=== PATIENT | male | born 1945 | race Caucasian/White ===

== ENCOUNTER 2020-04-19 23:34 | Outpatient (REF) | payer MEDICARE, OTHER, SELFPAY ==
[2020-04-20 10:55] LABS: SARS COV2 PCR INHOUSE NEGATIVE (Negative)
== END 2020-04-19 23:35 | disposition home or self-care (01) ==
LOC: HO.HSH3N 23:34
PROVIDERS: Visit Provider Internal Medicine Critical Care Medicine
DX: Z20.828 Contact with and (suspected) exposure to other viral communicable diseases (principal)
CPT/HCPCS: 87635

== ENCOUNTER 2020-05-05 07:46 | Outpatient (REF) | payer MEDICARE, OTHER, SELFPAY ==
[2020-05-05 10:04] LABS: Anion Gap 11 (12-20); Blood Urea Nitrogen 20 mg/dL (9-16); Carbon Dioxide 34 mmol/L (22-29); Chloride 103 mmol/L (96-108); Estimated Glomerular Filt Rate > 60; Glucose Fasting 84 mg/dL (60-99); Potassium 4.6 mmol/l (3.3-5.1); Sodium 143 mmol/L (135-145)
[2020-05-05 10:26] LABS: Vitamin D 25-OH Total 39.9 ng/mL (>30)
== END 2020-05-05 07:47 | disposition home or self-care (01) ==
LOC: HO.HSH3N 07:46
PROVIDERS: Visit Provider Internal Medicine
DX: J44.9 Chronic obstructive pulmonary disease, unspecified (principal); F03.90 Unspecified dementia, unspecified severity, without behavioral disturbance, psychotic disturbance, mood disturbance, and anxiety
CPT/HCPCS: 80051; 82306; 82565; 82947; 84520

== ENCOUNTER 2020-06-19 07:14 | Outpatient (REF) | payer MEDICARE, OTHER, SELFPAY ==
[2020-06-19 09:18] LABS: Anion Gap 9 (12-20); Blood Urea Nitrogen 15 mg/dL (9-16); Carbon Dioxide 35 mmol/L (22-29); Chloride 102 mmol/L (96-108); Estimated Glomerular Filt Rate > 60; Potassium 4.3 mmol/l (3.3-5.1); Sodium 142 mmol/L (135-145)
== END 2020-06-19 07:15 | disposition home or self-care (01) ==
LOC: HO.HSH3N 07:14
PROVIDERS: Visit Provider Internal Medicine
DX: J44.9 Chronic obstructive pulmonary disease, unspecified (principal); F03.90 Unspecified dementia, unspecified severity, without behavioral disturbance, psychotic disturbance, mood disturbance, and anxiety
CPT/HCPCS: 80051; 82565; 84520

== ENCOUNTER 2020-12-29 06:10 | Outpatient (REF) | payer MEDICARE, OTHER, SELFPAY ==
[2020-12-29 07:52] LABS: MANUAL DIFF FLAG NO
[2020-12-29 07:59] LABS: Basophils Percent Auto 0.5 % (0-2); Eosinophils Absolute Auto 0.5 X10*3/uL (0.0-0.4); Eosinophils Percent Auto 9.4 % (0-4); Hematocrit 44.9 % (42-52); Imm Gran Abs Auto 0.01 X10*3/uL (0.00-0.03); Imm Gran Pct Auto 0.2 % (0.0-0.4); Lymphocytes Absolute Auto 1.9 X10*3/uL (1.2-4.9); Mean Corpuscular HGB Conc 33.4 g/dl (31.0-36.0); Mean Corpuscular Hemoglobin 29.8 pg (27.0-33.0); Mean Corpuscular Volume 89.1 fL (80-98); Monocytes Absolute Auto 0.6 X10*3/uL (0.1-1.2); Monocytes Percent Auto 11.2 % (2-11); Neutrophils Absolute Auto 2.5 X10*3/uL (2.0-8.3); Neutrophils Percent Auto 44.7 % (45-73); Platelet Count 156 X10*3/uL (160-400); Red Blood Count 5.04 X10*6/uL (4.60-5.80); Red Cell Distribution Width 12.7 % (11.0-16.0); White Blood Count 5.6 X10*3/uL (4.8-10.8)
[2020-12-29 09:06] LABS: Alanine Aminotransferase 15 U/L (0-40); Albumin Level 3.6 g/dL (3.5-5.0); Alkaline Phosphatase 73 U/L (39-117); Anion Gap 12 (12-20); Aspartate Amino Transferase 24 U/L (5-37); Bilirubin Direct 0.2 mg/dL (0.0-0.5); Bilirubin Total 0.3 mg/dL (0.0-1.0); Blood Urea Nitrogen 15 mg/dL (9-16); Calcium 8.9 mg/dL (8.4-10.2); Carbon Dioxide 33 mmol/L (22-29); Chloride 103 mmol/L (96-108); Estimated Glomerular Filt Rate > 60; Glucose Fasting 111 mg/dL (60-99); Potassium 3.9 mmol/L (3.3-5.1); Sodium 144 mmol/L (135-145); Total Protein 6.1 g/dL (6.5-8.0)
[2020-12-29 09:29] LABS: Thyroid Stimulating Hormone 1.22 uIU/mL (0.32-4.0); Vitamin D 25-OH Total 38.7 ng/mL (>30)
== END 2020-12-29 06:11 | disposition home or self-care (01) ==
LOC: HO.HSH3N 06:10
PROVIDERS: Visit Provider Nurse Practitioner Acute Care
DX: N18.9 Chronic kidney disease, unspecified (principal); E55.9 Vitamin D deficiency, unspecified
CPT/HCPCS: 36415; 80053; 80076; 82248; 82306; 82947; 84443; 85025

== ENCOUNTER 2021-02-24 05:46 | Outpatient (REF) | payer MEDICARE, OTHER, SELFPAY ==
[2021-02-24 08:09] LABS: Anion Gap 10 (12-20); Blood Urea Nitrogen 15 mg/dL (9-16); Calcium 9.1 mg/dL (8.4-10.2); Carbon Dioxide 33 mmol/L (22-29); Chloride 101 mmol/L (96-108); Estimated Glomerular Filt Rate > 60; Glucose Fasting 117 mg/dL (60-99); Potassium 4.1 mmol/L (3.3-5.1); Sodium 140 mmol/L (135-145)
== END 2021-02-24 05:47 | disposition home or self-care (01) ==
LOC: HO.HSH3N 05:46
PROVIDERS: Visit Provider Nurse Practitioner Acute Care
DX: I10 Essential (primary) hypertension (principal)
CPT/HCPCS: 36415; 80048

== ENCOUNTER 2021-07-23 05:43 | Outpatient (REF) | payer MEDICARE, OTHER, SELFPAY ==
[2021-07-23 09:01] LABS: Valproate 10.3 mcg/mL (50.0-100.0)
== END 2021-07-23 05:44 | disposition home or self-care (01) ==
LOC: HO.HSH3N 05:43
PROVIDERS: Visit Provider Nurse Practitioner Acute Care
DX: F29 Unspecified psychosis not due to a substance or known physiological condition (principal); F91.9 Conduct disorder, unspecified; Z79.899 Other long term (current) drug therapy
CPT/HCPCS: 36415; 80164

== ENCOUNTER 2021-08-12 07:11 | Outpatient (REF) | payer MEDICARE, OTHER, SELFPAY ==
[2021-08-12 08:39] LABS: MANUAL DIFF FLAG NO
[2021-08-12 09:16] LABS: Basophils Absolute Auto 0.1 X10*3/uL (0.0-0.2); Basophils Percent Auto 0.7 % (0-2); Eosinophils Absolute Auto 0.7 X10*3/uL (0.0-0.4); Eosinophils Percent Auto 9.5 % (0-4); Hematocrit 46.6 % (42.0-52.0); Hemoglobin 15.6 g/dl (14.0-18.0); Imm Gran Abs Auto 0.02 X10*3/uL (0.00-0.03); Imm Gran Pct Auto 0.3 % (0.0-0.4); Lymphocytes Absolute Auto 2.2 X10*3/uL (1.2-4.9); Lymphocytes Percent Auto 32.1 % (20-40); Mean Corpuscular HGB Conc 33.5 g/dl (31.0-36.0); Mean Corpuscular Hemoglobin 30.1 pg (27.0-33.0); Mean Platelet Volume 10.2 fL (9.4-12.4); Monocytes Absolute Auto 0.7 X10*3/uL (0.1-1.2); Monocytes Percent Auto 10.7 % (2-11); Neutrophils Absolute Auto 3.2 x10*3/uL (2.0-8.3); Neutrophils Percent Auto 46.7 % (45-73); Platelet Count 178 X10*3/uL (160-400); Red Blood Count 5.18 X10*6/uL (4.60-5.80); Red Cell Distribution Width 12.9 % (11.0-16.0); White Blood Count 6.9 X10*3/uL (4.8-10.8)
[2021-08-12 09:21] LABS: INTERNATIONAL NORM RATIO 1.1 (0.9-1.1); Prothrombin Time 12.1 SEC (9.9-13.0)
[2021-08-12 09:46] LABS: Alanine Aminotransferase 20 U/L (0-40); Albumin Level 3.8 g/dL (3.5-5.0); Alkaline Phosphatase 65 U/L (39-117); Aspartate Amino Transferase 26 U/L (5-37); Bilirubin Direct 0.4 mg/dL (0.0-0.5); Bilirubin Total 0.8 mg/dL (0.0-1.0); Total Protein 6.4 g/dL (6.5-8.0)
[2021-08-12 10:10] LABS: Vitamin D 25-OH Total 44.8 ng/mL (>30)
== END 2021-08-12 07:12 | disposition home or self-care (01) ==
LOC: HO.HSH3N 07:11
PROVIDERS: Visit Provider Nurse Practitioner Acute Care
DX: I48.91 Unspecified atrial fibrillation (principal); I10 Essential (primary) hypertension
CPT/HCPCS: 36415; 80076; 82306; 85025; 85610

== ENCOUNTER 2021-12-02 06:00 | Outpatient (REF) | payer MEDICARE, SELFPAY ==
[2021-12-02 07:41] LABS: MANUAL DIFF FLAG NO
[2021-12-02 07:43] LABS: Basophils Absolute Auto 0.1 X10*3/uL (0.0-0.2); Eosinophils Absolute Auto 0.6 X10*3/uL (0.0-0.4); Eosinophils Percent Auto 9.1 % (0-4); Hematocrit 47.4 % (42.0-52.0); Imm Gran Abs Auto 0.02 X10*3/uL (0.00-0.03); Imm Gran Pct Auto 0.3 % (0.0-0.4); Lymphocytes Absolute Auto 2.6 X10*3/uL (1.2-4.9); Lymphocytes Percent Auto 37.3 % (20-40); Mean Corpuscular HGB Conc 33.8 g/dl (31.0-36.0); Mean Corpuscular Hemoglobin 30.7 pg (27.0-33.0); Mean Corpuscular Volume 90.8 fL (80.0-98.0); Mean Platelet Volume 10.4 fL (9.4-12.4); Monocytes Absolute Auto 0.8 X10*3/uL (0.1-1.2); Monocytes Percent Auto 11.1 % (2-11); Neutrophils Absolute Auto 2.8 x10*3/uL (2.0-8.3); Neutrophils Percent Auto 41.2 % (45-73); Platelet Count 184 X10*3/uL (160-400); Red Blood Count 5.22 X10*6/uL (4.60-5.80); Red Cell Distribution Width 12.7 % (11.0-16.0); White Blood Count 6.8 X10*3/uL (4.8-10.8)
[2021-12-02 07:57] LABS: Alanine Aminotransferase 19 U/L (0-40); Albumin Level 3.5 g/dL (3.5-5.0); Alkaline Phosphatase 66 U/L (39-117); Anion Gap 12 (12-20); Aspartate Amino Transferase 21 U/L (5-37); Bilirubin Total 0.5 mg/dL (0.0-1.0); Blood Urea Nitrogen 13 mg/dL (9-16); Calcium 9.3 mg/dL (8.4-10.2); Carbon Dioxide 31 mmol/L (22-29); Chloride 100 mmol/L (96-108); Estimated Glomerular Filt Rate > 60; Glucose Random 87 mg/dL (60-115); Magnesium 2.1 mg/dL (1.6-2.6); Potassium 4.1 mmol/L (3.3-5.1); Sodium 139 mmol/L (135-145); Total Protein 6.1 g/dL (6.5-8.0)
[2021-12-02 08:18] LABS: Thyroid Stimulating Hormone 1.58 uIU/mL (0.32-4.0)
== END 2021-12-02 06:01 | disposition home or self-care (01) ==
LOC: HO.HSH3N 06:00
PROVIDERS: Visit Provider Nurse Practitioner Acute Care
DX: Z13.89 Encounter for screening for other disorder (principal)
CPT/HCPCS: 36415; 80053; 83735; 84443; 85025

== ENCOUNTER 2021-12-30 05:34 | Outpatient (REF) | payer MEDICARE, OTHER, SELFPAY ==
[2021-12-30 09:09] LABS: Prostate Specific Antigen 0.29 ng/mL (<0.05-4.0); Vitamin D 25-OH Total 48.4 ng/mL (>30)
[2021-12-30 10:09] LABS: Vitamin B12 556 pg/mL (200-900)
== END 2021-12-30 05:35 | disposition home or self-care (01) ==
LOC: HO.HSH3N 05:34
PROVIDERS: Visit Provider Nurse Practitioner Acute Care
DX: F03.90 Unspecified dementia, unspecified severity, without behavioral disturbance, psychotic disturbance, mood disturbance, and anxiety (principal); I48.91 Unspecified atrial fibrillation; Z12.5 Encounter for screening for malignant neoplasm of prostate
CPT/HCPCS: 36415; 82306; 82607; 82746; 84153

== ENCOUNTER 2022-04-04 05:37 | Outpatient (REF) | payer MEDICARE, OTHER, SELFPAY ==
[2022-04-04 07:50] LABS: MANUAL DIFF FLAG NO
[2022-04-04 07:55] LABS: Basophils Absolute Auto 0.1 X10*3/uL (0.0-0.2); Basophils Percent Auto 0.9 % (0-2); Eosinophils Absolute Auto 0.5 X10*3/uL (0.0-0.4); Eosinophils Percent Auto 9.4 % (0-4); Hematocrit 40.1 % (42.0-52.0); Hemoglobin 13.6 g/dl (14.0-18.0); Imm Gran Abs Auto 0.01 X10*3/uL (0.00-0.03); Imm Gran Pct Auto 0.2 % (0.0-0.4); Lymphocytes Absolute Auto 1.8 X10*3/uL (1.2-4.9); Lymphocytes Percent Auto 33.2 % (20-40); Mean Corpuscular HGB Conc 33.9 g/dl (31.0-36.0); Mean Corpuscular Hemoglobin 30.1 pg (27.0-33.0); Mean Corpuscular Volume 88.7 fL (80.0-98.0); Mean Platelet Volume 10.6 fL (9.4-12.4); Monocytes Absolute Auto 0.6 X10*3/uL (0.1-1.2); Monocytes Percent Auto 11.6 % (2-11); Neutrophils Absolute Auto 2.4 x10*3/uL (2.0-8.3); Neutrophils Percent Auto 44.7 % (45-73); Platelet Count 177 X10*3/uL (160-400); Red Blood Count 4.52 X10*6/uL (4.60-5.80); Red Cell Distribution Width 12.3 % (11.0-16.0); White Blood Count 5.5 X10*3/uL (4.8-10.8)
[2022-04-04 09:09] LABS: Alanine Aminotransferase 11 U/L (0-40); Albumin Level 3.6 g/dL (3.5-5.0); Alkaline Phosphatase 80 U/L (39-117); Anion Gap 13 (12-20); Aspartate Amino Transferase 20 U/L (5-37); Bilirubin Total 0.5 mg/dL (0.0-1.0); Blood Urea Nitrogen 16 mg/dL (9-16); Calcium 9.2 mg/dL (8.4-10.2); Carbon Dioxide 33 mmol/L (22-29); Chloride 97 mmol/L (96-108); Cholesterol 127 mg/dL; Estimated Glomerular Filt Rate > 60; Glucose Fasting 91 mg/dL (60-99); HDL Cholesterol 30 mg/dL; LDL Cholesterol Calculated 75 mg/dl; Potassium 4.4 mmol/L (3.3-5.1); Sodium 139 mmol/L (135-145); Total Protein 6.2 g/dL (6.5-8.0); Triglycerides 113 mg/dL
[2022-04-04 09:23] LABS: Prostate Specific Antigen 1.81 ng/mL (<0.05-4.0); Valproate 22.7 mcg/mL (50.0-100.0); Vitamin D 25-OH Total 59.1 ng/mL (>30)
== END 2022-04-04 05:38 | disposition home or self-care (01) ==
LOC: HO.HSH3N 05:37
PROVIDERS: Visit Provider Internal Medicine Medical Oncology
DX: R63.4 Abnormal weight loss (principal); I10 Essential (primary) hypertension; E78.5 Hyperlipidemia, unspecified; Z12.5 Encounter for screening for malignant neoplasm of prostate; Z79.899 Other long term (current) drug therapy
CPT/HCPCS: 36415; 80053; 80061; 80164; 82306; 84153; 85025

== ENCOUNTER 2022-04-26 09:21 | Outpatient (REF) | payer MEDICARE, OTHER, SELFPAY ==
[2022-04-26 09:57] LABS: MANUAL DIFF FLAG NO
[2022-04-26 09:59] LABS: Basophils Percent Auto 0.3 % (0-2); Eosinophils Absolute Auto 0.1 X10*3/uL (0.0-0.4); Eosinophils Percent Auto 0.8 % (0-4); Hematocrit 43.7 % (42.0-52.0); Imm Gran Abs Auto 0.06 X10*3/uL (0.00-0.03); Imm Gran Pct Auto 0.5 % (0.0-0.4); Lymphocytes Absolute Auto 1.8 X10*3/uL (1.2-4.9); Lymphocytes Percent Auto 15.6 % (20-40); Mean Corpuscular HGB Conc 34.3 g/dl (31.0-36.0); Mean Corpuscular Hemoglobin 29.6 pg (27.0-33.0); Mean Corpuscular Volume 86.4 fL (80.0-98.0); Mean Platelet Volume 10.1 fL (9.4-12.4); Monocytes Absolute Auto 1.4 X10*3/uL (0.1-1.2); Monocytes Percent Auto 12.4 % (2-11); Neutrophils Percent Auto 70.4 % (45-73); Platelet Count 268 X10*3/uL (160-400); Red Blood Count 5.06 X10*6/uL (4.60-5.80); Red Cell Distribution Width 13.1 % (11.0-16.0); White Blood Count 11.4 X10*3/uL (4.8-10.8)
[2022-04-26 11:16] LABS: Anion Gap 20 (12-20); Blood Urea Nitrogen 59 mg/dL (9-16); Calcium 9.7 mg/dL (8.4-10.2); Carbon Dioxide 23 mmol/L (22-29); Chloride 95 mmol/L (96-108); Estimated Glomerular Filt Rate 21; Glucose Random 113 mg/dL (60-115); Potassium 4.2 mmol/L (3.3-5.1); Sodium 134 mmol/L (135-145)
== END 2022-04-26 09:22 | disposition home or self-care (01) ==
LOC: HO.HSH3N 09:21
PROVIDERS: Visit Provider Nurse Practitioner
DX: Z13.89 Encounter for screening for other disorder (principal)
CPT/HCPCS: 36415; 80048; 85025

== ENCOUNTER 2022-04-26 14:17 | Inpatient (IN) | payer OTHER, MEDICARE, SELFPAY ==
[2022-04-26] VITALS (9 sets, daily range): BP systolic 80–155; BP diastolic 48–84; PULSE 57–102; RESP 16–20; TEMP 36.4–36.6; O2SAT 94–98; BMI 28.0
--- NOTE | ~2022-04-26 | CT_ITS ---
EXAMINATION: CT ABDOMEN AND PELVIS WITHOUT CONTRAST CLINICAL INFORMATION: Abdominal pain. Rule out obstruction. COMPARISON: None TECHNIQUE: Multidetector volumetric imaging was performed from the superior aspect of the liver through the pubic symphysis. Sagittal and coronal reformatted images were obtained on the technologist's workstation. This CT examination was performed using dose optimization techniques as appropriate, variously including the following: *Automated exposure control *Adjustment of mA and/or kV according to patient size (this includes techniques or standardized protocols for targeted exams where dose is matched to indication/reason for exam; i.e. extremities or head) *Use of iterative reconstruction technique DLP: 899 mGy-cm FINDINGS: Exam is limited due to motion. LUNG BASES: Emphysematous changes at the lung bases. LIVER, GALLBLADDER, AND BILIARY TREE: The liver is normal in size, shape, and attenuation. No focal hepatic lesion or biliary ductal dilatation is present. The gallbladder is normal in size. There is high attenuation dependently in the gallbladder suggestive of small gallstones. PANCREAS: Unremarkable. SPLEEN: Unremarkable. ADRENAL GLANDS: Unremarkable. KIDNEYS AND URETERS: Small bilateral calcifications, question representing vascular calcifications as opposed to stones. 1.5 cm cyst in the upper pole of the left kidney. No imaging follow-up. No hydronephrosis, ureteral dilatation or ureteral stone. BLADDER: Unremarkable. GASTROINTESTINAL TRACT: There is severe diverticulosis of the colon. No evidence of diverticulitis. Small and large bowel are normal in caliber. They appear fluid-filled questionable for an ileus. The appendix is not seen. The stomach is distended and fluid-filled. ABDOMINAL WALL: No significant hernia is appreciated. LYMPH NODES: Normal. VASCULAR: Atherosclerotic disease. Mild dilatation of the lower abdominal aorta measuring 2.8 x 3.3 cm. PELVIC VISCERA: Unremarkable. OSSEOUS STRUCTURES: Degenerative changes of the spine and hip joints. CT/CT abdomen pelvis wo IV con IMPRESSION: Limited exam due to motion. Severe diverticulosis of the colon. No evidence of diverticulitis. Small bilateral renal calcifications probably representing vascular calcifications as opposed to stones. No hydronephrosis, ureteral dilatation or ureteral stone. Fluid-filled stomach, small bowel and large bowel probably representing an ileus. No dilated loops of bowel to suggest obstruction. Fleischner guidelines were followed.
--- NOTE | ~2022-04-26 | XR_ITS ---
EXAMINATION: XR CHEST CLINICAL INFORMATION: Hypotension. COMPARISON: None TECHNIQUE: Frontal view of the chest was obtained. FINDINGS: Atherosclerotic disease of the thoracic aorta and coronary vascular calcifications. Normal size of the cardiomediastinal silhouette. Engorgement of the central pulmonary vasculature with diffuse interstitial thickening and increased radiolucency in the upper lobes. No focal airspace opacities, pleural effusions or pneumothorax. No acute osseous abnormalities. Degenerative changes of the shoulders. XR/XR chest 1V IMPRESSION: Engorgement of the central pulmonary vasculature raises the possibility of pulmonary hypertension in the appropriate clinical context. Increased interstitial markings with lucency of the upper lobe suggesting underlying emphysematous changes. However, a superimposed atypical infectious or inflammatory process is difficult to exclude. No focal consolidation. Clear pleural spaces.
--- NOTE | 2022-04-26 14:55 | PC.NURSE ---
patient removed IV increased confusion and climbing out of bed required 1:1 sitter and new placement IV . BP Improving . from 77/53 - 82/61 - 103 / 55 . Provider aware . patient aware of plan of care .
--- NOTE | 2022-04-26 15:30 | PC.NURSE ---
patient a/o to self has history of vascular dementia . patient presented to ED hypotensive with blood pressure of 77/[address] Derrek De Leon made aware at bedside . Two IV placed and fluids started as ordered . patient labs drawn and sent . patient positioned in trendelenburg . patient aware of plan of care .
[2022-04-26] MEDS: 0.9 % Sodium Chloride 3,000 ML 999 ML IVCONT (15:32)
--- NOTE | 2022-04-26 15:34 | ED.GENADULT ---
HPI - General Adult General Chief complaint: General Medical Stated complaint: UNREADABLE Time Seen by Provider: 04/26/22 14:57 Source: EMS Mode of arrival: EMS Limitations: no limitations History of Present Illness HPI narrative: Patient comes to the emergency room via EMS. Patient is coming from a assisted facility, they reported the patient's creatinine was elevated. Patient has no complaints, unable to give any significant hx. However, on arrival, it was noted that patient's blood pressure was in the low 70s. Per EMS, the initial blood pressure was 110 systolic. Patient states that he has ?a head cold? has no other complaints, denies chest pain or shortness of breath. Patient has history of vascular dementia and is unable to give any significant history. Per EMS, the staff reported that the patient's mental status is at baseline Related Data Home Medications Medication Instructions Recorded Confirmed amoxicillin 500 mg capsule 1 cap PO TID 04/26/22 04/26/22 apixaban 5 mg tablet (Eliquis) 1 tab PO BID 04/26/22 04/26/22 divalproex 250 mg tablet,delayed 1 tab PO BID 04/26/22 04/26/22 release donepezil 5 mg tablet 1 tab PO DAILY 04/26/22 04/26/22 fluticasone propionate 50 spray intranasal 04/26/22 mcg/actuation nasal spray,suspension hydrochlorothiazide 25 mg tablet 1 tab PO DAILY 04/26/22 04/26/22 lisinopril 10 mg tablet 1 tab PO DAILY 04/26/22 04/26/22 metoprolol tartrate 25 mg tablet 1 tab PO DAILY 04/26/22 04/26/22 quetiapine 50 mg tablet tab PO 04/26/22 sertraline 50 mg tablet 1 tab PO DAILY 04/26/22 04/26/22 Allergies Allergy/AdvReac Type Severity Reaction Status Date / Time No Known Allergies Allergy Unverified 03/19/20 19:42 [No Known Allergies*] Review of Systems Review of Systems: Complaining of ?head cold? Yes Unobtainable due to mental condition (Vascular dementia) FOR[facility]LY [facility] Past Medical History Medical History COPD (chronic obstructive pulmonary disease) Hyperlipidemia Hypertension Vascular dementia Social History Social History Advance Directives: Yes Advance Directives on File: Yes Advance Directives Date on File: 04/26/22 Physical Exam ED Vital Signs: Vital Signs - 24 hr 04/26/22 14:42 04/26/22 17:14 04/26/22 19:36 Temperature 97.8 F 97.6 F Pulse Rate 80 57 88 Respiratory Rate 16 16 Blood Pressure 80/48 L 108/61 113/65 Pulse Oximetry 96 96 98 Oxygen Delivery Method Room Air Room Air Room Air BMI result Body Mass Index 28.0 Const Other: Appearance: Alert. Oriented X2 at baseline. No acute distress. Eyes: Pupils equal, round and reactive to light. ENT: Pharynx normal. Neck: Normal inspection. Neck supple. No lymph nodes noted. No crepitus CVS: Normal heart rate and rhythm. Pulses normal. Normal S1 and S2 Respiratory: No respiratory distress. Breath sounds normal. No Wheezing. No rales Abdomen: Soft and nontender. No rigidity. No distention. Skin: Skin warm and dry. Normal skin color. Normal skin turgor. Extremities: No lower extremity edema. No Lacerations. No Rash Neuro: Oriented X 2. No motor deficit. No sensory deficit. Moving all extremities. No slurred speech. CN 2 through 12 grossly intact Psych: calm, cooperative, slightly agitated Course Course Course Narrative: On arrival, patient's blood pressure was noted to be in the low 70s, patient was put on Trental upper position and given 3 L of normal saline. Reviewing patient's labs which were done at the nursing facility earlier today, patient's creatinine is 2.9 Patient's blood pressure improved to 110 systolic, no fever I was informed by the patient's nurse that the patient ripped out his IVs, now he has a one-to-one sitter Even with a sitter, patient managed to remove 5 IVs. At this time, patient has his 6 IV and, patient getting Haldol and diphenhydramine IM. CT scan of the abdomen will be done shortly to rule out any abdominal/urologic obstruction. Patient's creatinine did not improve despite 3 L of normal saline Medical Decision Making Lab Data Result diagrams: 04/26/22 15:56 04/26/22 15:56 Labs: Lab Results 04/26/22 04/26/22 04/26/22 Range/Units 15:56 15:56 15:56 WBC 10.5 (4.8-10.8) X10*3/uL RBC 4.74 (4.60-5.80) X10*6/uL Hgb 14.2 (14.0-18.0) g/dl Hct 41.6 L (42.0-52.0) % MCV 87.8 (80.0-98.0) fL MCH 30.0 (27.0-33.0) pg MCHC 34.1 (31.0-36.0) g/dl RDW 13.1 (11.0-16.0) % Plt Count 238 (160-400) X10*3/uL MPV 10.1 (9.4-12.4) fL Immature Gran % (Auto) 0.4 (0.0-0.4) % Neut % (Auto) 67.6 (45-73) % Lymph % (Auto) 17.2 L (20-40) % [place] % (Auto) 13.6 H (2-11) % Eos % (Auto) 0.8 (0-4) % Baso % (Auto) 0.4 (0-2) % Lymph # (Auto) 1.8 (1.2-4.9) X10*3/uL [place] # (Auto) 1.4 H (0.1-1.2) X10*3/uL Eos # (Auto) 0.1 (0.0-0.4) X10*3/uL Baso # (Auto) 0.0 (0.0-0.2) X10*3/uL Abs Immat Gran (auto) 0.04 H (0.00-0.03) X10*3/uL Absolute Neuts (auto) 7.1 (2.0-8.3) x10*3/uL Absolute Nucleated RBC 0.000 (0.0-0.012) X10*3/uL Nucleated RBC % (auto) 0.0 (0.0-0.2) /100WBC PT 17.1 H (10.0-13.1) SEC INR 1.5 H (0.9-1.1) Sodium 133 L (135-145) mmol/L Potassium 3.6 (3.3-5.1) mmol/L Chloride 98 (96-108) mmol/L Carbon Dioxide 19 L (22-29) mmol/L Anion Gap 20 (12-20) BUN 60 H (9-16) mg/dL Creatinine 2.90 H (0.5-1.4) mg/dL Estim Creat Clear Calc 24.6 Estimated GFR 21 Random Glucose 107 (60-115) mg/dL Lactic Acid (0.5-2.0) mmol/L Calcium 8.6 D (8.4-10.2) mg/dL Magnesium 1.5 L (1.6-2.6) mg/dL Total Bilirubin 0.7 (0.0-1.0) mg/dL Direct Bilirubin 0.4 (0.0-0.5) mg/dL AST 17 (5-37) U/L ALT < 6 (0-40) U/L Alkaline Phosphatase 68 (39-117) U/L Troponin I High Sens (<3.5-35.0) ng/L Total Protein 6.4 L (6.5-8.0) g/dL Albumin 3.6 (3.5-5.0) g/dL Lipase 17 (8-78) U/L TSH (0.32-4.0) uIU/mL COVID-19 (SURAJ) (Negative) COVID-19 Clin Com 04/26/22 04/26/22 04/26/22 Range/Units 15:56 15:56 15:56 WBC (4.8-10.8) X10*3/uL RBC (4.60-5.80) X10*6/uL Hgb (14.0-18.0) g/dl Hct (42.0-52.0) % MCV (80.0-98.0) fL MCH (27.0-33.0) pg MCHC (31.0-36.0) g/dl RDW (11.0-16.0) % Plt Count (160-400) X10*3/uL MPV (9.4-12.4) fL Immature Gran % (Auto) (0.0-0.4) % Neut % (Auto) (45-73) % Lymph % (Auto) (20-40) % [place] % (Auto) (2-11) % Eos % (Auto) (0-4) % Baso % (Auto) (0-2) % Lymph # (Auto) (1.2-4.9) X10*3/uL [place] # (Auto) (0.1-1.2) X10*3/uL Eos # (Auto) (0.0-0.4) X10*3/uL Baso # (Auto) (0.0-0.2) X10*3/uL Abs Immat Gran (auto) (0.00-0.03) X10*3/uL Absolute Neuts (auto) (2.0-8.3) x10*3/uL Absolute Nucleated RBC (0.0-0.012) X10*3/uL Nucleated RBC % (auto) (0.0-0.2) /100WBC PT (10.0-13.1) SEC INR (0.9-1.1) Sodium (135-145) mmol/L Potassium (3.3-5.1) mmol/L Chloride (96-108) mmol/L Carbon Dioxide (22-29) mmol/L Anion Gap (12-20) BUN (9-16) mg/dL Creatinine (0.5-1.4) mg/dL Estim Creat Clear Calc Estimated GFR Random Glucose (60-115) mg/dL Lactic Acid 2.5 H* (0.5-2.0) mmol/L Calcium (8.4-10.2) mg/dL Magnesium (1.6-2.6) mg/dL Total Bilirubin (0.0-1.0) mg/dL Direct Bilirubin (0.0-0.5) mg/dL AST (5-37) U/L ALT (0-40) U/L Alkaline Phosphatase (39-117) U/L Troponin I High Sens < 3.5 (<3.5-35.0) ng/L Total Protein (6.5-8.0) g/dL Albumin (3.5-5.0) g/dL Lipase (8-78) U/L TSH 1.53 (0.32-4.0) uIU/mL COVID-19 ([facility]) (Negative) COVID-19 Clin Com 04/26/22 Range/Units 15:57 WBC (4.8-10.8) X10*3/uL RBC (4.60-5.80) X10*6/uL Hgb (14.0-18.0) g/dl Hct (42.0-52.0) % MCV (80.0-98.0) fL MCH (27.0-33.0) pg MCHC (31.0-36.0) g/dl RDW (11.0-16.0) % Plt Count (160-400) X10*3/uL MPV (9.4-12.4) fL Immature Gran % (Auto) (0.0-0.4) % Neut % (Auto) (45-73) % Lymph % (Auto) (20-40) % [place] % (Auto) (2-11) % Eos % (Auto) (0-4) % Baso % (Auto) (0-2) % Lymph # (Auto) (1.2-4.9) X10*3/uL [place] # (Auto) (0.1-1.2) X10*3/uL Eos # (Auto) (0.0-0.4) X10*3/uL Baso # (Auto) (0.0-0.2) X10*3/uL Abs Immat Gran (auto) (0.00-0.03) X10*3/uL Absolute Neuts (auto) (2.0-8.3) x10*3/uL Absolute Nucleated RBC (0.0-0.012) X10*3/uL Nucleated RBC % (auto) (0.0-0.2) /100WBC PT (10.0-13.1) SEC INR (0.9-1.1) Sodium (135-145) mmol/L Potassium (3.3-5.1) mmol/L Chloride (96-108) mmol/L Carbon Dioxide (22-29) mmol/L Anion Gap (12-20) BUN (9-16) mg/dL Creatinine (0.5-1.4) mg/dL Estim Creat Clear Calc Estimated GFR Random Glucose (60-115) mg/dL Lactic Acid (0.5-2.0) mmol/L Calcium (8.4-10.2) mg/dL Magnesium (1.6-2.6) mg/dL Total Bilirubin (0.0-1.0) mg/dL Direct Bilirubin (0.0-0.5) mg/dL AST (5-37) U/L ALT (0-40) U/L Alkaline Phosphatase (39-117) U/L Troponin I High Sens (<3.5-35.0) ng/L Total Protein (6.5-8.0) g/dL Albumin (3.5-5.0) g/dL Lipase (8-78) U/L TSH (0.32-4.0) uIU/mL COVID-19 ([facility]) Negative (Negative) COVID-19 Clin Com See Note Critical Care Time Critical Care Time Critical Care Time: Yes Total Critical Care Time: 60 Attestation: I have personally provided critical care time. Time includes review of lab data, radiology results, discussion with consultants, and monitoring for potential decompensation. Intervention performed as documented. Discharge Plan Discharge Clinical Impression: MAYRA (acute kidney injury) Patient Disposition: Admitted As Inpatient
[2022-04-26 16:04] LABS: MANUAL DIFF FLAG NO
[2022-04-26 16:07] LABS: Basophils Percent Auto 0.4 % (0-2); Eosinophils Absolute Auto 0.1 X10*3/uL (0.0-0.4); Eosinophils Percent Auto 0.8 % (0-4); Hematocrit 41.6 % (42.0-52.0); Hemoglobin 14.2 g/dl (14.0-18.0); Imm Gran Abs Auto 0.04 X10*3/uL (0.00-0.03); Imm Gran Pct Auto 0.4 % (0.0-0.4); Lymphocytes Absolute Auto 1.8 X10*3/uL (1.2-4.9); Lymphocytes Percent Auto 17.2 % (20-40); Mean Corpuscular HGB Conc 34.1 g/dl (31.0-36.0); Mean Corpuscular Volume 87.8 fL (80.0-98.0); Mean Platelet Volume 10.1 fL (9.4-12.4); Monocytes Absolute Auto 1.4 X10*3/uL (0.1-1.2); Monocytes Percent Auto 13.6 % (2-11); Neutrophils Absolute Auto 7.1 x10*3/uL (2.0-8.3); Neutrophils Percent Auto 67.6 % (45-73); Platelet Count 238 X10*3/uL (160-400); Red Blood Count 4.74 X10*6/uL (4.60-5.80); Red Cell Distribution Width 13.1 % (11.0-16.0); White Blood Count 10.5 X10*3/uL (4.8-10.8)
[2022-04-26 16:16] LABS: INTERNATIONAL NORM RATIO 1.5 (0.9-1.1); Prothrombin Time 17.1 SEC (10.0-13.1)
[2022-04-26 16:19] LABS: Lactic Acid 2.5 mmol/L (0.5-2.0)
[2022-04-26 16:21] LABS: COVID-19 Test Negative (Negative)
[2022-04-26 16:29] LABS: Troponin-I High Sensitivity < 3.5 ng/L (<3.5-35.0)
[2022-04-26 16:31] LABS: Alanine Aminotransferase < 6 U/L (0-40); Albumin Level 3.6 g/dL (3.5-5.0); Alkaline Phosphatase 68 U/L (39-117); Anion Gap 20 (12-20); Aspartate Amino Transferase 17 U/L (5-37); Bilirubin Direct 0.4 mg/dL (0.0-0.5); Bilirubin Total 0.7 mg/dL (0.0-1.0); Blood Urea Nitrogen 60 mg/dL (9-16); Calcium 8.6 mg/dL (8.4-10.2); Carbon Dioxide 19 mmol/L (22-29); Chloride 98 mmol/L (96-108); Creatinine Clr Calc Pharmacy 24.6; Estimated Glomerular Filt Rate 21; Glucose Random 107 mg/dL (60-115); Lipase 17 U/L (8-78); Magnesium 1.5 mg/dL (1.6-2.6); Potassium 3.6 mmol/L (3.3-5.1); Sodium 133 mmol/L (135-145); Total Protein 6.4 g/dL (6.5-8.0)
[2022-04-26 16:43] LABS: TSH reflex Free T4 1.53 uIU/mL (0.32-4.0)
[2022-04-26] MEDS: Acetaminophen 325 MG TABLET 975 MG PO (17:19)
[2022-04-26 18:02] LABS: Reflex Lactate? Lactic Acid Added
[2022-04-26] MEDS: Haloperidol Lactate 5 MG/ML VIAL IM (20:05)
[2022-04-26] MEDS: diphenhydrAMINE HCL 50 MG/ML VIAL IM (20:05)
--- NOTE | 2022-04-26 20:08 | PC.NURSE ---
Pt. on assistant grocery at this time. Given IM Benadryl and Haldol
--- NOTE | 2022-04-26 21:06 | PC.NURSE ---
Addendum entered by Jennie Wan RN 04/26/22 21:12: 2111: Patient up to commode again for his third liquid stool of the evening. MD Knox made aware. Patient remains confused, angry, and requiring frequent redirection. Original Note: Care of patient assumed at 1900. Patient found seated on commode swearing at 2 sales special agent helping him. He also pulls out his IV at this time. Per nursing report, this is the 4th IV patient has pulled out. He is oriented to self, otherwise confused. He keeps repeating I need tylenol and apple juice. Previous RN spoke with patient's daughter, who had concerns that patient was receiving too much tylenol at SNF.
--- NOTE | 2022-04-26 21:36 | PC.NURSE ---
MD Knox made aware that patient remains restless, angry, needing almost [id number] redirection. This RN to place another IV (that patient will likely rip out) to give magnesium.
--- NOTE | 2022-04-26 21:45 | PHA.MEDREC ---
Pharmacy Consult ? Medication Reconciliation Pharmacy has completed the medication reconciliation.
--- NOTE | 2022-04-26 21:51 | PC.NURSE ---
MD Knox bedside now. Patient is on the commode for another episode of diarrhea. Another PIV placed. Patient remains angry, restless.
--- NOTE | 2022-04-26 21:55 | P.HPHOSP_ITS ---
History of Present Illness Date of Service: 04/26/22 Attending physician on admission: Steve Knox Chief Complaint: MAYRA 77-year-old male with history of depression, psychosis, dementia without behavioral disturbance, anxiety, atrial fibrillation anticoagulated with Eliquis, PTSD, COPD, hyperlipidemia, hypertension, former smoker residing at the [facility] transferred to the ED via EMS for evaluation of MAYRA. Per nursing notes from facility, the patient has had decreased appetite with increase in creatinine to 2.9 with baseline 0.84/16 on 04/04. The patient is unable to prov hiren much history due to altered mental status which is his baseline. He has been incontinent of feces and has had 4 episodes of diarrhea in the commode since arrival. He has been given 3 L IV fluids with limited improvement in renal function. Creatinine 2.9, BUN 60 in the ED with sodium 133, potassium 3.6, chloride 98, CO2 19. Magnesium 1.5. Hematology studies unremarkable. Patient has not yet produced urine while in the ED, UA pending. CT abdomen/pelvis with severe diverticulosis of colon but no evidence of diverticulitis with small bilateral renal calcifications representing vascular calcifications as opposed to stones. No hydronephrosis, ureteral dilatation or ureteral stone. There is a fluid-filled stomach, small bowel and large bowel probably representing an ileus. No but dilated bowel loops to suggest obstruction. Patient continues to report a head cold requesting tylenol. Negative for COVID-19. Hypotensive on arrival with BP 80/48 with improvement to 129/79 following resuscitation with IVF. Patient is afebrile, vital signs otherwise stable. Review of Systems Review of Systems: ROS: +anorexia, +diarrhea Yes Unobtainable due to mental condition [facility] Medical History (Updated 04/26/22 @ 22:04 by BRAEDEN Nixon) Atrial fibrillation COPD (chronic obstructive pulmonary disease) Depression Hyperlipidemia Hypertension Psychosis Vascular dementia Pertinent family history: Unable to assess due to ams Social History Advance Directives: Yes Advance Directives on File: Yes Advance Directives Date on File: 04/26/22 Meds Allergies Allergy/AdvReac Type Severity Reaction Status Date / Time No Known Allergies Allergy Unverified 03/19/20 19:42 [No Known Allergies*] Active Medications: Current Medications Magnesium Sulfate (Magnesium Sulfate/H2o) 2 gm in 50 mls @ 25 mls/hr IV ONCE ONE Stop: 04/26/22 23:32 Home Medications Medication Instructions Recorded Confirmed Last Taken Type apixaban 5 mg tablet (Eliquis) 1 tab PO BID 04/26/22 04/26/22 04/26/22 History aspirin 81 mg tablet,delayed 81 mg PO DAILY 04/26/22 04/26/22 04/26/22 History release atorvastatin 10 mg tablet (Lipitor) 10 mg PO BEDTIME 04/26/22 04/26/22 04/25/22 History cholecalciferol (vitamin D3) 25 50 mcg PO DAILY 04/26/22 04/26/22 04/26/22 History mcg (1,000 unit) tablet (Vitamin D3) divalproex 250 mg tablet,delayed 1 tab PO BID 04/26/22 04/26/22 04/26/22 History release docusate sodium 100 mg capsule 100 mg PO DAILY 04/26/22 04/26/22 04/26/22 History (Colace) donepezil 5 mg tablet 1 tab PO DAILY 04/26/22 04/26/22 04/26/22 History fluticasone propionate 50 2 spray intranasal DAILY PRN Nasal 04/26/22 04/26/22 Unknown History mcg/actuation nasal Congestion spray,suspension hydrochlorothiazide 25 mg tablet 1 tab PO DAILY 04/26/22 04/26/22 04/26/22 History lisinopril 10 mg tablet 1 tab PO BEDTIME 04/26/22 04/26/22 04/18/22 History lisinopril 5 mg tablet 5 mg PO BEDTIME 04/26/22 04/26/22 04/25/22 History loratadine 10 mg tablet 10 mg PO DAILY 04/26/22 04/26/22 04/26/22 History metoprolol tartrate 25 mg tablet 12.5 mg PO BID 04/26/22 04/26/22 04/26/22 History quetiapine 50 mg tablet 50 mg PO TID 04/26/22 04/26/22 04/26/22 History sertraline 50 mg tablet 1 tab PO DAILY 04/26/22 04/26/22 04/26/22 History trazodone 50 mg tablet 50 mg PO BEDTIME 04/26/22 04/26/2222 History Physical Exam Vital Signs and Narrative: Vital Signs: Last Vital Signs Temp 97.6 F 04/26/22 19:36 Pulse 94 04/26/22 20:50 Resp 16 04/26/22 20:50 BP 129/79 04/26/22 20:50 Pulse Ox 94 04/26/22 20:50 O2 Del Method 04/26/22 20:35 BMI result Body Mass Index 28.0 Results Labs CBC and Chem 7: 04/26/22 15:56 04/26/22 15:56 Labs: Laboratory Results - last 24 hr 04/26/22 04/26/22 04/26/22 15:56 15:56 15:56 MCV 87.8 MCH 30.0 MCHC 34.1 RDW 13.1 Plt Count 238 MPV 10.1 Immature Gran % (Auto) 0.4 Neut % (Auto) 67.6 Lymph % (Auto) 17.2 L [place] % (Auto) 13.6 H Eos % (Auto) 0.8 Baso % (Auto) 0.4 Lymph # (Auto) 1.8 [place] # (Auto) 1.4 H Eos # (Auto) 0.1 Baso # (Auto) 0.0 Abs Immat Gran (auto) 0.04 H Absolute Neuts (auto) 7.1 Absolute Nucleated RBC 0.000 Nucleated RBC % (auto) 0.0 PT 17.1 H INR 1.5 H Anion Gap 20 Estim Creat Clear Calc 24.6 Estimated GFR 21 Random Glucose 107 Lactic Acid Calcium 8.6 D Magnesium 1.5 L Total Bilirubin 0.7 Direct Bilirubin 0.4 AST 17 ALT < 6 Alkaline Phosphatase 68 Troponin I High Sens Total Protein 6.4 L Albumin 3.6 Lipase 17 TSH COVID-19 ([facility]) COVID-19 Clin Com 04/26/22 04/26/22 04/26/22 15:56 15:56 15:56 MCV MCH MCHC RDW Plt Count MPV Immature Gran % (Auto) Neut % (Auto) Lymph % (Auto) [place] % (Auto) Eos % (Auto) Baso % (Auto) Lymph # (Auto) [place] # (Auto) Eos # (Auto) Baso # (Auto) Abs Immat Gran (auto) Absolute Neuts (auto) Absolute Nucleated RBC Nucleated RBC % (auto) PT INR Anion Gap Estim Creat Clear Calc Estimated GFR Random Glucose Lactic Acid 2.5 H* Calcium Magnesium Total Bilirubin Direct Bilirubin AST ALT Alkaline Phosphatase Troponin I High Sens < 3.5 Total Protein Albumin Lipase TSH 1.53 COVID-19 (SURAJ) COVID-19 Clin Com 04/26/22 15:57 MCV MCH MCHC RDW Plt Count MPV Immature Gran % (Auto) Neut % (Auto) Lymph % (Auto) [place] % (Auto) Eos % (Auto) Baso % (Auto) Lymph # (Auto) [place] # (Auto) Eos # (Auto) Baso # (Auto) Abs Immat Gran (auto) Absolute Neuts (auto) Absolute Nucleated RBC Nucleated RBC % (auto) PT INR Anion Gap Estim Creat Clear Calc Estimated GFR Random Glucose Lactic Acid Calcium Magnesium Total Bilirubin Direct Bilirubin AST ALT Alkaline Phosphatase Troponin I High Sens Total Protein Albumin Lipase TSH COVID-19 ([facility]UR[facility]) Negative COVID-19 Clin Com See Note Imaging Radiologist's Impressions: Impressions Chest X-Ray 04/26/22 16:48 IMPRESSION: Engorgement of the central pulmonary vasculature raises the possibility of pulmonary hypertension in the appropriate clinical context. Increased interstitial markings with lucency of the upper lobe suggesting underlying emphysematous changes. However, a superimposed atypical infectious or inflammatory process is difficult to exclude. No focal consolidation. Clear pleural spaces. Abdomen/Pelvis CT 04/26/22 21:17 IMPRESSION: Limited exam due to motion. Severe diverticulosis of the colon. No evidence of diverticulitis. Small bilateral renal calcifications probably representing vascular calcifications as opposed to stones. No hydronephrosis, ureteral dilatation or ureteral stone. Fluid-filled stomach, small bowel and large bowel probably representing an ileus. No dilated loops of bowel to suggest obstruction. Fleischner guidelines were followed. Assessment and Plan (1) MAYRA (acute kidney injury): Status: Acute (2) Diarrhea: Status: Acute Plan 77-year-old male with history of depression, psychosis, dementia without behavio ral disturbance, anxiety, atrial fibrillation anticoagulated with Eliquis, PTSD, COPD, hyperlipidemia, hypertension, former smoker admitted for MAYRA and diarrhea. #MAYRA likely prerenal secondary to diarrhea/dehydration -Creat 2.9, BUN 60 (baseline 0.84,16 from 04/04 at [facility]) -Given 3L IVF in ED. Continue IVF -UA and bladder scan pending. Consider straight cath >500ml -Follow BMP -nephrology consult placed -Urine creat, sodium pending #Diarrhea- etiology unclear at this time -Afebrile, VSS, no leukocytosis. Lactic acid elevated 2.5 secondary to diarrhea/dehydration, repeat pending. No severe sepsis -CdiFF and GI panel pending -CT abd/pelvis showing ileus. No colitis, diverticulitis -Follow BMP -Keep NPO -Hold abd for now #Acute dehydration -Pt with decreased PO intake/diarrhea -IVF as above #HTN- controlled -Initially hypotensive secondary to dehydration/diarrhea, resolved following IVF -Hold lisinopril and hctz -Continue metoprolol #PAF- rate controlled -Continue eliquis and metoprolol #COPD- without exacerbation -Albuterol prn #HLD -Continue statin #Dementia without behavioral disturbance -continue donezapil and seroquel #depression/anxiety/psych disorder -Continue home meds DNR/DNI per [facility] form DVT prophylaxis- on [facility] Healthcare proxy- daughter Candi Jerez Pt requires inpt stay at least 2 midnights for management of MAYRA, dehydration, and acute diarrhea requiring IVF and close monitoring of renal function and electrolyte levels Quality Stroke Does the patient have a stroke diagnosis?: No VTE Prior VTE?: No VTE Risk Level:: Medical - moderate - high VTE Device Contraindication: Treatment Not Indicated VTE Drug Contraindication: N/A - Med Ordered
[2022-04-26] MEDS: Magnesium Sulfate/H2O 2 GM/50 ML PIGGYBACK IV (22:00)
[2022-04-26] MEDS: OLANZapine 10 MG VIAL 5 MG IM ×2 (22:03→23:08)
[2022-04-26] MEDS: Apixaban 5 MG TABLET PO (22:25)
--- NOTE | 2022-04-26 22:25 | PC.NURSE ---
Patient has ripped out IV #5 despite wraps and every intervention.
[2022-04-26] MEDS: Lactated Ringers 1,000 ML 80 ML IVCONT (22:37)
--- NOTE | 2022-04-26 23:08 | PC.NURSE ---
Patient remains confused, actively trying to get out of bed and pull out IVs, yelling and swearing at this RN. MD Knox aware. Patient is so irritable, he doesn't tolerate all vital sign measurements always due to aggression. This RN spoke with both daughters, who agree with patient receiving medications to help him rest/participate in his care.
--- NOTE | 2022-04-26 23:31 | PC.NURSE ---
Patient continues to regularly (several times per minute) climb out of bed and pull his IV out. He is confused, combative at times when staff try to help him, and a risk of safety to himself. MD Knox made aware. Patient has received medications but nothing has made him any more relaxed or calm.
[2022-04-26] MEDS: QUEtiapine Fumarate 50 MG TABLET PO (23:43)
[2022-04-26] MEDS: traZODone HCL 50 MG TABLET PO (23:43)
[2022-04-26] MEDS: OLANZapine 10 MG VIAL IM (23:44)
--- NOTE | 2022-04-26 23:50 | PC.NURSE ---
This RN has been unable to leave patient's room due to safety- patient is confused, constantly trying to get out of bed, pull out his IV, and scootches himself out of bed. Unable to obtain all [id number] vitals with medication administration due to patient agitation and combative nature. MD Knox aware. Plan to order patient's home trazodone/seroquel PM in addition to another dose of IM zyprexa. Patient is increasingly irritable and poses a safety risk to himself. This RN unable to leave the room.
[2022-04-27] VITALS (9 sets, daily range): BP systolic 115–156; BP diastolic 63–78; PULSE 67–99; RESP 15–22; TEMP 36.6–36.8; O2SAT 95–98
[2022-04-27 00:42] LABS: Reflex Lactate? 2 Y
--- NOTE | 2022-04-27 01:27 | PC.NURSE ---
Patient boosted and repositioned several times (at least 20 times within the past hour). He remains confused, tries to get out of bed extremely frequently. Vitals, when patient tolerates them, are stable. Unable to straight cath x1 attempt by this RN and MD Knox made aware. Another RN to try shortly. Current IV has been in place for over an hour which is the longest an IV has stayed in during the ED thus far.
[2022-04-27] MEDS: 0.9 % Sodium Chloride Flush 3 ML SYRINGE IVFLUSH ×3 (01:31→16:07)
[2022-04-27 01:41] LABS: ~Lactic Acid-LAB USE ONLY 2.5 mmol/L (0.5-2.0)
--- NOTE | 2022-04-27 01:59 | PC.NURSE ---
MD Knox bedside with this RN to discuss plan of care. Patient (confused), but saying he needs to urinate. Unable to straight cath patient x this RN and hot metal charger Jhon due to foreskin being hardened/crusted together and unable to separate to pass catheter through . MD Knox made aware and bedside, last bladder scan almost 500cc. MD Martínez in ED to attempt cath/moura.
[2022-04-27] MEDS: Lidocaine HCl 2 % Urojet 10 ML JEL.PF.APP TOPICAL ×2 (02:11)
--- NOTE | 2022-04-27 03:03 | PC.NURSE ---
Addendum entered by Jennie Wan RN 04/27/22 03:58: MD Martínez with lidocaine to attempt to numb the area in order to retract foreskin, small sterile incision made but all attempts unsuccessful. Original Note: This RN bedside with MD Knox and MD Martínez to attempt moura placement. MD Martínez unable to get moura x several attempts. Patient remains confused, combative, shouting/swearing that he needs to pee throughout.
--- NOTE | 2022-04-27 03:35 | PC.NURSE ---
Per Abilio- urology is coming in right now.
--- NOTE | 2022-04-27 04:22 | PC.NURSE ---
Still awaiting urology MD front office help to arrive. In the meantime, patient continues to attempt to get out of bed several times every moment. Bed alarm on and effective, but requiring staff to be present almost 24/7 in patient's room. Given all the meds patient has received, his current bladder scan, and inability to urinate- MD is hopeful once urology arrives and can help patient urinate his agitation will improve some.
--- NOTE | 2022-04-27 05:02 | PC.NURSE ---
This RN and MERCHANDISE TEAM MANAGER Felicita bedside helping keep patient calm and comfortable. He continues to say he needs to urinate but is unable- still awaiting urologist compensation advisor to arrive. Patient's shoulders stroked for comfort and patient talked gently to. He is able to close his eyes and try to rest.
--- NOTE | 2022-04-27 05:55 | PC.NURSE ---
Urology bedside with this RN and MD Knox - SUCCESSFUL moura placement by urology after some attempts. +blood noted from meatus. Patient void 1300cc clear, yellow urine. Moura tubing secured with tape and kerlix (a lot) to ensure patient doesn't pull it out. Patient remains confused, awake, angry. He appears calmer and more comfortable than prior, though does try to climb out of bed.
--- NOTE | 2022-04-27 06:07 | P.CNUR_ITS ---
History of Present Illness Consult details Consult date: 04/27/22 Narrative: 77 year old patient comes to the emergency room via EMS.? Patient is coming from a [facility] facility, they reported the patient's creatinine was elevated.? Patient has no complaints, unable to give any significant hx. ? However, on arrival, it was noted that patient's blood pressure was in the low 70s.? Per EMS, the initial blood pressure was 110 systolic.? Patient states that he has ?a head cold? has no other complaints, denies chest pain or shortness of breath.? Patient has history of vascular dementia and is unable to give any significant history.? Per EMS, the staff reported that the patient's mental status is at baseline Review of Systems Review of Systems: 10 point ROS negative other than stated in HPI [facility] Past Medical History Medical History Atrial fibrillation COPD (chronic obstructive pulmonary disease) Depression Hyperlipidemia Hypertension Psychosis Vascular dementia Social History Social History Advance Directives: Yes Advance Directives on File: Yes Advance Directives Date on File: 04/26/22 Meds Allergies Allergy/AdvReac Type Severity Reaction Status Date / Time No Known Allergies Allergy Unverified 03/19/20 19:42 [No Known Allergies*] Active Medications: Current Medications Acetaminophen (Acetaminophen 325 Mg Tablet) 650 mg PO Q6H PRN PRN Reason: Pain, Mild, fever Apixaban (Apixaban 5 Mg Tablet) 5 mg PO BID [facility] Last Admin: 04/26/22 22:25 Dose: 5 mg Aspirin (Aspirin Enteric Coated 81 Mg Tablet.) 81 mg PO DAILY [facility] Atorvastatin Calcium (Atorvastatin Calcium 10 Mg Tablet) 10 mg PO BEDTIME [facility] Divalproex Sodium (Divalproex Sodium 250 Mg Tablet.) 250 mg PO BID [facility] Docusate Sodium (Docusate Sodium 100 Mg Capsule) 100 mg PO DAILY PRN PRN Reason: Constipation Donepezil HCl (Donepezil Hcl 5 Mg Tablet) 5 mg PO DAILY [facility] Finasteride (Finasteride 5 Mg Tablet) 5 mg PO DAILY [facility] Fluticasone Propionate (Fluticasone Propionate Nasal 16 Gm [place]) 2 spray NOS TRIL-B DAILY PRN PRN Reason: Nasal Congestion Lactated Ringer's (Lr) 1,000 mls @ 80 mls/hr IVCONT .[id number] [facility] Last Admin: 04/26/22 22:37 Dose: 80 mls/hr Loratadine (Loratadine 10 Mg Tablet) 10 mg PO DAILY [facility] Metoprolol Tartrate (Metoprolol Tartrate 12.5 Mg Halftab) 12.5 mg PO BID [facility]; Protocol Olanzapine (Olanzapine 10 Mg Vial) 10 mg IM ONCE PRN PRN Reason: anxiety/restlessness Ondansetron HCl (Ondansetron Hcl 4 Mg/2 Ml Vial) 4 mg IVPUSH Q8H PRN PRN Reason: Nausea and Vomiting Quetiapine Fumarate (Quetiapine Fumarate 50 Mg Tablet) 50 mg PO TID [facility] Sertraline HCl (Sertraline Hcl 50 Mg Tablet) 50 mg PO DAILY [facility] Sodium Chloride (0.9 % Sodium Chloride Flush 3 Ml Syringe) 3 ml IVFLUSH QSHIFT [facility] Last Admin: 04/27/22 01:31 Dose: 3 ml Tamsulosin HCl (Tamsulosin Hcl 0.4 Mg Capsule) 0.4 mg PO DAILY [facility] Trazodone HCl (Trazodone Hcl 50 Mg Tablet) 50 mg PO BEDTIME [facility] Vitamin D (Cholecalciferol (Vitamin D3) 25 Mcg Tablet) 50 mcg PO DAILY [facility] Home Medications Medication Instructions Recorded Confirmed Last Taken Type apixaban 5 mg tablet (Eliquis) 1 tab PO BID 04/26/22 04/26/22 04/26/22 History aspirin 81 mg tablet,delayed 81 mg PO DAILY 04/26/22 04/26/22 04/26/22 History release atorvastatin 10 mg tablet (Lipitor) 10 mg PO BEDTIME 04/26/22 04/26/22 04/25/22 History cholecalciferol (vitamin D3) 25 50 mcg PO DAILY 04/26/22 04/26/22 04/26/22 History mcg (1,000 unit) tablet (Vitamin D3) divalproex 250 mg tablet,delayed 1 tab PO BID 04/26/22 04/26/22 04/26/22 History release docusate sodium 100 mg capsule 100 mg PO DAILY 04/26/22 04/26/22 04/26/22 History (Colace) donepezil 5 mg tablet 1 tab PO DAILY 04/26/22 04/26/22 04/26/22 History fluticasone propionate 50 2 spray intranasal DAILY PRN Nasal 04/26/22 04/26/22 Unknown History mcg/actuation nasal Congestion spray,suspension hydrochlorothiazide 25 mg tablet 1 tab PO DAILY 04/26/22 04/26/22 04/26/22 History lisinopril 10 mg tablet 1 tab PO BEDTIME 04/26/22 04/26/22 04/18/22 History lisinopril 5 mg tablet 5 mg PO BEDTIME 04/26/22 04/26/22 04/25/22 History loratadine 10 mg tablet 10 mg PO DAILY 04/26/22 04/26/22 04/26/22 History metoprolol tartrate 25 mg tablet 12.5 mg PO BID 04/26/22 04/26/22 04/26/22 History quetiapine 50 mg tablet 50 mg PO TID 04/26/22 04/26/22 04/26/22 History sertraline 50 mg tablet 1 tab PO DAILY 04/26/22 04/26/22 04/26/22 History trazodone 50 mg tablet 50 mg PO BEDTIME 04/26/22 04/26/22 04/25/22 History Physical Exam Vital Signs: Vital Signs: Last Vital Signs Temp 97.6 F 04/26/22 19:36 Pulse 99 04/27/22 01:19 Resp 22 H 04/27/22 01:19 BP 126/63 04/27/22 01:19 Pulse Ox 95 04/27/22 01:19 O2 Del Method 04/27/22 01:19 BMI result Body Mass Index 28.0 Const: General: combative Nutritional Appearance: overweight HEENT: Head: Yes normocephalic and Yes atraumatic Eyes: Conjunctivae: conjunctivae normal Neck: Neck: Yes normal visual inspection Chest: Chest palpation & inspection: normal inspection of the chest Resp: Effort & Inspection: normal respiratory effort Cardio: Rate: regular rate GI: Inspection: Yes normal to inspection Palpation (GI): Soft to palpation : Other: prostate exam deferred Male General Exam: Yes other (bladder distended) Penis: phimosis (blood at the foreskin) Scrotum: scrotum normal Skin: General skin exam: no rashes or lesions noted Extrem: General: No pedal edema Psych: Other: combative Appearance: grossly normal Attitude: Other attitude/behavior findings present (Psych) Results Labs Result diagrams: 04/26/22 15:56 04/26/22 15:56 Labs: Abnormal lab results 04/26/22 04/26/22 04/26/22 Range/Units 15:56 15:56 15:56 Hct 41.6 L (42.0-52.0) % Lymph % (Auto) 17.2 L (20-40) % [place] % (Auto) 13.6 H (2-11) % [place] # (Auto) 1.4 H (0.1-1.2) X10*3/uL Abs Immat Gran (auto) 0.04 H (0.00-0.03) X10*3/uL PT 17.1 H (10.0-13.1) SEC INR 1.5 H (0.9-1.1) Sodium 133 L (135-145) mmol/L Carbon Dioxide 19 L (22-29) mmol/L BUN 60 H (9-16) mg/dL Creatinine 2.90 H (0.5-1.4) mg/dL Lactic Acid (0.5-2.0) mmol/L Lactic Acid F/U @ 2Hr (0.5-2.0) mmol/L Lactic Acid F/U @ 4Hr (0.5-2.0) mmol/L Magnesium 1.5 L (1.6-2.6) mg/dL Total Protein 6.4 L (6.5-8.0) g/dL 04/26/22 04/26/22 04/27/22 Range/Units 15:56 22:33 01:12 Hct (42.0-52.0) % Lymph % (Auto) (20-40) % [place] % (Auto) (2-11) % [place] # (Auto) (0.1-1.2) X10*3/uL Abs Immat Gran (auto) (0.00-0.03) X10*3/uL PT (10.0-13.1) SEC INR (0.9-1.1) Sodium (135-145) mmol/L Carbon Dioxide (22-29) mmol/L BUN (9-16) mg/dL Creatinine (0.5-1.4) mg/dL Lactic Acid 2.5 H* (0.5-2.0) mmol/L Lactic Acid F/U @ 2Hr 3.0 H* (0.5-2.0) mmol/L Lactic Acid F/U @ 4Hr 2.5 H* (0.5-2.0) mmol/L Magnesium (1.6-2.6) mg/dL Total Protein (6.5-8.0) g/dL Short CBC 04/26/22 Range/Units 15:56 WBC 10.5 (4.8-10.8) X10*3/uL Hgb 14.2 (14.0-18.0) g/dl Hct 41.6 L (42.0-52.0) % Plt Count 238 (160-400) X10*3/uL BMP 04/26/22 15:56 Sodium 133 L Potassium 3.6 Chloride 98 Carbon Dioxide 19 L BUN 60 H Creatinine 2.90 H Calcium 8.6 D Liver Function 04/26/22 Range/Units 15:56 Total Bilirubin 0.7 (0.0-1.0) mg/dL Direct Bilirubin 0.4 (0.0-0.5) mg/dL AST 17 (5-37) U/L ALT < 6 (0-40) U/L Alkaline Phosphatase 68 (39-117) U/L Albumin 3.6 (3.5-5.0) g/dL All other labs normal. Assessment and Plan (1) MAYRA (acute kidney injury): Status: Acute (2) Urinary retention: Status: Acute (3) BPH loc w urin obs/LUTS: Status: Acute (4) Phimosis: Status: Acute Plan Difficulty moura placement due to phimosis, >1000 L output, please send for U/A with reflex culture Recommend Flomax 0.4 mg daily, finesteride 5 mg daily The patient would benefit from circumcision as an outpatient in the future Procedures Date of Service Date of Service: 04/27/22 Catheter Insertion (Urinary) Date of insertion: 04/27/22 Time of insertion: 05:55 Replacement of catheter present on admission: No Reason for placing: Acute urinary retention Bladder scan/ultrasound used before catheterization: Yes Estimated amount of urine (mLs): 800 Antiseptic solution prep: Povidone-Iodine Topical anesthesia used: No Catheter type/location: 2-way Urethral Size (Faroese): 16 Catheter balloon size (mL): 5 Catheter balloon amount: 10 Results: consulted Procedure performed: without complications Additional comments: The patient was prepped with betadine, penile block performed with 1% Xylocaine 10 mL
[2022-04-27] MEDS: Finasteride 5 MG TABLET PO (06:12)
[2022-04-27] MEDS: Tamsulosin HCL 0.4 MG CAPSULE PO (06:12)
[2022-04-27 06:13] LABS: Appearance Urine Clear; Color Urine Yellow; Glucose Urine UA Negative (Negative); Leukocyte Esterase Urine Negative (Negative); Nitrite Urine Negative (Negative); Specific Gravity - Urine 1.015 (1.005-1.025); UMIC TRIGGER UACC YES; Urine Blood Small (1+) (Negative); Urine Ketones Negative (Negative); Urine Protein Negative (Neg-Trace)
[2022-04-27 06:32] LABS: Creatinine Urine 106.18 mg/dL
[2022-04-27 06:33] LABS: Bacteria Urine None Seen (None Seen); Hyaline Casts Urine >20 /LPF (0-2); Squamous Epithelial Cell Urine 0-2 /HPF (0-2); WBC Urine 0-5 /HPF (0-5)
[2022-04-27 06:34] LABS: Amphetamine Screen Urine Not Detected (Not Detect); Barbiturates, Urine Not Detected (Not Detect); Benzodiazepines Screen Urine Not Detected (Not Detect); Cannabinoid Screen Urine Not Detected (Not Detect); Cocaine Screen Urine Not Detected (Not Detect); Fentanyl, urine POSITIVE (Not Detect); Opiate Screen Urine Not Detected (Not Detect); Phencyclidine Screen Urine Not Detected (Not Detect)
--- NOTE | 2022-04-27 06:52 | PC.NURSE ---
This RN informed ED campus executive director that patient would benefit from a staff member able to sit with and redirect patient. He remains confused despite all interventions. He frequently requires redirection to stay in bed, not pull out his IV, not pull out his moura.
[2022-04-27 08:57] LABS: Anion Gap 18 (12-20); Blood Urea Nitrogen 42 mg/dL (9-16); Calcium 8.9 mg/dL (8.4-10.2); Carbon Dioxide 19 mmol/L (22-29); Chloride 99 mmol/L (96-108); Estimated Glomerular Filt Rate 57; Glucose Random 105 mg/dL (60-115); Magnesium 1.6 mg/dL (1.6-2.6); Potassium 3.3 mmol/L (3.3-5.1); Sodium 133 mmol/L (135-145)
[2022-04-27] MEDS: Sertraline HCL 50 MG TABLET PO (10:19)
[2022-04-27] MEDS: Divalproex Sodium 250 MG TABLET.DR PO ×2 (10:19→21:52)
[2022-04-27] MEDS: Haloperidol Lactate 5 MG/ML VIAL IM (10:19)
[2022-04-27] MEDS: Donepezil HCl 5 MG TABLET PO (10:20)
[2022-04-27] MEDS: Loratadine 10 MG TABLET PO (10:20)
[2022-04-27] MEDS: QUEtiapine Fumarate 50 MG TABLET PO ×3 (10:20→21:52)
[2022-04-27] MEDS: Cholecalciferol (Vitamin D3) 25 MCG TABLET 50 MCG PO (10:20)
[2022-04-27] MEDS: Metoprolol Tartrate 12.5 MG HALFTAB PO ×2 (10:27→21:52)
[2022-04-27] MEDS: Lactated Ringers 1,000 ML 80 ML IVCONT ×2 (11:23→21:56)
--- NOTE | 2022-04-27 13:07 | MHC.CM.PN ---
Patient has a diagnosis of Dementia, CM spoke with Daughter/HCP/Candi @ [phone] and addressed IMM with her (original to be mailed certified letter to her and a copy to be placed on the chart). Returning to LTC at the [facility] is the goal and CM has initiated and will follow for dc planning.
--- NOTE | 2022-04-27 16:35 | HO.PM.IMPN ---
Subjective Subjective Date of Service: 04/27/22 Interval History: Remains confused combative Review of Systems Unable to obtain Physical Exam Vital Signs: Vital Signs: Last Vital Signs Temp 98.2 F 04/27/22 16:21 Pulse 75 04/27/22 16:21 Resp 16 04/27/22 16:21 BP 146/77 H 04/27/22 16:21 Pulse Ox 96 04/27/22 16:21 O2 Del Method 04/27/22 16:21 BMI result Body Mass Index 28.0 Const: Other: Confused mumbling nonsensical Resp: Other: Clear to auscultation bilaterally no rales rhonchi wheezes Cardio: Other: No S4; positive S1-S2; no S3 murmurs rubs or gallops GI: Other: Soft nontender nondistended normoactive bowel sounds Extrem: Other: No edema bilaterally Objective Data Active Medications Acetaminophen (Acetaminophen 325 Mg Tablet) 650 mg PO Q6H PRN PRN Reason: Pain, Mild, fever Apixaban (Apixaban 5 Mg Tablet) 5 mg PO BID [facility] Last Admin: 04/27/22 10:21 Dose: Not Given Documented By: MADHAV Non-Admin Reason: See Note Aspirin (Aspirin Enteric Coated 81 Mg Tablet.) 81 mg PO DAILY [facility] Last Admin: 04/27/22 10:21 Dose: Not Given Documented By: MADHAV Non-Admin Reason: See Note Atorvastatin Calcium (Atorvastatin Calcium 10 Mg Tablet) 10 mg PO BEDTIME [facility] Divalproex Sodium (Divalproex Sodium 250 Mg Tablet.) 250 mg PO BID [facility] Last Admin: 04/27/22 10:19 Dose: 250 mg Documented By: MADHAV Docusate Sodium (Docusate Sodium 100 Mg Capsule) 100 mg PO DAILY PRN PRN Reason: Constipation Donepezil HCl (Donepezil Hcl 5 Mg Tablet) 5 mg PO DAILY [facility] Last Admin: 04/27/22 10:20 Dose: 5 mg Documented By: MADHAV Finasteride (Finasteride 5 Mg Tablet) 5 mg PO DAILY [facility] Last Admin: 04/27/22 06:12 Dose: 5 mg Documented By: DEVIN Fluticasone Propionate (Fluticasone Propionate Nasal 16 Gm [place]) 2 spray NOSTRIL-B DAILY PRN PRN Reason: Nasal Congestion Lactated Ringer's (Lr) 1,000 mls @ 80 mls/hr IVCONT .[id number] [facility] Last Admin: 04/27/22 11:23 Dose: 80 mls/hr Documented By: MADHAV Loratadine (Loratadine 10 Mg Tablet) 10 mg PO DAILY [facility] Last Admin: 04/27/22 10:20 Dose: 10 mg Documented By: MADHAV Metoprolol Tartrate (Metoprolol Tartrate 12.5 Mg Halftab) 12.5 mg PO BID [facility]; Protocol Last Admin: 04/27/22 10:27 Dose: 12.5 mg Documented By: MADHAV Olanzapine (Olanzapine 10 Mg Vial) 10 mg IM ONCE PRN PRN Reason: anxiety/restlessness Ondansetron HCl (Ondansetron Hcl 4 Mg/2 Ml Vial) 4 mg IVPUSH Q8H PRN PRN Reason: Nausea and Vomiting Quetiapine Fumarate (Quetiapine Fumarate 50 Mg Tablet) 50 mg PO TID [facility] Last Admin: 04/27/22 16:07 Dose: 50 mg Documented By: MADHAV Sertraline HCl (Sertraline Hcl 50 Mg Tablet) 50 mg PO DAILY [facility] Last Admin: 04/27/22 10:19 Dose: 50 mg Documented By: MADHAV Sodium Chloride (0.9 % Sodium Chloride Flush 3 Ml Syringe) 3 ml IVFLUSH QSHIFT [facility] Last Admin: 04/27/22 16:07 Dose: 3 ml Documented By: MADHAV Tamsulosin HCl (Tamsulosin Hcl 0.4 Mg Capsule) 0.4 mg PO DAILY [facility] Last Admin: 04/27/22 06:12 Dose: 0.4 mg Documented By: DEVIN Trazodone HCl (Trazodone Hcl 50 Mg Tablet) 50 mg PO BEDTIME [facility] Vitamin D (Cholecalciferol (Vitamin D3) 25 Mcg Tablet) 50 mcg PO DAILY [facility] Last Admin: 04/27/22 10:20 Dose: 50 mcg Documented By: MADHAV Labs CBC & Chem 7: 04/26/22 15:56 04/27/22 08:14 Labs: Laboratory Results - last 24 hr 04/26/22 04/26/22 04/26/22 15:56 22:33 23:55 Anion Gap Estim Creat Clear Calc Estimated GFR Random Glucose Lactic Acid F/U @ 2Hr 3.0 H* Lactic Acid F/U @ 4Hr Calcium Magnesium TSH 1.53 Urine Color Urine Appearance Urine pH Ur Specific [place] Urine Protein Urine Glucose (UA) Urine Ketones Urine Blood Urine Nitrite Ur Leukocyte Esterase Urine RBC Urine WBC Ur Squamous Epith Cells Urine Bacteria Hyaline Casts Ur Random Sodium Urine Creatinine Stl C. cayetanensis PCR Cancelled Stool Rotavirus A PCR Cancelled Stl Adenov F PCR Cancelled Stool Astrovirus (PCR) Cancelled Stool Campylobacter PCR Cancelled Stool Cryptosporidium PCR Cancelled Stl Sh Tox Pr E STEC PCR Cancelled Stool E coli O157 PCR Cancelled Stl Enterotoxigenic E PCR Cancelled Stool EPEC (PCR) Cancelled Stool EAEC (PCR) Cancelled Stl E. histolytica PCR Cancelled Stool Giardia Lamblia PCR Cancelled Stl P. shigelloides PCR Cancelled Stool Salmonella PCR Cancelled Stool Sapovirus (PCR) Cancelled Stl Shigella/EIEC PCR Cancelled St Y.enterocolitica PCR Cancelled Stool Vibrio (PCR) Cancelled Stl Vibrio cholerae PCR Cancelled Stl Norovirus GI/GII PCR Cancelled Urine Opiates Screen Urine Fentanyl Screen Ur Barbiturates Screen Ur Phencyclidine Scrn Ur Amphetamines Screen U Benzodiazepines Scrn Urine Cocaine Screen U Marijuana (THC) Screen 04/27/22 04/27/22 04/27/22 01:12 06:07 06:08 Anion Gap Estim Creat Clear Calc Estimated GFR Random Glucose Lactic Acid F/U @ 2Hr Lactic Acid F/U @ 4Hr 2.5 H* Calcium Magnesium TSH Urine Color Yellow Urine Appearance Clear Urine pH 5.0 Ur Specific [place] 1.015 Urine Protein Negative Urine Glucose (UA) Negative Urine Ketones Negative Urine Blood Small (1+) H Urine Nitrite Negative Ur Leukocyte Esterase Negative Urine RBC 6-10 H Urine WBC 0-5 Ur Squamous Epith Cells 0-2 Urine Bacteria None Seen Hyaline Casts >20 Ur Random Sodium 43.0 Urine Creatinine 106.18 Stl C. cayetanensis PCR Stool Rotavirus A PCR Stl Adenov F 40/ PCR Stool Astrovirus (PCR) Stool Campylobacter PCR Stool Cryptosporidium PCR Stl Sh Tox Pr E STEC PCR Stool E coli O157 PCR Stl Enterotoxigenic E PCR Stool EPEC (PCR) Stool EAEC (PCR) Stl E. histolytica PCR Stool Giardia Lamblia PCR Stl P. shigelloides PCR Stool Salmonella PCR Stool Sapovirus (PCR) Stl Shigella/EIEC PCR St Y.enterocolitica PCR Stool Vibrio (PCR) Stl Vibrio cholerae PCR Stl Norovirus GI/GII PCR Urine Opiates Screen Urine Fentanyl Screen Ur Barbiturates Screen Ur Phencyclidine Scrn Ur Amphetamines Screen U Benzodiazepines Scrn Urine Cocaine Screen U Marijuana (THC) Screen 04/27/22 04/27/22 06:08 08:14 Anion Gap 18 Estim Creat Clear Calc 58.0 Estimated GFR 57 Random Glucose 105 Lactic Acid F/U @ 2Hr Lactic Acid F/U @ 4Hr Calcium 8.9 Magnesium 1.6 TSH Urine Color Urine Appearance Urine pH Ur Specific [place] Urine Protein Urine Glucose (UA) Urine Ketones Urine Blood Urine Nitrite Ur Leukocyte Esterase Urine RBC Urine WBC Ur Squamous Epith Cells Urine Bacteria Hyaline Casts Ur Random Sodium Urine Creatinine Stl C. cayetanensis PCR Stool Rotavirus A PCR Stl Adenov F 40/41 PCR Stool Astrovirus (PCR) Stool Campylobacter PCR Stool Cryptosporidium PCR Stl Sh Tox Pr E STEC PCR Stool E coli O157 PCR Stl Enterotoxigenic E PCR Stool EPEC (PCR) Stool EAEC (PCR) Stl E. histolytica PCR Stool Giardia Lamblia PCR Stl P. shigelloides PCR Stool Salmonella PCR Stool Sapovirus (PCR) Stl Shigella/EIEC PCR St Y.enterocolitica PCR Stool Vibrio (PCR) Stl Vibrio cholerae PCR Stl Norovirus GI/GII PCR Urine Opiates Screen Not Detected Urine Fentanyl Screen POSITIVE H Ur Barbiturates Screen Not Detected Ur Phencyclidine Scrn Not Detected Ur Amphetamines Screen Not Detected U Benzodiazepines Scrn Not Detected Urine Cocaine Screen Not Detected U Marijuana (THC) Screen Not Detected Assessment and Plan (1) MAYRA (acute kidney injury): Status: Acute (2) Phimosis: Status: Acute (3) Atrial fibrillation: Status: Acute Plan 77-year-old male with history of depression, psychosis, dementia without behavioral disturbance, anxiety, atrial fibrillation anticoagulated with Eliquis, PTSD, COPD, hyperlipidemia, hypertension, former smoker admitted for MAYRA and diarrhea. 1.MAYRA(likely prerenal) -excellent response to volume repletion -follow renals/divalents 2.Diarrhea -C diff PCR pending -routine precautions 3.HTN -acceptable control on current therapies -adjust as indicated 4.PAF -acceptable rate control -Continue eliquis and metoprolol 5.Dementia with behavioral disturbance -continue donezapil and seroquel -p.r.n. Haldol DNR/DNI Elimatthewis Patient requires ongoing hospitalization for IV volume repletion to reverse acute kidney injury Quality Stroke Does the patient have a stroke diagnosis?: No VTE Prior VTE?: No VTE Risk Level:: Medical - moderate - high VTE Device Contraindication: Treatment Not Indicated VTE Drug Contraindication: N/A - Med Ordered
[2022-04-27 16:52] LABS: OBS Int Ctl Valid YES; OBS1 POSITIVE (NEGATIVE)
[2022-04-27] MEDS: OLANZapine 10 MG VIAL IM ×2 (18:26→22:25)
--- NOTE | 2022-04-27 18:30 | PC.NURSE ---
patient increased agitation and anxiety pulling at IV and catheter getting up out of bed several times and becoming aggressive with 1:1 observer . patient medicated with zyprexa 10 mg as ordered IM PRN for anxiety restlessness . patient remains with a 1:1.
--- NOTE | 2022-04-27 19:06 | PC.NURSE ---
DR Chester made aware that stool occult sent sent to lab came back positive . patient aware of plan of care .
--- NOTE | 2022-04-27 19:20 | PC.NURSE ---
report received from Ama MEDINA. pt resting comfortably on stretcher, 1:[address] will continue to monitor
[2022-04-27] MEDS: Atorvastatin Calcium 10 MG TABLET PO (21:52)
[2022-04-27] MEDS: traZODone HCL 50 MG TABLET PO (21:52)
[2022-04-27] MEDS: Apixaban 5 MG TABLET PO (21:52)
--- NOTE | 2022-04-27 22:29 | PC.NURSE ---
pt restless, agitated, getting out of ed and wandering around unit. walking away from sitter and other staff members, patient redirected to bed multiple times. concern for patient safety. po bedtime meds given. pt still agitated and restless. MD Knox notified, ordered 10mg IM zyprexa. administered at 2225 with second RN at bedside. vital signs stable. continuous monitoring in place.similar episodes of agitation and restlessness last night throughout entirety of shift coordinator per other staff members.
[2022-04-27] MEDS: Midazolam HCl/PF 2 MG/2 ML VIAL 2.5 MG IVPUSH (22:49)
--- NOTE | 2022-04-28 00:43 | PC.NURSE ---
2240 - 2.5mg versed IV given per hospitalist Abilio orders - pt still combative, aggressive, restless and a flight risk after he 10mg zyprexa. pt responded well to versed, sleeping comfortably on stretcher, no respiratory or apparent distress. on clinical research monitor. 1:[address]
[2022-04-28 02:47] VITALS: BMI 28.3
[2022-04-28 04:00] VITALS: BP 140/67; PULSE 71; RESP 20; TEMP 36; O2SAT 95
[2022-04-28 06:45] LABS: MANUAL DIFF FLAG NO
[2022-04-28 06:51] LABS: Basophils Percent Auto 0.4 % (0-2); Eosinophils Absolute Auto 0.3 X10*3/uL (0.0-0.4); Eosinophils Percent Auto 3.7 % (0-4); Hematocrit 34.8 % (42.0-52.0); Hemoglobin 12.4 g/dl (14.0-18.0); Imm Gran Abs Auto 0.04 X10*3/uL (0.00-0.03); Imm Gran Pct Auto 0.4 % (0.0-0.4); Lymphocytes Absolute Auto 1.3 X10*3/uL (1.2-4.9); Lymphocytes Percent Auto 14.2 % (20-40); Mean Corpuscular HGB Conc 35.6 g/dl (31.0-36.0); Mean Corpuscular Hemoglobin 30.7 pg (27.0-33.0); Mean Corpuscular Volume 86.1 fL (80.0-98.0); Mean Platelet Volume 10.4 fL (9.4-12.4); Monocytes Absolute Auto 1.1 X10*3/uL (0.1-1.2); Monocytes Percent Auto 11.7 % (2-11); Neutrophils Absolute Auto 6.2 x10*3/uL (2.0-8.3); Neutrophils Percent Auto 69.6 % (45-73); Platelet Count 200 X10*3/uL (160-400); Red Blood Count 4.04 X10*6/uL (4.60-5.80); Red Cell Distribution Width 12.7 % (11.0-16.0)
[2022-04-28 07:01] VITALS: BP 158/75; PULSE 74; RESP 18; TEMP 36.9; O2SAT 96
[2022-04-28 07:21] LABS: Alanine Aminotransferase 6 U/L (0-40); Albumin Level 3.2 g/dL (3.5-5.0); Alkaline Phosphatase 61 U/L (39-117); Anion Gap 14 (12-20); Aspartate Amino Transferase 23 U/L (5-37); Bilirubin Total 1.3 mg/dL (0.0-1.0); Blood Urea Nitrogen 24 mg/dL (9-16); Calcium 8.7 mg/dL (8.4-10.2); Carbon Dioxide 27 mmol/L (22-29); Chloride 99 mmol/L (96-108); Creatinine Clr Calc Pharmacy 88.5; Estimated Glomerular Filt Rate > 60; Glucose Fasting 101 mg/dL (60-99); Potassium 3.5 mmol/L (3.3-5.1); Sodium 136 mmol/L (135-145); Total Protein 5.5 g/dL (6.5-8.0)
[2022-04-28] MEDS: Sertraline HCL 50 MG TABLET PO (08:40)
[2022-04-28] MEDS: Donepezil HCl 5 MG TABLET PO (08:40)
[2022-04-28] MEDS: Aspirin Enteric Coated 81 MG TABLET.DR PO (08:40)
[2022-04-28] MEDS: Cholecalciferol (Vitamin D3) 25 MCG TABLET 50 MCG PO (08:40)
[2022-04-28] MEDS: QUEtiapine Fumarate 50 MG TABLET PO (08:40)
[2022-04-28] MEDS: Divalproex Sodium 250 MG TABLET.DR PO (08:40)
[2022-04-28] MEDS: Tamsulosin HCL 0.4 MG CAPSULE PO (08:40)
[2022-04-28] MEDS: Apixaban 5 MG TABLET PO (08:40)
[2022-04-28] MEDS: Metoprolol Tartrate 12.5 MG HALFTAB PO (08:40)
[2022-04-28] MEDS: Finasteride 5 MG TABLET PO (08:41)
[2022-04-28] MEDS: Loratadine 10 MG TABLET PO (08:41)
--- NOTE | 2022-04-28 08:45 | P.CDIC_ITS ---
CDI Concurrent Query Documentation Clarification: PHYSICIAN'S DOCUMENTATION REQUEST Date of Query: 04/28/22 0845 Patient Name: Joon Jerez Admit Date: 04/26/22 Dear Doctor, A review of the medical record indicates additional documentation may be needed. Please review below and update the documentation accordingly. Clinical Indicators: Risk Factors/Clinical Indicators/Treatments Atrial fibrillation PMH: PAF, anticoagulated on Eliquis. If possible, please provide further specificity regarding atrial fibrillation, such as: * Paroxysmal atrial fibrillation: terminates spontaneously or with intervention within 7 days of onset. * Persistent atrial fibrillation: episodes of continuous AF that last more than 7 days and do not self-terminate. * Long lasting persistent atrial fibrillation: episodes of continuous AF that last more than 12 months, * Chronic or Permanent atrial fibrillation: when a decision has been made to accept the presence of AF and there is no further attempt to restore or maintain sinus rhythm. * Other (please specify) * Unable to determine Use of terms such as suspected, likely, concern for, or probable (associated with a specific diagnosis that is being evaluated, monitored, or treated as if it exists) are acceptable and can be coded in the inpatient setting, when documented at the time of discharge. Thank you, Vanessa Sheikh [facility], CDIS Extension: [phone] Please use your independent medical judgment in providing your response. THIS QUERY IS PART OF THE PERMANENT MEDICAL RECORD Provider Response: Other Other Diagnosis: Chronic atrial fibrillation
--- NOTE | 2022-04-28 11:12 | PM.DS ---
DS: Providers Provider Date of Service: 04/28/22 Date of admission: 04/26/22 21:49 Date of discharge: 04/28/22 Primary care physician: Kristen Zarate CNP Consults: 04/27/22 03:39 Consult to Urology Routine Consulting Provider: Garth Easton Reason for consultation: Urinary retention Has provider been notified: Yes DS: Diagnosis Discharge Diagnosis (1) MAYRA (acute kidney injury): Status: Acute (2) Phimosis: Status: Acute (3) Atrial fibrillation: Status: Acute DS: Summary Hospital Course Hospital Course: 77-year-old male, resident of [facility] who was transferred to the emergency department for evaluation of MAYRA.? Patient was found to have increased creatinine on labs at [facility].? Patient was resuscitated with IV crystalloids with no improvement in creatinine through the day in the ER.? As per the nurse, patient had 4 episodes of loose stools while in the ER.? No mention of passage of urine.? Upon bladder scan around 01:00 it was noted that patient had 500 cc in the bladder.? Attempt was made for straight catheterization by patient's nurse and nurse in charge in the ER without success.? ER physician also tried to put a Salguero in but without success.? Patient has retracted prepuce and hence unable to find urethral opening for catheterization.? Bladder scan revealed 800 cc at 03:30.? Consulted and spoke to Urology who will come in for managment of urinary retention.? MAYRA likely postrenal due to retention. Etiology of diarrhea likely overflow diarrhea due to distended bladder.? Continue to monitor creatinine and urine output. Hospital course Patient seen by Urology Salguero placed with greater than 1 L of urine obtained. Patient initially was combative and confused and overnight became more clear and cooperative. Initial creatinine 2.9; day of discharge 0.81. This a.m. patient was awake alert pleasant with mild confusion. Call placed to daughter who states this is his baseline. Discussed with Urology. Acceptable to return [facility] the [facility] with catheter in place. The to make an appointment with [place] [facility] for follow-up and probable circumcision in the future Time Spent with Patient Time attestation: Total time spent providing and/or coordinating discharge services: Discharge coordination time: Greater than 30 minutes Quality: Safe Use of Opioids Does Pt have an Active Cancer Diagnosis on the Problem List?: No Quality: Stroke Does the patient have a stroke diagnosis?: No Physical Exam Vital Signs: Vital Signs: Last Vital Signs Temp 98.5 F 04/28/22 07:01 Pulse 74 04/28/22 07:01 Resp 18 04/28/22 07:01 BP 158/75 H 04/28/22 07:01 Pulse Ox 96 04/28/22 07:01 O2 Del Method 04/28/22 07:01 BMI result Body Mass Index 28.3 Const: Other: Awake alert mild confusion. Pleasant and cooperative Resp: Other: Clear to auscultation bilaterally no rales rhonchi wheezes Cardio: Other: No S4; positive S1-S2; no S3 murmurs rubs or gallops GI: Other: Soft nontender nondistended normoactive bowel sounds Extrem: Other: No edema bilaterally DS: Data Data Completed and Pending Labs on day of discharge: Laboratory Results - last 24 hr 04/27/22 04/28/22 04/28/22 16:28 05:59 05:59 WBC 9.0 RBC 4.04 L Hgb 12.4 L Hct 34.8 L MCV 86.1 MCH 30.7 MCHC 35.6 RDW 12.7 Plt Count 200 MPV 10.4 Immature Gran % (Auto) 0.4 Neut % (Auto) 69.6 Lymph % (Auto) 14.2 L Door % (Auto) 11.7 H Eos % (Auto) 3.7 Baso % (Auto) 0.4 Lymph # (Auto) 1.3 Door # (Auto) 1.1 Eos # (Auto) 0.3 Baso # (Auto) 0.0 Abs Immat Gran (auto) 0.04 H Absolute Neuts (auto) 6.2 Absolute Nucleated RBC 0.000 Nucleated RBC % (auto) 0.0 Sodium 136 Potassium 3.5 Chloride 99 Carbon Dioxide 27 Anion Gap 14 BUN 24 H Creatinine 0.81 Estim Creat Clear Calc 88.5 Estimated GFR > 60 Fasting Glucose 101 H Calcium 8.7 Total Bilirubin 1.3 H AST 23 ALT 6 Alkaline Phosphatase 61 Total Protein 5.5 L Albumin 3.2 L Stool Occult Blood POSITIVE Preliminary micro results at discharge 04/26/22 15:56 Blood Culture - Preliminary Blood - Venous No growth after 24 hours. 04/26/22 15:57 Blood Culture - Preliminary Blood - Venous No growth after 24 hours. Discharge Plan Discharge Patient Disposition: Xfer [facility] Discharge Diagnosis: Urinary retention with MAYRA Referrals: [facility] [Outside] - 1 Day (RESUMPTION OF CARE) Kristen Zarate CNP [Primary Care Provider] - 1 Week Discharge Medications: New tamsulosin 0.4 mg Capsule 0.4 mg PO DAILY Qty: 30 0RF Continued donepezil 5 mg tablet 1 tab PO DAILY divalproex 250 mg tablet,delayed release (DR/EC) 1 tab PO BID lisinopril 10 mg tablet 1 tab PO BEDTIME hydrochlorothiazide 25 mg tablet 1 tab PO DAILY fluticasone propionate 50 mcg/actuation spray,suspension 2 spray intranasal DAILY PRN (Reason: Nasal Congestion) sertraline 50 mg tablet 1 tab PO DAILY metoprolol tartrate 25 mg tablet 12.5 mg PO BID quetiapine 50 mg tablet 50 mg PO TID Eliquis 5 mg tablet 1 tab PO BID trazodone 50 mg Tablet 50 mg PO BEDTIME atorvastatin [Lipitor] 10 mg Tablet 10 mg PO BEDTIME aspirin 81 mg Tablet,Delayed Release (Dr/Ec) 81 mg PO DAILY docusate sodium [Colace] 100 mg Capsule 100 mg PO DAILY lisinopril 5 mg Tablet 5 mg PO BEDTIME Rx Instructions: take with lisinopril 10 mg loratadine 10 mg Tablet 10 mg PO DAILY cholecalciferol (vitamin D3) [Vitamin D3] 25 mcg (1,000 unit) Tablet 50 mcg PO DAILY Discharge Orders: Discharge Order (Routine); Ordered 04/28/22 Ordered By: Ze Chester Diet: Advance to usual diet Activity on Discharge: As tolerated Stand Alone Forms: Patient Portal Discharge page Care Plan Goals: Keep Salguero in place. Need to make outpatient appointment with [place] [facility] for possible circumcision Health Concerns: Continue all pre-hospital meds. Flomax and finasteride added by Urology Plan of Treatment: Resume plan of care as previous at [facility] Assessment: See discharge summary
[2022-04-28 11:16] VITALS: BP 132/64; PULSE 96; RESP 18; TEMP 36.1; O2SAT 96
--- NOTE | 2022-04-28 11:23 | MHC.CM.PN ---
PT MEDICALLY CLEARED FOR D/C BACK TO [facility] AT 1-1:30PM W/[facility] FOR BLS TRANSPORT
[2022-04-28] MEDS: Acetaminophen 325 MG TABLET 650 MG PO (12:43)
== END 2022-04-28 14:31 | DRG 683 ==
LOC: HO.ED 20:18 → HO.EDOVER 22:00 → HO.S3 04-27 23:29
PROVIDERS: Student in an Organized Health Care Education/Training Program; Admitting Provider Physician Assistant; Emergency Provider Emergency Medicine; PCP Nurse Practitioner Acute Care; Visit Provider Hospitalist
DX: N17.9 Acute kidney failure, unspecified (principal); F01.518 Vascular dementia, unspecified severity, with other behavioral disturbance; I48.20 Chronic atrial fibrillation, unspecified; J44.9 Chronic obstructive pulmonary disease, unspecified; I10 Essential (primary) hypertension; E78.5 Hyperlipidemia, unspecified; Z66 Do not resuscitate; E86.0 Dehydration; N40.1 Benign prostatic hyperplasia with lower urinary tract symptoms; R33.8 Other retention of urine; N47.1 Phimosis; Z20.822 Contact with and (suspected) exposure to COVID-19; Z87.891 Personal history of nicotine dependence; Z79.01 Long term (current) use of anticoagulants; Z79.51 Long term (current) use of inhaled steroids; Z79.82 Long term (current) use of aspirin; Z79.899 Other long term (current) drug therapy
CPT/HCPCS: 36415; 71045; 74176; 80048; 80053; 80076; 80307; 81001; 82272; 83605; 83690; 83735; 84300; 84443; 84484; 85025; 85610; 87040; 87507; 87635; 99285; J1200; J2250; J3475

== ENCOUNTER 2022-04-30 13:49 | Emergency (ER) | payer MEDICARE, SELFPAY ==
--- NOTE | 2022-04-30 13:59 | ED.MALEGU ---
HPI - Male Genitourinary General Chief complaint: Urogenital-Male Stated complaint: CATHETER DISLODGED Time Seen by Provider: 04/30/22 13:51 Source: patient Mode of arrival: EMS Limitations: no limitations History of Present Illness HPI Narrative: Patient is a 77-year-old male who presents emergency department for evaluation of a dislodged Salguero catheter. He is coming from a group home facility, became dislodged reportedly earlier today. Staff was unable to reinsert. Patient reports penile pain when asked. Denies fevers, chills, nausea, vomiting, abdominal pain, back pain, flank pain. Related Data Home Medications Medication Instructions Recorded Confirmed apixaban 5 mg tablet (Eliquis) 1 tab PO BID 04/26/22 04/26/22 aspirin 81 mg tablet,delayed 81 mg PO DAILY 04/26/22 04/26/22 release atorvastatin 10 mg tablet (Lipitor) 10 mg PO BEDTIME 04/26/22 04/26/22 cholecalciferol (vitamin D3) 25 50 mcg PO DAILY 04/26/22 04/26/22 mcg (1,000 unit) tablet (Vitamin D3) divalproex 250 mg tablet,delayed 1 tab PO BID 04/26/22 04/26/22 release docusate sodium 100 mg capsule 100 mg PO DAILY 04/26/22 04/26/22 (Colace) donepezil 5 mg tablet 1 tab PO DAILY 04/26/22 04/26/22 fluticasone propionate 50 2 spray intranasal DAILY PRN Nasal 04/26/22 04/26/22 mcg/actuation nasal Congestion spray,suspension hydrochlorothiazide 25 mg tablet 1 tab PO DAILY 04/26/22 04/26/22 lisinopril 10 mg tablet 1 tab PO BEDTIME 04/26/22 04/26/22 lisinopril 5 mg tablet 5 mg PO BEDTIME 04/26/22 04/26/22 loratadine 10 mg tablet 10 mg PO DAILY 04/26/22 04/26/22 metoprolol tartrate 25 mg tablet 12.5 mg PO BID 04/26/22 04/26/22 quetiapine 50 mg tablet 50 mg PO TID 04/26/22 04/26/22 sertraline 50 mg tablet 1 tab PO DAILY 04/26/22 04/26/22 trazodone 50 mg tablet 50 mg PO BEDTIME 04/26/22 04/26/22 Previous Rx's Medication Instructions Recorded tamsulosin 0.4 mg capsule 0.4 mg PO DAILY #30 caps 04/28/22 cefuroxime axetil 250 mg tablet 250 mg PO Q12H 7 days #14 tabs 04/30/22 Allergies Allergy/AdvReac Type Severity Reaction Status Date / Time No Known Allergies Allergy Unverified 03/19/20 19:42 [No Known Allergies*] Review of Systems Review of Systems: Genitourinary: Dislodged Salguero catheter, urinary retention Yes Unobtainable due to mental condition (Vascular dementia) FOR[facility]LY [facility] Past Medical History Attestation statement: The following information was validated with the patient. Source: old records reviewed Medical History Atrial fibrillation COPD (chronic obstructive pulmonary disease) Depression Hyperlipidemia Hypertension Psychosis Vascular dementia Social History Social History Household Members: None Housing: [facility] Patient Tobacco Use Status: Never used Tobacco Advance Directives: Yes Advance Directives on File: Yes Advance Directives Date on File: 04/27/22 service: Yes Current occupational status: retired Physical Exam Vital Signs: Vital Signs: Last Vital Signs Temp 97.8 F 04/30/22 15:46 Pulse 60 04/30/22 15:46 Resp 14 04/30/22 15:46 BP 106/52 L 04/30/22 15:46 Pulse Ox 96 04/30/22 15:46 O2 Del Method 04/30/22 15:46 BMI result Body Mass Index 28.9 Appearance: Alert.?Oriented to person, place and time. No acute distress.?Normal affect. Eyes: Pupils equal, round and reactive to light.?? Neck: Normal inspection.? Neck supple.?? CVS: Heart sounds normal. Normal heart rate and rhythm.? Pulses normal.?? Respiratory: No respiratory distress.? Lung sounds clear to auscultation bilaterally?? Abdomen: Soft and non-tender. Normoactive bowel sounds. Genitourinary: Positive phimosis, no blood noted at urinary meatus, tip of the Salguero catheter noted to be stuck with the tip of penis, and catheter had been cut, able to remove the catheter. Skin: Skin warm and dry.? Normal skin color.? Extremities: No lower extremity edema.? Neuro: Moves all extremities spontaneously. Sensation intact bilaterally. No focal neuro deficits. Course Course Course Narrative: Patient is a 77-year-old male with a past medical history of atrial fibrillation, COPD, hyperlipidemia, hypertension, vascular dementia, BPH, phimosis who presents emergency department for evaluation of a dislodged catheter. Per patient's daughter patient had attempted to self removed the catheter during period of agitation. Of note patient admitted to [facility] on 04/26/2022 with MAYRA, at that time had difficulty placing Salguero catheter given phimosis, Urology was consulted and intervene for Salguero catheter placement he was discharged on 04/28/2022 back to group home facility. Salguero catheter became dislodged while at the group home facility today. Attempted reinserted and a Salguero catheter at this time, unable to retract foreskin in order to see urethra, attempted insertion despite, unsuccessful, ED attending Dr. Benitez also attempted insertion unsuccessfully. Will contact Urology, Dr. Kent. Reevaluation(s) Reevaluation #1: Dr. Kent able to successfully insert 16 [place] Salguero catheter, urine draining in to drainage bag, will send urinalysis to exclude infection. Patient to be discharged back to group home facility. Urinalysis with presence of hematuria, leukocyte esterases wells urine wbc's, will treat for urinary tract infection at this time, urine culture to be followed. Patient stable for discharge back to group home facility. Time: 16:16 [facility] - Male Genitourinary Medical Records Attestation: I reviewed the patient's medical records. Lab Data Attestation: I reviewed the patient's lab results. Result diagrams: 04/30/22 15:05 04/30/22 15:05 Labs: Lab Results 04/30/22 04/30/22 04/30/22 Range/Units 15:05 15:05 16:18 WBC 7.3 (4.8-10.8) X10*3/uL RBC 4.55 L (4.60-5.80) X10*6/uL Hgb 13.7 L (14.0-18.0) g/dl Hct 40.9 L (42.0-52.0) % MCV 89.9 (80.0-98.0) fL MCH 30.1 (27.0-33.0) pg MCHC 33.5 (31.0-36.0) g/dl RDW 13.1 (11.0-16.0) % Plt Count 164 (160-400) X10*3/uL MPV 11.0 (9.4-12.4) fL Immature Gran % (Auto) 0.4 (0.0-0.4) % Neut % (Auto) 54.5 (45-73) % Lymph % (Auto) 28.3 (20-40) % [place] % (Auto) 8.1 (2-11) % Eos % (Auto) 7.9 H (0-4) % Baso % (Auto) 0.8 (0-2) % Lymph # (Auto) 2.1 (1.2-4.9) X10*3/uL [place] # (Auto) 0.6 (0.1-1.2) X10*3/uL Eos # (Auto) 0.6 H (0.0-0.4) X10*3/uL Baso # (Auto) 0.1 (0.0-0.2) X10*3/uL Abs Immat Gran (auto) 0.03 (0.00-0.03) X10*3/uL Absolute Neuts (auto) 4.0 (2.0-8.3) x10*3/uL Absolute Nucleated RBC 0.000 (0.0-0.012) X10*3/uL Nucleated RBC % (auto) 0.0 (0.0-0.2) /100WBC Smear Tech's Comments VERIFIED Sodium 138 (135-145) mmol/L Potassium 4.9 D (3.3-5.1) mmol/L Chloride 96 (96-108) mmol/L Carbon Dioxide 32 H (22-29) mmol/L Anion Gap 15 (12-20) BUN 20 H (9-16) mg/dL Creatinine 0.82 (0.5-1.4) mg/dL Estim Creat Clear Calc 90.9 Estimated GFR > 60 Random Glucose 100 (60-115) mg/dL Calcium 9.4 D (8.4-10.2) mg/dL Total Bilirubin 0.9 (0.0-1.0) mg/dL AST 31 (5-37) U/L ALT 13 (0-40) U/L Alkaline Phosphatase 95 D (39-117) U/L Total Protein 6.7 D (6.5-8.0) g/dL Albumin 3.7 (3.5-5.0) g/dL Urine Color RED Urine Appearance Hazy Urine pH 5.5 (5.0-9.0) Ur Specific [place] 1.010 (1.005-1.025) Urine Protein 100 (2+) H (Neg-Trace) mg/dL Urine Glucose (UA) Negative (Negative) mg/dL Urine Ketones Negative (Negative) mg/dL Urine Blood Large (3+) H (Negative) Urine Nitrite Negative (Negative) Ur Leukocyte Esterase Moderate (2+) H (Negative) Urine RBC >20 H (0-2) /HPF Urine WBC 21-50 H (0-5) /HPF Ur Squamous Epith Cells 0-2 (0-2) /HPF Urine Bacteria None Seen (None Seen) Hyaline Casts 0-2 (0-2) /LPF Discharge Plan Discharge Clinical Impression: Urinary tract infection Dislodged Salguero catheter Qualifiers: Encounter type: initial encounter Qualified Code(s): T83.021A - Displacement of indwelling urethral catheter, initial encounter Patient Disposition: Xfer SNF Transfer Details: [facility] Instructions: Urinary Tract Infection in Men (ED) Additional Instructions: Requires outpatient follow-up with Urology for circumcision. Cefuroxime 250mg p.o. twice daily for 7 days treatment of urinary tract infection Prescriptions: New cefuroxime axetil 250 mg tablet 250 mg PO Q12H 7 Days Qty: 14 0RF No Action donepezil 5 mg tablet 1 tab PO DAILY divalproex 250 mg tablet,delayed release (DR/EC) 1 tab PO BID lisinopril 10 mg tablet 1 tab PO BEDTIME hydrochlorothiazide 25 mg tablet 1 tab PO DAILY fluticasone propionate 50 mcg/actuation spray,suspension 2 spray intranasal DAILY PRN (Reason: Nasal Congestion) sertraline 50 mg tablet 1 tab PO DAILY metoprolol tartrate 25 mg tablet 12.5 mg PO BID quetiapine 50 mg tablet 50 mg PO TID Eliquis 5 mg tablet 1 tab PO BID trazodone 50 mg Tablet 50 mg PO BEDTIME atorvastatin [Lipitor] 10 mg Tablet 10 mg PO BEDTIME aspirin 81 mg Tablet,Delayed Release (Dr/Ec) 81 mg PO DAILY docusate sodium [Colace] 100 mg Capsule 100 mg PO DAILY lisinopril 5 mg Tablet 5 mg PO BEDTIME Rx Instructions: take with lisinopril 10 mg loratadine 10 mg Tablet 10 mg PO DAILY cholecalciferol (vitamin D3) [Vitamin D3] 25 mcg (1,000 unit) Tablet 50 mcg PO DAILY tamsulosin 0.4 mg Capsule 0.4 mg PO DAILY Qty: 30 0RF Referrals: Tyler Kent MD [Physician] -
[2022-04-30 14:15] VITALS: BP 122/72; PULSE 72; O2SAT 96
[2022-04-30 14:18] VITALS: BP 127/65; PULSE 66; RESP 18; O2SAT 95; BMI 28.9
--- OUTSIDE RECORDS SUMMARY | 2022-04-30 14:44 | XMS_ITS | Continuity of Care Document ---
:1945 Author Organization [facility] Care Team Providers Name Role Phone [facility] Unavailable Unavailable Problems Combined list of problems from Department of [facility] and [facility] facilities. It does not include entries that were removed or entered in error. Problem Status Onset Problem Type Date of Comments Source Date Resolution Benign hypertension Active Condition [place] Chronic obstructive Active Condition [place] lung disease [facility] Dementia with Active Condition Apr 11, JAREDIN ZURDO behavioral 2017 disturbance Entered By: SHERYL ALFARO Comment: diagnosis updated April 11, 2017 Jun 05, 2018 Entered By: SHERYL ALFARO Comment: diagnosis updated June 05, 2018 EXAM EARS & HEARING Active Condition [facility] Hyperlipidemia Active Condition [facility] Hypertensive Active [place] disorder [facility] Varicose veins Active Condition Sep [facility] Entered By: ROEL RAMIRES IE Comment: s/p sclerosis tika legs Diagnosis: ICD-10-CM Active Diagnosis [facility] 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 S Provider Comments: Rheumatic Tricuspid Insufficiency Diagnosis: ICD-10-CM Active Diagnosis [place] [facility] I48.0 Paroxysmal W[facility] RN atrial [place] fibrillationwith [facility] Provider Comments: Paroxysmal atrial fibrillation Diagnosis: ICD-10-CM Active Diagnosis [place] Z13.6 Encounter for [facility] screening for cardiovascular disorderswith Provider Comments: Encounter for Screening for Cardiovascular Disorders Diagnosis: ICD-10-CM Active Diagnosis [place] I49.9 Cardiac arrhythmia, unspecifiedwith Provider Comments: Cardiac Arrhythmia, unspecified Medications Combined list of outpatient medications from Department of Defense and Veterans Affairs facilities. Medications provided include 1) outpatient medications from the last 15 months, and 2) patient-reported medications. Medication Details Route Status Patient Prescription Prescription Last Ordering Order Source Instructions Expires Number Dispense Provider Date Date ASPIRIN TAKE ONE ORAL ACTIVE SELVIN RAMIRES 09/22/ SPR INGF 81MG TAB,EC TABLET [place]AG[place] 2015 IELD BY MOUTH DAILY ASPIRIN TAKE ONE ORAL(C ACTIVE KAMIREDDY 01/06/ Wi llima 81MG TAB,EC TABLET AP/TAB ,NAGIREDD 2014 nt ic [facility] BY [facility]OUTH /LIQ) Y Clinic ONCE DAILY CHOLECALCIF TAKE ONE ORAL ACTIVE KEYLA,ANN BEV 50MCG TABLET 2015 IELD (2,000UNIT) BY MOUTH TAB DAILY DIVALPROEX TAKE ONE ORAL ACTIVE KEYLA,ANN NA 250MG TABLET 2020 IELD TAB,EC BY MOUTH TWICE DAILY DOCUSATE NA TAKE 1 ORAL ACTIVE KEYLA,ANN PRINGF 100MG CAP CAPSULE 2020 IELD BY MOUTH ONCE DAILY DONEPEZIL TAKE ONE ORAL ACTIVE KEYLA,ANN PRINGF HCL 5MG TAB TABLET 2020 IELD BY MOUTH ONCE DAILY HYDROCHLORO TAKE ONE ORAL ACTIVE KEYLA, THIAZIDE TABLET 2020 IELD 25MG TAB BY MOUTH ONCE DAILY LISINOPRIL TAKE ORAL ACTIVE KEYLA,[facility] SPR INGF 5MG TAB THREE 2020 IELD TABLETS BY MOUTH ONCE DAILY LORATADINE TAKE ONE ORAL ACTIVE KEYLA, 10MG TAB TABLET 2020 IELD BY MOUTH ONCE DAILY LOVASTATIN TAKE ONE ORAL ACTIVE KEYLA, 40MG TAB TABLET 2019 IELD BY MOUTH ONCE DAILY METOPROLOL TAKE ORAL ACTIVE KEYLA, SPR INGF TARTRATE ONE-HALF 2020 IELD 25MG TAB TABLET BY MOUTH TWICE DAILY QUETIAPINE TAKE ONE ORAL ACTIVE KEYLA, FUMARATE TABLET 2019 IELD 50MG TAB BY MOUTH TWICE DAILY SERTRALINE TAKE ORAL ACTIVE ROOT, SPR INGF HCL 100MG ONE-HALF A A 2018 IELD TAB TABLET BY MOUTH ONCE DAILY TRAZODONE TAKE ORAL ACTIVE ROOT,/ SPRI NGF HCL 100MG ONE-HALF A A 2018 IELD TAB TABLET BY MOUTH AT BEDTIME Immunizations Combined list of available immunizations from the Department of Defense and Veterans Affairs facilities. Immunization Series Date Administered Site Reaction Lot CVX Drug St atus Comments Source Given By Number Code Correctional Program Specialist ZOSTER 1 complet SPRI NGF RECOMBINANT 2019 ed IE LD INFLUENZA, complet soldie r's [facility], 2019 ed home CNTR L INJECTABLE [facility] [place] [facility] INFLUENZA, complet Site: , 2017 ed Left IELD INJECTABLE Deltoid INFLUENZA, complet Site: , 2017 ed Left IELD INJECTABLE Deltoid ZOSTER complet Proximal S PRINGF (SHINGLES) 2016 ed Left Arm IELD (HISTORICAL) INFLUENZA, complet Site: HIGH DOSE 2015 ed Left IELD SEASONAL Deltoid PNEUMOCOCCAL complet [place] POLYSACCHARID 2015 ed IELD E PPV23 FLU,3 YRS complet Site: W INDHAM (HISTORICAL) 2014 ed Left C BOC Deltoid HEP A, ADULT complet [place] 2014 ed [facility] PNEUMOCOCCAL complet [place] CONJUGATE PCV 2014 ed CBOC 13 TDAP complet [facility] 2014 ed med walk CN[facility] in clinic [facility] [place] [facility] FLU,3 YRS complet drug C ONNECT (HISTORICAL) 2013 ed store I CUT HCS TD(ADULT) complet V A UNSPECIFIED 2012 ed CN TRL FORMULATION WS TRN [place] [facility] Results Combined list of recent chemistry, hematology and other laboratory results from Department of Defense and Veterans Affairs, ranging from 15 months to all on record, depending upon the facility. Order Results Value Reference Date Interpretation Specimen Commen ts Source Name Range HEMOGLOB HEMOGLOBIN 5.8 4.0 - 5.6 12/14 H Specimen T ype: BLOOD [place] IN A1C A1C/HEMOGL /2020 Comment: Kasandra ting performed by NGSP certified [employer] with CV <2%. The Ocasio HgA1C assay should not be used to diagnose or monitor diabetes in patients with altered red cell lifespan [place] LD PANEL OBIN.TOTAL ch as homozyg ous hemoglobin variants, Hb SC, HbF>5% and hemolytic anemia. Heterozygous variants do not affect this assay, HbAS, HbAC, HbAD, HbAE, AbA2 IN BLOOD Ordering Provi estelita: MALLIKA RAMIRES BY HPLC Report Released Date/Time: Jun 15, 2021 09:48 AM Reporting Lab: [address] [address] Performing Lab: [facility] [address] [facility] [address] PT & INR INR IN 1.1 06/15 Specimen Type: PLASMA [place] (PROTIME PLATELET /2020 No comment ent ered. LD ) POOR Ordering Provid er: MALLIKA RAMIRES PLASMA BY Report Releas ed Date/Time: Jun 15, 2021 09:48 AM COAGULATIO Reporting La b: [facility] [place] [facility] N ASSAY [address] [facility] [address] Performing Lab: [facility] [place] [facility] [address] [facility] [address] PT & INR PROTHROMBI 11.9 10.0 - 06/15 Specimen Typ e: PLASMA [place] (PROTIME N TIME 13.1 No comment ente red. LD ) (PT) Ordering Provid er: MALLIKA RAMIRES Report Released Date/Time: Jun 15, 2021 09:48 AM Reporting Lab: [facility] [place] [facility] [address] [facility] [address] Performing Lab: [facility] [address] [facility] [address] URINALYS COLOR OF Yellow 06/15 Specimen Type: URINE [place] IS URINE /2020 No comment enter ed. LD Ordering Provid er: MALLIKA RAMIRES Report Released Date/Time: Jun 15, 2021 09:48 AM Reporting Lab: [facility] [address] [facility] [address] Performing Lab: [facility] [address] [facility] [address] URINALYS APPEARANCE Clear 06/15 Specimen Typ e: URINE [place] IS OF URINE /2020 No comment ente red. LD Ordering Provid er: MALLIKA RAMIRES Report Released Date/Time: Jun 15, 2021 09:48 AM Reporting Lab: [facility] [place] [facility] [address] [facility] [address] Performing Lab: [facility] [address] [facility] [address] URINALYS GLUCOSE Negative 06/15 Specimen Type: URINE [place] IS [MASS/VOLU /2020 No comment en tered. LD ME] IN Ordering Provid er: MALLIKA RAMIRES URINE Report Released Date/Time: Jun 15, 2021 09:48 AM Reporting Lab: [facility] [place] [facility] [address] [facility] [address] Performing Lab: [facility] [address] [facility] [address] URINALYS KETONES Negative 06/15 Specimen Type: URINE [place] IS [MASS/VOLU /2020 No comment en tered. LD ME] IN Ordering Provid er: MALLIKA RAMIRES URINE BY Report Release d Date/Time: Jun 15, 2021 09:48 AM TEST STRIP Reporting La b: [facility] [place] [address] [address] Performing Lab: [facility] [address] [address] URINALYS ERYTHROCYT Negative 06/15 Specimen Ty pe: URINE [place] IS ES No comment enter ed. LD [PRESENCE] Ordering Pro vider: MALLIKA RAMIRES IN URINE Report Release d Date/Time: Jun 15, 2021 09:48 AM SEDIMENT Reporting Lab: [facility] BY LIGHT [address] [place] [address] MICROSCOPY Performing L ab: [facility] [address] [address] URINALYS PROTEIN Negative 06/15 Specimen Type: URINE [place] IS [MASS/VOLU /2020 No comment en tered. LD ME] IN Ordering Provid er: MALLIKA RAMIRES URINE BY Report Release d Date/Time: Jun 15, 2021 09:48 AM TEST STRIP Reporting La b: [facility] [address] [address] Performing Lab: [facility] [address] [address] URINALYS NITRITE Negative 06/15 Specimen Type: URINE [place] IS [PRESENCE] /2020 No comment en tered. LD IN URINE Ordering Provi estelita: MALLIKA RAMIRES Report Released Date/Time: Jun 15, 2021 09:48 AM Reporting Lab: [facility] [address] [facility] [address] Performing Lab: [address] [address] URINALYS BILIRUBIN. Negative 06/15 Specimen Ty pe: URINE [place] IS TOTAL No comment enter ed. LD [PRESENCE] Ordering Pro vider: MALLIKA RAMIRES IN URINE Report Release d Date/Time: Jun 15, 2021 09:48 AM Reporting Lab: [facility] [address] [facility] [address] Performing Lab: [address] [address] URINALYS SPECIFIC 1.019 1.016 - 06/15 Specimen Type: URINE [place] IS GRAVITY OF 1.022 /2020 No comment en tered. LD URINE BY Ordering Provi estelita: MALLIKA RAMIRES REFRACTOME Report Relea sed Date/Time: Jun 15, 2021 09:48 AM TRY Reporting Lab: [address] [address] Performing Lab: [address] [address] URINALYS PH OF 6.0 5.0 - 9.0 06/15 Specimen Type : URINE [place] IS URINE BY /2020 No comment ente red. LD TEST STRIP Ordering Pro vider: MALLIKA RAMIRES Report Released Date/Time: Jun 15, 2021 09:48 AM Reporting Lab: [address] [address] Performing Lab: [address] [address] URINALYS UROBILINOG <2.0 <2.0 - 2.0 06/15 Specimen Type: URINE [place] IS EN /2020 No comment enter ed. LD [MASS/VOLU Ordering Pro vider: MALLIKA RAMIRES ME] IN Report Released Date/Time: Jun 15, 2021 09:48 AM URINE BY Reporting Lab: [facility] [place] [facility] TEST STRIP [address] [facility] [address] Performing Lab: [facility] [place] [facility] [address] [facility] [address] URINALYS LEUKOCYTE Negative 06/15 Specimen Typ e: URINE [place] IS ESTERASE No comment ente red. LD [PRESENCE] Ordering Pro vider: MALLIKA RAMIRES IN URINE Report Release d Date/Time: Jun 15, 2021 09:48 AM BY TEST Reporting Lab: [facility] [place] [facility] STRIP [address] [facility] [address] Performing Lab: [facility] [place] [facility] [address] [facility] [address] PTT APTT IN 39.4 26.0 - 06/15 H Specimen Type: P LASMA [place] PLATELET 36.0 /2020 No comment ente red. LD POOR Ordering Provid er: MALLIKA RAMIRES PLASMA BY Report Releas ed Date/Time: Jun 15, 2021 09:48 AM COAGULATIO Reporting La b: [facility] [place] [facility] N ASSAY [address] [facility] [address] Performing Lab: [facility] [place] [facility] [address] [facility] [address] CBC LEUKOCYTES 8.13 4.50 - 06/15 Specimen Type : BLOOD [place] [#/VOLUME] 11.00 No comment en tered. LD IN BLOOD Ordering Provi estelita: MALLIKA RAMIRES BY Report Released Date/Time: Jun 15, 2021 09:48 AM AUTOMATED Reporting Lab : [facility] [place] [facility] COUNT [address] [facility] [address] Performing Lab: [facility] [place] [facility] [address] [facility] [address] CBC ERYTHROCYT 5.47 4.23 - 06/15 Specimen Type : BLOOD [place] ES 5.66 No comment enter ed. LD [#/VOLUME] Ordering Pro vider: MALLIKA RAMIRES IN BLOOD Report Release d Date/Time: Jun 15, 2021 09:48 AM BY Reporting Lab: [facility] [place] [facility] AUTOMATED [address] [facility] [address] COUNT Performing Lab: [facility] [place] [facility] [address] [facility] [address] CBC HEMOGLOBIN 16.5 12.8 - 17 06/15 Specimen Ty pe: BLOOD [place] [MASS/VOLU /2020 No comment en tered. LD ME] IN Ordering Provid er: MALLIKA RAMIRES BLOOD Report Released Date/Time: Jun 15, 2021 09:48 AM Reporting Lab: [facility] [place] [facility] [address] [facility] [address] Performing Lab: [facility] [place] [facility] [address] [facility] [address] CBC HEMATOCRIT 49.6 39.2 - 06/15 Specimen Type : BLOOD [place] [VOLUME 50.4 No comment enter ed. LD FRACTION] Ordering Prov ider: MALLIKA RAMIRES OF BLOOD Report Release d Date/Time: Jun 15, 2021 09:48 AM BY Reporting Lab: [facility] [place] [facility] AUTOMATED [address] [facility] [address] COUNT Performing Lab: [facility] [place] [facility] [address] [facility] [address] CBC MCV 90.7 82 - 99 06/15 Specimen Type: B LOOD [place] [ENTITIC /2020 No comment ente red. LD VOLUME] BY Ordering Pro vider: MALLIKA RAMIRES AUTOMATED Report Releas ed Date/Time: Jun 15, 2021 09:48 AM COUNT Reporting Lab: [facility] [place] [facility] [address] [facility] [address] Performing Lab: [facility] [place] [facility] [address] [facility] [address] CBC MCHC 33.3 30.8 - 06/15 Specimen Type: B LOOD [place] [MASS/VOLU 35.1 No comment en tered. LD ME] BY Ordering Provid er: MALLIKA RAMIRES AUTOMATED Report Releas ed Date/Time: Jun 15, 2021 09:48 AM COUNT Reporting Lab: [facility] [place] [facility] [address] [facility] [address] Performing Lab: [facility] [place] [facility] [address] [facility] [address] CBC PLATELETS 190 140 - 360 06/15 Specimen Typ e: BLOOD [place] [#/VOLUME] /2020 No comment en tered. LD IN BLOOD Ordering Provi estelita: MALLIKA RAMIRES BY Report Released Date/Time: Jun 15, 2021 09:48 AM AUTOMATED Reporting Lab : [facility] [place] [facility] COUNT [address] [facility] [address] Performing Lab: [facility] [place] [facility] [address] [facility] [address] CBC ERYTHROCYT 12.7 12.0 - 06/15 Specimen Type : BLOOD [place] E 16.0 /2020 No comment enter ed. LD DISTRIBUTI Ordering Pro vider: MALLIKA RAMIRES ON WIDTH Report Release d Date/Time: Jun 15, 2021 09:48 AM [RATIO] BY Reporting La b: [facility] [place] [facility] AUTOMATED [address] [facility] [address] COUNT Performing Lab: [facility] [place] [facility] [address] [facility] [address] CBC MCH 30.2 26.2 - 06/15 Specimen Type: B LOOD [place] [ENTITIC 32.6 /2020 No comment ente red. LD MASS] BY Ordering Provi estelita: MALLIKA RAMIRES AUTOMATED Report Releas ed Date/Time: Jun 15, 2021 09:48 AM COUNT Reporting Lab: [facility] [place] [facility] [address] [facility] [address] Performing Lab: [facility] [place] [facility] [address] [facility] [address] LIVER PROTEIN 7.1 6.0 - 8.3 06/15 Specimen Type: SERUM [place] FUNCTION [MASS/VOLU /2020 No comment e ntered. LD ME] IN Ordering Provid er: MALLIKA RAMIRES SERUM OR Report Release d Date/Time: Jun 15, 2021 09:48 AM PLASMA Reporting Lab: [facility] [place] [facility] [address] [facility] [address] Performing Lab: [facility] [place] [facility] [address] [facility] [address] LIVER ALBUMIN 3.6 3.5 - 5.0 06/15 Specimen Type: SERUM [place] FUNCTION [MASS/VOLU /2020 No comment e ntered. LD ME] IN Ordering Provid er: MALLIKA RAMIRES SERUM OR Report Release d Date/Time: Jun 15, 2021 09:48 AM PLASMA Reporting Lab: [facility] [place] [facility] [address] [facility] [address] Performing Lab: [facility] [place] [facility] [address] [facility] [address] LIVER ALKALINE 77 40 - 150 06/15 Specimen Type: SERUM [place] FUNCTION PHOSPHATAS /2020 No comment e ntered. LD E Ordering Provid er: MALLIKA RAMIRES [ENZYMATIC Report Relea sed Date/Time: Jun 15, 2021 09:48 AM ACTIVITY/V Reporting La b: [facility] OLUME] [place] [address] [facility] [address] SERUM OR Performing Lab : [facility] [place] [facility] PLASMA [address] [facility] [address] LIVER ASPARTATE 26 5 - 34 06/15 Specimen Type: SERUM [place] FUNCTION AMINOTRANS /2020 No comment e ntered. LD FERASE Ordering Provid er: MALLIKA RAMIRES [ENZYMATIC Report Relea sed Date/Time: Jun 15, 2021 09:48 AM ACTIVITY/V Reporting La b: [facility] [place]] [place] [address] [facility] [address] SERUM OR Performing Lab : [facility] [place] [facility] PLASMA [address] [facility] [address] LIVER ALANINE 23 0 - 55 06/15 Specimen Type: S HEBER [place] FUNCTION AMINOTRANS /2020 No comment e ntered. LD FERASE Ordering Provid er: MALLIKA RAMIRES [ENZYMATIC Report Relea sed Date/Time: Jun 15, 2021 09:48 AM ACTIVITY/V Reporting La b: [facility] [place] [facility] OLUME] IN [address] [place] [address] SERUM OR Performing Lab : [facility] PLASMA [address] [facility] [address] LIVER BILIRUBIN. 0.5 0.2 - 1.2 06/15 Specimen Ty pe: SERUM [place] FUNCTION TOTAL /2020 No comment ente red. LD [MASS/VOLU Ordering Pro vider: MALLIKA RAMIRES ME] IN Report Released Date/Time: Jun 15, 2021 09:48 AM SERUM OR Reporting Lab: [facility] PLASMA [address] [facility] [address] Performing Lab: [address] [address] BASIC UREA 20 7 - 25 06/15 Specimen Type: S HEBER [place] METABOLI NITROGEN /2020 No comment ent ered. LD C PANEL [MASS/VOLU Ordering Pro vider: MALLIKA RAMIRES (non-fas ME] IN Report Release d Date/Time: Jun 15, 2021 09:48 AM ting) SERUM OR Reporting Lab: [facility] PLASMA [address] [facility] [address] Performing Lab: [address] [address] BASIC GLUCOSE 106 65 - 100 12 H Specimen Type: SERUM [place] METABOLI [MASS/VOLU /2020 No comment e ntered. LD C PANEL ME] IN Ordering Provid er: MALLIKA RAMIRES (non-fas SERUM OR Report Releas ed Date/Time: Jun 15, 2021 09:48 AM ting) PLASMA Reporting Lab: [facility] [address] [facility] [address] Performing Lab: [address] [address] BASIC SODIUM 139 135 - 145 06/15 Specimen Type: SERUM [place] METABOLI [MOLES/VOL /2020 No comment e ntered. LD C PANEL UME] IN Ordering Provid er: MALLIKA RAMIRES (non-fas SERUM OR Report Releas ed Date/Time: Jun 15, 2021 09:48 AM ting) PLASMA Reporting Lab: [facility] [address] [facility] [address] Performing Lab: [facility] [address] [facility] [address] BASIC POTASSIUM 4.1 3.5 - 5.0 06/15 Specimen Typ e: SERUM [place] METABOLI [MOLES/VOL /2020 No comment e ntered. LD C PANEL UME] IN Ordering Provid er: MALLIKA RAMIRES (non-fas SERUM OR Report Releas ed Date/Time: Jun 15, 2021 09:48 AM ting) PLASMA Reporting Lab: [address] [address] Performing Lab: [address] [address] BASIC CHLORIDE 101 100 - 110 06/15 Specimen Type : SERUM [place] METABOLI [MOLES/VOL /2020 No comment e ntered. LD C PANEL UME] IN Ordering Provid er: MALLIKA RAMIRES (non-fas SERUM OR Report Releas ed Date/Time: Jun 15, 2021 09:48 AM ting) PLASMA Reporting Lab: [address] [address] Performing Lab: [address] [address] BASIC CARBON 26 20 - 30 06/15 Specimen Type: S HEBER [place] METABOLI DIOXIDE, /2020 No comment ent ered. LD C PANEL TOTAL Ordering Provid er: MALLIKA RAMIRES (non-fas [MOLES/VOL Report Rele ased Date/Time: Jun 15, 2021 09:48 AM ting) UME] IN Reporting Lab: [facility] SERUM OR [address] [place] [address] PLASMA Performing Lab: [address] [address] BASIC CREATININE 1.08 0.50 - 06/15 Specimen Type : SERUM [place] METABOLI [MASS/VOLU 1.40 /2020 No comment e ntered. LD C PANEL ME] IN Ordering Provid er: MALLIKA RAMIRES (non-fas SERUM OR Report Releas ed Date/Time: Jun 15, 2021 09:48 AM ting) PLASMA Reporting Lab: [facility] [place] [facility] [address] [facility] [address] Performing Lab: [facility] [place] [facility] [address] [facility] [address] BASIC GLOMERULAR 66 60 06/15 Specimen Type : SERUM [place] METABOLI FILTRATION /2020 No comment e ntered. LD C PANEL RATE/1.73 Ordering Prov ider: MALLIKA RAMIRES (non-fas SQ Report Release d Date/Time: Jun 15, 2021 09:48 AM ting) KASSANDRA Reporting La b: [facility] [place] [facility] D [VOLUME [address] [facility] [address] RATE/AREA] Performing L ab: [facility] [place] [facility] IN SERUM [address] [facility] [address] OR PLASMA BY CREATININE -BASED FORMULA (MDRD) TSH THYROTROPI 3.01 0.35 - 06/15 Specimen Type : SERUM [place] N 5.00 No comment enter ed. LD [UNITS/VOL Ordering Pro vider: MALLIKA RAMIRES UME] IN Report Released Date/Time: Jun 15, 2021 09:48 AM SERUM OR Reporting Lab: [facility] [place] [facility] PLASMA [address] [facility] [address] Performing Lab: [facility] [place] [facility] [address] [facility] [address] LIPID CHOLESTERO 187 0 - 199 06/15 Specimen Type : SERUM [place] PANEL, L /2020 No comment enter ed. LD NON [MASS/VOLU Ordering Pro vider: MALLIKA RAMIRES FASTING ME] IN Report Released Date/Time: Jun 15, 2021 09:48 AM SERUM OR Reporting Lab: [facility] [place] [facility] PLASMA [address] [facility] [address] Performing Lab: [facility] [place] [facility] [address] [facility] [address] LIPID TRIGLYCERI 177 0 - 150 12/14 H Specimen Type : SERUM [place] PANEL, DE /2020 No comment enter ed. LD NON [MASS/VOLU Ordering Pro vider: MALLIKA RAMIRES FASTING ME] IN Report Released Date/Time: Jun 15, 2021 09:48 AM SERUM OR Reporting Lab: [facility] [place] [facility] PLASMA [address] [facility] [id number] Performing Lab: [facility] [place] [facility] [address] [facility] [address] LIPID CHOLESTERO 109 0 - 129 06/15 Specimen Type : SERUM [place] PANEL, L IN LDL /2020 No comment ente red. LD NON [MASS/VOLU Ordering Pro vider: MALLIKA RAMIRES FASTING ME] IN Report Released Date/Time: Jun 15, 2021 09:48 AM SERUM OR Reporting Lab: [facility] [place] [facility] BY [address] [place] [id number] CALCULATIO Performing L ab: [facility] [place] [facility] [address] [facility] [address] LIPID CHOLESTERO 4.3 06/15 Specimen Type : SERUM [place] PANEL, L.TOTAL/CH /2020 No comment en tered. LD NON OLESTEROL Ordering Prov ider: MALLIKA RAMIRES FASTING IN HDL Report Released Date/Time: Jun 15, 2021 09:48 AM [MASS Reporting Lab: [facility] [place] [facility] RATIO] IN [address] [place] [phone] SERUM OR Performing Lab : [facility] [place] [facility] PLASMA [address] [place] [address] LIPID CHOLESTERO 43 40 - 60 06/15 Specimen Type : SERUM [place] PANEL, L IN HDL /2020 No comment ente red. LD NON [MASS/VOLU Ordering Pro vider: MALLIKA RAMIRES FASTING ME] IN Report Released Date/Time: Jun 15, 2021 09:48 AM SERUM OR Reporting Lab: [facility] [place] [facility] PLASMA [address] [facility] [address] Performing Lab: [facility] [place] [address] [address] Vital Signs Combined list of inpatient and outpatient Vital Signs from Department of Defense and Veterans Affairs, ranging from 12 months to all on record, depending upon the facility. Vital Sign Value Date Comments Source SYSTOLIC BLOOD PRESSURE 155 06/15/2021 09:34:57 [place] DIASTOLIC BLOOD PRESSURE 79 06/15/2021 09:34:57 [place] PULSE OXIMETRY 96% 06/15/2021 09:34:57 [facility] WEIGHT 251 06/15/2021 09:34:57 [place] BMI 36kg/m2 06/15/2021 09:34:[address] [facility] PAIN 0 06/15/2021 09:34:57 [place] TEMPERATURE 96.5 06/15/2021 09:34:57 [place] PULSE 70 06/15/2021 09:34:57 [place] RESPIRATION 20 06/15/2021 09:34:57 [place] Encounters Combined list of: 1) Encounters from Department of Veterans Affairs facilities going back up to the last 18 months. 2) Encounters from the Department of Defense facilities going back up to 280 months. Location Location Encounter Encounter Reason Attending ADM DC Stat us Disposition Source Details Type Number For Provider Date Date Visit Outpatient [id number] 01/20 [id number] [facility]2021 [facility] [place] [facility] Outpatient [id number] 01/27 [facility] Encounter [id number] [facility] [place] [facility] Outpatient [id number] 02/01 [facility] Encounter [id number] [facility] [place] [facility] Outpatient [id number] 02/05 [facility] Encounter [id number] [facility] [place] [facility] Outpatient [id number] 02/26 [facility] Encounter [id number] [facility] [place] [facility] Outpatient [id number] 04/01 [facility] Encounter [id number] [facility] [place] [facility] Outpatient [id number] 04/06 [facility] Encounter [id number] [facility] [place] [facility] Outpatient [id number] 04/22 [facility] En[facility] [id number] [facility] [place] [facility] [id number] 05/06 [facility] Encounter [id number] /2021 [facility] [place] [facility] Out[facility] [id number] 05/17 [facility] Encounter [id number] [facility] [place] [facility] Outpatient [id number] 05/28 [facility] Encounter [id number] [facility] [place] [facility] Outpatient [id number] 06/15 [facility] Encounter [id number] [facility] [place] [facility] OFFICE O/P [id number] Diagnos ME FREDDIE 06/15 SPRING EST MOD [id number] is: LEIGHTON MONTGOMERY IEL D 30-39 MIN 49 ICD-10- CM I49.9 Cardiac arrhyth abdirashid, unspeci fied
with Provide r Comment s: Cardiac Arrhyth abdirashid, unspeci fied ELECTROCAR 13221-6.68 Diagnos CHRISTINE CORBIN 06/15 CONNECT DIOGRAM [id number] is: A ICUT REPORT ICD-10- HCS CM Z13.6 Encount er for screeni ng for cardiov ascular disorde rs
with Provide r Comment s: Encount er for Screeni ng for Cardiov ascular Disorde rs Outpatient [id number] 06/15 [facility] En[facility] [id number] [facility] [place] [facility] [facility] Out[facility] [id number] 06/16 [facility] Encounter [id number] [facility] [place] [facility] Outpatient [id number] 06/21 [facility] Encounter [id number] [facility] [place] [facility] Outpatient [id number] 06/24 [facility] Encounter [id number] /2021 [facility] [place] [facility] Outpatient [id number] 06/29 VA Encounter [id number] /2021 [facility] [place] [facility] OFFICE [id number] Diagnos JO-ANN SPEARS 07/07 V A CONSULTATI [id number] is: S R /2021 CNTR L ON ICD-10- [facility] [place] I48.0 SETS [facility] mal atrial fibrill ation<b r/>with Provide r Comment s: [facility] mal atrial fibrill ation Outpatient [id number] 12/30 [facility] Encounter [id number] /2022 [facility] [place] [facility] Outpatient [id number] 12/31 [facility] Encounter [id number] /2022 [facility] [place] [facility] Outpatient [id number] 01/10 [facility] Encounter [id number] /2022 [facility] [place] [facility] Out[facility] [id number] 01/13 [facility] Encounter [id number] /2022 [facility] [place] [facility] Outpatient [id number] 01/21 [facility] Encounter [id number] /2022 [facility] [place] [facility] Outpatient [id number] 01/26 VA Encounter [id number] /2022 [facility] [place] [facility] TTE 61323-9.63 Diagnos TORYJO-ANN 01/26 VA W/DOPPLER [id number] is: S R CNTRL COMPLETE ICD-10- [facility] [place] I07.1 SETS [facility] H[facility] ic tricusp id insuffi ciency< br/>wit h Provide r Comment s: Rheumat ic Tricusp id Insuffi ciency Outpatient [id number] 01/31 [facility] Encounter [id number] /2022 [facility] [place] [facility] [facility] Social History Combined list of available smoking, tobacco, and other social history from Department of Defense andVeterans Affairs facilities. Social History Type Response Date Comment Source Tobacco smoking VA-TOBACCO USE 06/15/2021 [place] D status NHIS DECLINED TO ANSWER History of tobacco VA-TOBACCO NEVER 06/05/2018 [place] use USED History of tobacco QUIT TOBACCO USE 09/05/2017 ROGELIO DOE use 1-7 YEARS AGO History of tobacco QUIT TOBACCO USE > 09/15/2016 Quit 20 years ag jaquelin TINAJERO use 7 YEARS AGO History of tobacco QUIT TOBACCO USE > 09/23/2015 States he last s siobhan TANVI use 7 YEARS AGO cigarettes over 10 years ago History of tobacco QUIT TOBACCO USE > 01/06/2015 NIMO TIMOTHY [facility] use 7 YEARS AGO Plan of Care List of future care activities from [facility] facilities. Additional future care activities may be listed in the Assessment and Plan section. Date/Time Care Activity Care Activity Detail Facility 05/09/2022 AMBULATORY - NONE AMBULATORY - NONE [facility] CNTR[facility]ha WILL RN [facility] Advance Directives List of completed, amended, or rescinded Advance Directives on record at Department of [facility] facilities. An actual copy of the Directive is not included. Date Advance Directive Provider Source 05/20/2016 ADVANCE DIRECTIVE CARMENMARIAN [facility] JESICA [facility]
[2022-04-30] MEDS: Lidocaine HCl 2 % Urojet 10 ML JEL.PF.APP TOPICAL (14:45)
--- OUTSIDE RECORDS SUMMARY | 2022-04-30 14:47 | XMS_ITS | Encounter Summary ---
:1945 Author Organization [facility] rs Address [address] [place] [address] Support Name Relationship Address Phone VERONICA LAURA Unavailable [address] [place] [address] VERONICA LAURA Unavailable [address] [place] [address] ROHIT MASON Unavailable [phone] [place] [id number] Insurance Providers: All historical and current Section Date Range: From patient's date of to the date document was created.This section includes the names of all active insurance providers for the patient. Insurance Type of Plan Start of End of Group Member Insurance Policy P atient's Provider Coverage Name Policy Policy Number ID Provider's Islas's Relationship Coverage Coverage Telephone Name to Policy Number Islas MEDICARE MEDICARE PART Dec 31, PART B [id number] CAGUE, FOR PATIENT (WNR) (M) B 2011 85A 00 EST MEDICARE MEDICARE PART Dec 31, PART A [phone] CAGUE, FOR PATIENT (WNR) (M) A 2009 85A 4 EST MEDICARE MEDICARE PART Dec 31, PART A [id number] [phone] CAGUE, FOR PATIENT (WNR) (M) A 2009 85A 00 EST Selected Encounter This section includes the information on record at [place] for the Encounter. Date/Time Encounter Type Encounter Reason Provider Source Description Jun 15, 2021 ELECTROCARDIOGRAM EKG ICD-10-CM Z13.6 CHRISTINE CORBIN 11:06 AM REPORT Encounter for A screening for cardiovascular disorders with Provider Comments: Encounter for Screening for Cardiovascular Disorders IHE Encounter Template Text not used by [facility] Assessments - Encounter Diagnoses This section includes the primary and secondary diagnoses documented for the Encounter. Date/Time Primary/Secondary Diagnosis Name Provider Source Diagnosis Jun 16, 2021 PRIMARY Encounter for [facility] [place] [facility] 10:19 AM screening for ADINA cardiovascular disorders Plan of Treatment: Future Appointments (+ 6 months) and Future Tests (+/- 45 days) The Plan of Treatment section includes future care activities for the patient from all [place] treatmentfacilities. This section includes future appointments and future orders which are active, pending orscheduled.Future Appointments This section includes appointments that were scheduled to occur 6 months from the date of the Encounter, up to a maximum of 20 appointments. The data comes from all [place] treatment facilities. Appointment Date/Time Appointment Type Appointment Facili ty Name Jul 07, 2021 10:00 AM AMBULATORY - MEDICINE [facility] Lab Results: +/- 30 days of the encounter This section includes the Chemistry and Hematology Lab Results on record with [place] for the patient. Radiology Reports and Pathology Reports are provided separately, in subsequent sections.Lab Results This section contains the Chemistry/Hematology Results that were resulted 30 days before or 30 daysafter the date of the Encounter. Date/Time Source Result Type Result - Unit Interpretation Reference Range Comment Jun 15, 2021 11:09 AM [place] HEMOGLOBIN A1C PANEL Spec imen Type: BLOOD Comment: Testin g performed by NGSP certified [employer] with CV <2%. The Ocasio HgA1C assay should not be used to diagnose or monitor diabetes in patients with altered red cell lifespan such a s homozygous hem oglobin variants, Hb SC, HbF>5% and hemolytic anemia. Heterozygous variants do not affect this assay, HbAS, HbAC, HbAD, HbAE, AbA2 Ordering Provid er: MALLIKA RAMIRES Report Released Date/Time: Jun 15, 2021 09:48 AM Reporting Lab: [facility] [address] [facility] [address] Performing Lab: [facility] [address] [address] HEMOGLOBIN A1C 5.8 H 4.0-5.6 Jun 15, 2021 11:09 AM [place] PT & INR (PROTIME) Specim en Type: PLASMA No comment enter ed. Ordering Provid er: MALLIKA RAMIRES Report Released Date/Time: Jun 15, 2021 09:48 AM Reporting Lab: [facility] [address] [address] Performing Lab: [facility] [address] [address] INR 1.1 PROTIME 11.9 10.0-13.1 Jun 15, 2021 11:09 AM [place] CBC Specimen Type: BLOOD No comment enter ed. Ordering Provid er: MALLIKA RAMIRES Report Released Date/Time: Jun 15, 2021 09:48 AM Reporting Lab: [facility] [address] [address] Performing Lab: [facility] [address] [address] WBC 8.13 4.50-11.00 RBC 5.47 4.23-5.66 HGB 16.5 12.8-17 HCT 49.6 39.2-50.4 MCV 90.7 82-99 MCHC 33.3 30.8-35.1 PLT 190 140-360 RDW-CV 12.7 12.0-16.0 MCH 30.2 26.2-32.6 Jun 15, 2021 11:09 AM [place] PTT Specimen Type: PLASMA No comment enter ed. Ordering Provid er: MALLIKA RAMIRES Report Released Date/Time: Jun 15, 2021 09:48 AM Reporting Lab: [facility] [address] [address] Performing Lab: [facility] [address] [address] PTT 39.4 H 26.0-36.0 Jun 15, 2021 11:09 AM [place] URINALYSIS Specimen Type: URINE No comment enter ed. Ordering Provid er: MALLIKA RAMIRES Report Released Date/Time: Jun 15, 2021 09:48 AM Reporting Lab: [facility] [address] [address] Performing Lab: [facility] [address] [address] UA COLOR Yellow Yellow UA APPEARANCE Clear Clear UA GLUCOSE Negative Negative UA KETONES Negative Neg UA BLOOD Negative Neg UA PROTEIN Negative Neg UA NITRITE Negative Neg UA BILIRUBIN Negative Neg UA SPECIFIC GRAVITY 1.019 1.016-1.02 2 UA pH 6.0 5.0-9.0 UA UROBILINOGEN <2.0 <2.0 UA LEUKOCYTE ESTERASE Negative Neg Jun 15, 2021 11:09 [place] BASIC METABOLIC PANEL Specim en Type: SERUM AM (non-fasting) No comment enter ed. Ordering Provid er: MALLIKA RAMIRES Report Released Date/Time: Jun 15, 2021 09:48 AM Reporting Lab: [facility] [address] [address] Performing Lab: [address] [address] [facility]A NITROGEN 20 7-25 GLUCOSE 106 H 65-100 SODIUM 139 135-145 POTASSIUM 4.1 3.5-5.0 CHLORIDE 101 100-110 CO2 26 20-30 CREATININE, Serum 1.08 0.50-1.40 eGFR (IDMS) 66 >60 Jun 15, 2021 11:09 AM [place] LIVER FUNCTION Specimen Type: SERUM No comment enter ed. Ordering Provid er: MALLIKA RAMIRES Report Released Date/Time: Jun 15, 2021 09:48 AM Reporting Lab: [facility] [address] [address] Performing Lab: [facility] [address] [address] PROTEIN,TOTAL 7.1 6.0-8.3 ALBUMIN 3.6 3.5-5.0 ALKALINE PHOSPHATASE 77 40-150 AST 26 5-34 ALT 23 0-55 BILIRUBIN, TOTAL 0.5 0.2-1.2 Jun 15, 2021 11:09 AM [place] TSH Specimen Type: SERUM No comment enter ed. Ordering Provid er: MALLIKA RAMIRES Report Released Date/Time: Jun 15, 2021 09:48 AM Reporting Lab: [facility] [address] [address] Performing Lab: [facility] [address] [address] TSH 3.01 0.35-5.00 Jun 15, 2021 11:09 AM [place] LIPID PANEL, NON Specimen Type: SERUM FASTING No comment enter ed. Ordering Provid er: MALLIKA RAMIRES Report Released Date/Time: Jun 15, 2021 09:48 AM Reporting Lab: [facility] [address] [address] Performing Lab: [facility] [address] [address] CHOLESTEROL 187 0-199 TRIGLYCERIDE 177 H 0-150 LDL calculated 109 0-129 CHOL/HDL 4.3 HDL CHOLESTEROL 43 40-60 Advance Directives: All historical and current Section Date Range: From patient's date of to the date document was created. This section includes ALL of a patient's completed or amended [place] Advance and Rescinded Directives. The entries below indicate that a directive exists for the patient, but an actual copy is not included with this document. The data comes from all [place] facilities. Date Advance Directives Provider Source May 20, 2016 ADVANCE DIRECTIVE MARIAN MORALES [facility] Encounter Notes: All associated encounter notes This section contains the clinical notes associated to the Encounter. Date/Time Encounter Note(s) Provider Source Jun 16, 2021 10:17 AM CARDIOLOGY PROCEDURE NOTE: SHARRON MAYO [facility] LOCAL TITLE: EKG OUTPATIENT RESULT STANDARD TITLE: CARDIOLOGY PROCEDURE NOTE DATE OF NOTE: JUN 16, 2021@10:17 ENTRY DATE: JUN 16, 2021@10:17:47 AUTHOR: SHARRON MAYO EXP COSIGNER: URGENCY: STATUS: COMPLETED An EKG was done on: Jun Please see [facility] for the EKG result. /paulette/ SHARRON MAYO CIGAR SORTER Signed: 06/16/2021 10:19
--- OUTSIDE RECORDS SUMMARY | 2022-04-30 14:47 | XMS_ITS | Encounter Summary ---
:1945 Author Organization [facility] Address [address] [place] [address] Support Name Relationship Address Phone VERONICA LAURA Unavailable [address] [place] [address] VERONICA LAURA Unavailable [address] [place] [address] ROHIT MASON Unavailable [address] [place] [id number] Insurance Providers: All historical and current Section [...] MEDICARE MEDICARE PART Dec 31, PART B [id number] [phone] CAGUE, FOR PATIENT (WNR) (M) B 2011 85A 00 EST MEDICARE MEDICARE PART Dec 31, PART A [id number] [phone] CAGUE, FOR PATIENT (WNR) (M) A 2009 85A 4 EST MEDICARE MEDICARE PART Dec 31, PART A [id number] [phone] CAGUE, FOR PATIENT (WNR) (M) A 2009 85A 00 EST Selected Encounter This section includes the information on record at MD for the Encounter. Date/Time Encounter Type Encounter Description Reason Provider Source Jan 26, 2022 10:40 Outpatient Encounter TELEPHONE TRIAGE AM IHE Encounter Template Text not used by MD Plan of Treatment: Future Appointments (+ 6 months) and Future Tests (+/- 45 days) The Plan of Treatment section includes future care activities for the patient from all VA treatmentfacilities. This section includes future appointments and future orders which are active, pending orscheduled.Future Appointments This section includes appointments that were scheduled to occur 6 months from the date of the Encounter, up to a maximum of 20 appointments. The data comes from all [place] treatment facilities. Appointment Date/Time Appointment Type Appointment Facili ty Name Feb 10, 2022 10:15 AM AMBULATORY - NONE [facility] May 09, 2022 09:00 AM AMBULATORY - NONE [facility] Jun 16, 2022 10:00 AM AMBULATORY - MEDICINE [place] Advance Directives: All historical and current Section Date Range: From patient's date of to the date document was created. This section includes ALL of a patient's completed or amended MD Advance and Rescinded Directives. The entries below indicate that a directive exists for the patient, but an actual copy is not included with this document. The data comes from all [facility]. Date Advance Directives Provider Source May 20, 2016 ADVANCE DIRECTIVE MARIAN MORALES [facility] Radiology Reports: +/- 30 days of the encounter Radiology Reports For cases when an order for radiology services may have been completed prior to the date of the Encounter, the report list includes the Radiology Reports that were completed up to 30 days before date of the Encounter. For cases when an order for radiology services may have been completed after the date of the Encounter, the report list also includes the Radiology Reports that were completed up to 30days after date of the Encounter. The data comes from all [facility]. Date/Time Radiology Report Provider Source Feb 10, 2022 09:50 CT HEAD W/O CONT: [facility] MILKA KEVIN JESSICA [id number] -J[birth year], 194 5 M SERVICE [facility] Exm Date: FEB 10, 2022@09:50 Req Phys: MALLIKA CAMPA Loc: CWM/NO/ECHO (Re q'g Loc) Img Loc: NHM/CT Service: Unknown (Case 198 COMPLETE) CT HEAD W/O CONT (CT Detaile d) CPT:96798 Reason for Study: pt w/contant headache, rhinno natividad and nasal congestion (Case 199 COMPLETE) CT MAXILLOFACIAL W/O CONT (C T Detailed) CPT:93364 Clinical History: despite tx w/numerous decongestants etc. please contact RONALD Kristen with [facility], and [phone] (press 0), Report Status: Verified Date Reported: FEB 10, 2022 Date Verified: FEB 10, 2022 Pool Lifeguard E-Sig: Report: CT HEAD CT MAXILLOFACIAL BONES Technique: Noncontrast CT images of the head an d maxillofacial bones. Multiplanar reformats. Number of images: 1080 CT radiation dose DLP (mGy*cm): 1297 Comparison: None History: pt w/contant headache, rhinnorhea and nasal congestion FINDINGS: Generalized cerebral volume loss. 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 The basal cisterns are patent. No acute intracr anial hemorrhage, hydrocephalus or midline shift. Mastoid air cells are clear. Mild mucosal thickening of the ethmoid and sphe noid sinuses. The ostiomeatal complexes are patent. No air-fluid level. Maxillary sinuses are clear. Frontal sinuses ar e not formed. Impression: No acute intracranial abnormality. Mild sinus disease. READING PHYSICIAN: Tyler Washburn M.D. [phone] 02/10/2022 11:25 PDT [facility] National Teleradiology Program [phone] (For Medical Practitioner Use Only ) [address] [place] [address], [place] [address], [address] [place] [address] Attention Patients / Veterans: If you have ques tions or concerns about these test results, please contact your [facility] provider or primary care team. Primary Diagnostic Code: NO ALERT REQUIRED Primary Interpreting Staff: RADIOLOGY,OUTSIDE SERVICE, Staff Physician / Encounter Notes: All associated encounter notes This section contains the clinical notes associated to the Encounter. Date/Time Encounter Note(s) Provider Source Jan 26, 2022 10:40 AM ADMINISTRATIVE NOTE: MARCIA PARISH NTRL [facility] LOCAL TITLE: CCC: SCHEDULING ADMINISTRATION [place] [facility] STANDARD TITLE: ADMINISTRATIVE NOTE DATE OF NOTE: JAN 26, 2022@10:40:47 ENTRY DATE: JAN 26, 2022@10:44:13 AUTHOR: MARCIA PARISH EXP COSIGNER: URGENCY: STATUS: COMPLETED CCC: SCHEDULING ADMINISTRATION Has ADDENDA Type of call: REFERRAL/CONSULT REQUEST. PCMM Provider Info: LOCAL [facility] ([id number]) PACT: SO PACT 4 (Focus: Primary Care Only) Primary Care Provider: MALLIKA CAMPA PHONE:[phone] Daycare Teacher: KRISTEN ANN Clinical Associate: FELIX FRAZIER PHON E:[phone] Grain Elevator Clerk: KRISTEN XAVIER PHONE:[phone] PACT Clinical Pharmacist: NISHA SHELTON PHONE:[phone] Clinical POC: Daycare Teacher PAIGE ANN Administrative POC: Grain Elevator Clerk KRISTEN XAVIER PHONE:[phone] NON-VA OFFICE STAFF called in for MILKA MASON ([id number]) . The following identifiers were used to verify th is patient: DOB. NUR. Contact Caller Response: ADM CALL RESOLVED Caller Area: [facility] Comments: Kristen, calling with [facility], [phone] and [phone](press [phone]), requests a call back in regards to getting vet a CT scan and ENT referral. Kristen states it is ok to order the CT at [place]. Kristen also mentions that vet has a ECHO appt today in [place] and will have his MAR with him. Author: MARCIA PARISH Evaluation/Management Code: HC PRO PHONE CALL 5- 10 MIN ([phone]). Starting at: 01/26/2022 @ 10:40:47 AM Ending at: 01/26/2022 @ 10:42:45 AM Length: 1 minutes. Chief Complaint: Not applicable to call. Class Code: Other specified counseling. /paulette/ MARCIA PARISH ADVANCED BUSINESS SUPPORT LIAISON Signed: 01/26/2022 10:44 Receipt Acknowledged By: * AWAITING SIGNATURE * KRISTEN ANN 01/26/2022 10:50 /paulette/ FELIX FRAZIER LPN LICENSED PRACTICAL NURSE 01/26/2022 ADDENDUM STATUS: COMPLETED Will include PCP in above information and s/s 2022 ADDENDUM STATUS: COMPLETED Called the first number provided and it just ran g; unable to leave a messag. Tried the 2nd number, which is the main number and was transferred to Christy Mayorga NP for . PROCED TECH states the has been complaining of constant headaches, cold and runny nose. PROCED TECH h as tried every possible sinus medication w/o relief. Would like consults to see if she is missing something or get another recommendation to treat [place]. /paulette/ FELIX FRAZIER LPN LICENSED PRACTICAL NURSE Signed: 01/26/2022 10:51 Receipt Acknowledged By: 01/28/2022 10:52 /es/ Mallika Campa M.D. STAFF PHYSICIAN 01/28/2022 ADDENDUM STATUS: COMPLETED ct of brain and sinuses ordered /paulette/ Mallika Campa M.D. STAFF PHYSICIAN Signed: 01/28/2022 10:54
--- OUTSIDE RECORDS SUMMARY | 2022-04-30 14:47 | XMS_ITS | Encounter Summary ---
:1945 Author Organization [facility] Address [address] [place] [address] Support Name Relationship Address Phone VERONICA LAURA Unavailable [address] [place] [address] VERONICA LAURA Unavailable [address] [place] [address] ROHIT MASON Unavailable [address] [place] [address] Insurance Providers: All historical and current Section [...] MEDICARE MEDICARE PART Dec 31, PART B [id number] CAGUE, FOR PATIENT (WNR) (M) B 2011 85A 00 EST MEDICARE MEDICARE PART Dec 31, PART A [id number] CAGUE, FOR PATIENT (WNR) (M) A 2009 85A 4 EST MEDICARE MEDICARE PART Dec 31, PART A [id number] [phone] CAGUE, FOR PATIENT (WNR) (M) A 2009 85A 00 EST Selected Encounter This section includes the information on record at [place] for the Encounter. Date/Time Encounter Type Encounter Description Reason Provider Source Jan 13, 2022 12:44 Outpatient Encounter TELEPHONE TRIAGE PM IHE Encounter Template Text not used by [place] Plan of Treatment: Future Appointments (+ 6 [...] 20 appointments. The data comes from all [facility]. Appointment Date/Time Appointment Type Appointment Facili ty Name Jan 26, 2022 11:00 AM AMBULATORY - MEDICINE [facility] Feb 10, 2022 10:15 AM AMBULATORY NONE [facility] May 09, 2022 09:00 AM AMBULATORY [facility] Jun 16, 2022 10:00 AM AMBULATORY MEDICINE [place] Advance Directives: All historical and current Section Date Range: From patient's date of to the date document was created. This section includes ALL of a patient's completed or amended [place] Advance and Rescinded Directives. The entries below indicate that a directive exists for the patient, but an actual copy is not included with this document. The data comes from all [facility]. Date Advance Directives Provider Source May 20, 2016 ADVANCE DIRECTIVE MARIAN MORALES [facility] Radiology Reports: +/- 30 days of [...] the Encounter. The data comes from all [facility]. Date/Time Radiology Report Provider Source Feb 10, 2022 09:50 CT HEAD W/O CONT: RADIOLOGY,OUTSIDE [facility] MAYA MILKA MASON [id number] -JAN 21 194 5 M SERVICE [facility] Exm Date: FEB 10, 2022@09:50 Req Phys: MALLIKA RAMIRES Loc: CWM/NO/ECHO (Re q'g Loc) Img Loc: NHM/CT Service: Unknown (Case 198 COMPLETE) CT HEAD W/O CONT (CT Detaile d) CPT:71910 Reason for Study: pt w/contant headache, rhinno natividad and nasal congestion (Case 199 COMPLETE) CT MAXILLOFACIAL W/O CONT (C T Detailed) CPT:92588 Clinical History: despite tx w/numerous decongestants etc. please contact JACKSPOOLER Kristen with [facility], and [phone] (press [phone]), Report Status: Verified Date Reported: FEB 10, 2022 Date Verified: FEB 10, 2022 Medication Tech E-Sig: Report: CT HEAD CT MAXILLOFACIAL BONES [...] disease. READING PHYSICIAN: Tyler Washburn M.D. -[phone] 02/10/2022 11:25 PDT [facility] National Teleradiology Program [phone] (For Medical Practitioner Use Only ) [address] [place] [address], [place] [address], [address] [place] [address] Attention Patients / Veterans: If you have ques tions or concerns about these test results, please contact your o rdering provider or primary care team. Primary Diagnostic Code: NO ALERT REQUIRED Primary Interpreting Staff: RADIOLOGY,OUTSIDE SERVICE, Staff Physician / Encounter Notes: All associated encounter notes This section contains the clinical notes associated to the Encounter. Date/Time Encounter Note(s) Provider Source Jan 13, 2022 12:44 PM TELEPHONE ENCOUNTER NOTE: NICHOLAS CONTRERAS CNTRL WSTRN LOCAL TITLE: VISN 1 CCC ACTION REQUIRED [place] [facility] STANDARD TITLE: TELEPHONE ENCOUNTER NOTE DATE OF NOTE: JAN 13, 2022@12:44:18 ENTRY DATE: JAN 13, 2022@12:47:08 AUTHOR: EGLER,JUSTICE EXP COSIGNER: URGENCY: STATUS: COMPLETED VISN 1 CCC ACTION REQUIRED Has ADDENDA OTHER called in for MILKA MASON ([id number]) . The following identifiers were used to verify th is patient: . SSN. Other: Kristen. Contact Type of call: REFERRAL/CONSULT REQUEST. Caller Response: ADM CALL RESOLVED Caller Area: [facility] Provider Info: LOCAL [facility] (631BY) PACT: SO PACT 4 (Focus: Primary Care Only) Primary Care Provider: MALLIKA RAMIRES PHONE:[phone] License Clerk: KRISTEN ANN Clinical Associate: FELIX FRAZIER PHON E:[phone] Patient Safety Sitter: KRISTEN XAVIER PHONE:[phone] Clinical POC: License Clerk PAIGE ANN Administrative POC: Patient Safety Sitter KRISTEN XAVIER PHONE:[phone] Author: NICHOLAS CONTRERAS Comments: Kristen from [facility] called to [employer] the status of her request for a Ct Scan and ENT consults. Kristen gave an alternat e contact number of [phone] or [phone]. Kindly call back to [facility] s consults. Evaluation/Management Code: HC PRO PHONE CALL 5- 10 MIN ([phone]). Starting at: 01/13/2022 @ 12:44:18 Ending at: 01/13/2022 @ 12:45:58 Length: 1 minutes. Chief Complaint: Not applicable to call. Class Code: Other specified counseling. Patient's Email Address: /paulette/ NICHOLAS CONTRERAS Signed: 01/13/2022 12:47 Receipt Acknowledged By: * AWAITING SIGNATURE * KRISTEN ANN 01/13/2022 13:29 /es/ FELIX FRAZIER LPN LICENSED PRACTICAL NURSE 01/14/2022 ADDENDUM STATUS: COMPLETED CAlled the [phone] and phone just rang; nicole ble to leave a message. /paulette/ KRISTEN ANN RN REGISTERED NURSE Signed: 01/14/2022 14:06
--- OUTSIDE RECORDS SUMMARY | 2022-04-30 14:47 | XMS_ITS | Encounter Summary ---
:1945 Author Organization [facility] Address [address] [place] [place] [address] Support Name Relationship Address Phone VERONICA LAURA Unavailable [address] [place] [address] VERONICA LAURA Unavailable [address] [place] [address] ROHIT MASON Unavailable 086 [address] [place] [id number] Insurance Providers: All historical and current Section [...] MEDICARE MEDICARE PART Dec 31, PART B [id number] [id number] CAGUE, FOR PATIENT (WNR) (M) B 2011 85A 00 EST MEDICARE MEDICARE PART Dec 31, PART A [id number] CAGUE, FOR PATIENT (WNR) (M) A 2009 85A 4 EST MEDICARE MEDICARE PART Dec 31, PART A [id number] [id number] CAGUE, FOR PATIENT (WNR) (M) A 2009 85A 00 EST Selected Encounter This section includes the information on record at [place] for the Encounter. 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 The data comes from all [place] treatment facilities. Date/Time Radiology Report Provider Source Feb 10, 2022 09:50 CT HEAD W/O CONT: RADIOLOGY,OUTSIDE [facility] MAYA MILKA MASON [id number] -JAN 21, 194 5 M SERVICE [facility] Exm Date: FEB 10, 2022@09:50 Req Phys: KEYLAMALLIKA HERNANDEZ Loc: CWM/NO/ECHO (Re q'g Loc) Img Loc: NHM/CT Service: Unknown (Case 198 COMPLETE) CT HEAD W/O CONT (CT Detaile d) CPT:54093 Reason for Study: pt w/contant headache, rhinno natividad and nasal congestion (Case 199 COMPLETE) CT MAXILLOFACIAL W/O CONT (C T Detailed) CPT:26276 Clinical History: despite tx w/numerous decongestants etc. please contact RONALD Peterson with [facility], and [phone] (press [phone]), Report Status: Verified Date Reported: FEB 10, 2022 Date Verified: FEB 10, 2022 Block Mason E-Sig: Report: CT HEAD CT MAXILLOFACIAL BONES [...] disease. READING PHYSICIAN: Tyler Washburn M.D. -[phone] 02/10/2022 11:25 PDT [facility] National Teleradiology Program [phone] (For Medical Practitioner Use Only ) [address] [facility] [address], [address] [place] [address] Attention Patients / Veterans: If you have ques tions or concerns about these test results, please contact your o rdering provider or primary care team. Primary Diagnostic Code: NO ALERT REQUIRED Primary Interpreting Staff: RADIOLOGY,OUTSIDE SERVICE, Staff Physician / Encounter Notes: All associated encounter notes This section contains the clinical notes associated to the Encounter. Date/Time Encounter Note(s) Provider Source Jan 28, 2022 10:55 AM LETTERS: MALLIKA RAMIRES CNTRL W STRN LOCAL TITLE: PATIENT LETTER (T) [place] [facility] STANDARD TITLE: LETTERS DATE OF NOTE: JAN 28, 2022@10:55 ENTRY DATE: JAN 28, 2022@10:55:41 AUTHOR: MALLIKA RAMIRES EXP COSIGNER: URGENCY: STATUS: COMPLETED [facility] Toll Free Number Primary Care Telephone Assistance can be reached at extension [phone] [facility] scheduling can be reac hed at extension [phone] [facility] scheduling can be mary ann ched at ext [phone] [facility] [address] [facility] [place], [place], [address] Dear Girard, Your echocardiogram shwed: Study of limited quality performed in sinus rhyt hm is otherwise grossly unremarkable for age range. Normal left ventricular contractile function; LV ejection fraction approximately 60%. Normal chamber dimensions and wall thickness. No hemodynamically significant valve disorder. High normal pulmonary pressure. No effusions. No prior echocardiogram available for direct com parison. Kindly leave a message for Dr. Ramires if you have any questions. Thank you for allowing the [place] to participate in your care. We look forward to seeing you in the future! Sincerely, Your Primary Care Team [facility] [address] [facility] [address] [place] [address] [place] [address] [phone] [facility] [address],2[address] [place] [address] [place] [address] [phone] [facility] [address] [facility],1st Floor [address] [place] [address] [place] [address] Jan 27, 2022 10:49 AM CARDIOLOGY PROCEDURE NOTE: [place] CNTRL WSTRN LOCAL TITLE: CP [facility] STAND[facility] TITLE: CARDIOLOGY PROCEDURE NOTE DATE OF NOTE: JAN 27, 2022@10:49:01 ENTRY DATE: JAN 27, 2022@10:49:01 AUTHOR: CLINICAL,DEVICE PRO EXP COSIGNER: URGENCY: STATUS: COMPLETED PROCEDURE SUMMARY CODE: Machine Resulted DATE/TIME PERFORMED: JAN 26, 2022@11:10:3 DOCUMENT IN VISTA IMAGING SEE FULL REPORT IN VISTA IMAGING SIGNATURE NOT REQUIRED SEE SIGNATURE IN VISTA IMAGING (XCELERA (ADULT)) AUTO-INSTRUMENT DIAGNOSIS * * Procedure: ADULT Adult Release Status: Released Off-Line Verified Date Verified: Jan 27, 2022@10:48:12 + + [facility] : : [facility] : : [address] [place] [address] : : [place] [address] + + [phone] Adult Echocardiogram Report + + :Name: MILKA MASON Study Date: 022 11:10 AM : : Patient Location: [facility]/ECHO : :: 1945 (M/d/yyyy) Gender: Male Height: 70 in : :Age: 77 yrs Weight: 180 lb: : : : BSA: 2.0 m2 : :Referring Physician: KEYLA, : :MALLIKA : + + Procedure: A two-dimensional transthoracic echocard iogram with color flow and Doppler was performed. The study was technically difficult w ith many images being suboptimal in quality. Interpretation Summary Study of limited quality performed in [facility] is otherwise grossly unremarkable for age range. Normal left ventricular contractile function; LV ejection fraction approximately 60%. Normal chamber dimensions and wall thickness. No hemodynamically significant valve disorder. High normal pulmonary pressure. No effusions. No prior echocardiogram available for direct com parison. + : : :I WMSI = 1.00 % Normal = 100 : +-- + + :+ +:+ -++ +: : :: ::: :: :: : :: ::: :: :: : :: ::: :: :: : :: ::: :: :: : :: ::: :: :: : :: ::: :: :: : :: ::+ ++ +: : :: ::+ ++ +: : :: ::: :: :: : :: ::: :: :: : :: ::: :: :: : :: ::: :: :: : :: ::: :: :: : :: ::: :: :: : :+ +:+ -++ +: : + + : : : : : Segments Size : : :+--------+--------+: :X - Cannot 2 - 4 - ::1-2 :small :: :Interpret 1 - Normal Hypokinetic 3 - Akinetic D yskinetic :+--------+--------+: :5 - ::3-5 :moderate:: :Aneurysmal :+--------+--------+: : ::6-14 :large :: : :+--------+--------+: : ::15-16 :diffuse :: : :+--------+--------+: + + Left Ventricle: The left ventricle is normal in size. There is n ormal left ventricular wall thickness. Left ventricular systolic function is grossly normal. The left ventricular ejection fraction is grossly normal. But suboptimal endocardial definition. LV filling pattern indeterminate. No regional wall motion abnormalities noted. Left Atrium: Atria upper limit in size. Right Ventricle: RV size upper normal, and can not rule out mild contractile dysfunction. (Not ideally visualized.). Right Atrium: Atria upper limit in size. Aortic Valve: There is mild aortic valve thickening. There is no aortic valve stenosis. No aortic regurgitation is present. Mitral Valve: There is mild mitral valve annular dilation. The re is mild mitral valve thickening. There is no mitral valve stenosis. T here is trace mitral regurgitation. Tricuspid Valve: The tricuspid valve is normal in structure and f unction. There is mild tricuspid regurgitation. Pulmonic Valve: The pulmonic valve is not well visualized. Arteries: The aortic root is normal size. The ascending ao rta is normal size. Venous: The IVC is normal in size with an inspiratory co llapse of greater then 50%, suggesting normal right atrial pressure. Pericardium/Pleura: There is no pericardial effusion. MMode/2D Measurements \T\ Calculations IVSd: 1.1 cm LVIDd: 5.0 cm FS: 30.3 % LA dimensi on: LVIDs: 3.5 cm EDV(Teich): 117.2 ml 3.0 cm LVPWd: 1.0 cm ESV(Teich): 49.9 ml EF(Teich): 57.4 % asc Aorta Diam: LVOT diam: 2.1 cmAo Sinus Diam_p hl: IVC Diam_phl: 3.5 cm LVOT area: 3.7 cm 1.0 cm 3.4 cm2 RA A4Cs_phl: RV Base_phl: 3.9 cm 17.5 cm2 Doppler Measurements \T\ Calculations MV E max theo: MV dec slope: Ao V2 max: LV V1 max P.1 cm/sec 333.8 cm/sec2 122.5 cm/sec 3.6 mmHg MV A max theo: MV dec time: 0.20 secAo max PG: LV V1 mean P.2 cm/sec 6.0 mmHg 1.8 mmHg MV E/A: 1.2 Ao V2 mean: LV V1 max: 73.5 cm/sec 95.3 cm/sec Ao mean PG: LV V1 mean: 2.7 mmHg 62.0 cm/sec Ao V2 VTI: 24.1 cm LV V1 VTI: HAN(I,D): 3.1 cm2 21.6 cm HAN(V,D): 2.7 cm2 SV(LVOT): 74.2 ml PA V2 max: TR max theo: PA pr(A ccel): 74.7 cm/sec 286.7 cm/sec 60.0 mmHg PA max P.2 mmHg TR max PG: PA acc time: 0.04 sec32.9 mmHg AV VR_phl: 0.77 MV P1/2t-pr_phl: HAN(VTI)/BSA_phl: 57.2 msec 1.6 +--+ Reading Physician:+--+ Tarik Vail MD 01/27/2022 10:48 AM Administrative Closure: 01/27/2022 by: Clinical,Device Proxy Service
--- OUTSIDE RECORDS SUMMARY | 2022-04-30 14:47 | XMS_ITS | Encounter Summary ---
:1945 Author Organization [facility] Address [address] [place] [address] Support Name Relationship Address Phone VERONICA LAURA Unavailable [address] [place] [address] VERONICA LAURA Unavailable [address] [place] [address] ROHIT MASON Unavailable [address] [place] [id number] Insurance Providers: All historical and current Section [...] MEDICARE MEDICARE PART Dec 31, PART B [id number] [phone] CAGUE, FOR PATIENT (WNR) (M) B 2011 85A 00 EST MEDICARE MEDICARE PART Dec 31, PART A [id number] [phone] CAGUE, FOR PATIENT (WNR) (M) A 2009 85A 4 EST MEDICARE MEDICARE PART Dec 31, PART A [id number] [phone] CAGUE, FOR PATIENT (WNR) (M) A 2009 85A 00 EST Selected Encounter This section includes the information on record at [place] for the Encounter. Date/Time Encounter Type Encounter Description Reason Provider Source 2022 10:54 Outpatient Encounter ADMIN PAT ACTIVTACOS AM (MASNONCT) IHE Encounter Template Text not used by [place] Plan of Treatment: Future Appointments (+ 6 [...] 20 appointments. The data comes from all [facility]. Appointment Date/Time Appointment Type Appointment Facili ty Name Jan 26, 2022 11:00 AM AMBULATORY - MEDICINE [facility] Feb 10, 2022 10:15 AM AMBULATORY NONE [facility] May 09, 2022 09:00 AM AMBULATORY [facility] Jun 16, 2022 10:00 AM AMBULATORY MEDICINE [place] Advance Directives: All historical and current Section Date Range: From patient's date of to the date document was created. This section includes ALL of a patient's completed or amended [place] Advance and Rescinded Directives. The entries below indicate that a directive exists for the patient, but an actual copy is not included with this document. The data comes from all [facility]. Date Advance Directives Provider Source May 20, 2016 ADVANCE DIRECTIVE CARMENMARIAN Young [facility] Radiology Reports: +/- 30 days of [...] the Encounter. The data comes from all [facility]. Date/Time Radiology Report Provider Source Feb 10, 2022 09:50 CT HEAD W/O CONT: RADIOLOGY,OUTSIDE [facility] MAYA MILKA MASON [id number] -JAN 21 5 M SERVICE [facility] Exm Date: FEB 10, 2022@09:50 Req Phys: MALLIKA RAMIRES Loc: CWM/NO/ECHO (Re q'g Loc) Img Loc: NHM/CT Service: Unknown (Case 198 COMPLETE) CT HEAD W/O CONT (CT Detaile d) CPT:41569 Reason for Study: pt w/contant headache, rhinno natividad and nasal congestion (Case 199 COMPLETE) CT MAXILLOFACIAL W/O CONT (C T Detailed) CPT:87409 Clinical History: despite tx w/numerous decongestants etc. please contact RONALD Peterson with [facility], and [phone] (press [phone]), Report Status: Verified Date Reported: FEB 10, 2022 Date Verified: FEB 10, 2022 Activities Counselor E-Sig: Report: CT HEAD CT MAXILLOFACIAL BONES [...] disease. READING PHYSICIAN: Tyler Washburn M.D. -[phone] [id number] 02/10/2022 11:25 PDT [facility] National Teleradiology Program [phone] (For Medical Practitioner Use Only ) [address] [place] [address], [facility] [address], [address] [place] [address] Attention Patients / Veterans: If you have ques tions or concerns about these test results, please contact your o rdering provider or primary care team. Primary Diagnostic Code: NO ALERT REQUIRED Primary Interpreting Staff: RADIOLOGY,OUTSIDE SERVICE, Staff Physician / Encounter Notes: All associated encounter notes This section contains the clinical notes associated to the Encounter. Date/Time Encounter Note(s) Provider Source 2022 10:54 AM TELEPHONE ENCOUNTER NOTE: BUSTER BROWN CNTRL WSTRN LOCAL TITLE: VISN 1 CCC ACTION REQUIRED [place] [facility] STANDARD TITLE: TELEPHONE ENCOUNTER NOTE DATE OF NOTE: 2022@10:54:47 ENTRY DATE: 2022@10:56:22 AUTHOR: BUSTER BROWN EXP COSIGNER: URGENCY: STATUS: COMPLETED VISN 1 CCC ACTION REQUIRED Has ADDENDA OTHER called in for MILKA MASON ([id number]) . The following identifiers were used to verify th is patient: . SSN. Contact Type of call: REFERRAL/CONSULT REQUEST. Caller Response: ADM CALL RESOLVED Caller Area: [facility] PCMM Provider Info: [facility] (631BY) PACT: SO PACT 4 (Focus: Primary Care Only) Primary Care Provider: MALLIKA RAMIRES PHONE:[phone] Roll Out Manager: KRISTEN ANN Clinical Associate: FELIX FRAZIER PHON E:[phone] Padder: KRISTEN XAVIER PHONE:[phone] Clinical POC: Roll Out Manager PAIGE ANN Administrative POC: Padder KRISTEN XAVIER PHONE:[phone] Author: BUSTER BROWN Comments: Kristen from [facility] called to [facility] the status of her request for a Ct Scan and ENT consults. Kristen gave an alternat e contact number of [phone] or [phone]. Kindly call back to [facility] consults. Evaluation/Management Code: HC PRO PHONE CALL 5- 10 MIN ([phone]). Starting at: 2022 @ 10:54:47 AM Ending at: 2022 @ 10:55:40 AM Length: 0 minutes. Chief Complaint: Not applicable to call. Class Code: Other specified counseling. Patient's Email Address: /es/ STEPHANIE CRAIG [address] [facility] Signed: 2022 10:56 Receipt Acknowledged By: 2022 12:08 /es/ KRISTEN ANN RN REGISTERED NURSE 2022 12:27 /es/ FELIX FRAZIER LPN LICENSED PRACTICAL NURSE 2022 ADDENDUM STATUS: COMPLETED Called the first number provided and it just ran g; unable to leave a messag. Tried the 2nd number, which is the main number and was transferred to Christy Mayorga NP for [place]. [employer] ARCHITECT states the [place] has been complaining of constant headaches, cold and runny nose. [employer] ARCHITECT h as tried every possible sinus medication w/o relief. Would like consults to see if she is missing something or get another recommendation to treat . /es/ KRISTEN ANN RN REGISTERED NURSE Signed: 2022 12:07 Receipt Acknowledged By: 2022 14:21 /es/ Mallika Ramires M.D. STAFF PHYSICIAN 2022 ADDENDUM STATUS: COMPLETED pcp tried calling Kristen shahnaz guevara numbers provided but the number either rang-unable to leave message or went to main directory. pcp requests information on what meds have been tried for patients symptoms and i f cat scan can be done at [facility] since pt had ultrasound there 1 /es/ Mallika Ramires M.D. STAFF PHYSICIAN Signed: 2022 14:29
--- OUTSIDE RECORDS SUMMARY | 2022-04-30 14:47 | XMS_ITS | Encounter Summary ---
:1945 Author Organization [facility] Address [address] [place] [address] Support Name Relationship Address Phone VERONICA LAURA Unavailable [address] [place] [address] VERONICA LAURA Unavailable [address] [place] [address] ROHIT MASON Unavailable [address] [place] [id number] Insurance Providers: All historical and current Section [...] MEDICARE MEDICARE PART Dec 31, PART B [id number] CAGUE, FOR PATIENT (WNR) (M) B 2011 85A 00 EST MEDICARE MEDICARE PART Dec 31, PART A [id number] CAGUE, FOR PATIENT (WNR) (M) A 2009 85A 4 EST MEDICARE MEDICARE PART Dec 31, PART A [id number] [id number] CAGUE, FOR PATIENT (WNR) (M) A 2009 85A 00 EST Selected Encounter This section includes the information on record at [place] for the Encounter. Date/Time Encounter Type Encounter Description Reason Provider Source Dec 31, 2021 11:34 Outpatient Encounter TELEPHONE TRIAGE AM IHE Encounter [...] 20 appointments. The data comes from all [place] treatment facilities. Appointment Date/Time Appointment Type Appointment Facili ty Name Jan 26, 2022 11:00 AM AMBULATORY - MEDICINE [facility] Feb 10, 2022 10:15 AM AMBULATORY NONE [facility] May 09, 2022 09:00 AM AMBULATORY [facility] Jun 16, 2022 10:00 AM AMBULATORY MEDICINE [place] Advance Directives: All historical and current Section Date Range: From patient's date of to the date document was created. This section includes ALL of a patient's completed or amended [place] Advance and Rescinded Directives. The entries below indicate that a directive exists for the patient, but an actual copy is not included with this document. The data comes from all [place] facilities. Date Advance Directives Provider Source May 20, 2016 ADVANCE DIRECTIVE MARIAN MORALES [facility] Encounter Notes: All associated encounter notes This section contains the clinical notes associated to the Encounter. Date/Time Encounter Note(s) Provider Source Dec 31, 2021 11:34 AM TELEPHONE ENCOUNTER NOTE: MARCIA PARISH [facility] LOCAL TITLE: VISN 1 CCC ACTION REQUIRED [facility] STANDARD TITLE: TELEPHONE ENCOUNTER NOTE DATE OF NOTE: DEC 31, 2021@11:34:57 ENTRY DATE: DEC 31, 2021@11:36:51 AUTHOR: MARCIA PARISH EXP COSIGNER: URGENCY: STATUS: COMPLETED VISN 1 CCC ACTION REQUIRED Has ADDENDA OTHER called in for MILKA MASON ([id number]) . The following identifiers were used to verify th is patient: . SSN. Contact Type of call: REFERRAL/CONSULT REQUEST. Caller Response: ADM CALL RESOLVED Caller Area: [facility] PCMM Provider Info: LOCAL [facility] (631BY) PACT: SO PACT 4 (Focus: Primary Care Only) Primary Care Provider: MALLIKA RAMIRES PHONE:[phone] Photogrammetric Tech: KRISTEN ANN Clinical Associate: FELIX FRAZIER PHON E:[phone] Instant Potato Processing Supervisor: KRISTEN XAVIER PHONE:[phone] Clinical POC: Photogrammetric Tech PAIGE ANN Administrative POC: Instant Potato Processing Supervisor KRISTEN XAVIER PHONE:[phone] Author: MARCIA PARISH Comments: Kristen, calling from [facility], , requests a call back to find out if vet needs a referral to get a CT scan of sinuses. Evaluation/Management Code: HC PRO PHONE CALL 5- 10 MIN ([phone]). Starting at: 12/31/2021 @ 11:34:57 AM Ending at: 12/31/2021 @ 11:35:57 AM Length: 1 minutes. Chief Complaint: Not applicable to call. Class Code: Other specified counseling. Patient's Email Address: /paulette/ MARCIA PARISH ADV[employer]ED [employer]NATIONAL TRAVEL CONSULTANT Signed: 12/31/2021 11:36 Receipt Acknowledged By: 01/06/2022 14:55 /paulette/ KRISTEN ANN RN REGISTERED NURSE 01/04/2022 08:38 /es/ FELIX FRAZIER LPN LICENSED PRACTICAL NURSE 12/31/2021 ADDENDUM STATUS: COMPLETED Tried Calling Kristen at the twice but phone line sounded busy; unable to leave a message. /harini ANN RN REGISTERED NURSE Signed: 12/31/2021 11:46 01/06/2022 ADDENDUM STATUS: COMPLETED Have tried to call Kristen at the 3 differen t times today but line sounds busy and unable to leave a message. /harini ANN RN REGISTERED NURSE Signed: 01/06/2022 14:55
--- OUTSIDE RECORDS SUMMARY | 2022-04-30 14:47 | XMS_ITS | Encounter Summary ---
:1945 Author Organization [facility] Address [address] [place] [address] Support Name Relationship Address Phone VERONICA LAURA Unavailable [address] [place] [address] VERONICA LAURA Unavailable [address] [place] [address] ROHIT MASON Unavailable [address] [place] [id number] Insurance Providers: All historical and current Section [...] MEDICARE MEDICARE PART Dec 31, PART B [id number] CAGUE, FOR PATIENT (WNR) (M) B 2011 85A 00 EST MEDICARE MEDICARE PART Dec 31, PART A [id number] CAGUE, FOR PATIENT (WNR) (M) A 2009 85A 4 EST MEDICARE MEDICARE PART Dec 31, PART A [id number] [id number] CAGUE, FOR PATIENT (WNR) (M) A 2009 85A 00 EST Selected Encounter This section includes the information on record at [place] for the Encounter. Date/Time Encounter Type Encounter Description Reason Provider Source Jan 31, 2022 01:53 Outpatient Encounter TELEPHONE TRIAGE PM IHE Encounter Template Text not used by [place] Plan of Treatment: Future Appointments (+ 6 [...] 20 appointments. The data comes from all [place] treatment facilities. Appointment Date/Time Appointment Type Appointment Facili ty Name Feb 10, 2022 10:15 AM AMBULATORY - NONE [facility] May 09, 2022 09:00 AM AMBULATORY - NONE [facility] Jun 16, 2022 10:00 AM AMBULATORY - MEDICINE [place] Advance Directives: All historical and current Section Date Range: From patient's date of to the date document was created. This section includes ALL of a patient's completed or amended [place] Advance and Rescinded Directives. The entries below indicate that a directive exists for the patient, but an actual copy is not included with this document. The data comes from all [facility]. Date Advance Directives Provider Source May 20, 2016 ADVANCE DIRECTIVE MARIAN MORALES [facility] Radiology Reports: +/- 30 days of the [...] the Encounter. The data comes from all [facility]. Date/Time Radiology Report Provider Source Feb 10, 2022 09:50 CT HEAD W/O CONT: RADIOLOGY,OUTSIDE [facility] MILKA KEVIN JESSICA [id number] -[birth year], [birth year] 5 M SERVICE [facility] Exm Date: FEB 10, 2022@09:50 Req Phys: MALLIKA RAMIRES Loc: CWM/NO/ECHO (Re q'g Loc) Img Loc: NHM/CT Service: Unknown (Case [id number] COMPLETE) CT HEAD W/O CONT (CT Detaile d) CPT:79391 Reason for Study: pt w/contant headache, rhinno natividad and nasal congestion (Case 199 COMPLETE) CT MAXILLOFACIAL W/O CONT (C T Detailed) CPT:32462 Clinical History: despite tx w/numerous decongestants etc. please contact RONALD Kristen with [facility], and [phone] (press [phone]), Report Status: Verified Date Reported: FEB 10, 2022 Date Verified: FEB 10, 2022 Sharepoint Architect E-Sig: Report: CT HEAD CT MAXILLOFACIAL BONES [...] disease. READING PHYSICIAN: Tyler Washburn M.D. [phone] 02/10/2022 11:25 PDT [facility] National Teleradiology Program [phone] (For Medical Practitioner Use Only ) [address] [place] [address], [place] [address], [address] [place] [address] Attention Patients / Veterans: If you have ques tions or concerns about these test results, please contact your [facility] provider or primary care team. Primary Diagnostic Code: NO ALERT REQUIRED Primary Interpreting Staff: RADIOLOGY,OUTSIDE SERVICE, Staff Physician / Encounter Notes: All associated encounter notes This section contains the clinical notes associated to the Encounter. Date/Time Encounter Note(s) Provider Source Jan 31, 2022 01:53 PM ADMINISTRATIVE NOTE: CLIFFORD NORTON [place] [facility] LOCAL TITLE: CCC: SCHEDULING ADMINISTRATION [facility] STANDARD TITLE: ADMINISTRATIVE NOTE DATE OF NOTE: JAN 31, 2022@13:53:31 ENTRY DATE: JAN 31, 2022@13:59:43 AUTHOR: CLIFFORD NORTON EXP COSIGNER: URGENCY: STATUS: COMPLETED CCC: SCHEDULING ADMINISTRATION Has ADDENDA Type of call: ADMINISTRATIVE. PCMM Provider Info: [facility] (631BY) PACT: SO PACT 4 (Focus: Primary Care Only) Primary Care Provider: MALLIKA RAMIRES PHONE:[phone] Industrial Registered Nurse: KRISTEN ANN Clinical Associate: FELIX FRAZIER PHON E:[phone] Stage Rigger: KRISTEN XAVIER PHONE:[phone] PACT Clinical Pharmacist: NISHA SHELTON PHONE:[phone] Clinical POC: Industrial Registered Nurse PAIGE ANN Administrative POC: Stage Rigger KRISTEN XAVIER PHONE:[phone] *PATIENT called in for MILKA MASON ([id number]) . The following identifiers were used to verify th is patient: DOB. NUR. Contact Caller Response: ADM CALL RESOLVED Caller Area: [place] Comments: Kristen from [facility] called to alfreda underwood an update on her request for an ENT consult. [place] connected to [facility] Radiology f or CT scheduling. Kristen is requesting to be paged at [phone]. She leav es at 3pm. Author: CLIFFORD NORTON Evaluation/Management Code: HC PRO PHONE CALL 5- 10 MIN ([phone]). Starting at: 01/31/2022 @ 1:53:31 PM Ending at: 01/31/2022 @ 1:57:27 PM Length: 3 minutes. Chief Complaint: Not applicable to call. Class Code: Other specified counseling. /paulette/ CLIFFORD CRAIG 1 [facility] LEAD AMSA Signed: 01/31/2022 13:59 Receipt Acknowledged By: 02/02/2022 10:45 /es/ KRISTEN ANN RN REGISTERED NURSE 02/01/2022 16:15 /es/ FELIX FRAZIER LPN LICENSED PRACTICAL NURSE 02/01/2022 ADDENDUM STATUS: COMPLETED SYSTEMS DEVELOPER states the has been complaining of constant headaches, cold and runny nose. SYSTEMS DEVELOPER h as tried every possible sinus medication w/o relief. Would like consults to see if she is missing something or get another recommendation to treat [place]. /paulette/ FELIX FRAZIER LPN LICENSED PRACTICAL NURSE Signed: 02/01/2022 16:15 Receipt Acknowledged By: 02/02/2022 10:27 /es/ Mallika Ramires M.D. STAFF PHYSICIAN 02/02/2022 ADDENDUM STATUS: COMPLETED kindly instruct SYSTEMS DEVELOPER Kristen to try course of pre dnisone taper begin at 30mg daily x2 days then 20mg caio y x2days then 10mg daily x2 days, nasal fluticasone 1 spray each nostril daily, and augmentin 875 bi d x 14 days for chronic sinusitis tx while wait to see result of cat sca n. thank you /paulette/ Mallika Ramires M.D. STAFF PHYSICIAN Signed: 02/02/2022 10:30 Receipt Acknowledged By: 02/02/2022 10:43 /es/ KRISTEN ANN RN REGISTERED NURSE 02/02/2022 ADDENDUM STATUS: COMPLETED Called and spoke to SYSTEMS DEVELOPER Yaneth Mayorga. Forwarded PCP's messgae. SYSTEMS DEVELOPER understands information but would like those instructions/or ders faxed to [phone]. /paulette/ KRISTEN ANN RN REGISTERED NURSE Signed: 02/02/2022 10:45 Receipt Acknowledged By: * AWAITING SIGNATURE * LUC DYER 02/03/2022 ADDENDUM STATUS: COMPLETED Kristen Mayorga, calling to report that fax was not recieved please fax instructions/orders to [phone]. /paulette/ BHANU MULLEN Signed: 02/03/2022 13:00 Receipt Acknowledged By: * AWAITING SIGNATURE * LUC DYER
--- OUTSIDE RECORDS SUMMARY | 2022-04-30 14:47 | XMS_ITS | Encounter Summary ---
:1945 Author Organization [facility] Address [address] [place] [address] Support Name Relationship Address Phone VERONICA LAURA Unavailable [address] [place] [address] VERONICA LAURA Unavailable [address] [place] [address] ROHIT MASON Unavailable [address] [place] [address] Insurance Providers: All historical and current Section [...] MEDICARE MEDICARE PART Dec 31, PART B [id number] CAGUE, FOR PATIENT (WNR) (M) B 2011 85A 00 EST MEDICARE MEDICARE PART Dec 31, PART A [id number] CAGUE, FOR PATIENT (WNR) (M) A 2009 85A 4 EST MEDICARE MEDICARE PART Dec 31, PART A [id number] [id number] CAGUE, FOR PATIENT (WNR) (M) A 2009 85A 00 EST Selected Encounter This section includes the information on record at [place] for the Encounter. Date/Time Encounter Type Encounter Description Reason Provider Source Jan 10, 2022 02:07 Outpatient Encounter TELEPHONE TRIAGE PM IHE Encounter Template Text not used by [place] Plan of Treatment: Future Appointments (+ 6 [...] 20 appointments. The data comes from all [place] treatment facilities. Appointment Date/Time Appointment Type Appointment Facili ty Name Jan 26, 2022 11:00 AM AMBULATORY - MEDICINE [facility] Feb 10, 2022 10:15 AM AMBULATORY NONE [facility] May 09, 2022 09:00 AM AMBULATORY [facility] Jun 16, 2022 10:00 AM [facility] Advance Directives: All historical and current Section Date Range: From patient's date of to the date document was created. This section includes ALL of a patient's completed or amended [place] Advance and Rescinded Directives. The entries below indicate that a directive exists for the patient, but an actual copy is not included with this document. The data comes from all [place] facilities. Date Advance Directives Provider Source May 20, 2016 ADVANCE DIRECTIVE MARIAN MORALES [facility] Encounter Notes: All associated encounter notes This section contains the clinical notes associated to the Encounter. Date/Time Encounter Note(s) Provider Source Jan 10, 2022 02:07 PM TELEPHONE ENCOUNTER NOTE: CLIFFORD NORTON [facility] LOCAL TITLE: VISN 1 CCC ACTION REQUIRED [facility] STANDARD TITLE: TELEPHONE ENCOUNTER NOTE DATE OF NOTE: JAN 10, 2022@14:07:40 ENTRY DATE: JAN 10, 2022@14:11:31 AUTHOR: CLIFFORD NORTON EXP COSIGNER: URGENCY: STATUS: COMPLETED VISN 1 CCC ACTION REQUIRED Has ADDENDA OTHER called in for MILKA MASON ([id number]) . The following identifiers were used to verify th is patient: . SSN. Contact Type of call: REFERRAL/CONSULT REQUEST. Caller Response: ADM CALL RESOLVED Caller Area: [facility] PCMM Provider Info: LOCAL [facility] (631BY) PACT: SO PACT 4 (Focus: Primary Care Only) Primary Care Provider: MARIE CAMPA PHONE:[phone] Test And Turn Up Technician: KRISTEN ANN Clinical Associate: FELIX FRAZIER PHON E:[phone] Motion Picture Projectionist: KRISTEN XAVIER PHONE:[phone] Clinical POC: Test And Turn Up Technician PAIGE ANN Administrative POC: Motion Picture Projectionist KRISTEN XAVIER PHONE:[phone] Author: CLIFFORD NORTON Comments: Kristen from [facility] called to [facility] the status of her request for a Ct Scan and ENT consults. Kristen gave an alternat e contact number of . Kindly call back. Evaluation/Management Code: HC PRO PHONE CALL 5- 10 MIN ([phone]). Starting at: 01/10/2022 @ 2:07:40 PM Ending at: 01/10/2022 @ 2:10:06 PM Length: 2 minutes. Chief Complaint: Not applicable to call. Class Code: Other specified counseling. Patient's Email Address: /paulette/ CLIFFORD CRAIG 1 [facility] LEAD AMSA Signed: 01/10/2022 14:11 Receipt Acknowledged By: * AWAITING SIGNATURE * KRISTEN ANN 01/10/2022 14:19 /paulette/ FELIX FRAZIER LPN LICENSED PRACTICAL NURSE 01/10/2022 ADDENDUM STATUS: COMPLETED Will include PCP to review request and advise. /paulette/ FELIX FRAZIER LPN LICENSED PRACTICAL NURSE Signed: 01/10/2022 14:20 Receipt Acknowledged By: 01/10/2022 14:58 /paulette/ Marie Campa M.D. STAFF PHYSICIAN 01/10/2022 ADDENDUM STATUS: COMPLETED RN tried to call several times 12/31 and 01/06 but u nable to contact or leave a message. kindly clarify indication for requests. /harini Campa M.D. STAFF PHYSICIAN Signed: 01/10/2022 14:58
--- OUTSIDE RECORDS SUMMARY | 2022-04-30 14:48 | XMS_ITS | Encounter Summary ---
:1945 Author Organization [facility] Address [address] [place] [address] Support Name Relationship Address Phone VERONICA LAURA Unavailable [address] [place] [address] VERONICA LAURA Unavailable [address] [place] [address] ROHIT MASON Unavailable [address] [place] [address] Insurance Providers: All historical and current Section [...] MEDICARE MEDICARE PART Dec 31, PART B [id number] CAGUE, FOR PATIENT (WNR) (M) B 2011 85A 00 EST MEDICARE MEDICARE PART Dec 31, PART A [id number] CAGUE, FOR PATIENT (WNR) (M) A 2009 85A 4 EST MEDICARE MEDICARE PART Dec 31, PART A [id number] [phone] CAGUE, FOR PATIENT (WNR) (M) A 2009 85A 00 EST Selected Encounter This section includes the information on record at [place] for the Encounter. Date/Time Encounter Type Encounter Description Reason Provider Source Jun 29, 2021 01:33 Outpatient Encounter TELEPHONE TRIAGE PM IHE Encounter [...] treatment facilities. Appointment Date/Time Appointment Type Appointment Miguel ortega Name Jul 07, 2021 10:00 AM AMBULATORY - MEDICINE [facility] Lab Results: +/- 30 days of the encounter This section includes the Chemistry and Hematology Lab Results on record with MD for the patient. Radiology Reports and Pathology Reports are provided separately, in subsequent sections.Lab Results This section contains the Chemistry/Hematology Results that were resulted 30 days before or 30 daysafter the date of the Encounter. Date/Time Source Result Type Result - Unit Interpretation Reference Range Comment Jun 15, 2021 11:09 AM [facility] HEMOGLOBIN A1C PANEL Spec imen Type: BLOOD [...] Jun 15, 2021 09:48 AM Reporting Lab: [facility] [address] [address] Performing Lab: [facility] [address] [address] HEMOGLOBIN A1C 5.8 H 4.0-5.6 Jun 15, 2021 11:09 AM [facility] PT & INR (PROTIME) Specim en Type: PLASMA No comment enter ed. Ordering Provid er: MALLIKA RAMIRES Report Released Date/Time: Jun 15, 2021 09:48 AM Reporting Lab: [facility] [address] [address] Performing Lab: [facility] [address] [address] INR 1.1 PROTIME 11.9 10.0-13.1 Jun 15, 2021 11:09 AM [facility] CBC Specimen Type: BLOOD No comment enter ed. Ordering Provid er: MALLIKA RAMIRES Report Released Date/Time: Jun 15, 2021 09:48 AM Reporting [facility]: [facility] [address] [address] Performing Lab: [facility] [address] [address] WBC 8.13 4.50-11.00 RBC 5.47 4.23-5.66 HGB 16.5 12.8-17 HCT 49.6 39.2-50.4 MCV 90.7 82-99 MCHC 33.3 30.8-35.1 PLT 190 140-360 RDW-CV 12.7 12.0-16.0 MCH 30.2 26.2-32.6 Jun 15, 2021 11:09 AM [facility] URINALYSIS Specimen Type: URINE No comment enter ed. Ordering Provid er: MALLIKA RAMIRES Report Released Date/Time: Jun 15, 2021 09:48 AM Reporting Lab: [facility] [address] [address] Performing Lab: [facility] [address] [address] UA COLOR Yellow Yellow UA APPEARANCE Clear Clear UA GLUCOSE Negative Negative UA KETONES Negative Neg UA BLOOD Negative Neg UA PROTEIN Negative Neg UA NITRITE Negative Neg UA BILIRUBIN Negative Neg UA SPECIFIC GRAVITY 1.019 1.016-1.02 2 UA pH 6.0 5.0-9.0 UA UROBILINOGEN <2.0 <2.0 UA LEUKOCYTE ESTERASE Negative Neg Jun 15, 2021 11:09 AM [facility] PTT Specimen Type: PLASMA No comment enter ed. Ordering Provid er: MALLIKA RAMIRES Report Released Date/Time: Jun 15, 2021 09:48 AM Reporting Lab: [facility] [address] [address] Performing Lab: [facility] [address] [address] PTT 39.4 H 26.0-36.0 Jun 15, 2021 11:09 AM [facility] LIVER FUNCTION Specimen Type: SERUM No comment enter ed. Ordering Provid er: MALLIKA RAMIRES Report Released Date/Time: Jun 15, 2021 09:48 AM Reporting Lab: [facility] [address] [address] Performing Lab: [facility] [address] [address] PROTEIN,TOTAL 7.1 6.0-8.3 ALBUMIN 3.6 3.5-5.0 ALKALINE PHOSPHATASE 77 40-150 AST 26 5-34 ALT 23 0-55 BILIRUBIN, TOTAL 0.5 0.2-1.2 Jun 15, 2021 11:09 [facility] BASIC METABOLIC PANEL Specim en Type: SERUM AM (non-fasting) No comment enter ed. Ordering Provid er: MALLIKA RAMIRES Report Released Date/Time: Jun 15, 2021 09:48 AM Reporting Lab: [address] [address] Performing Lab: [facility] [address] [address] UREA NITROGEN 20 7-25 GLUCOSE 106 H 65-100 SODIUM 139 135-145 POTASSIUM 4.1 3.5-5.0 CHLORIDE 101 100-110 CO2 26 20-30 CREATININE, Serum 1.08 0.50-1.40 eGFR (IDMS) 66 >60 Jun 15, 2021 11:09 AM [facility] LIPID PANEL, NON Specimen Type: SERUM FASTING No comment enter ed. Ordering Provid er: MALLIKA RAMIRES Report Released Date/Time: Jun 15, 2021 09:48 AM Reporting Lab: [facility] [address] [address] Performing Lab: [address] [address] CHOLESTEROL 187 0-199 TRIGLYCERIDE 177 H 0-150 LDL calculated 109 0-129 CHOL/HDL 4.3 HDL CHOLESTEROL 43 40-60 Jun 15, 2021 11:09 AM [facility] TSH Specimen Type: SERUM No comment enter ed. Ordering Provid er: MALLIKA RAMIRES Report Released Date/Time: Jun 15, 2021 09:48 AM Reporting Lab: [facility] [address] [address] Performing Lab: [facility] [address] [address] TSH 3.01 0.35-5.00 Advance Directives: All historical and current Section Date Range: From patient's date of to the date document was created. This section includes ALL of a patient's completed or amended [place] Advance and Rescinded Directives. The entries below indicate that a directive exists for the patient, but an actual copy is not included with this document. The data comes from all [place] facilities. Date Advance Directives Provider Source May 20, 2016 ADVANCE DIRECTIVE MARIAN MORALES [facility] Encounter Notes: All associated encounter notes This section contains the clinical notes associated to the Encounter. Date/Time Encounter Note(s) Provider Source Jun 29, 2021 01:33 PM NURSING TELEPHONE ENCOUNTER TRIAGE NOTE: LAUREN RUELAS [facility] LOCAL TITLE: [facility] CLINICAL CONTACT CENTER [facility] STANDARD TITLE: NURSING TELEPHONE ENCOUNTER TRIA GE NOTE DATE OF NOTE: JUN 29, 2021@13:33:58 ENTRY DATE: JUN 29, 2021@13:35:25 AUTHOR: LAUREN NORTON EXP COSIGNER: URGENCY: STATUS: COMPLETED [facility] CLINICAL CONTACT CENTER Has ADDENDA The patient, MILKA MASON ([id number]) Ph one: called the call center. The following identifiers were used to verify th is patient: SSN. Contact Type of call: ADMINISTRATIVE. Caller Response: ADM CALL RESOLVED Caller Area: [facility] PCMM Provider Info: [facility] (631BY) PACT: SO PACT 4 (Focus: Primary Care Only) Primary Care Provider: Mallika Ramires PHONE:[phone] Ammonia Technician: Kristen Ann Clinical Associate: Felix Henao PHON [phone] Will Call Order Clerk: Kristen Grimes PHONE:[phone] PACT Clinical Pharmacist: Flora Galindo Clinical POC: Ammonia Technician Loree Ann Administrative POC: Will Call Order Clerk Kristen Grimes PHONE:[phone] Author: LAUREN NORTON Comments: [facility] to team was all the info she gave agent when asked why. she can be reached at [phone]. Evaluation/Management Code: HC PRO PHONE CALL 5- 10 MIN ([phone]). Starting at: 06/29/2021 @ 1:33:58 PM Ending at: 06/29/2021 @ 1:34:49 PM Length: 0 minutes. Chief Complaint: Not applicable to call. Class Code: Other specified counseling. Patient's Email Address: /es/ LAUREN NORTON ADVANCED ASSISTANT ELEMENTARY TEACHER Signed: 06/29/2021 13:35 Receipt Acknowledged By: 06/30/2021 15:19 /es/ KRISTEN ANN RN REGISTERED NURSE 06/30/2021 15:23 /es/ FELIX HENAO LPN LICENSED PRACTICAL NURSE 06/30/2021 ADDENDUM STATUS: COMPLETED Called and spoke to Kristen at the [facility]. Explained to her what Dr. Ramires is recommending for . Kristen agree s to wait for phone call to schedule echocardiogram and moniter. Will ask Dr Derrek Ramires to add consult to be scheduled at [place]. /es/ KRISTEN ANN RN REGISTERED NURSE Signed: 06/30/2021 15:33 Receipt Acknowledged By: * AWAITING SIGNATURE * MALLIKA RAMIRES
--- OUTSIDE RECORDS SUMMARY | 2022-04-30 14:48 | XMS_ITS | Encounter Summary ---
:1945 Author Organization [facility] Address [address] [place] [id number] Support Name Relationship Address Phone VERONICA LAURA Unavailable [address] [place] [address] VERONICA LAURA Unavailable [address] [place] [address] ROHIT MASON Unavailable [address] [place] [address] Insurance Providers: All historical and current Section [...] MEDICARE MEDICARE PART Dec 31, PART B [id number] CAGUE, FOR PATIENT (WNR) (M) B 2011 85A 00 EST MEDICARE MEDICARE PART Dec 31, PART A [id number] CAGUE, FOR PATIENT (WNR) (M) A 2009 85A 4 EST MEDICARE MEDICARE PART Dec 31, PART A [id number] [phone] CAGUE, FOR PATIENT (WNR) (M) A 2009 85A 00 EST Selected Encounter This section includes the information [facility] record at [facility] for the Encounter. Date/Time Encounter Type Encounter Reason Provider Source Description Jun 15, 2021 OFFICE O/P EST PRIMARY ICD-10-CM I49.9 DONALDO FRAZIER 09:30 AM MOD 30-39 MIN CARE/MEDICINE Cardiac A [place] arrhythmia, unspecified with Provider Comments: Cardiac Arrhythmia, unspecified IHE Encounter Template Text not used by [facility] Assessments - Encounter Diagnoses This section includes the primary and secondary diagnoses documented for the Encounter. Date/Time Primary/Secondary Diagnosis Name Provider Source Diagnosis Jun 15, 2021 PRIMARY Cardiac LIEBELTFELIX [facility] 10:14 AM arrhythmia, [place] unspecified Jun 15, 2021 SECONDARY Unspecified MALLIKA RAMIRES [place] 10:14 AM dementia with behavioral disturbance Jun 15, 2021 SECONDARY Unspecified right MALLIKA RAMIRESGorge LD 10:14 AM bundle-branch block Plan of Treatment: Future Appointments (+ 6 months) and Future Tests (+/- 45 days) The Plan of Treatment section includes future care activities for the patient from all [place] treatmentfacilities. This section includes future appointments and future orders which are active, pending orscheduled.Future Appointments This section includes appointments that were scheduled to occur 6 months from the date of the Encounter, up to a maximum of 20 appointments. The data comes from all [place] treatment facilities. Appointment Date/Time Appointment Type Appointment Facili ty Name Jul 07, 2021 10:00 AM AMBULATORY - MEDICINE [facility] Lab Results: +/- 30 days of the encounter This section includes the Chemistry and Hematology Lab Results on record with [place] for the patient. Radiology Reports and Pathology Reports are provided separately, in subsequent sections.Lab Results This section contains the Chemistry/Hematology Results that were resulted 30 days before or 30 daysafter the date of the Encounter. Date/Time Source Result Type Result - Unit Interpretation Reference Range Comment Jun 15, 2021 11:09 AM [place] HEMOGLOBIN A1C PANEL Spec imen Type: BLOOD [...] Jun 15, 2021 09:48 AM Reporting Lab: [facility] [address] [address] Performing Lab: [address] [address] HEMOGLOBIN A1C 5.8 H 4.0-5.6 Jun 15, 2021 11:09 AM [facility] PT & INR (PROTIME) Specim en Type: PLASMA No comment enter ed. Ordering Provid er: MALLIKA RAMIRES Report Released Date/Time: Jun 15, 2021 09:48 AM Reporting Lab: [facility] [address] [address] Performing Lab: [facility] [address] [address] INR 1.1 PROTIME 11.9 10.0-13.1 Jun 15, 2021 11:09 AM [facility] URINALYSIS Specimen Type: URINE No comment enter ed. Ordering Provid er: MALLIKA RAMIRES Report Released Date/Time: Jun 15, 2021 09:48 AM Reporting Lab: [facility] [address] [address] Performing Lab: [facility] [address] [address] UA COLOR Yellow Yellow UA APPEARANCE Clear Clear UA GLUCOSE Negative Negative UA KETONES Negative Neg UA BLOOD Negative Neg UA PROTEIN Negative Neg UA NITRITE Negative Neg UA BILIRUBIN Negative Neg UA SPECIFIC GRAVITY 1.019 1.016-1.02 2 UA pH 6.0 5.0-9.0 UA UROBILINOGEN <2.0 <2.0 UA LEUKOCYTE ESTERASE Negative Neg Jun 15, 2021 11:09 AM [place] PTT Specimen Type: PLASMA No comment enter ed. Ordering Provid er: MALLIKA RAMIRES Report Released Date/Time: Jun 15, 2021 09:48 AM Reporting Lab: [facility] [address] [address] Performing Lab: [facility] [address] [address] PTT 39.4 H 26.0-36.0 Jun 15, 2021 11:09 AM [place] CBC Specimen Type: BLOOD No comment enter ed. Ordering Provid er: MALLIKA RAMIRES Report Released Date/Time: Jun 15, 2021 09:48 AM Reporting Lab: [facility] [address] [address] Performing Lab: [facility] [address] [address] WBC 8.13 4.50-11.00 RBC 5.47 4.23-5.66 HGB 16.5 12.8-17 HCT 49.6 39.2-50.4 MCV 90.7 82-99 MCHC 33.3 30.8-35.1 PLT 190 140-360 RDW-CV 12.7 12.0-16.0 MCH 30.2 26.2-32.6 Jun 15, 2021 11:09 AM [facility] LIVER FUNCTION Specimen Type: SERUM No comment enter ed. Ordering Provid er: MALLIKA RAMIRES Report Released Date/Time: Jun 15, 2021 09:48 AM Reporting Lab: [facility] [address] [address] Performing Lab: [address] [address] PROTEIN,TOTAL 7.1 6.0-8.3 ALBUMIN 3.6 3.5-5.0 ALKALINE PHOSPHATASE 77 40-150 AST 26 5-34 ALT 23 0-55 BILIRUBIN, TOTAL 0.5 0.2-1.2 Jun 15, 2021 11:09 [facility] BASIC METABOLIC PANEL Specim en Type: SERUM AM (non-fasting) No comment enter ed. Ordering Provid er: MALLIKA RAMIRES Report Released Date/Time: Jun 15, 2021 09:48 AM Reporting Lab: [facility] [address] [address] Performing Lab: [address] [address] UREA NITROGEN 20 7-25 GLUCOSE 106 H 65-100 SODIUM 139 135-145 POTASSIUM 4.1 3.5-5.0 CHLORIDE 101 100-110 CO2 26 20-30 CREATININE, Serum 1.08 0.50-1.40 eGFR (IDMS) 66 >60 Jun 15, 2021 11:09 AM [facility] TSH Specimen Type: SERUM No comment enter ed. Ordering Provid er: MALLIKA RAMIRES Report Released Date/Time: Jun 15, 2021 09:48 AM Reporting Lab: [facility] [address] [address] Performing Lab: [facility] [address] [address] TSH 3.01 0.35-5.00 Jun 15, 2021 11:09 AM [facility] LIPID PANEL, NON Specimen Type: SERUM FASTING No comment enter ed. Ordering Provid er: MALLIKA RAMIRES Report Released Date/Time: Jun 15, 2021 09:48 AM Reporting Lab: [facility] [address] [address] Performing Lab: [address] [address] CHOLESTEROL 187 0-199 TRIGLYCERIDE 177 H 0-150 LDL calculated 109 0-129 CHOL/HDL 4.3 HDL CHOLESTEROL 43 40-60 Vital Signs: All taken on the encounter date This section contains inpatient and outpatient Vital Signs collected on the date of the Encounter. Date/Time Temperature Pulse Blood Respiratory SP02 Pain Height Weight Robert dy Source Pressure Rate Mass Index Jun 15, 145/74 2020 10:25 mm[Hg] IELD AM Jun 15, 96.5 F 70 155/79 20 /min 96 % 0 251 lb 36 2020 09:34 /min mm[Hg] IELD AM Social History: Smoking Status (Most current) and Tobacco Use (All prior to encounter date) This section includes the most current, and the historical, smoking and tobacco-related health factors from the [place] facility where the Encounter took place.Current Smoking Status This section includes the most current smoking, or tobacco-related health factor, from the [place] facility where the Encounter took place. Date/Time Current Smoking Status Comment Facility Jun 15, 2021 09:30 AM VA-TOBACCO USE DECLINED TO ANSWER [facility] Tobacco Use History This section includes a history of the smoking, or tobacco- related health factors, that were collected on or before the date of the Encounter. The data comes from the [place] facility where the Encounter took place. Date/Time Smoking Status/Tobacco Use Comment Doreen sierra Jun 05, 2018 11:54 AM [facility]TO[facility]ACCO NEVER USED [facility] Sep 05, 2017 09:48 AM QUIT TOBACCO USE 1-7 YEARS [facility] AGO Sep 15, 2016 10:41 AM QUIT TOBACCO USE > 7 YEARS [facility] AGO Quit 20 years ago. Sep 23, 2015 09:00 AM QUIT TOBACCO USE > 7 YEARS [facility] AGO States he last smoked cigarettes over 10 years ago Advance Directives: All historical and current Section Date Range: From patient's date of to the date document was created. This section includes ALL of a patient's completed or amended [place] Advance and Rescinded Directives. The entries below indicate that a directive exists for the patient, but an actual copy is not included with this document. The data comes from all [place] facilities. Date Advance Directives Provider Source May 20, 2016 ADVANCE DIRECTIVE MARIAN MORALES [place] [facility] Encounter Notes: All associated encounter notes This section contains the clinical notes associated to the Encounter. Date/Time Encounter Note(s) Provider Source Aug 11, 2021 10:16 AM PRIMARY CARE TELEPHONE ENCOUNTER NOTE: MALLIKA LIRA LOCAL TITLE: TELEPHONE NOTE/PRIMARY CARE STANDARD TITLE: PRIMARY CARE TELEPHONE ENCOUNTER NOTE DATE OF NOTE: AUG 11, 2021@10:16 ENTRY DATE: AUG 11, 2021@10:16:30 AUTHOR: MALLIKA RAMIRES COSIGNER: URGENCY: STATUS: COMPLETED Spoke to pt's nurse regarding the results of the zio monitor: Findings consistent with apparent asymptomatic p aroxysmal atrial fibrillation (and to a lesser extent flut ter) with fair rate control on 37.5 mg of metoprolol daily pt is asymptomatic. he has no history of frequen t falling. recommend pt begin apixaban 5mg bid. he is curr ently taking aspirin 81mg daily. nurse will pass on the information to the nurse practioner who woul d order or not order the apixaban. pt has an echocardiogram scheduled for 09/01/21 in [place]. /paulette/ Mallika Ramires M.D. STAFF PHYSICIAN Signed: 08/11/2021 10:22 Jun 19, 2021 08:13 PM LETTERS: MALLIKA RAMIRES [facility] TITLE: PATIENT LETTER (T) STANDARD TITLE: LETTERS DATE OF NOTE: JUN 19, 2021@20:13 ENTRY DATE: JUN 19, 2021@20:13:38 AUTHOR: MALLIKA RAMIRES EXP COSIGNER: URGENCY: STATUS: COMPLETED [facility] Toll Free Number Primary Care Telephone Assistance can be reached at extension [phone] [facility] scheduling can be reac hed at extension [phone] [facility] scheduling can be mary ann ched at ext [phone] [place] JESSICA MASON [address] [facility] [place], [place], [address] Dear , We are pleased to inform you that your labs were normal . No further intervention is required at this time . Kindly leave a message for Dr. Ramires if you have any questions. Thank you for allowing the [place] to participate in your care. We look forward to seeing you in the future! Sincerely, Your Primary Care Team [facility] [address] [facility] [address] [place] [address] [place] [address] [phone] [facility] [place] [facility] [address] [facility] [address] [place] [address] [place] [address] [phone] [facility] [address] [facility] [address] [place] [address] [place] [address] [phone] Jun 15, 2021 10:13 AM CARDIOLOGY DIAGNOSTIC STUDY CONSULT: FELIX AU LT [facility] LOCAL TITLE: CONSULT REPORT/EKG STANDARD TITLE: CARDIOLOGY DIAGNOSTIC STUDY CONS ULT DATE OF NOTE: JUN 15, 2021@10:13 ENTRY DATE: JUN 15, 2021@10:13:59 AUTHOR: FELIX FRAZIER EXP COSIGNER: URGENCY: STATUS: COMPLETED EKG tracing was performed for diagnosis of I49.9 ordered by MALLIKA RAMIRES. Order Information To Service: EKG TRACING/SPOPC OUTPT From Service: CWM/SO/PACT 4 Requesting Provider: MALLIKA RAMIRES Service is to be rendered on an OUTPATIENT basis Place[facility] Urgency: Routine Clinically Ind. Date: Jun 15, 2021 DST ID: Orderable Item: EKG TRACING/SPOPC OUTPT Consult: Consult Request Provisional Diagnosis: Cardiac Arrhythmia, unspe cified(ICD-10-CM I49.9) Reason For Request: Reason for EKG: arrhythmia Age:76 [place] Height:70 in [177.8 cm] (07/12/2019 10:2 3) [place] Weight:251 lb [114.1 kg] (06/15/2021 09: 34) /paulette/ FELIX FRAZIER LPN LICENSED PRACTICAL NURSE Signed: 06/15/2021 10:14 Jun 15, 2021 09:37 AM PHYSICIAN NOTE: MALLIKA RAMIRES LOCAL TITLE: MD NOTE STANDARD TITLE: PHYSICIAN NOTE DATE OF NOTE: JUN 15, 2021@09:37 ENTRY DATE: JUN 15, 2021@09:38:03 AUTHOR: MALLIKA RAMIRES EXP COSIGNER: URGENCY: STATUS: COMPLETED Blood Pressure: 155/79 (06/15/2021 09:34) Pain: 0 (06/15/2021 09:34) Patient Height: 70 in [177.8 cm] (07/12/2019 10: 23) Patient Weight: 251 lb [114.1 kg] (06/15/2021 09 :34) Pulse: 70 (06/15/2021 09:34) Respiration: 20 (06/15/2021 09:34) Temperature: 96.5 F [35.8 C] (06/15/2021 09:34) CC: dementia History of Present Illness: 1. dementia -pt reports that he takes his meds as rx'ed -he states that he feels well saying i'm not do ing too bad for a 75 y/o! -he arrives w/an aide but pt wouldn't allow him to come in for the appt -unable to get much history from pt as his speec h was incoherent Medications were reviewed and reconciled with [facility] Active Outpatient Medications (including Supplie s): Active Non-VA Medications Status 1) Non-VA ASPIRIN 81MG EC TAB 81MG BY MOUTH DEVON Y ACTIVE 2) Non-VA CHOLECALCIF 50MCG (D3-2,000UNIT) TAB 2 000UNIT ACTIVE BY MOUTH DAILY 3) Non-VA DIVALPROEX 250MG EC(DELAYED RELEASE) T AB 250MG ACTIVE BY MOUTH TWICE DAILY 4) Non-VA DOCUSATE NA 100MG CAP 100MG BY MOUTH O NCE ACTIVE DAILY 5) Non-VA DONEPEZIL HCL 5MG TAB 5MG BY MOUTH ONC E DAILY ACTIVE 6) Non-VA HYDROCHLOROTHIAZIDE 25MG TAB 25MG BY M OUTH ACTIVE ONCE DAILY 7) Non-VA LISINOPRIL 5MG TAB 15MG BY MOUTH ONCE DAILY ACTIVE 8) Non-VA LORATADINE 10MG TAB 10MG BY MOUTH ONCE DAILY ACTIVE 9) Non-VA LOVASTATIN 40MG TAB 40MG BY MOUTH ONCE DAILY ACTIVE 10) Non-VA METOPROLOL TARTRATE 25MG TAB 12.5MG B Y MOUTH ACTIVE TWICE DAILY 11) Non-VA QUETIAPINE FUMARATE 50MG TAB 50MG BY MOUTH ACTIVE TWICE DAILY 12) Non-VA SERTRALINE HCL 100MG TAB 50MG BY MOUT H ONCE ACTIVE DAILY 13) Non-VA TRAZODONE HCL 100MG TAB 50MG BY MOUTH AT ACTIVE BEDTIME Review of Systems: chest pain no dyspnea no hematuria no hematochezia no edema yes better w/compression stockings Social Hx: SERVICE CONNECTED % - NONE FOUND w/children. lives at the soldier[facility] home. he ran a [email or web address]. 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 [place] vet and was stationed in [facility] and [facility]. he was e xposed agent orange. he liked to [employer], fishing, nature walks, outdoor activities but does not do any of these activities now 06/2021 Allergies: Patient has answered NKA Physical Exam: pleasant. pt ambulates without as sistance. speech is very tangential Alert and oriented X0 HEENT: Pupils equal round and reactive t o light. Oropharynx clear. No cervical adenopathy, carotid bruits or thyromegaly. Lungs: Clear to auscultation bilaterally. fair a ir movement. Cor: Regular rate and rhythm w/occasiona l premature beat. No murmur, gallop or rub. soft heart sounds Abd: Soft. Nontender. Normal active bowel sounds . No organomegaly. Ext: No cyanosis, clubbing or edema. Strong peda l pulses. Neuro: he is only able to answer basic questions w/yes or no. o/w speech is incoherent lab 02/24/21 k+ 4.1, bun/cr 1 5/0.89, egfr >60, glu 117 calcium 9.1, h/h 15/44.9, plt 156k All labs and diagnostic tests were reviewed and discussed with patient. The patient verbalized understanding. ASSESSMENT AND PLAN 1. Hypertension: Blood pressure fairly controll ed on current meds 2. Dementia with behavioral disturbance: he con tinues to display signs of dementia. he remains quite impaired cognitively progressed compared to last year. he continues to reside in long term care administrator care. spoke w/pt's nurse, Mirella, at the [facility] home for update on medical hx. -f/u w/mental health as scheduled 3. atrial flutter: ekg toda y NSR w/RBBB and LAFB new since 2016 ekg. apparently atrial flutter was found incidental for a baseli ne ekg due to mental health meds. he's asymptomatic -rec 7-14 day holter monitor -hold on anticoagulation at this time -labs ordered today -cardiology consult cancelled Return to clinic 06/2022 with fasting labs labs no vaccination today Depression Screening: The patient could not be screened due to modera te or severe cognitive impairment. Please note, although clinical callum nders regarding PTSD, depression, alcohol and suicide risk are resolv ed for one year (due to cognitive impairment), signs or symptoms of any current or future mental health concerns should be attended to as is cli nically appropriate. Homelessness/Food Insecurity Screen: Homelessness screening was not performed [place]/Caregiver unable to answer Food insecurity screening was not performed [place]/Caregiver unable to answer [employer] Education: The patient has access or uses the internet. The patient is not registered for [employer] . PTSD Screening: The patient could not be screened due to modera te or severe cognitive impairment. Please note, although clinical callum nders regarding PTSD, depression, alcohol and suicide risk are resolv ed for one year (due to cognitive impairment), signs or symptoms of any current or future mental health concerns should be attended to as is cli nically appropriate. Tobacco Use Screening: The patient declines to say if they use tobacco . Suicide Screen: C-SSRS Screening The patient could not be screened due to modera te or severe cognitive impairment. Please note, although clinical callum nders regarding PTSD, depression, alcohol and suicide risk are resolv ed for one year (due to cognitive impairment), signs or symptoms of any current or future mental health concerns should be attended to as is clinically appropriate. Alcohol Use Screen (AUDIT-C): Alcohol Screen: The patient could not be screened due to modera te or severe cognitive impairment. Please note, although clinical callum nders regarding PTSD, depression, alcohol and suicide risk are resolv ed for one year (due to cognitive impairment), signs or symptoms of any current or future mental health concerns should be attended to as is cli nically appropriate. HTN Assess for Elevated BP>=140/90: Repeat blood pressure: 145/74 /paulette/ Mallika Ramires M.D. STAFF PHYSICIAN Signed: 06/15/2021 10:46
--- OUTSIDE RECORDS SUMMARY | 2022-04-30 14:48 | XMS_ITS | Encounter Summary ---
:1945 Author Organization [facility] Address [address] [place] [id number] Support Name Relationship Address Phone VERONICA LAURA Unavailable [address] [place] [address] VERONICA LAURA Unavailable [address] [place] [address] ROHIT MASON Unavailable [phone] [place] [phone] Insurance Providers: All historical and current Section [...] MEDICARE MEDICARE PART Dec 31, PART B [id number] CAGUE, FOR PATIENT (WNR) (M) B 2011 85A 00 EST MEDICARE MEDICARE PART Dec 31, PART A [id number] CAGUE, FOR PATIENT (WNR) (M) A 2009 85A 4 EST MEDICARE MEDICARE PART Dec 31, PART A [id number] [id number] CAGUE, FOR PATIENT (WNR) (M) A 2009 85A 00 EST Selected Encounter This section includes the information on record at [place] for the Encounter. Date/Time Encounter Type Encounter Description Reason Provider Source Jun 16, 2021 02:56 Outpatient Encounter TELEPHONE TRIAGE PM IHE Encounter Template Text not used by [place] Plan of Treatment: Future Appointments (+ 6 [...] 20 appointments. The data comes from all [place] treatment facilities. Appointment Date/Time Appointment Type Appointment Miguel ortega Name Jul 07, 2021 10:00 AM AMBULATORY - MEDICINE [facility] Lab Results: +/- 30 days of the encounter This section includes the Chemistry and Hematology Lab Results on record with [place] for the patient. Radiology Reports and Pathology Reports are provided separately, in subsequent sections.Lab Results This section contains the Chemistry/Hematology Results that were resulted 30 days before or 30 daysafter the date of the Encounter. Date/Time Source Result Type Result - Unit Interpretation Reference Range Comment Jun 15, 2021 11:09 AM [place] HEMOGLOBIN A1C PANEL Spec imen Type: BLOOD [...] HbAD, HbAE, AbA2 Ordering Provid er: MALLIKA CAMPA Report Released Date/Time: Jun 15, 2021 09:48 AM Reporting Lab: [facility] [address] [facility] [address] Performing Lab: [facility] [address] [facility] [address] HEMOGLOBIN A1C 5.8 H 4.0-5.6 Jun 15, 2021 11:09 AM [place] CBC Specimen Type: BLOOD No comment enter ed. Ordering Provid er: MALLIKA CAMPA Report Released Date/Time: Jun 15, 2021 09:48 AM Reporting Lab: [facility] [address] [facility] [address] Performing Lab: [facility] [address] [facility] [address] WBC 8.13 4.50-11.00 RBC 5.47 4.23-5.66 HGB 16.5 12.8-17 HCT 49.6 39.2-50.4 MCV 90.7 82-99 MCHC 33.3 30.8-35.1 PLT 190 140-360 RDW-CV 12.7 12.0-16.0 MCH 30.2 26.2-32.6 Jun 15, 2021 11:09 AM [place] URINALYSIS Specimen Type: URINE No comment enter ed. Ordering Provid er: MALLIKA CAMPA Report Released Date/Time: Jun 15, 2021 09:48 AM Reporting [facility] [address] [facility] [address] Performing [facility]: [facility] [address] [facility] [address] UA COLOR Yellow Yellow UA APPEARANCE Clear Clear UA GLUCOSE Negative Negative UA KETONES Negative Neg UA BLOOD Negative Neg UA PROTEIN Negative Neg UA NITRITE Negative Neg UA BILIRUBIN Negative Neg UA SPECIFIC GRAVITY 1.019 1.016-1.02 2 UA pH 6.0 5.0-9.0 UA UROBILINOGEN <2.0 <2.0 UA LEUKOCYTE ESTERASE Negative Neg Jun 15, 2021 11:09 AM [place] PTT Specimen Type: PLASMA No comment enter ed. Ordering Provid er: MALLIKA CAMPA Report Released Date/Time: Jun 15, 2021 09:48 AM Reporting Lab: [facility] [address] [facility] [address] Performing Lab: [facility] [address] [facility] [address] PTT 39.4 H 26.0-36.0 Jun 15, 2021 11:09 AM [place] PT & INR (PROTIME) Specim en Type: PLASMA No comment enter ed. Ordering Provid er: MALLIKA CAMPA Report Released Date/Time: Jun 15, 2021 09:48 AM Reporting Lab: [facility] [address] [facility] [address] Performing Lab: [facility] [address] [facility] [address] INR 1.1 PROTIME 11.9 10.0-13.1 Jun 15, 2021 11:09 [place] BASIC METABOLIC PANEL Specim en Type: SERUM AM (non-fasting) No comment enter ed. Ordering Provid er: MALLIKA CAMPA Report Released Date/Time: Jun 15, 2021 09:48 AM Reporting Lab: [facility] [address] [facility] [address] Performing Lab: [address] [address] UREA NITROGEN 20 7-25 GLUCOSE 106 H 65-100 SODIUM 139 135-145 POTASSIUM 4.1 3.5-5.0 CHLORIDE 101 100-110 CO2 26 20-30 CREATININE, Serum 1.08 0.50-1.40 eGFR (IDMS) 66 >60 Jun 15, 2021 11:09 AM [place] LIVER FUNCTION Specimen Type: SERUM No comment enter ed. Ordering Provid er: MALLIKA CAMPA Report Released Date/Time: Jun 15, 2021 09:48 AM Reporting Lab: [address] [address] Performing Lab: [address] [address] PROTEIN,TOTAL 7.1 6.0-8.3 ALBUMIN 3.6 3.5-5.0 ALKALINE PHOSPHATASE 77 40-150 AST 26 5-34 ALT 23 0-55 BILIRUBIN, TOTAL 0.5 0.2-1.2 Jun 15, 2021 11:09 AM [place] LIPID PANEL, NON Specimen Type: SERUM FASTING No comment enter ed. Ordering Provid er: MALLIKA CAMPA Report Released Date/Time: Jun 15, 2021 09:48 AM Reporting Lab: [facility] [address] [facility] [address] Performing Lab: [address] [address] CHOLESTEROL 187 0-199 TRIGLYCERIDE 177 H 0-150 LDL calculated 109 0-129 CHOL/HDL 4.3 HDL CHOLESTEROL 43 40-60 Jun 15, 2021 11:09 AM [place] TSH Specimen Type: SERUM No comment enter ed. Ordering Provid er: MALLIKA CAMPA Report Released Date/Time: Jun 15, 2021 09:48 AM Reporting Lab: [facility] [address] [facility] [address] Performing Lab: [facility] [address] [facility] [address] TSH 3.01 0.35-5.00 Advance Directives: All historical and current Section Date Range: From patient's date of to the date document was created. This section includes ALL of a patient's completed or amended [place] Advance and Rescinded Directives. The entries below indicate that a directive exists for the patient, but an actual copy is not included with this document. The data comes from all [place] facilities. Date Advance Directives Provider Source May 20, 2016 ADVANCE DIRECTIVE MARIAN MORALES [facility] Encounter Notes: All associated encounter notes This section contains the clinical notes associated to the Encounter. Date/Time Encounter Note(s) Provider Source Jun 16, 2021 02:56 PM TELEPHONE ENCOUNTER NOTE: ANKUR LUNA [facility] LOCAL TITLE: VISN 1 CCC ACTION REQUIRED [facility] STANDARD TITLE: TELEPHONE ENCOUNTER NOTE DATE OF NOTE: JUN 16, 2021@14:56:04 ENTRY DATE: JUN 16, 2021@14:58:01 AUTHOR: ANKUR LUNA EXP COSIGNER: URGENCY: STATUS: COMPLETED VISN 1 CCC ACTION REQUIRED Has ADDENDA OTHER called in for MILKA MASON ([id number]) . The following identifiers were used to verify th is patient: . SSN. Contact Type of call: ADMINISTRATIVE. Caller Response: ADM CALL RESOLVED Caller Area: [facility] PCMM Provider Info: [facility] ([id number]) PACT: SO PACT 4 (Focus: Primary Care Only) Primary Care Provider: Mallika Campa PHONE:[phone] Fusing Machine Operator: Kristen Ann Clinical Associate: Felix Henao PHON [id number] Weight Shifter: Kristen Grimes PHONE:[phone] PACT Clinical Pharmacist: Flora Galindo Clinical POC: Fusing Machine Operator Loree Ann Administrative POC: Weight Shifter Kristen Grimes PHONE:[phone] Author: ANKUR LUNA Comments: Jim[facility] from [facility] [place] called to inform PACT that facility does not have halter monitors for vet & would like f/ u from Prov and is also req last-visit notes. Pls c/b Evaluation/Management Code: HC PRO PHONE CALL 5- 10 MIN ([phone]). Starting at: 06/16/2021 @ 2:56:04 PM Ending at: 06/16/2021 @ 2:57:12 PM Length: 1 minutes. Chief Complaint: Not applicable to call. Class Code: Other specified counseling. Patient's Email Address: /paulette/ ANKUR LUNA Signed: 06/16/2021 14:58 Receipt Acknowledged By: 06/17/2021 08:28 /paulette/ KRISTEN ANN RN REGISTERED NURSE * AWAITING SIGNATURE * JACAmeeFELIX VALENTINA 06/17/2021 ADDENDUM STATUS: COMPLETED Dr. Campa, will need a consult for a holste r. [facility] does not have there. Thank you, Kristen /paulette/ KRISTEN ANN RN REGISTERED NURSE Signed: 06/17/2021 08:29 Receipt Acknowledged By: * AWAITING SIGNATURE * MALLIKA CAMPA
--- OUTSIDE RECORDS SUMMARY | 2022-04-30 14:48 | XMS_ITS | Encounter Summary ---
:1945 Author Organization [facility] Address [address] [place] [address] Support Name Relationship Address Phone VERONICA LAURA Unavailable [address] [place] [address] VERONICA LAURA Unavailable [address] [place] [address] ROHIT MASON Unavailable [address] [place] [phone] Insurance Providers: All historical and current Section [...] MEDICARE MEDICARE PART Dec 31, PART B [id number] CAGUE, FOR PATIENT (WNR) (M) B 2011 85A 00 EST MEDICARE MEDICARE PART Dec 31, PART A [id number] CAGUE, FOR PATIENT (WNR) (M) A 2009 85A 4 EST MEDICARE MEDICARE PART Dec 31, PART A [id number] [phone] CAGUE, FOR PATIENT (WNR) (M) A 2009 85A 00 EST Selected Encounter This section includes the information on record at [place] for the Encounter. Date/Time Encounter Type Encounter Description Reason Provider Source Jun 15, 2021 09:19 Outpatient Encounter PRIMARY CARE/MEDICINE AM IHE Encounter Template Text not used [...] 20 appointments. The data comes from all [place] treatment facilities. Appointment Date/Time Appointment Type Appointment Miguel ortega Name Jul 07, 2021 10:00 AM AMBULATORY - MEDICINE [facility] Lab Results: +/- 30 days of the encounter This section includes the Chemistry and Hematology Lab Results on record with [place] for the patient. Radiology Reports and Pathology Reports are provided separately, in subsequent sections.Lab Results This section contains the Chemistry/Hematology Results that were resulted 30 days before or 30 daysafter the date of the Encounter. Date/Time Source Result Type Result - Unit Interpretation Reference Range Comment Jun 15, 2021 11:09 AM [place] HEMOGLOBIN A1C PANEL Spec imen Type: BLOOD [...] Jun 15, 2021 09:48 AM Reporting Lab: [facility] [address] [facility] [address] Performing Lab: [facility] [address] [facility] [address] HEMOGLOBIN A1C 5.8 H 4.0-5.6 Jun 15, 2021 11:09 AM [place] PT & INR (PROTIME) Specim en Type: PLASMA No comment enter ed. Ordering Provid er: MALLIKA RAMIRES Report Released Date/Time: Jun 15, 2021 09:48 AM Reporting Lab: [facility] [address] [facility] [address] Performing Lab: [facility] [address] [facility] [address] INR 1.1 PROTIME 11.9 10.0-13.1 Jun 15, 2021 11:09 AM [place] URINALYSIS Specimen Type: URINE No comment enter ed. Ordering Provid er: MALLIKA RAMIRES Report Released Date/Time: Jun 15, 2021 09:48 AM Reporting Lab: [facility] [address] [facility] [address] Performing Lab: [facility] [address] [facility] [address] UA COLOR Yellow Yellow UA APPEARANCE Clear Clear UA GLUCOSE Negative Negative UA KETONES Negative Neg UA BLOOD Negative Neg UA PROTEIN Negative Neg UA NITRITE Negative Neg UA BILIRUBIN Negative Neg UA SPECIFIC GRAVITY 1.019 1.016-1.02 2 UA pH 6.0 5.0-9.0 UA UROBILINOGEN <2.0 <2.0 UA LEUKOCYTE ESTERASE Negative Neg Jun 15, 2021 11:09 AM [place] CBC Specimen Type: BLOOD No comment enter ed. Ordering Provid er: MALLIKA RAMIRES Report Released Date/Time: Jun 15, 2021 09:48 AM Reporting Lab: [facility] [address] [facility] [address] Performing Lab: [facility]ITALR[facility]ITALN [facility] [address] [facility] [address] WBC 8.13 4.50-11.00 RBC 5.47 4.23-5.66 HGB 16.5 12.8-17 HCT 49.6 39.2-50.4 MCV 90.7 82-99 MCHC 33.3 30.8-35.1 PLT 190 140-360 RDW-CV 12.7 12.0-16.0 MCH 30.2 26.2-32.6 Jun 15, 2021 11:09 AM [place] PTT Specimen Type: PLASMA No comment enter ed. Ordering Provid er: MALLIKA RAMIRES Report Released Date/Time: Jun 15, 2021 09:48 AM Reporting Lab: [facility]TRN [facility] [address] [facility] [address] Performing Lab: [facility]ITALRJ[facility]ENTERTRN [facility]ENTERUSE[address] [address] PTT 39.4 H 26.0-36.0 Jun 15, 2021 11:09 AM [place] LIVER FUNCTION Specimen Type: SERUM No comment enter ed. Ordering Provid er: MALLIKA RAMIRES Report Released Date/Time: Jun 15, 2021 09:48 AM Reporting Lab: [facility] [place] [facility] [address] [facility] [address] Performing Lab: [facility] [address] [facility] [address] PROTEIN,TOTAL 7.1 6.0-8.3 ALBUMIN 3.6 3.5-5.0 ALKALINE PHOSPHATASE 77 40-150 AST 26 5-34 ALT 23 0-55 BILIRUBIN, TOTAL 0.5 0.2-1.2 Jun 15, 2021 11:09 [place] BASIC METABOLIC PANEL Specim en Type: SERUM AM (non-fasting) No comment enter ed. Ordering Provid er: MALLIKA RAMIRES Report Released Date/Time: Jun 15, 2021 09:48 AM Reporting Lab: [facility] [address] [facility] [address] Performing Lab: [facility] [address] [facility] [address] UREA NITROGEN 20 7-25 GLUCOSE 106 H 65-100 SODIUM 139 135-145 POTASSIUM 4.1 3.5-5.0 CHLORIDE 101 100-110 CO2 26 20-30 CREATININE, Serum 1.08 0.50-1.40 eGFR (IDMS) 66 >60 Jun 15, 2021 11:09 AM [place] LIPID PANEL, NON Specimen Type: SERUM FASTING No comment enter ed. Ordering Provid er: MALLIKA RAMIRES Report Released Date/Time: Jun 15, 2021 09:48 AM Reporting Lab: [facility] [address] [facility] [address] Performing Lab: [facility] [address] [facility] [address] CHOLESTEROL 187 0-199 TRIGLYCERIDE 177 H 0-150 LDL calculated 109 0-129 CHOL/HDL 4.3 HDL CHOLESTEROL 43 40-60 Jun 15, 2021 11:09 AM [place] TSH Specimen Type: SERUM No comment enter ed. Ordering Provid er: MALLIKA RAMIRES Report Released Date/Time: Jun 15, 2021 09:48 AM Reporting Lab: [facility] [address] [facility] [address] Performing Lab: [facility] [address] [facility] [address] TSH 3.01 0.35-5.00 Advance Directives: All historical and current Section Date Range: From patient's date of to the date document was created. This section includes ALL of a patient's completed or amended [place] Advance and Rescinded Directives. The entries below indicate that a directive exists for the patient, but an actual copy is not included with this document. The data comes from all [place] facilities. Date Advance Directives Provider Source May 20, 2016 ADVANCE DIRECTIVE MARIAN MORALES [facility] Encounter Notes: All associated encounter notes This section contains the clinical notes associated to the Encounter. Date/Time Encounter Note(s) Provider Source Jun 15, 2021 09:19 AM PREVENTIVE MEDICINE NURSING NOTE: FELIX FRAZIER [facility] TITLE: CLINICAL REMINDERS/NURSING STANDARD TITLE: PREVENTIVE MEDICINE NURSING NOTE DATE OF NOTE: JUN 15, 2021@09:19 ENTRY DATE: JUN 15, 2021@09:19:15 AUTHOR: FELIX FRAZIER EXP COSIGNER: URGENCY: STATUS: COMPLETED here for annual check up after labs. [place] unable to answer clinical reminder quest ions. Records reviewed from [facility] and no immun ization records found. Per staff member he has had Flu shot, Pf izer x 3 and negative Covid rapid test this A.M. /paulette/ FELIX FRAZIER LPN LICENSED PRACTICAL NURSE Signed: 06/15/2021 09:34
--- OUTSIDE RECORDS SUMMARY | 2022-04-30 14:48 | XMS_ITS | Encounter Summary ---
:1945 Author Organization [facility] Address [address] [place] [address] Support Name Relationship Address Phone VERONICA LAURA Unavailable [address] [place] [address] VERONICA LAURA Unavailable [address] [place] [address] ROHIT MASON Unavailable [address] [place] [id number] Insurance Providers: All historical and current Section [...] MEDICARE MEDICARE PART Dec 31, PART B [id number] CAGUE, FOR PATIENT (WNR) (M) B 2011 85A 00 EST MEDICARE MEDICARE PART Dec 31, PART A [id number] CAGUE, FOR PATIENT (WNR) (M) A 2009 85A 4 EST MEDICARE MEDICARE PART Dec 31, PART A [id number] [id number] CAGUE, FOR PATIENT (WNR) (M) A 2009 85A 00 EST Selected Encounter This section includes the information on record at [place] for the Encounter. Date/Time Encounter Type Encounter Description Reason Provider Source Jun 21, 2021 12:18 Outpatient Encounter TELEPHONE TRIAGE PM IHE Encounter Template Text not used by [place] Plan of Treatment: Future Appointments (+ 6 [...] 20 appointments. The data comes from all [place] treatment facilities. Appointment Date/Time Appointment Type Appointment Miguel ortega Name Jul 07, 2021 10:00 AM AMBULATORY - MEDICINE [facility] Lab Results: +/- 30 days of the encounter This section includes the Chemistry and Hematology Lab Results on record with [place] for the patient. Radiology Reports and Pathology Reports are provided separately, in subsequent sections.Lab Results This section contains the Chemistry/Hematology Results that were resulted 30 days before or 30 daysafter the date of the Encounter. Date/Time Source Result Type Result - Unit Interpretation Reference Range Comment Jun 15, 2021 11:09 AM [facility] HEMOGLOBIN A1C PANEL Spec imen Type: BLOOD [...] Jun 15, 2021 09:48 AM Reporting Lab: [facility] [address] [facility] [address] Performing Lab: [facility] [address] [facility] [address] HEMOGLOBIN A1C 5.8 H 4.0-5.6 Jun 15, 2021 11:09 AM [facility] PT & INR (PROTIME) Specim en Type: PLASMA No comment enter ed. Ordering Provid er: MALLIKA CAMPA Report Released Date/Time: Jun 15, 2021 09:48 AM Reporting Lab: [facility] [address] [facility] [address] Performing Lab: [facility] [address] [facility] [address] INR 1.1 PROTIME 11.9 10.0-13.1 Jun 15, 2021 11:09 AM [facility] CBC Specimen Type: BLOOD No comment enter ed. Ordering Provid er: MALLIKA CAMPA Report Released Date/Time: Jun 15, 2021 09:48 AM Reporting [facility] [address] [facility] [address] Performing [facility]: [facility] [address] [facility] [address] WBC 8.13 4.50-11.00 RBC 5.47 4.23-5.66 HGB 16.5 12.8-17 HCT 49.6 39.2-50.4 MCV 90.7 82-99 MCHC 33.3 30.8-35.1 PLT 190 140-360 RDW-CV 12.7 12.0-16.0 MCH 30.2 26.2-32.6 Jun 15, 2021 11:09 AM [facility] URINALYSIS Specimen Type: URINE No comment enter ed. Ordering Provid er: MALLIKA CAMPA Report Released Date/Time: Jun 15, 2021 09:48 AM Reporting Lab: [facility] [address] [facility] [address] Performing Lab: [facility] [address] [facility] [address] UA COLOR Yellow Yellow UA APPEARANCE Clear Clear UA GLUCOSE Negative Negative UA KETONES Negative Neg UA BLOOD Negative Neg UA PROTEIN Negative Neg UA NITRITE Negative Neg UA BILIRUBIN Negative Neg UA SPECIFIC GRAVITY 1.019 1.016-1.02 2 UA pH 6.0 5.0-9.0 UA UROBILINOGEN <2.0 <2.0 UA LEUKOCYTE ESTERASE Negative Neg Jun 15, 2021 11:09 AM [facility] PTT Specimen Type: PLASMA No comment enter ed. Ordering Provid er: MALLIKA CAMPA Report Released Date/Time: Jun 15, 2021 09:48 AM Reporting Lab: [facility] [address] [facility] [address] Performing Lab: [facility] [address] [address] PTT 39.4 H 26.0-36.0 Jun 15, 2021 11:09 AM [facility] LIPID PANEL, NON Specimen Type: SERUM FASTING No comment enter ed. Ordering Provid er: MALLIKA CAMPA Report Released Date/Time: Jun 15, 2021 09:48 AM Reporting Lab: [facility] [address] [facility] [address] Performing Lab: [facility] [address] [facility] [address] CHOLESTEROL 187 0-199 TRIGLYCERIDE 177 H 0-150 LDL calculated 109 0-129 CHOL/HDL 4.3 HDL CHOLESTEROL 43 40-60 Jun 15, 2021 11:09 AM [facility] LIVER FUNCTION Specimen Type: SERUM No comment enter ed. Ordering Provid er: MALLIKA CAMPA Report Released Date/Time: Jun 15, 2021 09:48 AM Reporting Lab: [facility] [address] [facility] [address] Performing Lab: [address] [address] PROTEIN,TOTAL 7.1 6.0-8.3 ALBUMIN 3.6 3.5-5.0 ALKALINE PHOSPHATASE 77 40-150 AST 26 5-34 ALT 23 0-55 BILIRUBIN, TOTAL 0.5 0.2-1.2 Jun 15, 2021 11:09 [facility] BASIC METABOLIC PANEL Specim en Type: SERUM AM (non-fasting) No comment enter ed. Ordering Provid er: MALLIKA CAMPA Report Released Date/Time: Jun 15, 2021 09:48 AM Reporting Lab: [facility] [address] [facility] [address] Performing Lab: [facility] [address] [facility] [address] UREA NITROGEN 20 7-25 GLUCOSE 106 H 65-100 SODIUM 139 135-145 POTASSIUM 4.1 3.5-5.0 CHLORIDE 101 100-110 CO2 26 20-30 CREATININE, Serum 1.08 0.50-1.40 eGFR (IDMS) 66 >60 Jun 15, 2021 11:09 AM [facility] TSH Specimen Type: SERUM No comment enter ed. Ordering Provid er: MALLIKA CAMPA Report Released Date/Time: Jun 15, 2021 09:48 AM Reporting Lab: [facility] [address] [facility] [address] Performing [facility]: [facility] [address] [facility] [address] TSH 3.01 0.35-5.00 Advance Directives: All historical and current Section Date Range: From patient's date of to the date document was created. This section includes ALL of a patient's completed or amended [place] Advance and Rescinded Directives. The entries below indicate that a directive exists for the patient, but an actual copy is not included with this document. The data comes from all [place] facilities. Date Advance Directives Provider Source May 20, 2016 ADVANCE DIRECTIVE MARIAN MORALES [facility] Encounter Notes: All associated encounter notes This section contains the clinical notes associated to the Encounter. Date/Time Encounter Note(s) Provider Source Jun 21, 2021 12:18 PM TELEPHONE ENCOUNTER NOTE: BILL NEGRON [facility] LOCAL TITLE: VISN 1 CCC ACTION REQUIRED [facility] STANDARD TITLE: TELEPHONE ENCOUNTER NOTE DATE OF NOTE: JUN 21, 2021@12:18 ENTRY DATE: JUN 21, 2021@12:22:44 AUTHOR: BILL NEGRON EXP COSIGNER: URGENCY: STATUS: COMPLETED VISN 1 CCC ACTION REQUIRED Has ADDENDA OTHER called in for MILKA MASON ([id number]) . The following identifiers were used to verify th is patient: . SSN. Other: kristen. Contact Type of call: ADMINISTRATIVE. Caller Response: ADM CALL RESOLVED Caller Area: [facility] PCMM Provider Info: [facility] ([id number]) PACT: SO PACT 4 (Focus: Primary Care Only) Primary Care Provider: Mallika Campa PHONE:[phone] Chief Petroleum Engineer: Kristen Ann Clinical Associate: Felix Henao PHON E:[phone] Safety Deposit Boxes Custodian: Kristen Grimes PHONE:[phone] PACT Clinical Pharmacist: Flora Galindo Clinical POC: Chief Petroleum Engineer Loree Ann Administrative POC: Safety Deposit Boxes Custodian Kristen Grimes PHONE:[phone] Author: BILL NEGRON Comments: Kristen from the [facility] states that she needs a c\b from Primary as she has many issues about the [facility] cardiology [facility] monitor request and labs. Kristen can be reached at [phone] Evaluation/Management Code: HC PRO PHONE CALL 5- 10 MIN ([phone]). Starting at: 06/21/2021 @ 12:18:00 PM Ending at: 06/21/2021 @ 12:20:45 PM Length: 2 minutes. Chief Complaint: Not applicable to call. Class Code: Other specified counseling. Patient's Email Address: /paulette/ BILL NEGRON ADVANCED DINING ROOM ATTENDANT Signed: 06/21/2021 12:22 Receipt Acknowledged By: 06/22/2021 15:42 /paulette/ KRISTEN ANN RN REGISTERED NURSE * AWAITING SIGNATURE * FELIX HENAO 06/22/2021 ADDENDUM STATUS: COMPLETED Called and left a voicemail message for Kristen from [facility] to call the clinic back. /paulette/ KRISTEN ANN RN REGISTERED NURSE Signed: 06/22/2021 15:43
--- OUTSIDE RECORDS SUMMARY | 2022-04-30 14:48 | XMS_ITS | Encounter Summary ---
:1945 Author Organization [facility] Address [address] [place] [address] Support Name Relationship Address Phone VERONICA LAURA Unavailable [address] [place] [address] VERONICA LAURA Unavailable [address] [place] [address] ROHIT MASON Unavailable [address] [place] [id number] Insurance Providers: All historical and current Section [...] MEDICARE MEDICARE PART Dec 31, PART B [id number] CAGUE, FOR PATIENT (WNR) (M) B 2011 85A 00 EST MEDICARE MEDICARE PART Dec 31, PART A [id number] CAGUE, FOR PATIENT (WNR) (M) A 2009 85A 4 EST MEDICARE MEDICARE PART Dec 31, PART A [id number] [id number] CAGUE, FOR PATIENT (WNR) (M) A 2009 85A 00 EST Selected Encounter This section includes the information on record at [place] for the Encounter. Date/Time Encounter Type Encounter Description Reason Provider Source Dec 30, 2021 11:31 Outpatient Encounter TELEPHONE TRIAGE AM IHE Encounter Template Text not used by [place] Plan of Treatment: Future Appointments (+ 6 [...] 20 appointments. The data comes from all [place] treatment facilities. Appointment Date/Time Appointment Type Appointment Facili ty Name Jan 26, 2022 11:00 AM AMBULATORY - MEDICINE [facility] Feb 10, 2022 10:15 AM AMBULATORY NONE [facility] May 09, 2022 09:00 AM AMBULATORY [facility] Jun 16, 2022 10:00 AM [facility] Advance Directives: All historical and current Section Date Range: From patient's date of to the date document was created. This section includes ALL of a patient's completed or amended [place] Advance and Rescinded Directives. The entries below indicate that a directive exists for the patient, but an actual copy is not included with this document. The data comes from all [place] facilities. Date Advance Directives Provider Source May 20, 2016 ADVANCE DIRECTIVE MARIAN MORALES [facility] Encounter Notes: All associated encounter notes This section contains the clinical notes associated to the Encounter. Date/Time Encounter Note(s) Provider Source Dec 30, 2021 11:31 AM TELEPHONE ENCOUNTER NOTE: CLIFFORD NORTON [facility] LOCAL TITLE: VISN 1 CCC ACTION REQUIRED [facility] STANDARD TITLE: TELEPHONE ENCOUNTER NOTE DATE OF NOTE: DEC 30, 2021@11:31:18 ENTRY DATE: DEC 30, 2021@11:33:39 AUTHOR: CLIFFORD NORTON EXP COSIGNER: URGENCY: STATUS: COMPLETED VISN 1 CCC ACTION REQUIRED Has ADDENDA The patient, MILKA MASON ([id number]) Ph one: called the call center. The following identifiers were used to verify th is patient: . SSN. Contact Type of call: REFERRAL/CONSULT REQUEST. Caller Response: ADM CALL RESOLVED Caller Area: [facility] Provider Info: [facility] ([id number]) PACT: SO PACT 4 (Focus: Primary Care Only) Primary Care Provider: MALLIKA RAMIRES PHONE:[phone] Public Relations Officer: KRISTEN ANN Clinical Associate: FELIX FRAZIER PHON [phone] Inspectors And Regulatory Officers: KRISTEN XAVIER PHONE:[phone] Clinical POC: Public Relations Officer PAIGE ANN Administrative POC: Inspectors And Regulatory Officers KRISTEN XAVIER PHONE:[phone] Author: CLIFFORD NORTON Comments: Kristen from [facility] called to request a new ENT consult for the for follow up care. Kindly call back. Evaluation/Management Code: HC PRO PHONE CALL 5- 10 MIN ([phone]). Starting at: 12/30/2021 @ 11:31:18 AM Ending at: 12/30/2021 @ 11:32:43 AM Length: 1 minutes. Chief Complaint: Not applicable to call. Class Code: Other specified counseling. Patient's Email Address: /paulette/ CLIFFORD CRAIG [address] [facility]A Signed: 12/30/2021 11:33 Receipt Acknowledged By: 12/31/2021 11:47 /paulette/ KRISTEN ANN RN REGISTERED NURSE * AWAITING SIGNATURE * FELIX FRAZIER 12/31/2021 ADDENDUM STATUS: COMPLETED See December 31, 2021 note. /harini ANN RN REGISTERED NURSE Signed: 12/31/2021 11:47
--- OUTSIDE RECORDS SUMMARY | 2022-04-30 14:48 | XMS_ITS | Encounter Summary ---
:1945 Author Organization [facility] Address [address] [place] [address] Support Name Relationship Address Phone VERONICA LAURA Unavailable [address] [place] [address] VERONICA LAURA Unavailable [address] [place] [address] ROHIT MASON Unavailable [address] [place] [id number] Insurance Providers: All historical and current Section [...] MEDICARE MEDICARE PART Dec 31, PART B [id number] CAGUE, FOR PATIENT (WNR) (M) B 2011 85A 00 EST MEDICARE MEDICARE PART Dec 31, PART A [id number] CAGUE, FOR PATIENT (WNR) (M) A 2009 85A 4 EST MEDICARE MEDICARE PART Dec 31, PART A [id number] [id number] CAGUE, FOR PATIENT (WNR) (M) A 2009 85A 00 EST Selected Encounter This section includes the information on record at [place] for the Encounter. Date/Time Encounter Type Encounter Description Reason Provider Source Jun 24, 2021 10:53 Outpatient Encounter COMMUNITY CARE AM CONSULT IHE Encounter Template Text not used by [...] 20 appointments. The data comes from all [place] treatment facilities. Appointment Date/Time Appointment Type Appointment Miguel ortega Name Jul 07, 2021 10:00 AM AMBULATORY - MEDICINE [facility] Lab Results: +/- 30 days of the encounter This section includes the Chemistry and Hematology Lab Results on record with CT for the patient. Radiology Reports and Pathology Reports are provided separately, in subsequent sections.Lab Results This section contains the Chemistry/Hematology Results that were resulted 30 days before or 30 daysafter the date of the Encounter. Date/Time Source Result Type Result - Unit Interpretation Reference Range Comment Jun 15, 2021 11:09 AM [facility] HEMOGLOBIN A1C PANEL Spec imen Type: BLOOD [...] Jun 15, 2021 09:48 AM Reporting Lab: [facility] [address] [facility] [address] Performing Lab: [facility] [address] [facility] [address] HEMOGLOBIN A1C 5.8 H 4.0-5.6 Jun 15, 2021 11:09 AM [facility] PT & INR (PROTIME) Specim en Type: PLASMA No comment enter ed. Ordering Provid er: MALLIKA RAMIRES Report Released Date/Time: Jun 15, 2021 09:48 AM Reporting Lab: [facility] [address] [facility] [address] Performing Lab: [facility] [address] [facility] [address] INR 1.1 PROTIME 11.9 10.0-13.1 Jun 15, 2021 11:09 AM [facility] CBC Specimen Type: BLOOD No comment enter ed. Ordering Provid er: MALLIKA RAMIRES Report Released Date/Time: Jun 15, 2021 09:48 AM Reporting Lab: [facility] [address] [facility] [address] Performing Lab: [address] [address] WBC 8.13 4.50-11.00 RBC 5.47 4.23-5.66 HGB 16.5 12.8-17 HCT 49.6 39.2-50.4 MCV 90.7 82-99 MCHC 33.3 30.8-35.1 PLT 190 140-360 RDW-CV 12.7 12.0-16.0 MCH 30.2 26.2-32.6 Jun 15, 2021 11:09 AM [facility] URINALYSIS Specimen Type: URINE No comment enter ed. Ordering Provid er: MALLIKA RAMIRES Report Released Date/Time: Jun 15, 2021 09:48 AM Reporting Lab: [address] [address] Performing Lab: [address] [address] UA COLOR Yellow Yellow UA APPEARANCE Clear Clear UA GLUCOSE Negative Negative UA KETONES Negative Neg UA BLOOD Negative Neg UA PROTEIN Negative Neg UA NITRITE Negative Neg UA BILIRUBIN Negative Neg UA SPECIFIC GRAVITY 1.019 1.016-1.02 2 UA pH 6.0 5.0-9.0 UA UROBILINOGEN <2.0 <2.0 UA LEUKOCYTE ESTERASE Negative Neg Jun 15, 2021 11:09 AM [facility] PTT Specimen Type: PLASMA No comment enter ed. Ordering Provid er: MALLIKA RAMIRES Report Released Date/Time: Jun 15, 2021 09:48 AM Reporting Lab: [facility] [address] [facility] [address] Performing Lab: [address] [address] PTT 39.4 H 26.0-36.0 Jun 15, 2021 11:09 [facility] BASIC METABOLIC PANEL Specim en Type: SERUM AM (non-fasting) No comment enter ed. Ordering Provid er: MALLIKA RAMIRES Report Released Date/Time: Jun 15, 2021 09:48 AM Reporting Lab: [facility] [address] [facility] [address] Performing Lab: [address] [address] UREA NITROGEN 20 7-25 GLUCOSE 106 H 65-100 SODIUM 139 135-145 POTASSIUM 4.1 3.5-5.0 CHLORIDE 101 100-110 CO2 26 20-30 CREATININE, Serum 1.08 0.50-1.40 eGFR (IDMS) 66 >60 Jun 15, 2021 11:09 AM [facility] LIPID PANEL, NON Specimen Type: SERUM FASTING No comment enter ed. Ordering Provid er: MALLIKA RAMIRES Report Released Date/Time: Jun 15, 2021 09:48 AM Reporting Lab: [address] [address] Performing Lab: [address] [address] CHOLESTEROL 187 0-199 TRIGLYCERIDE 177 H 0-150 LDL calculated 109 0-129 CHOL/HDL 4.3 HDL CHOLESTEROL 43 40-60 Jun 15, 2021 11:09 AM [facility] LIVER FUNCTION Specimen Type: SERUM No comment enter ed. Ordering Provid er: MALLIKA RAMIRES Report Released Date/Time: Jun 15, 2021 09:48 AM Reporting Lab: [address] [address] Performing Lab: [address] [address] PROTEIN,TOTAL 7.1 6.0-8.3 ALBUMIN 3.6 3.5-5.0 ALKALINE PHOSPHATASE 77 40-150 AST 26 5-34 ALT 23 0-55 BILIRUBIN, TOTAL 0.5 0.2-1.2 Jun 15, 2021 11:09 AM [facility] TSH Specimen Type: SERUM No comment enter ed. Ordering Provid er: MALLIKA RAMIRES Report Released Date/Time: Jun 15, 2021 09:48 AM Reporting Lab: [facility] [address] [facility] [address] Performing Lab: [facility] [address] [facility] [address] TSH 3.01 0.35-5.00 Advance Directives: All historical and current Section Date Range: From patient's date of to the date document was created. This section includes ALL of a patient's completed or amended CT Advance and Rescinded Directives. The entries below indicate that a directive exists for the patient, but an actual copy is not included with this document. The data comes from all [place] facilities. Date Advance Directives Provider Source May 20, 2016 ADVANCE DIRECTIVE MARIAN MORALES [facility] Encounter Notes: All associated encounter notes This section contains the clinical notes associated to the Encounter. Date/Time Encounter Note(s) Provider Source Jun 24, 2021 10:53 AM ADMINISTRATIVE NOTE: JACKIE WATTS [facility] LOCAL TITLE: ADMINISTRATIVE NOTE [facility] STANDARD TITLE: ADMINISTRATIVE NOTE DATE OF NOTE: JUN 24, 2021@10:53 ENTRY DATE: JUN 24, 2021@10:53:32 AUTHOR: JACKIE WATTS EXP COSIGNER: URGENCY: STATUS: COMPLETED ADMINISTRATIVE NOTE Has ADDENDA [facility] recieved a call from Bryon frank at the [facility]. Her number is [phone]. She is trying to get a communit [facility] cardiology approval so that Boaz can be seen at [facility] f or a new onset afib. Please enter consult if agree. /paulette/ JACKIE WATTS ADVANCED DIE FORGER Signed: 06/24/2021 10:55 Receipt Acknowledged By: 06/29/2021 12:01 /es/ Mallika Ramires M.D. STAFF PHYSICIAN 06/24/2021 13:22 /es/ ZE ANN, RN REGISTERED NURSE 06/29/2021 ADDENDUM STATUS: COMPLETED kindly inform Ze at the [facility] [phone] that pt wasn't in a- fib at 06/15/21 office visit. possible paroxysma l a-fib. recommend a 14 day monitor and echocardiogram to be completed [facility] before referral to cardiology. thank you /paulette/ Mallika Ramires M.D. STAFF PHYSICIAN Signed: 06/29/2021 12:05 Receipt Acknowledged By: * AWAITING SIGNATURE * ANNZE Ennis 06/29/2021 ADDENDUM STATUS: COMPLETED Repeat call to [facility] from ze at [facility]. Message was translated, however she needs to speak with with clinical staff as she has questions. Please call her back at [phone] /paulette/ JACKIE WATTS ADVANCED DIE FORGER Signed: 06/29/2021 13:20
--- OUTSIDE RECORDS SUMMARY | 2022-04-30 14:48 | XMS_ITS | Encounter Summary ---
:1945 Author Organization [facility] Address [address] [place] [address] Support Name Relationship Address Phone VERONICA LAURA Unavailable [address] [place] [address] VERONICA LAURA Unavailable [address] [place] [address] ROHIT MASON Unavailable [address] [place] [id number] Insurance Providers: All historical and current Section [...] MEDICARE MEDICARE PART Dec 31, PART B [id number] CAGUE, FOR PATIENT (WNR) (M) B 2011 85A 00 EST MEDICARE MEDICARE PART Dec 31, PART A [id number] CAGUE, FOR PATIENT (WNR) (M) A 2009 85A 4 EST MEDICARE MEDICARE PART Dec 31, PART A [id number] [phone] CAGUE, FOR PATIENT (WNR) (M) A 2009 85A 00 EST Selected Encounter This section includes the information on record at [place] for the Encounter. Date/Time Encounter Type Encounter Reason Provider Source Description Jul 07, 2021 OFFICE AMB ECG ICD-10-CM I48.0 TARIK SPEARS 10:00 AM CONSULTATION MONITORING Paroxysmal atrial fibrillation with Provider Comments: Paroxysmal atrial fibrillation IHE Encounter Template Text not used by [facility] Assessments - Encounter Diagnoses This section includes the primary and secondary diagnoses documented for the Encounter. Date/Time Primary/Secondary Diagnosis Name Provider Source Diagnosis Jul 16, 2021 PRIMARY Paroxysmal atrial TARIK SPEARS [facility] 03:47 PM fibrillation [facility] Jul 16, 2021 SECONDARY Typical atrial TARIK SPEARS [facility] WST RN 03:47 PM flutter [facility] Lab Results: +/- 30 days of the encounter This section includes the Chemistry and Hematology Lab Results on record with [place] for the patient. Radiology Reports and Pathology Reports are provided separately, in subsequent sections.Lab Results This section contains the Chemistry/Hematology Results that were resulted 30 days before or 30 daysafter the date of the Encounter. Date/Time Source Result Type Result - Unit Interpretation Reference Range Comment Jun 15, 2021 11:09 AM [facility] HEMOGLOBIN A1C PANEL Spec imen Type: BLOOD [...] Jun 15, 2021 09:48 AM Reporting Lab: [facility] [address] [facility] [address] Performing Lab: [facility] [address] [facility] [address] HEMOGLOBIN A1C 5.8 H 4.0-5.6 Jun 15, 2021 11:09 AM [facility] PT & INR (PROTIME) Specim en Type: PLASMA No comment enter ed. Ordering Provid er: MALLIKA RAMIRES Report Released Date/Time: Jun 15, 2021 09:48 AM Reporting Lab: [facility] [address] [facility] [address] Performing Lab: [facility] [address] [facility] [address] INR 1.1 PROTIME 11.9 10.0-13.1 Jun 15, 2021 11:09 AM [facility] URINALYSIS Specimen Type: URINE No comment enter ed. Ordering Provid er: MALLIKA RAMIRES Report Released Date/Time: Jun 15, 2021 09:48 AM Reporting Lab: [address] [address] Performing Lab: [address] [address] UA COLOR Yellow Yellow UA APPEARANCE Clear Clear UA GLUCOSE Negative Negative UA KETONES Negative Neg UA BLOOD Negative Neg UA PROTEIN Negative Neg UA NITRITE Negative Neg UA BILIRUBIN Negative Neg UA SPECIFIC GRAVITY 1.019 1.016-1.02 2 UA pH 6.0 5.0-9.0 UA UROBILINOGEN <2.0 <2.0 UA LEUKOCYTE ESTERASE Negative Neg Jun 15, 2021 11:09 AM [facility] PTT Specimen Type: PLASMA No comment enter ed. Ordering Provid er: MALLIKA RAMIRES Report Released Date/Time: Jun 15, 2021 09:48 AM Reporting Lab: [address] [address] Performing Lab: [address] [address] PTT 39.4 H 26.0-36.0 Jun 15, 2021 11:09 AM [facility] CBC Specimen Type: BLOOD No comment enter ed. Ordering Provid er: MALLIKA RAMIRES Report Released Date/Time: Jun 15, 2021 09:48 AM Reporting Lab: [address] [address] Performing Lab: [address] [address] WBC 8.13 4.50-11.00 RBC 5.47 4.23-5.66 HGB 16.5 12.8-17 HCT 49.6 39.2-50.4 MCV 90.7 82-99 MCHC 33.3 30.8-35.1 PLT 190 140-360 RDW-CV 12.7 12.0-16.0 MCH 30.2 26.2-32.6 Jun 15, 2021 11:09 AM [facility] LIVER FUNCTION Specimen Type: SERUM No comment enter ed. Ordering Provid er: MALLIKA RAMIRES Report Released Date/Time: Jun 15, 2021 09:48 AM Reporting Lab: [facility] [place] [facility] [address] [facility] [address] Performing Lab: [facility] [place] [facility] [address] [facility] [address] PROTEIN,TOTAL 7.1 6.0-8.3 ALBUMIN 3.6 3.5-5.0 ALKALINE PHOSPHATASE 77 40-150 AST 26 5-34 ALT 23 0-55 BILIRUBIN, TOTAL 0.5 0.2-1.2 Jun 15, 2021 11:09 [facility] BASIC METABOLIC PANEL Specim en Type: SERUM AM (non-fasting) No comment enter ed. Ordering Provid er: MALLIKA RAMIRES Report Released Date/Time: Jun 15, 2021 09:48 AM Reporting Lab: [facility] [place] [facility] [address] [facility] [address] Performing [facility]: [facility] [place] [facility] [address] [facility] [address] UREA NITROGEN 20 7-25 GLUCOSE 106 H 65-100 SODIUM 139 135-145 POTASSIUM 4.1 3.5-5.0 CHLORIDE 101 100-110 CO2 26 20-30 CREATININE, Serum 1.08 0.50-1.40 eGFR (IDMS) 66 >60 Jun 15, 2021 11:09 AM [facility] LIPID PANEL, NON Specimen Type: SERUM FASTING No comment enter ed. Ordering Provid er: MALLIKA RAMIRES Report Released Date/Time: Jun 15, 2021 09:48 AM Reporting Lab: [facility] [place] [facility] [address] [facility] [address] Performing Lab: [facility] [place] [facility] [address] [facility] [address] CHOLESTEROL 187 0-199 TRIGLYCERIDE 177 H 0-150 LDL calculated 109 0-129 CHOL/HDL 4.3 HDL CHOLESTEROL 43 40-60 Jun 15, 2021 11:09 AM [facility] [place] TSH Specimen Type: SERUM No comment enter ed. Ordering Provid er: MALLIKA RAMIRES Report Released Date/Time: Jun 15, 2021 09:48 AM Reporting Lab: [facility] [place] [facility] [address] [facility] [address] Performing Lab: [facility] [address] [facility] [address] TSH 3.01 0.35-5.00 Advance Directives: All historical and current Section Date Range: From patient's date of to the date document was created. This section includes ALL of a patient's completed or amended [place] Advance and Rescinded Directives. The entries below indicate that a directive exists for the patient, but an actual copy is not included with this document. The data comes from all [place] facilities. Date Advance Directives Provider Source May 20, 2016 ADVANCE DIRECTIVE [facility]IAN [facility] Encounter Notes: All associated encounter notes This section contains the clinical notes associated to the Encounter. Date/Time Encounter Note(s) Provider Source Jul 16, 2021 03:40 PM CARDIOLOGY DIAGNOSTIC STUDY REPORT: Amee SPEARS [facility] LOCAL TITLE: CONSULT REPORT/AMBULATORY ARRHYTHM IA MONITOR [facility] STANDARD TITLE: CARDIOLOGY DIAGNOSTIC STUDY REPO RT DATE OF NOTE: JUL 16, 2021@15:40 ENTRY DATE: JUL 16, 2021@15:40:11 AUTHOR: TARIK SPEARS EXP COSIGNER: URGENCY: STATUS: COMPLETED CONSULT REPORT/AMBULATORY ARRHYTHMIA MONITO R INTERPRET Has ADDENDA Scanned document attached to this note * For full AMBULATORY ARRHYTHMIA MONITOR INTERPRET ATION: Click on Tools, click on [place] [facility] Capture. Abnormal Zio monitor warn 5 days to address paro xysmal atrial flutter (reportedly documented outside the [place] on 05/05/20) Primary rhythm is sinus at an average rate of 55 -60 beats per minute, ranging from the 40s while sleeping at night and up to 90 bpm during the late afternoon. Atrial fibrillation (not flu tter) occurs 28% of the time, for up to 12 hours at a time, at an average ventricular response of 11 0 beats per minute occurring more often at night. No pauses. No symptoms are reported. Findings consistent with apparent asymptomatic p aroxysmal atrial fibrillation (and to a lesser extent flut ter) with fair rate control on 37.5 mg of metoprolol daily. /es/ TARIK SPEARS MD SHEAR TENDER Signed: 07/16/2021 15:47 08/10/2021 ADDENDUM STATUS: COMPLETED [facility] f or the looking for the results of the halter monitor and next steps to be taken - [phone] /paulette/ GEORGETTE SEVILLA ADVANCED DUMP OPERATOR Signed: 08/10/2021 14:42 Receipt Acknowledged By: 08/10/2021 14:56 /paulette/ Mallika Ramires M.D. STAFF PHYSICIAN 08/10/2021 ADDENDUM STATUS: COMPLETED kindly inform [facility] that pcp will contact her to discuss the plan 08/11/21. thank yo shantel /paulette/ Mallika Ramires M.D. STAFF PHYSICIAN Signed: 08/10/2021 14:57 Receipt Acknowledged By: * AWAITING SIGNATURE * ZE ANN Jul 07, 2021 10:40 AM CARDIOLOGY CONSULT: BAUTISTA NOGUERA [facility] LOCAL TITLE: CONSULT REPORT/AMBULATORY ARRHYTHM IA MONITOR [facility] STANDARD TITLE: CARDIOLOGY CONSULT DATE OF NOTE: JUL 07, 2021@10:40 ENTRY DATE: JUL 07, 2021@10:41:09 AUTHOR: BAUTISTA NOGUERA EXP COSIGNER: URGENCY: STATUS: COMPLETED Diagnoses: Cardiac Arrhythmia, unspecified Zio patch applied on Jul. After reviewing consult indications, a 14 day Zi oPatch XT was applied to [place]. Education was provided to and nurse from [facility] on its use and how to press the event button if symptomatic. The and Nurse were p rovided written instructions, contact phone numbers, and a postage-paid police sergeant box to return the [facility] t. #[phone] /paulette/ BAUTISTA NOGUERA LPN LICENSED PRACTICAL NURSE Signed: 07/07/2021 10:43
--- OUTSIDE RECORDS SUMMARY | 2022-04-30 14:49 | XMS_ITS | Encounter Summary ---
:1945 Author Organization [facility] Address [address] [place] [address] Support Name Relationship Address Phone VERONICA LAURA Unavailable [address] [place] [address] VERONICA LAURA Unavailable [address] [place] [address] ROHIT MASON Unavailable [address] [place] [address] Insurance Providers: All historical and current Section [...] MEDICARE MEDICARE PART Dec 31, PART B [id number] [id number] CAGUE, FOR PATIENT (WNR) (M) B 2011 85A 00 EST MEDICARE MEDICARE PART Dec 31, PART A [id number] CAGUE, FOR PATIENT (WNR) (M) A 2009 85A 4 EST MEDICARE MEDICARE PART Dec 31, PART A [id number] [phone] CAGUE, FOR PATIENT (WNR) (M) A 2009 85A 00 EST Selected Encounter This section includes the information on record at [place] for the Encounter. Date/Time Encounter Type Encounter Description Reason Provider Source May 28, 2021 08:49 Outpatient Encounter CARDIOLOGY AM IHE Encounter Template Text not used by [place] Plan of Treatment: Future Appointments (+ 6 [...] 20 appointments. The data comes from all [place] treatment facilities. Appointment Date/Time Appointment Type Appointment Miguel ortega Name Jun 15, 2021 09:30 AM AMBULATORY - MEDICINE [facility] Jul 07, 2021 10:00 AM AMBULATORY - MEDICINE [facility] Lab Results: +/- 30 days of the encounter This section includes the Chemistry and Hematology Lab Results on record with [place] for the patient. Radiology Reports and Pathology Reports are provided separately, in subsequent sections.Lab Results This section contains the Chemistry/Hematology Results that were resulted 30 days before or 30 daysafter the date of the Encounter. Date/Time Source Result Type Result - Unit Interpretation Reference Range Comment Jun 15, 2021 11:09 AM [facility] HEMOGLOBIN A1C PANEL Spec imen Type: BLOOD [...] Jun 15, 2021 09:48 AM Reporting Lab: [facility] [address] [facility] [address] Performing Lab: [facility] [address] [facility] [address] HEMOGLOBIN A1C 5.8 H 4.0-5.6 Jun 15, 2021 11:09 AM [facility] PT & INR (PROTIME) Specim en Type: PLASMA No comment enter ed. Ordering Provid er: MALLIKA RAMIRES Report Released Date/Time: Jun 15, 2021 09:48 AM Reporting Lab: [facility] [address] [facility] [address] Performing Lab: [facility] [address] [facility] [address] INR 1.1 PROTIME 11.9 10.0-13.1 Jun 15, 2021 11:09 AM [facility] CBC Specimen Type: BLOOD No comment enter ed. Ordering Provid er: MALLIKA RAMIRES Report Released Date/Time: Jun 15, 2021 09:48 AM Reporting Lab: [facility] [address] [facility] [address] Performing Lab: [address] [address] WBC 8.13 4.50-11.00 RBC 5.47 4.23-5.66 HGB 16.5 12.8-17 HCT 49.6 39.2-50.4 MCV 90.7 82-99 MCHC 33.3 30.8-35.1 PLT 190 140-360 RDW-CV 12.7 12.0-16.0 MCH 30.2 26.2-32.6 Jun 15, 2021 11:09 AM [facility] URINALYSIS Specimen Type: URINE No comment enter ed. Ordering Provid er: MALLIKA RAMIRES Report Released Date/Time: Jun 15, 2021 09:48 AM Reporting Lab: [facility] [address] [facility] [address] Performing Lab: [address] [address] UA COLOR Yellow Yellow UA APPEARANCE Clear Clear UA GLUCOSE Negative Negative UA KETONES Negative Neg UA BLOOD Negative Neg UA PROTEIN Negative Neg UA NITRITE Negative Neg UA BILIRUBIN Negative Neg UA SPECIFIC GRAVITY 1.019 1.016-1.02 2 UA pH 6.0 5.0-9.0 UA UROBILINOGEN <2.0 <2.0 UA LEUKOCYTE ESTERASE Negative Neg Jun 15, 2021 11:09 AM [facility] PTT Specimen Type: PLASMA No comment enter ed. Ordering Provid er: MALLIKA RAMIRES Report Released Date/Time: Jun 15, 2021 09:48 AM Reporting Lab: [facility] [address] [facility] [address] Performing Lab: [address] [address] PTT 39.4 H 26.0-36.0 Jun 15, 2021 11:09 AM [facility] LIPID PANEL, NON Specimen Type: SERUM FASTING No comment enter ed. Ordering Provid er: MALLIKA RAMIRES Report Released Date/Time: Jun 15, 2021 09:48 AM Reporting Lab: [facility] [address] [facility] [address] Performing Lab: [address] [address] CHOLESTEROL 187 0-199 TRIGLYCERIDE 177 H 0-150 LDL calculated 109 0-129 CHOL/HDL 4.3 HDL CHOLESTEROL 43 40-60 Jun 15, 2021 11:09 AM [facility] LIVER FUNCTION Specimen Type: SERUM No comment enter ed. Ordering Provid er: MALLIKA RAMIRES Report Released Date/Time: Jun 15, 2021 09:48 AM Reporting Lab: [facility] [address] [facility] [address] Performing Lab: [address] [address] PROTEIN,TOTAL 7.1 6.0-8.3 ALBUMIN 3.6 3.5-5.0 ALKALINE PHOSPHATASE 77 40-150 AST 26 5-34 ALT 23 0-55 BILIRUBIN, TOTAL 0.5 0.2-1.2 Jun 15, 2021 11:09 [facility] BASIC METABOLIC PANEL Specim en Type: SERUM AM (non-fasting) No comment enter ed. Ordering Provid er: MALLIKA RAMIRES Report Released Date/Time: Jun 15, 2021 09:48 AM Reporting Lab: [facility] [address] [facility] [address] Performing Lab: [facility] [address] [facility] [address] UREA NITROGEN 20 7-25 GLUCOSE 106 H 65-100 SODIUM 139 135-145 POTASSIUM 4.1 3.5-5.0 CHLORIDE 101 100-110 CO2 26 20-30 CREATININE, Serum 1.08 0.50-1.40 eGFR (IDMS) 66 >60 Jun 15, 2021 11:09 AM [facility] TSH Specimen Type: SERUM No comment enter ed. Ordering Provid er: MALLIKA RAMIRES Report Released Date/Time: Jun 15, 2021 09:48 AM Reporting Lab: [facility] [address] [facility] [address] Performing Lab: [facility] [address] [facility] [address] TSH 3.01 0.35-5.00 Advance Directives: All historical and current Section Date Range: From patient's date of to the date document was created. This section includes ALL of a patient's completed or amended [place] Advance and Rescinded Directives. The entries below indicate that a directive exists for the patient, but an actual copy is not included with this document. The data comes from all [place] facilities. Date Advance Directives Provider Source May 20, 2016 ADVANCE DIRECTIVE MARIAN MORALES [facility] Encounter Notes: All associated encounter notes This section contains the clinical notes associated to the Encounter. Date/Time Encounter Note(s) Provider Source May 28, 2021 08:49 AM PRIMARY CARE LETTERS: BRANDO SANTIAGO [facility] LOCAL TITLE: PATIENT LETTER - [facility] STANDARD TITLE: PRIMARY CARE LETTERS DATE OF NOTE: MAY 28, 2021@08:49 ENTRY DATE: MAY 28, 2021@08:49:58 AUTHOR: BRANDO SANTIAGO EXP COSIGNER: URGENCY: STATUS: COMPLETED [facility] Special[facility] Outpatient [facility] Telephone number: [phone], [address] MAY 28, 2021 Dear [place], We would like to assist you in scheduling a Card iology appointment at the [place]. We have been unable to reach you by phone. To schedule this appointment please call us at ext [phone] You may also call toll free . Our book ing appointment hours are Monday through Monday from 8:00 am to 4:00 pm. Juan moreno leave a message if you receive voicemail and let us know a good time and telephone number where we can reach you. If we dont hear back from you within 14 days fro m the date of this letter we will discontinue the request. If you have alread y scheduled this appointment, please disregard this letter. Your health is imp ortant to us. Sincerely, [facility] [address] [place] [address] Specialty Outpatient Clinic [address] [place] [id number]
--- OUTSIDE RECORDS SUMMARY | 2022-04-30 14:49 | XMS_ITS | Encounter Summary ---
:1945 Author Organization [facility] Address [address] [place] [address] Support Name Relationship Address Phone VERONICA LAURA Unavailable [address] [place] [address] VERONICA LAURA Unavailable [address] [place] [address] ROHIT MASON Unavailable [phone] [place] [id number] Insurance Providers: All historical and current Section [...] MEDICARE MEDICARE PART Dec 31, PART B [id number] CAGUE, FOR PATIENT (WNR) (M) B 2011 85A 00 EST MEDICARE MEDICARE PART Dec 31, PART A [id number] CAGUE, FOR PATIENT (WNR) (M) A 2009 85A 4 EST MEDICARE MEDICARE PART Dec 31, PART A [id number] [id number] CAGUE, FOR PATIENT (WNR) (M) A 2009 85A 00 EST Selected Encounter This section includes the information on record at [place] for the Encounter. Date/Time Encounter Type Encounter Description Reason Provider Source May 17, 2021 02:56 Outpatient Encounter TELEPHONE TRIAGE PM IHE Encounter Template Text not used by [place] Plan of Treatment: Future Appointments (+ 6 [...] 20 appointments. The data comes from all [place] treatment facilities. Appointment Date/Time Appointment Type Appointment Miguel ortega Name Jun 15, 2021 09:30 AM AMBULATORY - MEDICINE [place] Jul 07, 2021 10:00 AM AMBULATORY - MEDICINE [facility] Lab Results: +/- 30 days of the encounter This section includes the Chemistry and Hematology Lab Results on record with [place] for the patient. Radiology Reports and Pathology Reports are provided separately, in subsequent sections.Lab Results This section contains the Chemistry/Hematology Results that were resulted 30 days before or 30 daysafter the date of the Encounter. Date/Time Source Result Type Result - Unit Interpretation Reference Range Comment Jun 15, 2021 11:09 AM [place] HEMOGLOBIN A1C PANEL Spec imen Type: BLOOD [...] Jun 15, 2021 09:48 AM Reporting Lab: [facility] [address] [facility] [address] Performing Lab: [facility] [address] [facility] [address] HEMOGLOBIN A1C 5.8 H 4.0-5.6 Jun 15, 2021 11:09 AM [place] PT & INR (PROTIME) Specim en Type: PLASMA No comment enter ed. Ordering Provid er: MALLIKA RAMIRES Report Released Date/Time: Jun 15, 2021 09:48 AM Reporting Lab: [facility] [address] [facility] [address] Performing Lab: [facility] [address] [facility] [address] INR 1.1 PROTIME 11.9 10.0-13.1 Jun 15, 2021 11:09 AM [place] CBC Specimen Type: BLOOD No comment enter ed. Ordering Provid er: MALLIKA RAMIRES Report Released Date/Time: Jun 15, 2021 09:48 AM Reporting Lab: [facility] [address] [facility] [address] Performing Lab: [address] [address] WBC 8.13 4.50-11.00 RBC 5.47 4.23-5.66 HGB 16.5 12.8-17 HCT 49.6 39.2-50.4 MCV 90.7 82-99 MCHC 33.3 30.8-35.1 PLT 190 140-360 RDW-CV 12.7 12.0-16.0 MCH 30.2 26.2-32.6 Jun 15, 2021 11:09 AM [place] URINALYSIS Specimen Type: URINE No comment enter ed. Ordering Provid er: MALLIKA RAMIRES Report Released Date/Time: Jun 15, 2021 09:48 AM Reporting Lab: [facility] [address] [facility] [address] Performing Lab: [address] [address] UA COLOR Yellow Yellow UA APPEARANCE Clear Clear UA GLUCOSE Negative Negative UA KETONES Negative Neg UA BLOOD Negative Neg UA PROTEIN Negative Neg UA NITRITE Negative Neg UA BILIRUBIN Negative Neg UA SPECIFIC GRAVITY 1.019 1.016-1.02 2 UA pH 6.0 5.0-9.0 UA UROBILINOGEN <2.0 <2.0 UA LEUKOCYTE ESTERASE Negative Neg Jun 15, 2021 11:09 AM [place] PTT Specimen Type: PLASMA No comment enter ed. Ordering Provid er: MALLIKA RAMIRES Report Released Date/Time: Jun 15, 2021 09:48 AM Reporting Lab: [facility] [address] [facility] [address] Performing Lab: [address] [address] PTT 39.4 H 26.0-36.0 Jun 15, 2021 11:09 AM [place] LIVER FUNCTION Specimen Type: SERUM No comment enter ed. Ordering Provid er: MALLIKA RAMIRES Report Released Date/Time: Jun 15, 2021 09:48 AM Reporting Lab: [facility] [address] [facility] [address] Performing Lab: [facility] [address] [facility] [address] PROTEIN,TOTAL 7.1 6.0-8.3 ALBUMIN 3.6 3.5-5.0 ALKALINE PHOSPHATASE 77 40-150 AST 26 5-34 ALT 23 0-55 BILIRUBIN, TOTAL 0.5 0.2-1.2 Jun 15, 2021 11:09 [place] BASIC METABOLIC PANEL Specim en Type: SERUM AM (non-fasting) No comment enter ed. Ordering Provid er: MALLIKA RAMIRES Report Released Date/Time: Jun 15, 2021 09:48 AM Reporting Lab: [facility] [address] [facility] [address] Performing Lab: [facility] [address] [facility] [address] UREA NITROGEN 20 7-25 GLUCOSE 106 H 65-100 SODIUM 139 135-145 POTASSIUM 4.1 3.5-5.0 CHLORIDE 101 100-110 CO2 26 20-30 CREATININE, Serum 1.08 0.50-1.40 eGFR (IDMS) 66 >60 Jun 15, 2021 11:09 AM [place] LIPID PANEL, NON Specimen Type: SERUM FASTING No comment enter ed. Ordering Provid er: MALLIKA RAMIRES Report Released Date/Time: Jun 15, 2021 09:48 AM Reporting Lab: [facility] [address] [facility] [address] Performing Lab: [address] [address] CHOLESTEROL 187 0-199 TRIGLYCERIDE 177 H 0-150 LDL calculated 109 0-129 CHOL/HDL 4.3 HDL CHOLESTEROL 43 40-60 Jun 15, 2021 11:09 AM [place] TSH Specimen Type: SERUM No comment enter ed. Ordering Provid er: MALLIKA RAMIRES Report Released Date/Time: Jun 15, 2021 09:48 AM Reporting Lab: [facility] [address] [facility] [address] Performing Lab: [facility] [address] [facility] [address] TSH 3.01 0.35-5.00 Advance Directives: All historical and current Section Date Range: From patient's date of to the date document was created. This section includes ALL of a patient's completed or amended [place] Advance and Rescinded Directives. The entries below indicate that a directive exists for the patient, but an actual copy is not included with this document. The data comes from all [place] facilities. Date Advance Directives Provider Source May 20, 2016 ADVANCE DIRECTIVE MARIAN MORALES [facility] Radiology Reports: +/- 30 days of the [...] the Encounter. The data comes from all [place] treatment facilities. Date/Time Radiology Report Provider Source Apr 26, 2021 09:21 AM UL[facility] A[facility] [id number] -[birth year] 5 M [facility] Exm Date: APR 26, 2021@09:21 Req Phys: MALLIKA RAMIRES Pat Loc: CWM/SO/PACT 4 ( Req'g Loc) Img Loc: ULTRASOUND Service: Unknown (Case 14 COMPLETE) ULTRASOUND AORTA (US Detailed ) CPT:96942 Reason for Study: f/u AAA Clinical History: Report Status: Verified Date Reported: APR 26, 2021 Date Verified: APR 26, 2021 Wood Gluer E-Sig:/ES/Shayla Andrade MD Report: EXAM: Ultrasound abdominal aorta COMPARISON: 04/10/2020 HISTORY: Abdominal Aortic Aneurysm follow-up TECHNIQUE: Transabdominal sonography of the ret roperitoneum was done to evaluate abdominal aorta for aneurysm. 2-D, high-resolution static grayscale imaging in the sagittal and transverse imaging planes was combined with ambrose ited Doppler color flow technique. The abdominal aorta was measure d segmentally, with maximal sagittal AP or transverse cross-se ctional diameter, in centimeters. The proximal portions of each c ommon iliac artery were also interrogated. FINDINGS: THE ABDOMINAL AORTA MEASUREMENTS WERE FOLLOW S: Proximal abdominal aorta 2.6 cm. Midportion of abdominal aorta 2.2 cm. Distal abdominal aorta 3.4 cm. The bila teral common iliac artery diameters were within normal limit s. Impression: Distal abdominal aortic aneurysm measuring 3.4 cm. FOLLOW-UP RECOMMENDATIONS FOR ASYMPTOMATIC ABDO EV AORTA SURVEILLANCE FOLLOWS: Abdominal aorta measuring 2.5 cm to 2.9 cm, con salt cutter rescreening after 10 years. Abdominal aorta measurements between 3 cm and 3 .9 cm, recommend surveillance abdominal aortic ultrasound in 1-2 years. Abdominal aorta measurements between 4 cm and 5 cm, recommend surveillance abdominal aortic ultrasound in one year. Also: A shorter-term interval exam may be helpf ul for a particular patient's compliance to follow-up im aging. Primary Diagnostic Code: No immediate attention required Primary Interpreting Staff: Shayla Andrade MD, Chief of Imaging (Wood Gluer ) /[facility] Encounter Notes: All associated encounter notes This section contains the clinical notes associated to the Encounter. Date/Time Encounter Note(s) Provider Source May 17, 2021 02:56 PM NURSING TELEPHONE ENCOUNTER TRIAGE NOTE: LAUREN RUELAS CNTRL [facility] LOCAL TITLE: [facility] STANDARD TITLE: NURSING TELEPHONE ENCOUNTER TRIA NOTE DATE OF NOTE: MAY 17, 2021@14:56:15 ENTRY DATE: MAY 17, 2021@14:58:08 AUTHOR: LAUREN NORTON EXP COSIGNER: URGENCY: STATUS: COMPLETED [facility] 1 CLINICAL CONTACT CENTER Has ADDENDA The patient, MILKA MASON ([id number]) Ph one: called the call center. The following identifiers were used to verify th is patient: SSN. Contact Type of call: ADMINISTRATIVE. Caller Response: ADM CALL RESOLVED Caller Area: [facility] PCMM Provider Info: ATTENTION: PCMM is unavailable, data is current as of: 05/11/21@15:54:50 [facility] ([id number]) PACT: SO PACT 4 (Focus: Primary Care Only) Primary Care Provider: Mallika Ramires PHONE:[phone] School Guard: Yuridia Urias Clinical Associate: Felix Henao PHON E:[id number] Pilot Control Operator Helper: Kristen Xavier PHONE:[phone] PACT Clinical Pharmacist: Flora Galindo Clinical POC: School Guard Yuridia Urias Administrative POC: Pilot Control Operator Helper Kristen Xavier PHONE:[phone] Author: LAUREN NORTON Comments: [facility] for [facility] of her Cardio req for vet . she can be reached at [phone]. She stated she f axed info to team. Evaluation/Management Code: HC PRO PHONE CALL 5- 10 MIN ([id number]). Starting at: 05/17/2021 @ 2:56:15 PM Ending at: 05/17/2021 @ 2:57:21 PM Length: 1 minutes. Chief Complaint: Not applicable to call. Class Code: Other specified counseling. Patient's Email Address: /paulette/ LAUREN NORTON ADVANCED MAITRE D Signed: 05/17/2021 14:58 Receipt Acknowledged By: 05/21/2021 15:59 /paulette/ OFE OJEDA RN-BC REGISTERED NURSE 05/18/2021 16:14 /paulette/ FELIX HENAO LPN LICENSED PRACTICAL NURSE 05/18/2021 ADDENDUM STATUS: COMPLETED Will include PCP in above request. /paulette/ FELIX HENAO LPN LICENSED PRACTICAL NURSE Signed: 05/18/2021 16:15 Receipt Acknowledged By: 05/22/2021 12:53 /paulette/ Mallika Ramires M.D. STAFF PHYSICIAN 05/21/2021 ADDENDUM STATUS: COMPLETED called and left voicemail for kristen chen call back to [phone] /OFE Artis RN-BC REGISTERED NURSE Signed: 05/21/2021 15:58 05/22/2021 ADDENDUM STATUS: COMPLETED kindly request ekg and notes related to atrial f lutter as lost in transit to [facility] [employer]? This is needed for cardiology consult. fei wolff /paulette/ Mallika Ramires M.D. STAFF PHYSICIAN Signed: 05/22/2021 12:54 Receipt Acknowledged By: * AWAITING SIGNATURE * KRISTEN XAVIER
--- OUTSIDE RECORDS SUMMARY | 2022-04-30 14:49 | XMS_ITS ---
:1945 Author Organization [facility] Address [address] [place] [address] Support Name Relationship Address Phone VERONICA LAURA Unavailable [address] [place] [address] VERONICA LAURA Unavailable [address] [place] [address] ROHIT MASON Unavailable [phone] [place] [id number] Insurance Providers: All historical and current Section [...] MEDICARE MEDICARE PART Dec 31, PART B [id number] CAGUE, FOR PATIENT (WNR) (M) B 2011 85A 00 EST MEDICARE MEDICARE PART Dec 31, PART A [id number] CAGUE, FOR PATIENT (WNR) (M) A 2009 85A 4 EST MEDICARE MEDICARE PART Dec 31, PART A [id number] [id number] CAGUE, FOR PATIENT (WNR) (M) A 2009 85A 00 EST Selected Encounter This section includes the information on record at [place] for the Encounter. Date/Time Encounter Type Encounter Description Reason Provider Source Jun 15, 2021 02:13 Outpatient Encounter TELEPHONE TRIAGE PM IHE Encounter Template Text not used by [place] Plan of Treatment: Future Appointments (+ 6 [...] 20 appointments. The data comes from all [place] treatment facilities. Appointment Date/Time Appointment Type Appointment Miguel ortega Name Jul 07, 2021 10:00 AM AMBULATORY - MEDICINE [facility] Lab Results: +/- 30 days of [...] Range Comment Jun 15, 2021 11:09 AM [place] HEMOGLOBIN A1C PANEL Spec imen Type: [...] Jun 15, 2021 09:48 AM Reporting Lab: [facility] [address] [facility] [address] Performing Lab: [facility] [address] [facility] [address] HEMOGLOBIN A1C 5.8 H 4.0-5.6 Jun 15, 2021 11:09 AM [place] PT & INR (PROTIME) Specim en Type: PLASMA No comment enter ed. Ordering Provid er: MALLIKA RAMIRES Report Released Date/Time: Jun 15, 2021 09:48 AM Reporting Lab: [facility] [address] [facility] [address] Performing Lab: [facility] [address] [facility] [address] INR 1.1 PROTIME 11.9 10.0-13.1 Jun 15, 2021 11:09 AM [place] URINALYSIS Specimen Type: URINE No comment enter ed. Ordering Provid er: MALLIKA RAMIRES Report Released Date/Time: Jun 15, 2021 09:48 AM Reporting Lab: [facility] [place] [facility] [address] [facility] [address] Performing Lab: [facility] [address] [facility] [address] UA COLOR Yellow Yellow UA APPEARANCE Clear Clear UA GLUCOSE Negative Negative UA KETONES Negative Neg UA BLOOD Negative Neg UA PROTEIN Negative Neg UA NITRITE Negative Neg UA BILIRUBIN Negative Neg UA SPECIFIC GRAVITY 1.019 1.016-1.02 2 UA pH 6.0 5.0-9.0 UA UROBILINOGEN <2.0 <2.0 UA LEUKOCYTE ESTERASE Negative Neg Jun 15, 2021 11:09 AM [place] CBC Specimen Type: BLOOD No comment enter ed. Ordering Provid er: MALLIKA RAMIRES Report Released Date/Time: Jun 15, 2021 09:48 AM Reporting Lab: [facility] [address] [facility] [address] Performing Lab: [facility] [address] [facility] [address] WBC 8.13 4.50-11.00 RBC 5.47 4.23-5.66 HGB 16.5 12.8-17 HCT 49.6 39.2-50.4 MCV 90.7 82-99 MCHC 33.3 30.8-35.1 PLT 190 140-360 RDW-CV 12.7 12.0-16.0 MCH 30.2 26.2-32.6 Jun 15, 2021 11:09 AM [place] PTT Specimen Type: PLASMA No comment enter ed. Ordering Provid er: MALLIKA RAMIRES Report Released Date/Time: Jun 15, 2021 09:48 AM Reporting Lab: [facility] [address] [facility] [address] Performing Lab: [facility] [address] [address] PTT 39.4 H 26.0-36.0 Jun 15, 2021 11:09 AM [place] LIVER FUNCTION Specimen Type: SERUM No comment enter ed. Ordering Provid er: MALLIKA RAMIRES Report Released Date/Time: Jun 15, 2021 09:48 AM Reporting [facility] [address] [facility] [address] Performing Lab: [facility] [address] [facility] [address] PROTEIN,TOTAL 7.1 6.0-8.3 ALBUMIN 3.6 3.5-5.0 ALKALINE PHOSPHATASE 77 40-150 AST 26 5-34 ALT 23 0-55 BILIRUBIN, TOTAL 0.5 0.2-1.2 Jun 15, 2021 11:09 [place] BASIC METABOLIC PANEL Specim en Type: SERUM AM (non-fasting) No comment enter ed. Ordering Provid er: MALLIKA RAMIRES Report Released Date/Time: Jun 15, 2021 09:48 AM Reporting Lab: [address] [address] Performing Lab: [facility] [address] [facility] [address] UREA NITROGEN 20 7-25 GLUCOSE 106 H 65-100 SODIUM 139 135-145 POTASSIUM 4.1 3.5-5.0 CHLORIDE 101 100-110 CO2 26 20-30 CREATININE, Serum 1.08 0.50-1.40 eGFR (IDMS) 66 >60 Jun 15, 2021 11:09 AM [place] LIPID PANEL, NON Specimen Type: SERUM FASTING No comment enter ed. Ordering Provid er: MALLIKA RAMIRES Report Released Date/Time: Jun 15, 2021 09:48 AM Reporting Lab: [facility] [address] [facility] [address] Performing Lab: [address] [address] CHOLESTEROL 187 0-199 TRIGLYCERIDE 177 H 0-150 LDL calculated 109 0-129 CHOL/HDL 4.3 HDL CHOLESTEROL 43 40-60 Jun 15, 2021 11:09 AM [place] TSH Specimen Type: SERUM No comment enter ed. Ordering Provid er: MALLIKA RAMIRES Report Released Date/Time: Jun 15, 2021 09:48 AM Reporting Lab: [facility] [place] [facility] [address] [facility] [address] Performing Lab: [place] [facility] [place] [facility] [address] [facility] [address] TSH 3.01 0.35-5.00 Advance Directives: All historical [...] May 20, 2016 ADVANCE DIRECTIVE MARIAN MORALES [place] [facility] [place] [facility] Encounter Notes: All associated encounter notes This section contains the clinical notes associated to the Encounter. Date/Time Encounter Note(s) Provider Source Jun 15, 2021 02:13 TELEPHONE ENCOUNTER NOTE: RELL VAZQUEZ CNTRL [facility] LOCAL TITLE: [facility] 1 CCC ACTION REQUIRED [facility] STANDARD TITLE: TELEPHONE ENCOUNTER NOTE DATE OF NOTE: JUN 15, 2021@14:13:04 ENTRY DATE: JUN 15, 2021@14:14:53 AUTHOR: RELL VAZQUEZ EXP COSIGNER: URGENCY: STATUS: COMPLETED VIS[facility] 1 CCC ACTION REQUIRED Has ADDENDA OTHER called in for MILKA MASON ([id number]) . The following identifiers were used to verify th is patient: . SSN. Contact Type of call: REFERRAL/CONSULT REQUEST. Caller Response: ADM CALL RESOLVED Caller Area: [facility] PCMM Provider Info: [facility] ([id number]) PACT: SO PACT 4 (Focus: Primary Care Only) Primary Care Provider: Mallika Ramires PHONE:[phone] Radiology Administrator: Ridge Garcia Clinical Associate: Felix Henao PHON E:[phone] Orthopaedic Surgeon: Kristen Grimes PHONE:[phone] PACT Clinical Pharmacist: Flora Galindo Clinical POC: Radiology Administrator Ridge Garcia Administrative POC: Orthopaedic Surgeon Kristen Grimes PHONE:[phone] Author: RELL VAZQUEZ Comments: Jimena from [employer] is requesting a holter monitor. Please call Jimena at [phone] or Vet nurse at [phone] Evaluation/Management Code: HC PRO PHONE CALL 5- 10 MIN ([phone]). Starting at: 06/15/2021 @ 2:13:04 PM Ending at: 06/15/2021 @ 2:14:07 PM Length: 1 minutes. Chief Complaint: Not applicable to call. Class Code: Other specified counseling. Patient's Email Address: /paulette/ RELL VAZQUEZ ADVANCED READING INSTRUCTOR Signed: 06/15/2021 14:14 Receipt Acknowledged By: * AWAITING SIGNATURE * RIDGE GARCIA 06/15/2021 14:40 /paulette/ FELIX HENAO LPN LICENSED PRACTICAL NURSE 06/15/2021 ADDENDUM STATUS: COMPLETED Will include PCP in above request. /paulette/ FELIX HENAO LPN LICENSED PRACTICAL NURSE Signed: 06/15/2021 14:40 Receipt Acknowledged By: 06/15/2021 14:45 /paulette/ Mallika Ramires M.D. STAFF PHYSICIAN 06/15/2021 ADDENDUM STATUS: COMPLETED kindly inform Jimena that pt's RN, tereza Vu insurance writer that holter could be ordered through 's home and the SENIOR AUTOMATION ENGINEER there could order it. do they just need an order? thank you /paulette/ Mallika Ramires M.D. STAFF PHYSICIAN Signed: 06/15/2021 14:47 Receipt Acknowledged By: * AWAITING SIGNATURE * KRISTEN ANN
--- OUTSIDE RECORDS SUMMARY | 2022-04-30 14:49 | XMS_ITS | Encounter Summary ---
:1945 Author Organization Department of [facility] rs Address [address] [place] [id number] Support Name Relationship Address Phone VERONICA LAURA Unavailable [address] [place] [address] VERONICA LAURA Unavailable [address] [place] [address] ROHIT MASON Unavailable [address] [place] [id number] Insurance Providers: All historical and current Section [...] MEDICARE MEDICARE PART Dec 31, PART B [id number] CAGUE, FOR PATIENT (WNR) (M) B 2011 85A 00 EST MEDICARE MEDICARE PART Dec 31, PART A [id number] CAGUE, FOR PATIENT (WNR) (M) A 2009 85A 4 EST MEDICARE MEDICARE PART Dec 31, PART A [id number] [id number] CAGUE, FOR PATIENT (WNR) (M) A 2009 85A 00 EST Selected Encounter This section includes the information on record at [place] for the Encounter. Date/Time Encounter Type Encounter Description Reason Provider Source May 06, 2021 11:12 Outpatient Encounter PRIMARY CARE/MEDICINE AM [facility] Encounter [...] 15, 2021 09:30 AM AMBULATORY - MEDICINE [place] Jul 07, 2021 10:00 AM AMBULATORY MEDICINE [facility] Advance Directives: All historical and current Section [...] Source May 20, 2016 ADVANCE DIRECTIVE [facility] Radiology Reports: +/- 30 days of [...] the Encounter. The data comes from all [facility]. Date/Time Radiology Report Provider Source Apr 26, 2021 09:21 AM ULTRASOUND AORTA: SHAYLA GARCÍA [facility] MILKA MASON [id number] -JAN 21, 194 5 [facility] Exm Date: APR 26, 2021@09:21 Req Phys: MALLIKA RAMIRES Loc: CWM/SO/PACT 4 ( Req'g Loc) Img Loc: ULTRASOUND Service: Unknown (Case 14 COMPLETE) ULTRASOUND AORTA (US Detailed ) CPT:14830 Reason for Study: f/u AAA Clinical History: Report Status: Verified Date Reported: APR 26, 2021 Date Verified: APR 26, 2021 Donor Processor E-Sig:/ES/Shayla García MD Report: EXAM: Ultrasound abdominal aorta COMPARISON: 04/10/2020 HISTORY: Abdominal Aortic Aneurysm follow-up TECHNIQUE: Transabdominal sonography of the ret renee was done to evaluate abdominal aorta for [...] measuring 2.5 cm to 2.9 cm, con pulmonary nurse practitioner rescreening after 10 years. Abdominal aorta measurements [...] immediate attention required Primary Interpreting Staff: Shayla García MD, Chief of Imaging (Donor Processor ) /[facility] Encounter Notes: All associated encounter notes This section contains the clinical notes associated to the Encounter. Date/Time Encounter Note(s) Provider Source May 06, 2021 11:12 AM ADMINISTRATIVE NOTE: GEORGETTE SEVILLA [facility] LOCAL TITLE: ADMINISTRATIVE NOTE STANDARD TITLE: ADMINISTRATIVE NOTE DATE OF NOTE: MAY 06, 2021@11:12 ENTRY DATE: MAY 06, 2021@11:12:38 AUTHOR: GEORGETTE SEVILLA EXP COSIGNER: URGENCY: STATUS: COMPLETED ADMINISTRATIVE NOTE Has ADDENDA [facility] for - he has not been seen in a long time and will need a new referral to see [place] cardiology- Kristen stated has new A- f lutter- please call her with questions of if referral request cannot be carmen ed- [phone] /paulette/ GEORGETTE SEVILLA [employer]VANCED [employer]PORATE CLAIMS EXAMINER Signed: 05/06/2021 11:15 Receipt Acknowledged By: 05/06/2021 12:53 /es/ KRISTEN XAVIER CORPORATE CLAIMS EXAMINER 05/11/2021 18:38 /es/ Mallika Ramires M.D. STAFF PHYSICIAN 05/06/2021 15:12 /es/ FELIX FRAZIER LPN LICENSED PRACTICAL NURSE 05/11/2021 ADDENDUM STATUS: COMPLETED [facility] today ask ing about the status for the cardio consult and is wondering when it will be placed so she can make the a cardio appt. /es/ LIZ DENG SUPERVISORY CORPORATE CLAIMS EXAMINER Signed: 05/11/2021 14:20 Receipt Acknowledged By: 05/11/2021 18:30 /es/ Mallika Ramires M.D. STAFF PHYSICIAN 05/11/2021 15:16 /es/ KRISTEN XAVIER CORPORATE CLAIMS EXAMINER 05/11/2021 ADDENDUM STATUS: COMPLETED kindly inform Kristen that pcp will need to see the ekg, records. thank you /paulette/ Mallika Ramires M.D. STAFF PHYSICIAN Signed: 05/11/2021 18:34 Receipt Acknowledged By: 05/12/2021 09:15 /es/ KRISTEN XAVIER CORPORATE CLAIMS EXAMINER 05/12/2021 ADDENDUM STATUS: COMPLETED SPOKE WITH KRISTEN FROM [facility] SHE STATED SHE WOULD SEND THE RECORDS TO US THIS AFTERNOON. FAX NUMBER WAS GIVEN /paulette/ KRISTEN XAVIER CORPORATE CLAIMS EXAMINER Signed: 05/12/2021 09:15
--- NOTE | 2022-04-30 14:52 | PC.NURSE ---
Pt coming from [facility] after pulling out his moura catheter sometime this morning. Pt seen previously for similar complaint, difficult catheter placement. Provider to bedside and unsuccessful with placing new catheter. Awaiting urology.
[2022-04-30 15:11] LABS: Basophils Absolute Auto 0.1 X10*3/uL (0.0-0.2); Basophils Percent Auto 0.8 % (0-2); Hemoglobin 13.7 g/dl (14.0-18.0); Monocytes Percent Auto 8.1 % (2-11); PLT CLUMP 1; SCAN SMEAR FLAG 1
[2022-04-30 15:12] LABS: Eosinophils Absolute Auto 0.6 X10*3/uL (0.0-0.4); Eosinophils Percent Auto 7.9 % (0-4); Hematocrit 40.9 % (42.0-52.0); Imm Gran Abs Auto 0.03 X10*3/uL (0.00-0.03); Imm Gran Pct Auto 0.4 % (0.0-0.4); Lymphocytes Absolute Auto 2.1 X10*3/uL (1.2-4.9); Lymphocytes Percent Auto 28.3 % (20-40); MANUAL DIFF FLAG SCAN; Mean Corpuscular HGB Conc 33.5 g/dl (31.0-36.0); Mean Corpuscular Hemoglobin 30.1 pg (27.0-33.0); Mean Corpuscular Volume 89.9 fL (80.0-98.0); Monocytes Absolute Auto 0.6 X10*3/uL (0.1-1.2); Neutrophils Percent Auto 54.5 % (45-73); Red Blood Count 4.55 X10*6/uL (4.60-5.80); Red Cell Distribution Width 13.1 % (11.0-16.0)
[2022-04-30 15:28] LABS: Alanine Aminotransferase 13 U/L (0-40); Albumin Level 3.7 g/dL (3.5-5.0); Alkaline Phosphatase 95 U/L (39-117); Anion Gap 15 (12-20); Aspartate Amino Transferase 31 U/L (5-37); Bilirubin Total 0.9 mg/dL (0.0-1.0); Blood Urea Nitrogen 20 mg/dL (9-16); Calcium 9.4 mg/dL (8.4-10.2); Carbon Dioxide 32 mmol/L (22-29); Chloride 96 mmol/L (96-108); Creatinine Clr Calc Pharmacy 90.9; Estimated Glomerular Filt Rate > 60; Glucose Random 100 mg/dL (60-115); Potassium 4.9 mmol/L (3.3-5.1); Sodium 138 mmol/L (135-145); Total Protein 6.7 g/dL (6.5-8.0)
[2022-04-30 15:29] LABS: Platelet Count 164 X10*3/uL (160-400); White Blood Count 7.3 X10*3/uL (4.8-10.8)
[2022-04-30 15:30] LABS: SLIDE REVIEW VERIFIED
--- NOTE | 2022-04-30 15:44 | PC.NURSE ---
Pt ambulates with steady gait to the bathroom. Hx dementia, easily redirectable.
[2022-04-30 15:46] VITALS: BP 106/52; PULSE 60; RESP 14; TEMP 36.6; O2SAT 96
--- NOTE | 2022-04-30 15:50 | PC.NURSE ---
Dr Kent at bedside
--- NOTE | 2022-04-30 16:03 | P.CNUR_ITS ---
History of Present Illness Consult details Consult date: 04/30/22 Narrative: Difficult Salguero Catheter Had catheter placed 3 days ago [facility] Back in ER unable to void Difficulty catheter placement secondary to phimosis Salguero placed Good return Recommend plug with cath secure Review of Systems Constitutional: Constitutional: Reports as per HPI and Reports no additional constitutional complaints Cardiovascular: Cardiovascular: Reports as per HPI and Reports no additional cardiovascular complaints Respiratory: Respiratory: Reports as per HPI and Reports no additional respiratory complaints Gastrointestinal: Gastrointestinal: Reports as per HPI and Reports no additional gastrointestinal complaints Genitourinary: Genitourinary: Reports as per HPI Musculoskeletal: Musculoskeletal: Reports no additional musculoskeletal complaints and Reports as per HPI Neurologic: Reports system reviewed and no additional complaints, except as documented and Reports as per HPI [facility] Past Medical History Medical History Atrial fibrillation COPD (chronic obstructive pulmonary disease) Depression Hyperlipidemia Hypertension Psychosis Vascular dementia Social History Social History Household Members: None Housing: Halfway Patient Tobacco Use Status: Never used Tobacco Advance Directives: Yes Advance Directives on File: Yes Advance Directives Date on File: 04/27/22 service: Yes Current occupational status: retired Meds Allergies Allergy/AdvReac Type Severity Reaction Status Date / Time No Known Allergies Allergy Unverified 03/19/20 19:42 [No Known Allergies*] Home Medications Medication Instructions Recorded Confirmed Last Taken Type apixaban 5 mg tablet (Eliquis) 1 tab PO BID 04/26/22 04/26/22 04/26/22 History aspirin 81 mg tablet,delayed 81 mg PO DAILY 04/26/22 04/26/22 04/26/22 History release atorvastatin 10 mg tablet (Lipitor) 10 mg PO BEDTIME 04/26/22 04/26/22 04/25/22 History cholecalciferol (vitamin D3) 25 50 mcg PO DAILY 04/26/22 04/26/22 04/26/22 Hist ory mcg (1,000 unit) tablet (Vitamin D3) divalproex 250 mg tablet,delayed 1 tab PO BID 04/26/22 04/26/22 04/26/22 History release docusate sodium 100 mg capsule 100 mg PO DAILY 04/26/22 04/26/22 04/26/22 History (Colace) donepezil 5 mg tablet 1 tab PO DAILY 04/26/22 04/26/22 04/26/22 History fluticasone propionate 50 2 spray intranasal DAILY PRN Nasal 04/26/22 04/26/22 Unknown History mcg/actuation nasal Congestion spray,suspension hydrochlorothiazide 25 mg tablet 1 tab PO DAILY 04/26/22 04/26/22 04/26/22 History lisinopril 10 mg tablet 1 tab PO BEDTIME 04/26/22 04/26/22 04/18/22 History lisinopril 5 mg tablet 5 mg PO BEDTIME 04/26/22 04/26/22 04/25/22 History loratadine 10 mg tablet 10 mg PO DAILY 04/26/22 04/26/22 04/26/22 History metoprolol tartrate 25 mg tablet 12.5 mg PO BID 04/26/22 04/26/22 04/26/22 History quetiapine 50 mg tablet 50 mg PO TID 04/26/22 04/26/22 04/26/22 History sertraline 50 mg tablet 1 tab PO DAILY 04/26/22 04/26/22 04/26/22 History trazodone 50 mg tablet 50 mg PO BEDTIME 04/26/22 04/26/22 04/25/22 History Physical Exam Vital Signs: Vital Signs: Last Vital Signs Temp 97.8 F 04/30/22 15:46 Pulse 60 04/30/22 15:46 Resp 14 04/30/22 15:46 BP 106/52 L 04/30/22 15:46 Pulse Ox 96 04/30/22 15:46 O2 Del Method 04/30/22 15:46 BMI result Body Mass Index 28.9 Const: General: cooperative, healthy appearing, comfortable and no acute distress Orientation/consciousness: patient oriented x3 HEENT: Face and sinus: Yes normal facial exam Mouth: moist mucous membranes Neck: Neck: Yes normal visual inspection, Yes full ROM and Yes trachea midline Chest: Chest palpation & inspection: normal inspection of the chest Resp: Effort & Inspection: normal respiratory effort, able to speak in compl ete sentences and no respiratory distress GI: Inspection: Yes normal to inspection Back/Spine/Pelvis: Cervical Spine: normal cervical lordosis Thoracic/Lumbar Spine: thoracic and lumbar spine normal to inspection Skin: General skin exam: no rashes or lesions noted Neuro: General: patient oriented x3, tone normal and moves all extremities Extrem: General: Yes normal to inspection and Yes capillary refill normal Results Labs Result diagrams: 04/30/22 15:05 04/30/22 15:05 Labs: Abnormal lab results 04/30/22 04/30/22 Range/Units 15:05 15:05 RBC 4.55 L (4.60-5.80) X10*6/uL Hgb 13.7 L (14.0-18.0) g/dl Hct 40.9 L (42.0-52.0) % Eos % (Auto) 7.9 H (0-4) % Eos # (Auto) 0.6 H (0.0-0.4) X10*3/uL Carbon Dioxide 32 H (22-29) mmol/L BUN 20 H (9-16) mg/dL Short CBC 04/30/22 Range/Units 15:05 WBC 7.3 (4.8-10.8) X10*3/uL Hgb 13.7 L (14.0-18.0) g/dl Hct 40.9 L (42.0-52.0) % Plt Count 164 (160-400) X10*3/uL BMP 04/30/22 15:05 Sodium 138 Potassium 4.9 D Chloride 96 Carbon Dioxide 32 H BUN 20 H Creatinine 0.82 Calcium 9.4 D Liver Function 04/30/22 Range/Units 15:05 Total Bilirubin 0.9 (0.0-1.0) mg/dL AST 31 (5-37) U/L ALT 13 (0-40) U/L Alkaline Phosphatase 95 D (39-117) U/L Albumin 3.7 (3.5-5.0) g/dL All other labs normal. Assessment and Plan (1) Phimosis: Status: Acute (2) Urinary retention: Status: Acute Plan Catheter Outpatient circumcision Procedures Date of Service Date of Service: 04/30/22 Catheter Insertion (Urinary) Date of insertion: 04/30/22 Time of insertion: 16:06 Replacement of catheter present on admission: Yes Reason for placing: Acute urinary retention (with phimosis) Antiseptic solution prep: Povidone-Iodine Topical anesthesia used: Yes Catheter type/location: Urethral Size (Chinese): 16 Catheter balloon size (mL): 5 Results: unable to pass and consulted (Urology placed catheter) Procedure performed: with complications
[2022-04-30 16:41] LABS: Appearance Urine Hazy; Color Urine RED; PH 5.5 (5.0-9.0)
[2022-04-30 16:42] LABS: Glucose Urine UA Negative (Negative); Leukocyte Esterase Urine Moderate (2+) (Negative); Nitrite Urine Negative (Negative); UMIC TRIGGER UACC YES; Urine Blood Large (3+) (Negative); Urine Ketones Negative (Negative); Urine Protein 100 (2+) mg/dL (Neg-Trace)
[2022-04-30 16:44] LABS: Bacteria Urine None Seen (None Seen); Hyaline Casts Urine 0-2 /LPF (0-2); RBC Urine >20 /HPF (0-2); Squamous Epithelial Cell Urine 0-2 /HPF (0-2); UACC Culture Trigger YES; WBC Urine 21-50 /HPF (0-5)
--- NOTE | 2022-04-30 16:53 | PC.NURSE ---
Pt found to be standing out of bed with catheter in. Reminded pt of catheter and needing to help with assistance as to not remove catheter again. Moved closer to nurses station for closer observation. Resting in bed at this time. Awaiting EMS transportation to [facility].
--- NOTE | 2022-04-30 17:23 | PC.NURSE ---
Multiple attempts to get out of bed, redirected to get back into bed so as not to remove catheter.
== END 2022-04-30 20:05 | disposition skilled nursing facility (03) ==
PROVIDERS: Nurse Practitioner Family; Emergency Provider Emergency Medicine; PCP Internal Medicine
DX: N39.0 Urinary tract infection, site not specified (principal); R33.9 Retention of urine, unspecified; N47.1 Phimosis; Z79.899 Other long term (current) drug therapy
CPT/HCPCS: 36415; 80053; 81001; 85025; 87086; 99284

== ENCOUNTER 2022-05-02 06:49 | Outpatient (REF) | payer MEDICARE, SELFPAY ==
[2022-05-02 08:09] LABS: Anion Gap 14 (12-20); Blood Urea Nitrogen 15 mg/dL (9-16); Calcium 8.9 mg/dL (8.4-10.2); Carbon Dioxide 33 mmol/L (22-29); Chloride 96 mmol/L (96-108); Estimated Glomerular Filt Rate > 60; Glucose Random 87 mg/dL (60-115); Potassium 4.9 mmol/L (3.3-5.1); Sodium 138 mmol/L (135-145)
== END 2022-05-02 06:50 | disposition home or self-care (01) ==
LOC: HO.HSH3N 06:49
PROVIDERS: Visit Provider Internal Medicine Interventional Cardiology
DX: N19 Unspecified kidney failure (principal)
CPT/HCPCS: 36415; 80048

== ENCOUNTER → 2022-05-12 14:14 | Outpatient (BNVA) | payer MEDICARE, MEDICAID, SELFPAY | PROVIDERS: PCP Nurse Practitioner Acute Care; Visit Provider Urology | DX: N47.1 Phimosis (principal); R33.9 Retention of urine, unspecified | CPT/HCPCS: 51798; 99202 ==

== ENCOUNTER 2022-05-30 05:53 | Outpatient (REF) | payer MEDICARE, OTHER, SELFPAY ==
[2022-05-30 07:36] LABS: MANUAL DIFF FLAG NO
[2022-05-30 07:40] LABS: Basophils Absolute Auto 0.1 X10*3/uL (0.0-0.2); Basophils Percent Auto 0.8 % (0-2); Eosinophils Absolute Auto 0.4 X10*3/uL (0.0-0.4); Eosinophils Percent Auto 6.2 % (0-4); Hematocrit 37.7 % (42.0-52.0); Hemoglobin 12.9 g/dl (14.0-18.0); Imm Gran Abs Auto 0.03 X10*3/uL (0.00-0.03); Imm Gran Pct Auto 0.5 % (0.0-0.4); Lymphocytes Absolute Auto 1.8 X10*3/uL (1.2-4.9); Lymphocytes Percent Auto 27.4 % (20-40); Mean Corpuscular HGB Conc 34.2 g/dl (31.0-36.0); Mean Corpuscular Hemoglobin 30.8 pg (27.0-33.0); Monocytes Absolute Auto 0.7 X10*3/uL (0.1-1.2); Monocytes Percent Auto 10.4 % (2-11); Neutrophils Absolute Auto 3.6 x10*3/uL (2.0-8.3); Neutrophils Percent Auto 54.7 % (45-73); Platelet Count 255 X10*3/uL (160-400); Red Blood Count 4.19 X10*6/uL (4.60-5.80); Red Cell Distribution Width 13.5 % (11.0-16.0); White Blood Count 6.6 X10*3/uL (4.8-10.8)
[2022-05-30 08:26] LABS: Alanine Aminotransferase 9 U/L (0-40); Albumin Level 3.7 g/dL (3.5-5.0); Alkaline Phosphatase 75 U/L (39-117); Anion Gap 13 (12-20); Aspartate Amino Transferase 19 U/L (5-37); Bilirubin Total 0.8 mg/dL (0.0-1.0); Blood Urea Nitrogen 14 mg/dL (9-16); Calcium 9.3 mg/dL (8.4-10.2); Carbon Dioxide 33 mmol/L (22-29); Chloride 95 mmol/L (96-108); Estimated Glomerular Filt Rate > 60; Glucose Fasting 97 mg/dL (60-99); Potassium 3.5 mmol/L (3.3-5.1); Sodium 137 mmol/L (135-145); Thyroid Stimulating Hormone 2.34 uIU/mL (0.32-4.0); Total Protein 6.5 g/dL (6.5-8.0)
[2022-05-30 08:42] LABS: Erythrocyte Sedimentation Rate 12 MM/HR (0-15)
== END 2022-05-30 05:54 | disposition home or self-care (01) ==
LOC: HO.HSH3N 05:53
PROVIDERS: Visit Provider Internal Medicine
DX: R63.4 Abnormal weight loss (principal); I10 Essential (primary) hypertension
CPT/HCPCS: 36415; 80053; 84443; 85025; 85652

== ENCOUNTER 2022-06-09 06:47 | Outpatient (REF) | payer MEDICARE, OTHER, SELFPAY ==
[2022-06-09 09:30] LABS: Anion Gap 13 (12-20); Blood Urea Nitrogen 14 mg/dL (9-16); Calcium 8.2 mg/dL (8.4-10.2); Carbon Dioxide 29 mmol/L (22-29); Chloride 101 mmol/L (96-108); Estimated Glomerular Filt Rate > 60; Glucose Fasting 90 mg/dL (60-99); Potassium 3.2 mmol/L (3.3-5.1); Sodium 140 mmol/L (135-145)
== END 2022-06-09 06:48 | disposition home or self-care (01) ==
LOC: HO.HSH1N 06:47
PROVIDERS: Visit Provider Internal Medicine
DX: J00 Acute nasopharyngitis [common cold] (principal)
CPT/HCPCS: 36415; 80048

== ENCOUNTER 2022-06-15 18:08 | Outpatient (REF) | payer MEDICARE, OTHER, SELFPAY | END 2022-06-15 18:09 | disposition home or self-care (01) | LOC: HO.HSH3N 18:08 | PROVIDERS: Visit Provider Internal Medicine Endocrinology, Diabetes & Metabolism | DX: S51.002D Unspecified open wound of left elbow, subsequent encounter (principal); I10 Essential (primary) hypertension | CPT/HCPCS: 87070; 87073; 87205 ==

== ENCOUNTER 2022-08-10 05:38 | Outpatient (REF) | payer MEDICARE, OTHER, SELFPAY ==
[2022-08-10 08:27] LABS: Anion Gap 14 (12-20); Carbon Dioxide 26 mmol/L (22-29); Chloride 105 mmol/L (96-108); Potassium 4.4 mmol/L (3.3-5.1); Sodium 141 mmol/L (135-145)
== END 2022-08-10 05:39 | disposition home or self-care (01) ==
LOC: HO.HSH3N 05:38
PROVIDERS: Visit Provider Internal Medicine Endocrinology, Diabetes & Metabolism
DX: I48.91 Unspecified atrial fibrillation (principal)
CPT/HCPCS: 36415; 80051

== ENCOUNTER 2022-09-19 06:26 | Outpatient (REF) | payer MEDICARE, OTHER, SELFPAY ==
[2022-09-19 06:36] LABS: MANUAL DIFF FLAG NO
[2022-09-19 06:57] LABS: Basophils Absolute Auto 0.1 X10*3/uL (0.0-0.2); Basophils Percent Auto 0.9 % (0-2); Eosinophils Absolute Auto 0.5 X10*3/uL (0.0-0.4); Eosinophils Percent Auto 8.4 % (0-4); Hematocrit 48.1 % (42.0-52.0); Hemoglobin 15.8 g/dl (14.0-18.0); Imm Gran Abs Auto 0.02 X10*3/uL (0.00-0.03); Imm Gran Pct Auto 0.3 % (0.0-0.4); Lymphocytes Absolute Auto 2.4 X10*3/uL (1.2-4.9); Lymphocytes Percent Auto 37.9 % (20-40); Mean Corpuscular HGB Conc 32.8 g/dl (31.0-36.0); Mean Corpuscular Hemoglobin 29.2 pg (27.0-33.0); Mean Corpuscular Volume 88.7 fL (80.0-98.0); Mean Platelet Volume 10.6 fL (9.4-12.4); Monocytes Absolute Auto 0.7 X10*3/uL (0.1-1.2); Monocytes Percent Auto 10.4 % (2-11); Neutrophils Absolute Auto 2.7 x10*3/uL (2.0-8.3); Neutrophils Percent Auto 42.1 % (45-73); Platelet Count 182 X10*3/uL (160-400); Red Blood Count 5.42 X10*6/uL (4.60-5.80); Red Cell Distribution Width 12.9 % (11.0-16.0); White Blood Count 6.4 X10*3/uL (4.8-10.8)
[2022-09-19 07:36] LABS: Alanine Aminotransferase 15 U/L (0-40); Albumin Level 3.7 g/dL (3.5-5.0); Alkaline Phosphatase 78 U/L (39-117); Anion Gap 16 (12-20); Aspartate Amino Transferase 21 U/L (5-37); Bilirubin Direct < 0.2 mg/dL (0.0-0.5); Bilirubin Total 0.4 mg/dL (0.0-1.0); Blood Urea Nitrogen 20 mg/dL (9-16); Carbon Dioxide 27 mmol/L (22-29); Chloride 104 mmol/L (96-108); Estimated Glomerular Filt Rate > 60; Potassium 4.8 mmol/L (3.3-5.1); Sodium 142 mmol/L (135-145); Total Protein 6.5 g/dL (6.5-8.0)
[2022-09-19 08:23] LABS: Valproate < 12.5 mcg/mL (50.0-100.0)
== END 2022-09-19 06:27 | disposition home or self-care (01) ==
LOC: HO.HSH3N 06:26
PROVIDERS: Visit Provider Nurse Practitioner Acute Care
DX: D64.9 Anemia, unspecified (principal); F03.B0 Unspecified dementia, moderate, without behavioral disturbance, psychotic disturbance, mood disturbance, and anxiety; Z79.899 Other long term (current) drug therapy
CPT/HCPCS: 36415; 80051; 80076; 80164; 82565; 84520; 85025

== ENCOUNTER 2023-01-03 05:16 | Outpatient (REF) | payer MEDICARE, OTHER, SELFPAY | END 2023-01-03 05:17 | disposition home or self-care (01) | LOC: HO.HSH3N 05:16 | PROVIDERS: Visit Provider Nurse Practitioner Acute Care | DX: I48.91 Unspecified atrial fibrillation (principal) | CPT/HCPCS: 36415; 85610; 85730 ==

== ENCOUNTER 2023-01-06 05:43 | Outpatient (REF) | payer MEDICARE, OTHER, SELFPAY | END 2023-01-06 05:44 | disposition home or self-care (01) | LOC: HO.HSH3N 05:43 | PROVIDERS: Visit Provider Nurse Practitioner Acute Care | DX: Z12.5 Encounter for screening for malignant neoplasm of prostate (principal); I10 Essential (primary) hypertension; E55.9 Vitamin D deficiency, unspecified; E78.5 Hyperlipidemia, unspecified; Z79.899 Other long term (current) drug therapy; E61.1 Iron deficiency | CPT/HCPCS: 36415; 80053; 80061; 80164; 82306; 82728; 82746; 83036; 83735; 84153; 84443; 85025 ==

== ENCOUNTER 2023-06-12 05:07 | Outpatient (REF) | payer MEDICARE, SELFPAY ==
[2023-06-12 06:31] LABS: MANUAL DIFF FLAG NO
[2023-06-12 06:40] LABS: Basophils Absolute Auto 0.1 X10*3/uL (0.0-0.2); Basophils Percent Auto 0.7 % (0-2); Eosinophils Absolute Auto 0.6 X10*3/uL (0.0-0.4); Eosinophils Percent Auto 9.1 % (0-4); Hematocrit 52.1 % (42.0-52.0); Hemoglobin 17.6 g/dl (14.0-18.0); Imm Gran Abs Auto 0.02 X10*3/uL (0.00-0.03); Imm Gran Pct Auto 0.3 % (0.0-0.4); Lymphocytes Absolute Auto 2.4 X10*3/uL (1.2-4.9); Lymphocytes Percent Auto 36.3 % (20-40); Mean Corpuscular HGB Conc 33.8 g/dl (31.0-36.0); Mean Corpuscular Volume 88.8 fL (80.0-98.0); Mean Platelet Volume 10.6 fL (9.4-12.4); Monocytes Absolute Auto 0.6 X10*3/uL (0.1-1.2); Monocytes Percent Auto 9.4 % (2-11); Neutrophils Percent Auto 44.2 % (45-73); Platelet Count 207 X10*3/uL (160-400); Red Blood Count 5.87 X10*6/uL (4.60-5.80); Red Cell Distribution Width 12.5 % (11.0-16.0); White Blood Count 6.7 X10*3/uL (4.8-10.8)
[2023-06-12 06:59] LABS: Valproate 35.2 mcg/mL (50.0-100.0)
[2023-06-12 07:02] LABS: Alanine Aminotransferase 11 U/L (0-40); Albumin Level 4.1 g/dL (3.5-5.0); Alkaline Phosphatase 80 U/L (39-117); Anion Gap 15 (12-20); Aspartate Amino Transferase 20 U/L (5-37); Bilirubin Direct 0.2 mg/dL (0.0-0.5); Bilirubin Total 0.6 mg/dL (0.0-1.0); Blood Urea Nitrogen 11 mg/dL (9-16); Calcium 9.7 mg/dL (8.4-10.2); Carbon Dioxide 30 mmol/L (22-29); Chloride 97 mmol/L (96-108); Estimated Glomerular Filt Rate > 60; Glucose Fasting 98 mg/dL (60-99); Potassium 3.7 mmol/L (3.3-5.1); Sodium 138 mmol/L (135-145); Total Protein 7.7 g/dL (6.5-8.0)
[2023-06-12 07:24] LABS: Folate 15.9 ng/mL (> or = 4.0); Vitamin B12 727 pg/mL (200-900)
[2023-06-16 11:09] LABS: Vitamin B1 <6 nmol/L (8-30)
== END 2023-06-12 05:08 | disposition home or self-care (01) ==
LOC: HO.HSH3N 05:07
PROVIDERS: Visit Provider Nurse Practitioner Acute Care
DX: F03.90 Unspecified dementia, unspecified severity, without behavioral disturbance, psychotic disturbance, mood disturbance, and anxiety (principal); D64.9 Anemia, unspecified
CPT/HCPCS: 36415; 80053; 80076; 80164; 82248; 82607; 82746; 84425; 85025

== ENCOUNTER 2023-08-22 05:05 | Outpatient (REF) | payer MEDICARE, SELFPAY ==
[2023-08-22 06:12] LABS: Ammonia 29 umol/L (13-55)
[2023-08-22 06:21] LABS: Valproate 49.4 mcg/mL (50.0-100.0)
[2023-08-22 06:22] LABS: Anion Gap 12 (12-20); Blood Urea Nitrogen 7 mg/dL (9-16); Calcium 8.7 mg/dL (8.4-10.2); Carbon Dioxide 28 mmol/L (22-29); Chloride 97 mmol/L (96-108); Estimated Glomerular Filt Rate > 60; Glucose Random 92 mg/dL (60-115); Magnesium 2.1 mg/dL (1.6-2.6); Potassium 4.5 mmol/L (3.3-5.1); Sodium 132 mmol/L (135-145)
== END 2023-08-22 05:06 | disposition home or self-care (01) ==
LOC: HO.HSH3N 05:05
PROVIDERS: Visit Provider Nurse Practitioner Acute Care
DX: F03.90 Unspecified dementia, unspecified severity, without behavioral disturbance, psychotic disturbance, mood disturbance, and anxiety (principal); I25.10 Atherosclerotic heart disease of native coronary artery without angina pectoris; F32.A Depression, unspecified
CPT/HCPCS: 36415; 80048; 80164; 82140; 83735

== ENCOUNTER 2023-08-24 05:53 | Outpatient (REF) | payer MEDICARE, SELFPAY | END 2023-08-24 05:54 | disposition home or self-care (01) | LOC: HO.HSH3N 05:53 | PROVIDERS: Visit Provider Nurse Practitioner Acute Care | DX: Z13.89 Encounter for screening for other disorder (principal) ==

== ENCOUNTER 2023-08-25 19:31 | Outpatient (REF) | payer MEDICARE, SELFPAY | END 2023-08-25 19:32 | disposition home or self-care (01) | LOC: HO.HSH3N 19:31 | PROVIDERS: Visit Provider Nurse Practitioner Acute Care | DX: B36.8 Other specified superficial mycoses (principal) | CPT/HCPCS: 87070; 87102; 87205 ==

== ENCOUNTER 2023-08-31 05:00 | Outpatient (REF) | payer MEDICARE, SELFPAY | END 2023-08-31 05:01 | disposition home or self-care (01) | LOC: HO.HSH3N 05:00 | PROVIDERS: Visit Provider Nurse Practitioner Acute Care | DX: Z13.89 Encounter for screening for other disorder (principal) ==

== ENCOUNTER 2023-09-03 20:32 | Outpatient (REF) | payer MEDICARE, SELFPAY ==
[2023-09-03 22:11] LABS: MANUAL DIFF FLAG NO
[2023-09-03 22:17] LABS: Basophils Percent Auto 0.5 % (0-2); Eosinophils Absolute Auto 0.2 X10*3/uL (0.0-0.4); Eosinophils Percent Auto 2.6 % (0-4); Hematocrit 41.9 % (42.0-52.0); Hemoglobin 14.5 g/dl (14.0-18.0); Imm Gran Abs Auto 0.05 X10*3/uL (0.00-0.03); Imm Gran Pct Auto 0.6 % (0.0-0.4); Lymphocytes Absolute Auto 1.8 X10*3/uL (1.2-4.9); Lymphocytes Percent Auto 22.7 % (20-40); Mean Corpuscular HGB Conc 34.6 g/dl (31.0-36.0); Mean Corpuscular Volume 86.6 fL (80.0-98.0); Monocytes Absolute Auto 1.1 X10*3/uL (0.1-1.2); Monocytes Percent Auto 14.8 % (2-11); Neutrophils Absolute Auto 4.5 x10*3/uL (2.0-8.3); Neutrophils Percent Auto 58.8 % (45-73); Platelet Count 237 X10*3/uL (160-400); Red Blood Count 4.84 X10*6/uL (4.60-5.80); Red Cell Distribution Width 12.9 % (11.0-16.0); White Blood Count 7.7 X10*3/uL (4.8-10.8)
[2023-09-03 22:38] LABS: Alanine Aminotransferase 10 U/L (0-40); Albumin Level 3.3 g/dL (3.5-5.0); Alkaline Phosphatase 69 U/L (39-117); Anion Gap 13 (12-20); Aspartate Amino Transferase 22 U/L (5-37); Blood Urea Nitrogen 17 mg/dL (9-16); Calcium 9.2 mg/dL (8.4-10.2); Carbon Dioxide 29 mmol/L (22-29); Chloride 95 mmol/L (96-108); Estimated Glomerular Filt Rate > 60; Glucose Random 85 mg/dL (60-115); Potassium 3.7 mmol/L (3.3-5.1); Sodium 133 mmol/L (135-145); Total Protein 6.5 g/dL (6.5-8.0)
[2023-09-03 22:52] LABS: Thyroid Stimulating Hormone 2.04 uIU/mL (0.32-4.0)
[2023-09-04 07:36] LABS: Estimated Average Glucose 108 mg/dL; Hemoglobin A1c % 5.4 % (<6.0)
== END 2023-09-03 20:33 | disposition home or self-care (01) ==
LOC: HO.HSH3N 20:32
PROVIDERS: Visit Provider Internal Medicine Endocrinology, Diabetes & Metabolism
DX: F03.90 Unspecified dementia, unspecified severity, without behavioral disturbance, psychotic disturbance, mood disturbance, and anxiety (principal)
CPT/HCPCS: 36415; 80053; 83036; 84443; 85025

== ENCOUNTER 2023-09-13 12:44 | Outpatient (REF) | payer MEDICARE, SELFPAY ==
[2023-09-13 12:56] LABS: Basophils Percent Auto 0.7 % (0-2); Eosinophils Absolute Auto 0.3 X10*3/uL (0.0-0.4); Eosinophils Percent Auto 5.9 % (0-4); Hematocrit 44.9 % (42.0-52.0); Hemoglobin 15.5 g/dl (14.0-18.0); Imm Gran Abs Auto 0.02 X10*3/uL (0.00-0.03); Imm Gran Pct Auto 0.3 % (0.0-0.4); Lymphocytes Absolute Auto 1.3 X10*3/uL (1.2-4.9); Lymphocytes Percent Auto 23.1 % (20-40); MANUAL DIFF FLAG NO; Mean Corpuscular HGB Conc 34.5 g/dl (31.0-36.0); Mean Corpuscular Hemoglobin 30.7 pg (27.0-33.0); Mean Corpuscular Volume 88.9 fL (80.0-98.0); Mean Platelet Volume 9.4 fL (9.4-12.4); Monocytes Absolute Auto 0.4 X10*3/uL (0.1-1.2); Monocytes Percent Auto 7.6 % (2-11); Neutrophils Absolute Auto 3.6 x10*3/uL (2.0-8.3); Neutrophils Percent Auto 62.4 % (45-73); Platelet Count 253 X10*3/uL (160-400); Red Blood Count 5.05 X10*6/uL (4.60-5.80); Red Cell Distribution Width 14.3 % (11.0-16.0); White Blood Count 5.8 X10*3/uL (4.8-10.8)
[2023-09-13 13:21] LABS: Alanine Aminotransferase 10 U/L (0-40); Albumin Level 3.8 g/dL (3.5-5.0); Alkaline Phosphatase 85 U/L (39-117); Anion Gap 14 (12-20); Aspartate Amino Transferase 23 U/L (5-37); Bilirubin Direct 0.3 mg/dL (0.0-0.5); Bilirubin Total 0.8 mg/dL (0.0-1.0); Blood Urea Nitrogen 15 mg/dL (9-16); Calcium 9.5 mg/dL (8.4-10.2); Carbon Dioxide 26 mmol/L (22-29); Chloride 98 mmol/L (96-108); Estimated Glomerular Filt Rate > 60; Glucose Random 132 mg/dL (60-115); Potassium 4.2 mmol/L (3.3-5.1); Sodium 134 mmol/L (135-145); Total Protein 7.3 g/dL (6.5-8.0)
== END 2023-09-13 12:45 | disposition home or self-care (01) ==
LOC: HO.HSH3N 12:44
PROVIDERS: Visit Provider Nurse Practitioner Acute Care
DX: J44.9 Chronic obstructive pulmonary disease, unspecified (principal); I48.91 Unspecified atrial fibrillation; F03.90 Unspecified dementia, unspecified severity, without behavioral disturbance, psychotic disturbance, mood disturbance, and anxiety
CPT/HCPCS: 36415; 80048; 80076; 85025

== ENCOUNTER 2023-09-25 09:27 | Outpatient (REF) | payer MEDICARE, SELFPAY ==
[2023-09-25 10:11] LABS: Influenza A PCR NEGATIVE (Negative); Influenza B PCR NEGATIVE (Negative); Resp Syncy Virus RNA Qual PCR NEGATIVE (Negative); SARS COV2 PCR INHOUSE NEGATIVE (Negative)
== END 2023-09-25 09:28 | disposition home or self-care (01) ==
LOC: HO.HSH3N 09:27
PROVIDERS: Visit Provider Nurse Practitioner Acute Care
DX: R05.9 Cough, unspecified (principal); J06.9 Acute upper respiratory infection, unspecified
CPT/HCPCS: 0241U

== ENCOUNTER 2023-10-02 15:43 | Emergency (ER) | payer MEDICARE, SELFPAY ==
--- NOTE | ~2023-10-02 | CT_ITS ---
EXAMINATION: CT HEAD WITHOUT CONTRAST CT CERVICAL SPINE WITHOUT CONTRAST CLINICAL INFORMATION: Fall with head strike. Neck pain. COMPARISON: None. TECHNIQUE: Contiguous axial imaging was performed from the skullbase to vertex without intravenous administration of contrast. Multidetector helical imaging was performed through the cervical spine. This CT examination was performed using dose optimization techniques as appropriate, variously including the following: *Automated exposure control *Adjustment of mA and/or kV according to patient size (this includes techniques or standardized protocols for targeted exams where dose is matched to indication/reason for exam; i.e. extremities or head) *Use of iterative reconstruction technique DLP: 450, 804 mGy-cm. FINDINGS: HEAD: There is no evidence of acute intracranial hemorrhage or territorial infarction. No abnormal mass effect or midline shift is seen. No extra-axial fluid collections are identified. Midline frontal scalp soft tissue swelling at the vertex with a laceration visible and skin dunia in place. There are patchy areas of low-density change in the cerebral white matter which could be due to [id number] chronic white matter microangiopathy. There is focal low-density in the anterior right frontal lobe involving the cortical beth matter which is suspected to be due to encephalomalacia from a small chronic infarct. Moderate to severe diffuse brain parenchymal volume loss is noted with commensurate ex vacuo prominence of the ventricles. The osseous structures are normal. The mastoid air cells and visualized portions of the paranasal sinuses are well aerated. CERVICAL SPINE: Multilevel disc-osteophyte complexes noted with hypertrophic facet arthropathy contributing to foraminal encroachment. No acute fracture is visible. Small central disc protrusion visible at the C3-C4 level. Bulky bridging endplate osteophyte formation spans anterolaterally on the right side from the C5 through the C7 levels. The atlantoaxial articulation is normally maintained. Significant atherosclerotic wall calcifications are present at the carotid bifurcations, particularly on the right side with suspected significant stenosis at the origin of the right internal carotid artery. The paraspinal soft tissues are normal. The lung apices are clear. CT/CT head/brain wo IV con IMPRESSION: 1. No acute intracranial hemorrhage or territorial infarction. Moderate to severe brain parenchymal volume loss and chronic white matter microangiopathy. Small chronic infarct in the right frontal lobe. Midline frontal scalp soft tissue swelling and laceration at the vertex. 2. No evidence of acute cervical spine traumatic injury. Moderate multilevel cervical spondylosis and hypertrophic facet arthropathy. 3. Severe atherosclerotic wall calcifications at the right carotid bifurcation and origin of the right internal carotid artery.
--- NOTE | ~2023-10-02 | CT_ITS ---
EXAMINATION: CT HEAD WITHOUT CONTRAST CT CERVICAL SPINE WITHOUT CONTRAST CLINICAL INFORMATION: Fall with head strike. Neck pain. COMPARISON: None. TECHNIQUE: Contiguous axial imaging was performed from the skullbase to vertex without intravenous administration of contrast. Multidetector helical imaging was performed through the cervical spine. This CT examination was performed using dose optimization techniques as appropriate, variously including the following: *Automated exposure control *Adjustment of mA and/or kV according to patient size (this includes techniques or standardized protocols for targeted exams where dose is matched to indication/reason for exam; i.e. extremities or head) *Use of iterative reconstruction technique DLP: 450, 804 mGy-cm. FINDINGS: HEAD: There is no evidence of acute intracranial hemorrhage or territorial infarction. No abnormal mass effect or midline shift is seen. No extra-axial fluid collections are identified. Midline frontal scalp soft tissue swelling at the vertex with a laceration visible and skin dunia in place. There are patchy areas of low-density change in the cerebral white matter which could be due to [id number] chronic white matter microangiopathy. There is focal low-density in the anterior right frontal lobe involving the cortical beth matter which is suspected to be due to encephalomalacia from a small chronic infarct. Moderate to severe diffuse brain parenchymal volume loss is noted with commensurate ex vacuo prominence of the ventricles. The osseous structures are normal. The mastoid air cells and visualized portions of the paranasal sinuses are well aerated. CERVICAL SPINE: Multilevel disc-osteophyte complexes noted with hypertrophic facet arthropathy contributing to foraminal encroachment. No acute fracture is visible. Small central disc protrusion visible at the C3-C4 level. Bulky bridging endplate osteophyte formation spans anterolaterally on the right side from the C5 through the C7 levels. The atlantoaxial articulation is normally maintained. Significant atherosclerotic wall calcifications are present at the carotid bifurcations, particularly on the right side with suspected significant stenosis at the origin of the right internal carotid artery. The paraspinal soft tissues are normal. The lung apices are clear. CT/CT cervical spine wo IV con IMPRESSION: 1. No acute intracranial hemorrhage or territorial infarction. Moderate to severe brain parenchymal volume loss and chronic white matter microangiopathy. Small chronic infarct in the right frontal lobe. Midline frontal scalp soft tissue swelling and laceration at the vertex. 2. No evidence of acute cervical spine traumatic injury. Moderate multilevel cervical spondylosis and hypertrophic facet arthropathy. 3. Severe atherosclerotic wall calcifications at the right carotid bifurcation and origin of the right internal carotid artery.
--- NOTE | ~2023-10-02 | CT_ITS ---
EXAMINATION: CT CHEST WITH CONTRAST CLINICAL INFORMATION: Fall. Mental status change. On blood thinning medicine. COMPARISON: Previous chest x-ray April 2022 TECHNIQUE: Multidetector volumetric CT imaging of the chest was obtained after the administration of 85 mL of Omnipaque 350 intravenous contrast without immediate adverse reactions. Axial MIP volume rendering provided. Sagittal and coronal reformatted images were obtained. This CT examination was performed using dose optimization techniques as appropriate, variously including the following: *Automated exposure control *Adjustment of mA and/or kV according to patient size (this includes techniques or standardized protocols for targeted exams where dose is matched to indication/reason for exam; i.e. extremities or head) *Use of iterative reconstruction technique DLP: 511 mGy-cm FINDINGS: LUNGS: Severe emphysema MEDIASTINUM: Normal heart size. Mild coronary artery patient. No pericardial effusion. No enlarged hilar or mediastinal nodes. Normal caliber thoracic aorta. Prominent pulmonary arteries questionable for pulmonary artery hypertension. PLEURA: There is no pleural effusion. No pleural mass or thickening. No pneumothorax AXILLA: No lymphadenopathy. UPPER ABDOMEN: See abdominal pelvic CT report from the same day OSSEOUS STRUCTURES: Degenerative changes of the spine. No fracture. CT/CT chest w IV con IMPRESSION: No acute findings. Severe emphysema. Fleischner guidelines were followed.
--- NOTE | ~2023-10-02 | CT_ITS ---
EXAMINATION: CT ABDOMEN AND PELVIS WITH CONTRAST CLINICAL INFORMATION: Fall. Patient on blood thinning medication. COMPARISON: Previous CT of the abdomen and pelvis April 2022 TECHNIQUE: Multidetector volumetric images were obtained from the superior aspect of the liver through the pubic symphysis following administration 85 mL of Omnipaque 350 intravenous contrast. Sagittal and coronal reformatted images were obtained on the technologist's workstation. Oral contrast: Yes This CT examination was performed using dose optimization techniques as appropriate, variously including the following: *Automated exposure control *Adjustment of mA and/or kV according to patient size (this includes techniques or standardized protocols for targeted exams where dose is matched to indication/reason for exam; i.e. extremities or head) *Use of iterative reconstruction technique DLP: 1125 mGy-cm FINDINGS: LUNG BASES: The visualized lung bases are unremarkable. LIVER, GALLBLADDER, AND BILIARY TREE: Fatty liver. Small gallstone in the gallbladder. No focal lesion or biliary duct dilatation. PANCREAS: Unremarkable. SPLEEN: Unremarkable. ADRENAL GLANDS: Unremarkable. KIDNEYS AND URETERS: The kidneys are normal in size, shape, and attenuation. No hydronephrosis, hydroureter. Small stone in the upper pole of the left kidney. Lateral renal cysts. No imaging follow-up recommended. No perinephric stranding. BLADDER: Unremarkable. GASTROINTESTINAL TRACT: Constipation and severe diverticulosis of the distal colon. The small and large bowel are otherwise unremarkable. The appendix is unremarkable. Slightly distended and fluid-filled. ABDOMINAL WALL: No significant hernia is appreciated. LYMPH NODES: Normal. VASCULAR: Atherosclerotic disease. Small 3 cm lower abdominal aortic aneurysm. Imaging follow-up 5 years recommended. PELVIC VISCERA: Unremarkable. OSSEOUS STRUCTURES: Degenerative changes of the spine and hip joints. CT/CT abdomen pelvis w IV con IMPRESSION: No acute findings. Fatty liver. Small gallstones. Small left renal stone. Constipation and severe diverticular disease. Fleischner guidelines were followed.
[2023-10-02 15:48] VITALS: BP 152/64; PULSE 90; O2SAT 96
[2023-10-02 16:01] VITALS: BP 140/86; PULSE 94; RESP 22; TEMP 36.3; O2SAT 96; BMI 25.1
--- NOTE | 2023-10-02 16:12 | ECG_ITS ---
Test Reason : FALL Blood Pressure : / mmHG Vent. Rate : 091 BPM Atrial Rate : 091 BPM P-R Int : 152 ms QRS Dur : 088 ms QT Int : 342 ms P-R-T Axes : 070 -86 071 degrees QTc Int : 420 ms Sinus rhythm with Fusion complexes with Premature ventricular complexes Left axis deviation Low voltage QRS Nonspecific ST and T wave abnormality Abnormal ECG No previous ECGs available Referred By: Roxana Trivedi Electronically Signed By:VIKASH AQUINO MD
--- NOTE | 2023-10-02 16:14 | ED_ITS ---
HPI - Fall General Chief Complaint: Fall Stated Complaint: unwitnessed fall + head strike Time Seen by Provider: 10/02/23 16:11 Source: patient and EMS Mode of arrival: EMS Limitations: other (Poor historian) History of Present Illness HPI Narrative: 70-year-old male history of vascular dementia, AFib on Eliquis, psychosis, copd presents to the emergency department with unwitnessed fall at [facility], it appears as though patient his head due to subsequent laceration, suspected that there was no loss consciousness. Patient was placed in a C-collar by EMS however did not tolerate it taken off. Patient does not know how he fell. Poor historian unable to obtain an accurate history or review of systems from patient. Based off med reconciliation report obtained from EMS patient is on Eliquis and should be taking as prescribed. Related Data Home Medications Medication Instructions Recorded Confirmed apixaban 5 mg tablet (Eliquis) 1 tab PO BID 04/26/22 10/02/23 aspirin 81 mg tablet,delayed 81 mg PO DAILY 04/26/22 10/02/23 release atorvastatin 10 mg tablet (Lipitor) 10 mg PO BEDTIME 04/26/22 10/02/23 cholecalciferol (vitamin D3) 25 25 mcg PO DAILY 04/26/22 10/02/23 mcg (1,000 unit) tablet (Vitamin D3) docusate sodium 100 mg capsule 100 mg PO DAILY 04/26/22 10/02/23 (Colace) loratadine 10 mg tablet 10 mg PO DAILY 04/26/22 10/02/23 quetiapine 50 mg tablet 50 mg PO DAILY PRN Agitation 04/26/22 10/02/23 trazodone 50 mg tablet 50 mg PO BEDTIME 04/26/22 10/02/23 divalproex 500 mg tablet,delayed 500 mg PO BID 10/02/23 10/02/23 release finasteride 5 mg tablet 5 mg PO DAILY 10/02/23 10/02/23 fluconazole 50 mg tablet 150 mg PO DAILY 10/02/23 10/02/23 folic acid 1 mg tablet 1 mg PO DAILY 10/02/23 10/02/23 hydrochlorothiazide 12.5 mg tablet 12.5 mg PO DAILY 10/02/23 10/02/23 lactulose 10 gram/15 mL oral 10 g PO DAILY 10/02/23 10/02/23 solution megestrol 400 mg/10 mL (10 mL) 40 mg PO BID 10/02/23 10/02/23 oral suspension oseltamivir 75 mg capsule (Tamiflu) 75 mg PO DAILY 10/02/23 10/02/23 quetiapine 100 mg tablet 100 mg PO BID 10/02/23 10/02/23 sennosides 8.8 mg/5 mL oral syrup 8.8 mg PO BEDTIME 10/02/23 10/02/23 spironolactone 25 mg tablet 25 mg PO DAILY 10/02/23 10/02/23 thiamine HCl (vitamin B1) 100 mg 100 mg PO DAILY 10/02/23 10/02/23 tablet Previous Rx's Medication Instructions Recorded tamsulosin 0.4 mg capsule 0.4 mg PO DAILY #30 caps 04/28/22 Allergies Allergy/AdvReac Type Severity Reaction Status Date / Time No Known Allergies Allergy Verified 10/02/23 15:54 [No Known Allergies*] Review of Systems 2 Review of Systems: Yes all other systems are reviewed and are negative FOR[facility]LY [facility] Past Medical History Attestation statement: The following information was validated with the patient. Source: old records reviewed and nursing notes reviewed Medical History Psychosis Depression Atrial fibrillation Hypertension Hyperlipidemia Vascular dementia COPD (chronic obstructive pulmonary disease) Social History Social History Household Members: None Housing: Correction Patient Tobacco Use Status: Never used Tobacco Smoked in Last 30 Days: No Use of substances other than those prescribed or required for medical reasons: No Advance Directives: Yes Advance Directives on File: Yes Advance Directives Date on File: 04/27/22 service: Yes Current occupational status: retired Physical Exam 2 Vital Signs: Vital Signs: Last Vital Signs Temp 97.3 F 10/02/23 16:01 Pulse 94 10/02/23 16:01 Resp 22 H 10/02/23 16:01 BP 140/86 H 10/02/23 16:01 Pulse Ox 96 10/02/23 16:01 O2 Del Method Room Air 10/02/23 16:01 BMI result Body Mass Index 25.1 vss Appearance: Alert.? Oriented to person, not place time or situation? No acute distress.? Head: Normocephalic, + 3 cm linear lac to frontal part of head simple w/ hematoma, no step-offs Eyes: Pupils equal, round and reactive to light.? ENT: Pharynx normal.? Neck: Normal inspection.? Neck supple.? CVS: Normal heart rate and rhythm.? Pulses normal.? Respiratory: No respiratory distress.? Breath sounds normal.? Abdomen: Soft and nontender.? Skin: Skin warm and dry.? Normal skin color.? Normal skin turgor.? Extremities: No lower extremity edema.? No calf ttp. 5/5 strength to bilateral upper and lower extremities Back: No midline tenderness, no C-spine tenderness, full range of motion, no CVA tenderness bilaterally Neuro: Oriented to person not place, time or situation. No motor deficit.? No sensory deficit. Difficult to obtain neurological assessment on patient as they are confused at baseline and have a difficult time responding appropriately to questions. Course Reevaluation(s) Reevaluation #1: 3 dunia placed to laceration on head. Patient tollerated procedure well. Edges approximated well. Prior to placing dunia I irrigated area extensively. Time: 15:00 Reevaluation #2: CBC unremarkable. Chemistry no acute findings requiring intervention. Normal CPK. Normal troponin, nonischemic EKG. Coags unremarkable. UA and CT scans pending. Time: 16:00 Reevaluation #3: Patient very restless, wandering around, difficult to redirect, unable to stay still for a CT scan. Not taking anything by mouth and unwilling to. Will give 1 mg of IV Versed at this time in order to obtain imaging, benefits outweigh risks. Time: 20:15 Additional Reevaluation(s): 2034 CT head no acute intracranial hemorrhage or territorial infarction. Moderate to severe brain parenchymal volume loss and chronic white matter microangiopathy, small chronic infarct in the right frontal lobe. Midline frontal scalp soft tissue swelling and laceration to the vertex. No evidence of acute cervical spine traumatic injury. Moderate multilevel cervical spondylosis and hypertrophic facet arthropathy. Severe atherosclerotic wall calcifications of the right carotid bifurcation origin of the right internal carotid artery. CT chest, abdomen and pelvis pending. 2052 CT abdomen and pelvis no acute findings. Fatty liver. Small gallstones. Small left renal stone. Constipation severe diverticular disease. Patient without abdominal tenderness on exam. No flank pain. No indication for treatment emergent management at this time. Patient to be discharged home. Educated patient on diagnosis and treatment plan, answered all question, patient verbalizes understanding. At this time patient will be discharged home, advised to return with new or worsening symptoms. Educated on worrisome signs and symptoms and when to return. At this time I feel comfortable discharge home. Patient didnt give us a urine while here [facility] to discuss this with them nurse Autumn on will pass this onto covering provider. I do not however suspect UTI. No strong smell of urine, no leukocytosis tachycardia or fever. Medications Administered Discontinued Medications Generic Name Dose Route Start Last Admin Trade Name Keegan PRN Reason Stop Dose Admin Iohexol 100 ml 10/02/23 21:18 10/02/23 21:18 Iohexol 350 Mg/Ml 100 Ml Infus..Btl IV 10/02/23 21:19 85 ml ONCE ONE Administration Midazolam HCl 1 mg 10/02/23 20:15 10/02/23 22:37 Midazolam Hcl/Pf 2 Mg/2 Ml Vial IVPUSH 10/02/23 20:16 Not Given ONCE ONE Olanzapine 5 mg 10/02/23 20:07 10/02/23 20:28 Olanzapine 5 Mg Tablet PO 10/02/23 20:08 5 mg ONCE ONE Administration Medical Decision Making Medical Decision Making [facility] Narrative: 1619 70-year-old male presents from [facility] status post unwitnessed fall there was head strike, unclear of loss of consciousness however suspected he did not lose consciousness presenting with laceration to head Difficult to obtain NIH stroke scale secondary to patient's mental status, hard time following commands. On exam there is an evident laceration Normocephalic, + 3 cm linear lac to frontal part of head simple, no step-offs or deformities w/ hematoma History and physical exam concerning for laceration to head likely concussion. Unlikely intracranial hemorrhage, stroke posterior stroke. Unlikely dysrhythmia, ACS, PE. Unlikely metabolic derangements, UTI. Low suspicion for acute trauma head, neck, chest, abdomen or pelvis. Lac will be repaired Plan- labs, imaging, urine Differential Diagnosis Differential Diagnoses: The differential diagnosis associated with the presentation includes History and physical exam concerning for laceration to head likely concussion. Unlikely intracranial hemorrhage, stroke posterior stroke. Unlikely dysrhythmia, ACS, PE. Unlikely metabolic derangements, UTI. Low suspicion for acute trauma head, neck, chest, abdomen or pelvis. Admission/Observation Consideration of admission/observation: Escalation of care including admission/observation considered Lab Data 10/02/23 18:14 10/02/23 18:14 Labs: Lab Results 10/02/23 Range/Units 18:14 WBC 7.4 (4.8-10.8) X10*3/uL RBC 5.46 (4.60-5.80) X10*6/uL Hgb 17.0 (14.0-18.0) g/dl Hct 49.5 (42.0-52.0) % MCV 90.7 (80.0-98.0) fL MCH 31.1 (27.0-33.0) pg MCHC 34.3 (31.0-36.0) g/dl RDW 13.6 (11.0-16.0) % Plt Count 224 (160-400) X10*3/uL MPV 10.0 (9.4-12.4) fL Immature Gran % (Auto) 0.5 H (0.0-0.4) % Neut % (Auto) 53.9 (45-73) % Lymph % (Auto) 26.0 (20-40) % Kittson % (Auto) 12.3 H (2-11) % Eos % (Auto) 6.6 H (0-4) % Baso % (Auto) 0.7 (0-2) % Lymph # (Auto) 1.9 (1.2-4.9) X10*3/uL Kittson # (Auto) 0.9 (0.1-1.2) X10*3/uL Eos # (Auto) 0.5 H (0.0-0.4) X10*3/uL Baso # (Auto) 0.1 (0.0-0.2) X10*3/uL Abs Immat Gran (auto) 0.04 H (0.00-0.03) X10*3/uL Absolute Neuts (auto) 4.0 (2.0-8.3) x10*3/uL Absolute Nucleated RBC 0.000 (0.0-0.012) X10*3/uL Nucleated RBC % (auto) 0.0 (0.0-0.2) /100WBC PT 14.5 H (11.1-13.3) SEC INR 1.2 H (0.9-1.1) Sodium 136 (135-145) mmol/L Potassium 4.0 (3.3-5.1) mmol/L Chloride 102 (96-108) mmol/L Carbon Dioxide 25 (22-29) mmol/L Anion Gap 13 (12-20) BUN 13 (9-16) mg/dL Creatinine 1.02 (0.5-1.4) mg/dL Estim Creat Clear Calc 69.3 Estimated GFR > 60 Random Glucose 97 (60-115) mg/dL Calcium 9.6 (8.4-10.2) mg/dL Magnesium 2.2 (1.6-2.6) mg/dL Total Bilirubin 0.4 (0.0-1.0) mg/dL AST 20 (5-37) U/L ALT 12 (0-40) U/L Alkaline Phosphatase 82 (39-117) U/L Total Creatine Kinase 48 (38-174) U/L Troponin I High Sens < 2.7 (<3.5-35.0) ng/L Total Protein 7.4 (6.5-8.0) g/dL Albumin 3.7 (3.5-5.0) g/dL Critical Care Time Critical Care Time Critical Care Time: No Discharge Plan Discharge Clinical Impression: Fall, Laceration of head, Concussion, Kidney calculi, Diverticular disease, Atherosclerosis Patient Disposition: er [facility] Transfer Details: BACK TO [facility] Instructions: Concussion (ED), Post Concussion Syndrome (ED), Fall Prevention (ED), Head Laceration (ED) Additional Instructions: Take your medications as prescribed. If you were prescribed antibiotics today, it is important that you take your medication to their entirety, do not skip any doses, do not finish them early. Follow-up with your primary care provider this week. Return to the emergency department with new or worsening symptoms. Such as fevers, chills, chest pain, shortness of breath, nausea, vomiting, dizziness, headache, vision changes, lethargy In case of emergency call 911 Return in 7-10 days for staple removal. CT/CT head/brain wo IV con IMPRESSION: 1. No acute intracranial hemorrhage or territorial infarction. Moderate to severe brain parenchymal volume loss and chronic white matter microangiopathy. Small chronic infarct in the right frontal lobe. Midline frontal scalp soft tissue swelling and laceration at the vertex. 2. No evidence of acute cervical spine traumatic injury. Moderate multilevel cervical spondylosis and hypertrophic facet arthropathy. 3. Severe atherosclerotic wall calcifications at the right carotid bifurcation and origin of the right internal carotid artery. CT/CT abdomen pelvis w IV con IMPRESSION: No acute findings. Fatty liver. Small gallstones. Small left renal stone. Constipation and severe diverticular disease. Fleischner guidelines were followed. Prescriptions: No Action quetiapine 50 mg tablet 50 mg PO DAILY PRN (Reason: Agitation) Eliquis 5 mg tablet 1 tab PO BID trazodone 50 mg Tablet 50 mg PO BEDTIME atorvastatin [Lipitor] 10 mg Tablet 10 mg PO BEDTIME aspirin 81 mg Tablet,Delayed Release (Dr/Ec) 81 mg PO DAILY docusate sodium [Colace] 100 mg Capsule 100 mg PO DAILY loratadine 10 mg Tablet 10 mg PO DAILY cholecalciferol (vitamin D3) [Vitamin D3] 25 mcg (1,000 unit) Tablet 25 mcg PO DAILY tamsulosin 0.4 mg Capsule 0.4 mg PO DAILY Qty: 30 0RF thiamine HCl (vitamin B1) 100 mg Tablet 100 mg PO DAILY sennosides 8.8 mg/5 mL Syrup 8.8 mg PO BEDTIME divalproex 500 mg Tablet,Delayed Release (Dr/Ec) 500 mg PO BID quetiapine 100 mg Tablet 100 mg PO BID spironolactone 25 mg Tablet 25 mg PO DAILY oseltamivir [Tamiflu] 75 mg Capsule 75 mg PO DAILY Rx Instructions: stop date 10/04/23 fluconazole 50 mg Tablet 150 mg PO DAILY Rx Instructions: stop date 11/23/23 folic acid 1 mg Tablet 1 mg PO DAILY finasteride 5 mg Tablet 5 mg PO DAILY lactulose 10 gram/15 mL Solution 10 g PO DAILY hydrochlorothiazide 12.5 mg Tablet 12.5 mg PO DAILY megestrol 400 mg/10 mL (10 mL) Suspension 40 mg PO BID Referrals: Physician,Unknown J [Primary Care Provider] - 2 days
[2023-10-02 18:24] LABS: Basophils Absolute Auto 0.1 X10*3/uL (0.0-0.2); Basophils Percent Auto 0.7 % (0-2); Eosinophils Absolute Auto 0.5 X10*3/uL (0.0-0.4); Eosinophils Percent Auto 6.6 % (0-4); Hematocrit 49.5 % (42.0-52.0); Imm Gran Abs Auto 0.04 X10*3/uL (0.00-0.03); Imm Gran Pct Auto 0.5 % (0.0-0.4); Lymphocytes Absolute Auto 1.9 X10*3/uL (1.2-4.9); Mean Corpuscular HGB Conc 34.3 g/dl (31.0-36.0); Mean Corpuscular Hemoglobin 31.1 pg (27.0-33.0); Mean Corpuscular Volume 90.7 fL (80.0-98.0); Monocytes Absolute Auto 0.9 X10*3/uL (0.1-1.2); Monocytes Percent Auto 12.3 % (2-11); Neutrophils Percent Auto 53.9 % (45-73); Platelet Count 224 X10*3/uL (160-400); Red Blood Count 5.46 X10*6/uL (4.60-5.80); Red Cell Distribution Width 13.6 % (11.0-16.0); White Blood Count 7.4 X10*3/uL (4.8-10.8)
--- NOTE | 2023-10-02 18:44 | PC.NURSE ---
pt arrived to ED w pressure dressing to lac on head - dunia applied by ED provider, pt changed over, vss, denies any pain at this time, 22G IV placed L wrist, labs obtained. pt increasingly agitated during ED stay, out of bed, exit seeking. pt changed himself back into his clothes, camera placed at bedside. pt requiring frequent redirection back to bed by ED staff, provider aware, provider verbalized ok to give pt food/drink. pt given ice cream and apple juice per his request.
[2023-10-02 18:46] LABS: MANUAL DIFF FLAG NO
[2023-10-02 18:52] LABS: Troponin-I High Sensitivity < 2.7 ng/L (<3.5-35.0)
[2023-10-02 18:54] LABS: INTERNATIONAL NORM RATIO 1.2 (0.9-1.1); Prothrombin Time 14.5 SEC (11.1-13.3)
[2023-10-02 18:57] LABS: Alanine Aminotransferase 12 U/L (0-40); Albumin Level 3.7 g/dL (3.5-5.0); Alkaline Phosphatase 82 U/L (39-117); Anion Gap 13 (12-20); Aspartate Amino Transferase 20 U/L (5-37); Bilirubin Total 0.4 mg/dL (0.0-1.0); Blood Urea Nitrogen 13 mg/dL (9-16); Calcium 9.6 mg/dL (8.4-10.2); Carbon Dioxide 25 mmol/L (22-29); Chloride 102 mmol/L (96-108); Creatinine Clr Calc Pharmacy 69.3; Estimated Glomerular Filt Rate > 60; Glucose Random 97 mg/dL (60-115); Magnesium 2.2 mg/dL (1.6-2.6); Sodium 136 mmol/L (135-145); Total Protein 7.4 g/dL (6.5-8.0)
--- NOTE | 2023-10-02 18:59 | PHA.MEDREC ---
Pharmacy Consult ? Medication Reconciliation Pharmacy has completed the medication reconciliation. Patient from [facility] with med list. Michela Moulton, EricD
[2023-10-02] MEDS: OLANZapine 5 MG TABLET PO (20:28)
[2023-10-02] MEDS: iohexoL 350 MG/ML 100 ML INFUS..BTL IV (21:18)
== END 2023-10-02 23:29 ==
PROVIDERS: Physician Assistant; Emergency Provider Emergency Medicine Emergency Medical Services
DX: S01.91XA Laceration without foreign body of unspecified part of head, initial encounter (principal); S06.0X0A Concussion without loss of consciousness, initial encounter; I48.91 Unspecified atrial fibrillation; R51.9 Headache, unspecified; N20.0 Calculus of kidney; M54.2 Cervicalgia; R94.31 Abnormal electrocardiogram [ECG] [EKG]; I70.90 Unspecified atherosclerosis; R10.2 Pelvic and perineal pain; W01.10XA Fall on same level from slipping, tripping and stumbling with subsequent striking against unspecified object, initial encounter; Y93.9 Activity, unspecified; Y92.9 Unspecified place or not applicable; Y99.8 Other external cause status; Z79.01 Long term (current) use of anticoagulants; Z79.899 Other long term (current) drug therapy
CPT/HCPCS: 12032; 36415; 70450; 71260; 72125; 74177; 80053; 82550; 83735; 84484; 85025; 85610; 93005; 99284; Q9967

== ENCOUNTER → 2023-10-02 16:12 | Outpatient (BNV) | payer MEDICARE, SELFPAY | PROVIDERS: Emergency Provider Emergency Medicine Emergency Medical Services; Visit Provider Internal Medicine Cardiovascular Disease | DX: R94.31 Abnormal electrocardiogram [ECG] [EKG] (principal) | CPT/HCPCS: 93010 ==

== ENCOUNTER 2023-10-11 11:57 | Observation (INO) | payer MEDICARE, SELFPAY ==
--- NOTE | ~2023-10-11 | CT_ITS ---
EXAMINATION: CT HEAD WITHOUT CONTRAST (STROKE PROTOCOL) CLINICAL INFORMATION: Stroke protocol. CVA COMPARISON: 10/02/2023 TECHNIQUE: Contiguous axial imaging was performed from the skull base to vertex without intravenous administration of contrast. This CT examination was performed using dose optimization techniques as appropriate, variously including the following: *Automated exposure control *Adjustment of mA and/or kV according to patient size (this includes techniques or standardized protocols for targeted exams where dose is matched to indication/reason for exam; i.e. extremities or head) *Use of iterative reconstruction technique DLP: 839 mGy-cm FINDINGS: There is no significant interval change in appearance of patchy periventricular white matter changes as well as heterogeneity and low attenuation heterogeneous through the right frontal lobe with prominence of sulci and ventricles. Findings are due to global volume loss, sequela of microangiopathy and remote frontal stroke. There is no evidence of acute ischemic or hemorrhagic stroke, masses, midline shift, mass effect. There are atherosclerotic changes in the wall of the carotid bifurcations more prominent on the right, stable since previous study Paranasal sinuses and mastoids are well aerated. CT/CT head for stroke IMPRESSION: No acute intracranial pathology. Sequela of microangiopathy and remote right frontal stroke. Atherosclerotic changes in carotids. This critical result was discussed with Betsy Katz M.D. at 1225 hours on 10/11/2023. It was ascertained that the content and urgency of the report was understood at the time of direct communication.
--- NOTE | ~2023-10-11 | CT_ITS ---
CT ANGIOGRAM NECK WITH CONTRAST CT ANGIOGRAM BRAIN WITH CONTRAST CLINICAL INFORMATION: None provided. COMPARISON: Head CT performed earlier the same day. TECHNIQUE: Test bolus sequences followed by intravenous administration 70 mL of Omnipaque 350. Helical imaging was performed in the axial plane from the thoracic inlet to the skull vertex. Delayed postcontrast imaging of the head was also performed. The data was processed at the computed tomography technologist workstation for generation of MIP sequences. Angled MIPs and volume rendered reformatted images were also generated at an offline 3D workstation under concurrent supervision. Stenoses are assessed in accordance with NASCET criteria unless otherwise indicated. This CT examination was performed using dose optimization techniques as appropriate, variously including the following: *Automated exposure control *Adjustment of mA and/or kV according to patient size (this includes techniques or standardized protocols for targeted exams where dose is matched to indication/reason for exam; i.e. extremities or head) *Use of iterative reconstruction technique FINDINGS: BRAIN: [There is no intracranial hemorrhage, hydrocephalus, extra-axial surface collection, midline shift, or other herniation pattern. [place] to white matter differentiation is diffusely maintained without evidence of an evolved acute territorial infarct. The basilar cisterns are preserved. No significant soft tissue abnormality. No acute osseous abnormality. The paranasal sinuses and the mastoid air cells are well aerated.] CERVICAL SOFT TISSUES AND LUNG APICES: Extensive emphysema and blebs throughout the imaged lungs. Advanced cervical spondylosis. Diffuse idiopathic skeletal hyperostosis throughout the cervicothoracic spine. No significant soft tissue findings within the neck. NECK CTA: [There is a classic 3 vessel configuration of the aortic arch. Proximal arch vessels are non-stenotic. The vertebral arteries are codominant. No significant ostial stenosis is visualized on either side. Both vertebral arteries are widely patent throughout their extracranial cervical course. Extensive atherosclerotic calcification involving the right carotid bifurcation resulting in a severe stenosis of the right external carotid artery origin and a less than 50% stenosis of the proximal right internal carotid artery. The remainder of the right cervical internal carotid arteries widely patent. There is atherosclerotic calcification involving the left carotid bifurcation resulting in a less than 50% stenosis of the proximal left cervical ICA. The remainder of the left cervical ICA is widely patent. Right occipital artery collaterals. BRAIN CTA: Atherosclerotic calcification throughout the carotid siphons bilaterally without significant stenosis on either side. No focal flow-limiting stenosis nor discrete proximal large artery occlusion. No aneurysm. Timing of the contrast bolus allows assessment of the major dural venous sinuses, which all opacify normally] CT/CT angio head neck stroke IMPRESSION: - No definite acute intracranial findings. Global cerebral volume loss with a severe mesial temporal lobe predominance, chronic microangiopathy, and a few chronic appearing cortical/subcortical infarcts within the right cerebral hemisphere. If focal neurologic deficit persists, MRI would be more sensitive in evaluation. - No acute arterial occlusions intracranially. - Extensive atherosclerotic calcification involving the right carotid bifurcation resulting in a severe stenosis of the right external carotid artery origin and a less than 50% stenosis of the proximal right internal carotid artery. There is atherosclerotic calcification involving the left carotid bifurcation resulting in a less than 50% stenosis of the proximal left cervical ICA. - Extensive emphysema and blebs throughout the imaged lungs. - Cervical spondylosis. Diffuse idiopathic skeletal hyperostosis throughout the cervicothoracic spine. Findings discussed with Dr. Katz at 1:00 PM on 10/11/2023.
--- NOTE | 2023-10-11 12:04 | ED.GENADULT ---
HPI - General Adult General Chief complaint: Stroke Stated complaint: ? STROKE,STROKE SCALE ZERO FROM [facility] PER EMS Time Seen by Provider: 10/11/23 11:59 History of Present Illness HPI narrative: 70 y/o M patient; H vascular dementia, atrial fibrillation on Eliquis, psychosis, COPD; presents from SNF with concern for CVA. Patient last seen normal at approx 11am. Noticed by staff to have slurred speech and ? facial droop. EMS was called and on their arrival patient with resolution of symptoms. Patient himself is a poor historian. Denies acute complaints. Glucose appropriate. Related Data Home Medications ?Medication ?Instructions ?Recorded ?Confirmed apixaban 5 mg tablet (Eliquis) 1 tab PO BID 04/26/22 10/11/23 aspirin 81 mg tablet,delayed 81 mg PO DAILY 04/26/22 10/11/23 release atorvastatin 10 mg tablet (Lipitor) 10 mg PO BEDTIME 04/26/22 10/11/23 cholecalciferol (vitamin D3) 25 25 mcg PO DAILY 04/26/22 10/11/23 mcg (1,000 unit) tablet (Vitamin D3) docusate sodium 100 mg capsule 100 mg PO DAILY 04/26/22 10/11/23 (Colace) loratadine 10 mg tablet 10 mg PO DAILY 04/26/22 10/11/23 trazodone 50 mg tablet 50 mg PO BEDTIME 04/26/22 10/11/23 divalproex 500 mg tablet,delayed 500 mg PO BID 10/02/23 10/11/23 release finasteride 5 mg tablet 5 mg PO DAILY 10/02/23 10/11/23 fluconazole 50 mg tablet 150 mg PO DAILY PRN Nasal 10/02/23 10/11/23 Congestion folic acid 1 mg tablet 1 mg PO DAILY 10/02/23 10/11/23 lactulose 10 gram/15 mL oral 10 g PO DAILY 10/02/23 10/11/23 solution quetiapine 100 mg tablet 100 mg PO BID 10/02/23 10/11/23 sennosides 8.8 mg/5 mL oral syrup 8.8 mg PO BEDTIME 10/02/23 10/11/23 spironolactone 25 mg tablet 25 mg PO DAILY 10/02/23 10/11/23 thiamine HCl (vitamin B1) 100 mg 100 mg PO DAILY 10/02/23 10/11/23 tablet acetaminophen 325 mg tablet 650 mg PO Q6H PRN pain/fever 10/11/23 10/11/23 fluticasone propionate 50 1 spray intranasal DAILY 10/11/23 10/11/23 mcg/actuation nasal spray,suspension guaifenesin 100 mg/5 mL oral liquid 100 mg PO Q6H PRN Cough 10/11/23 10/11/23 hydrochlorothiazide 12.5 mg capsule 12.5 mg PO DAILY 10/11/23 10/11/23 lorazepam 0.5 mg tablet 0.5 mg PO Q6H PRN Anxiety 10/11/23 10/11/23 magnesium hydroxide 400 mg/5 mL 30 ml PO BEDTIME PRN Constipation 10/11/23 10/11/23 oral suspension (Milk of Magnesia) quetiapine 25 mg tablet 25 mg PO BEDTIME PRN Agitation 10/11/23 10/11/23 Previous Rx's ?Medication ?Instructions ?Recorded tamsulosin 0.4 mg capsule 0.4 mg PO DAILY #30 caps 04/28/22 Allergies Allergy/AdvReac Type Severity Reaction Status Date / Time No Known Allergies Allergy Verified 10/11/23 12:08 [No Known Allergies*] Review of Systems Review of Systems: Yes all other systems are reviewed and are negative Neurologic: Denies Abnormal speech present and Denies Sensory deficit (Neuro) [facility] Past Medical History Attestation statement: The following information was validated with the patient. Source: old records reviewed Medical History Psychosis Depression Atrial fibrillation Hypertension Hyperlipidemia Vascular dementia COPD (chronic obstructive pulmonary disease) Social History Social History Household Members: None Housing: Correction Patient Tobacco Use Status: Never used Tobacco Advance Directives: Yes Advance Directives on File: Yes Advance Directives Date on File: 04/27/22 service: Yes Current occupational status: retired Physical Exam ED Vital Signs: Vital Signs - 24 hr 10/11/23 12:07 Temperature 96.6 F L Pulse Rate 77 Respiratory Rate 20 Blood Pressure 146/74 H Pulse Oximetry 97 Oxygen Delivery Method Room Air BMI result Body Mass Index 29.6 Patient is afebrile and mildly hypertensive. Const General: alert and awake Orientation/consciousness: oriented to person, No oriented to place and No oriented to time HENMT Head: Yes atraumatic Eyes General: appearance normal, both eyes and all related structures Pupils: Equal, round and reactive pupils present EOM: EOMs intact bilaterally Neck Neck: Yes normal visual inspection and Yes full ROM Chest Chest palpation & inspection: normal inspection of the chest and normal palpation of entire chest wall Resp Effort & Inspection: normal respiratory effort and able to speak in complete sentences Auscultation: clear to auscultation bilaterally Cardio Rate: regular rate Rhythm: regular rhythm Peripheral pulses: Peripheral pulses 2+ throughout GI Palpation (GI): Soft to palpation, not firm, nontender, no guarding and not rigid Auscultation: normal bowel sounds Neuro General: oriented to person, No oriented to place and No oriented to time Cranial nerves: Yes CN's II-XII intact bilaterally and Yes Equal, round and reactive pupils present Speech: No Abnormal speech present, No Expressive aphasia present and No Receptive aphasia present Motor exam (neuro): 5/5 motor strength present throughout Sensory Exam: No Sensory deficit (Neuro) NIH Stroke Scale Internal: Initial- Upon Arrival Time: 12:05 Level of Consciousness: Alert Level of Consciousness Questions: Answers neither question correctly Level of Consciousness Commands: Performs both tasks correctly Best Gaze: Normal Visual: No visual loss Facial Palsy: Normal Motor Arm (Right): No drift Motor Arm (Left): No drift Motor Leg (Right): No drift Motor Leg (Left): No drift Limb Ataxia: Absent Sensory: Normal Best Language: No aphasia Dysarthia: Normal Extinction and Inattention: No abnormality Score: 2 Course Course Course Narrative: Patient is afebrile and hemodynamically stable. Activated as stroke on arrival and sent to CT scanner. History of severe underlying vascular dementia. Required 2mg IM Versed for CT scan to be performed. CT Head, CTA Head/Neck performed. Laboratory studies ordered. NIHSS 2 for level of consciousness questions, however again patient has baseline dementia. Reevaluation(s) Reevaluation #1: CT Head and CTA Head/Neck negative for new acute abnormalities. Laboratory studies unremarkable. COVID/Flu/RSV negative. Will plan for admission for TIA evaluation. Plan: Admit to hospitalist Condition: Stable Medications Administered Discontinued Medications Generic Name Dose Route Start Last Admin Trade Name Freq PRN Reason Stop Dose Admin Iohexol 100 ml 10/11/23 12:27 10/11/23 12:27 Iohexol 350 Mg/Ml 100 Ml Infus..Btl IV 10/11/23 12:28 70 ml ONCE ONE Administration Midazolam HCl 2 mg 10/11/23 12:10 10/11/23 12:39 Midazolam Hcl/Pf 2 Mg/2 Ml Vial IM 10/11/23 12:11 2 mg ONCE ONE Administration Medical Decision Making Lab Data 10/11/23 12:23 10/11/23 12:23 Labs: Lab Results 10/11/23 10/11/23 Range/Units 12:02 12:23 WBC 7.4 (4.8-10.8) X10*3/uL RBC 5.04 (4.60-5.80) X10*6/uL Hgb 15.5 (14.0-18.0) g/dl Hct 44.9 (42.0-52.0) % MCV 89.1 (80.0-98.0) fL MCH 30.8 (27.0-33.0) pg MCHC 34.5 (31.0-36.0) g/dl RDW 13.7 (11.0-16.0) % Plt Count 252 (160-400) X10*3/uL MPV 9.7 (9.4-12.4) fL Immature Gran % (Auto) 0.3 (0.0-0.4) % Neut % (Auto) 58.9 (45-73) % Lymph % (Auto) 26.0 (20-40) % Atlantic % (Auto) 8.6 (2-11) % Eos % (Auto) 5.7 H (0-4) % Baso % (Auto) 0.5 (0-2) % Lymph # (Auto) 1.9 (1.2-4.9) X10*3/uL [place] # (Auto) 0.6 (0.1-1.2) X10*3/uL Eos # (Auto) 0.4 (0.0-0.4) X10*3/uL Baso # (Auto) 0.0 (0.0-0.2) X10*3/uL Abs Immat Gran (auto) 0.02 (0.00-0.03) X10*3/uL Absolute Neuts (auto) 4.4 (2.0-8.3) x10*3/uL Absolute Nucleated RBC 0.000 (0.0-0.012) X10*3/uL Nucleated RBC % (auto) 0.0 (0.0-0.2) /100WBC Whole Blood PT 14.4 H (11.1-13.5) sec Whole Blood INR 1.2 H (0.9-1.1) Hold Blue Top SEE NOTE Sodium 137 (135-145) mmol/L Potassium 4.1 (3.3-5.1) mmol/L Chloride 107 (96-108) mmol/L Carbon Dioxide 20 L (22-29) mmol/L Anion Gap 14 (12-20) BUN 24 H (9-16) mg/dL Creatinine 0.95 (0.5-1.4) mg/dL Estim Creat Clear Calc 69.2 Estimated GFR > 60 POC Glucose 152 H (60-115) mg/dL Random Glucose 119 H (60-115) mg/dL Estimat Average Glucose 105 mg/dL Hemoglobin A1c % 5.3 (<6.0) % Calcium 8.6 D (8.4-10.2) mg/dL Total Bilirubin 0.6 (0.0-1.0) mg/dL Direct Bilirubin 0.2 (0.0-0.5) mg/dL AST 27 (5-37) U/L ALT 10 (0-40) U/L Alkaline Phosphatase 70 (39-117) U/L Troponin I High Sens < 2.7 (<3.5-35.0) ng/L Total Protein 6.9 (6.5-8.0) g/dL Albumin 3.5 (3.5-5.0) g/dL Triglycerides 140 (<150) mg/dL Cholesterol 158 (<200) mg/dL LDL Cholesterol, Calc 100 H (<100) mg/dL HDL Cholesterol 30 L (>40) mg/dL Lipase 19 (8-78) U/L Influenza Type A (PCR) NEGATIVE (Negative) Influenza Type B (PCR) NEGATIVE (Negative) RSV RNA Qual (PCR) NEGATIVE (Negative) SARS-CoV-2 RNA (RT-PCR) NEGATIVE (Negative) Discharge Plan Discharge Patient Disposition: Admitted As Inpatient Print Language: Spanish
[2023-10-11 12:05] LABS: Prothrombin Time Whole Bld POC 14.4 sec (11.1-13.5); ~PT, ~INR - Anti Coag Clinic 1.2 (0.9-1.1)
[2023-10-11 12:06] LABS: Glucose, Whole Blood 152 mg/dL (60-115)
[2023-10-11 12:07] VITALS: BP 146/74; PULSE 77; RESP 20; TEMP 35.9; O2SAT 97; BMI 29.6
--- NOTE | 2023-10-11 12:08 | ECG_ITS ---
Test Reason : STROKE Blood Pressure : / mmHG Vent. Rate : 077 BPM Atrial Rate : 077 BPM P-R Int : 158 ms QRS Dur : 116 ms QT Int : 416 ms P-R-T Axes : 062 268 057 degrees QTc Int : 470 ms Sinus rhythm with Premature supraventricular complexes Low voltage QRS Right bundle branch block T wave abnormality, consider lateral ischemia Abnormal ECG When compared with ECG of 02-OCT-2023 16:33, Fusion complexes are no longer Present Premature ventricular complexes are no longer Present Premature supraventricular complexes are now Present Right bundle branch block is now Present Referred By: Betsy Katz Electronically Signed By:Chavez Griffith
[2023-10-11 12:09] VITALS: BP 134/76; PULSE 84; O2SAT 97
[2023-10-11] MEDS: iohexoL 350 MG/ML 100 ML INFUS..BTL IV (12:27)
[2023-10-11 12:30] LABS: MANUAL DIFF FLAG NO
[2023-10-11 12:33] LABS: Basophils Percent Auto 0.5 % (0-2); Eosinophils Absolute Auto 0.4 X10*3/uL (0.0-0.4); Eosinophils Percent Auto 5.7 % (0-4); Hematocrit 44.9 % (42.0-52.0); Hemoglobin 15.5 g/dl (14.0-18.0); Imm Gran Abs Auto 0.02 X10*3/uL (0.00-0.03); Imm Gran Pct Auto 0.3 % (0.0-0.4); Lymphocytes Absolute Auto 1.9 X10*3/uL (1.2-4.9); Mean Corpuscular HGB Conc 34.5 g/dl (31.0-36.0); Mean Corpuscular Hemoglobin 30.8 pg (27.0-33.0); Mean Corpuscular Volume 89.1 fL (80.0-98.0); Mean Platelet Volume 9.7 fL (9.4-12.4); Monocytes Absolute Auto 0.6 X10*3/uL (0.1-1.2); Monocytes Percent Auto 8.6 % (2-11); Neutrophils Absolute Auto 4.4 x10*3/uL (2.0-8.3); Neutrophils Percent Auto 58.9 % (45-73); Platelet Count 252 X10*3/uL (160-400); Red Blood Count 5.04 X10*6/uL (4.60-5.80); Red Cell Distribution Width 13.7 % (11.0-16.0); White Blood Count 7.4 X10*3/uL (4.8-10.8)
[2023-10-11 12:39] LABS: Estimated Average Glucose 105 mg/dL; Hemoglobin A1c % 5.3 % (<6.0)
[2023-10-11] MEDS: Midazolam HCl/PF 2 MG/2 ML VIAL IM (12:39)
[2023-10-11 12:52] LABS: Alanine Aminotransferase 10 U/L (0-40); Albumin Level 3.5 g/dL (3.5-5.0); Alkaline Phosphatase 70 U/L (39-117); Anion Gap 14 (12-20); Aspartate Amino Transferase 27 U/L (5-37); Bilirubin Direct 0.2 mg/dL (0.0-0.5); Bilirubin Total 0.6 mg/dL (0.0-1.0); Blood Urea Nitrogen 24 mg/dL (9-16); Calcium 8.6 mg/dL (8.4-10.2); Carbon Dioxide 20 mmol/L (22-29); Chloride 107 mmol/L (96-108); Cholesterol 158 mg/dL (<200); Creatinine Clr Calc Pharmacy 69.2; Estimated Glomerular Filt Rate > 60; Glucose Random 119 mg/dL (60-115); HDL Cholesterol 30 mg/dL (>40); LDL Cholesterol Calculated 100 mg/dL (<100); Lipase 19 U/L (8-78); Potassium 4.1 mmol/L (3.3-5.1); Sodium 137 mmol/L (135-145); Total Protein 6.9 g/dL (6.5-8.0); Triglycerides 140 mg/dL (<150)
[2023-10-11 12:57] LABS: Troponin-I High Sensitivity < 2.7 ng/L (<3.5-35.0)
--- NOTE | 2023-10-11 13:19 | PHA.MEDREC ---
Pharmacy Consult ? Medication Reconciliation Pharmacy has completed the medication reconciliation, list provided from [facility].
--- NOTE | 2023-10-11 13:37 | PC.NURSE ---
Daughter/HCP phone # [phone]
[2023-10-11 13:42] LABS: Influenza A PCR NEGATIVE (Negative); Influenza B PCR NEGATIVE (Negative); Resp Syncy Virus RNA Qual PCR NEGATIVE (Negative); SARS COV2 PCR INHOUSE NEGATIVE (Negative)
[2023-10-11 14:20] VITALS: O2SAT 97
--- NOTE | 2023-10-11 14:31 | PC.NURSE ---
Patient regularly getting OOB, redirectable at times, insisting on sitting on edge of stretcher at this time. Camera sitter at bedside.
--- NOTE | 2023-10-11 14:40 | PM.IMHP ---
History of Present Illness Date of Service: 10/11/23 Attending physician on admission: Jamaal Cazares Chief Complaint: left sided facial droop 70-year-old male with history of paroxysmal atrial fibrillation anticoagulated with Eliquis, hypertension, vascular dementia, COPD, mood disorder and psychosis, schizoid personality disorder presented to the ED from SNF with concern for CVA. Last known well time was 11:00. Patient was then noted to have slurred speech and left-sided facial droop per staff and EMS was called. By the time EMS arrived, symptoms had fully resolved. Patient is a poor historian at baseline secondary to his vascular dementia but has no complaints at this time. On arrival, vital signs stable. No leukocytosis or anemia. Renal function baseline, electrolyte levels normal. Glucose 152. Hemoglobin A1c 5.3%. Hepatic function within normal limits. LDL 100, total cholesterol 158. Negative for influenza, COVID-19, RSV. CTA of head negative for definitive acute intracranial findings but shows global cerebral volume loss with a severe mesial temporal lobe prominence, chronic microangiopathy and a few chronic appearing cortical/subcortical infarcts within the right cerebral hemisphere. No acute arterial occlusions intracranially. Also noted is extensive atherosclerotic calcification involving the right carotid bifurcation resulting in severe stenosis of right external carotid artery origin and a less than 50% stenosis of the proximal right internal carotid artery. Also atherosclerotic calcifications involving the left carotid bifurcation resulting in less than 50% stenosis of the proximal left cervical ICA. EKG shows sinus rhtyhm with PSVT, rbbb, no acute ischemic changes. In the ED, ordered for 324mg asa. Review of Systems Review of Systems: Yes Unobtainable due to mental status [facility] Medical History Psychosis Depression Atrial fibrillation Hypertension Hyperlipidemia Vascular dementia COPD (chronic obstructive pulmonary disease) Social History Household Members: None Housing: [facility] Unable to assess alcohol history related to: Unknown Patient Tobacco Use Status: Never used Tobacco Smoked in Last 30 Days: No Use of substances other than those prescribed or required for medical reasons: No Advance Directives: Yes Advance Directives on File: Yes Advance Directives Date on File: 04/27/22 service: Yes Current occupational status: retired Meds Allergies Allergy/AdvReac Type Severity Reaction Status Date / Time No Known Allergies Allergy Verified 10/11/23 12:08 [No Known Allergies*] Active Medications: Current Medications Acetaminophen (Acetaminophen 325 Mg Tablet) 650 mg PO Q6H PRN PRN Reason: Pain, Mild (Pain Scale 1-3) Atorvastatin Calcium (Atorvastatin Calcium 80 Mg Tablet) 80 mg PO DAILY REPLACED BY [facility] Ondansetron HCl (Ondansetron Hcl 4 Mg/2 Ml Vial) 4 mg IVPUSH Q8H PRN PRN Reason: Nausea and Vomiting Senna (Sennosides 8.6 Mg Tablet) 17.2 mg PO BEDTIME PRN PRN Reason: Constipation Sodium Chloride (0.9 % Sodium Chloride Flush 3 Ml Syringe) 3 ml IVFLUSH QSHIFT REPLACED BY [facility] Home Medications ?Medication ?Instructions ?Recorded ?Confirmed ?Last Taken ?Type apixaban 5 mg tablet (Eliquis) 1 tab PO BID 04/26/22 10/11/23 10/11/23 History aspirin 81 mg tablet,delayed 81 mg PO DAILY 04/26/22 10/11/23 10/11/23 History release atorvastatin 10 mg tablet (Lipitor) 10 mg PO BEDTIME 04/26/22 10/11/23 10/10/23 History cholecalciferol (vitamin D3) 25 25 mcg PO DAILY 04/26/22 10/11/23 10/11/23 History mcg (1,000 unit) tablet (Vitamin D3) docusate sodium 100 mg capsule 100 mg PO DAILY 04/26/22 10/11/23 10/11/23 History (Colace) loratadine 10 mg tablet 10 mg PO DAILY 04/26/22 10/11/23 10/11/23 History trazodone 50 mg tablet 50 mg PO BEDTIME 04/26/22 10/11/23 10/10/23 History divalproex 500 mg tablet,delayed 500 mg PO BID 10/02/23 10/11/23 10/11/23 History release finasteride 5 mg tablet 5 mg PO DAILY 10/02/23 10/11/23 10/11/23 History fluconazole 50 mg tablet 150 mg PO DAILY 10/02/23 10/11/23 10/11/23 History folic acid 1 mg tablet 1 mg PO DAILY 10/02/23 10/11/23 10/11/23 History lactulose 10 gram/15 mL oral 10 g PO DAILY 10/02/23 10/11/23 10/11/23 History solution quetiapine 100 mg tablet 100 mg PO BID 10/02/23 10/11/23 10/11/23 History sennosides 8.8 mg/5 mL oral syrup 8.8 mg PO BEDTIME 10/02/23 10/11/23 10/10/23 History spironolactone 25 mg tablet 25 mg PO DAILY 10/02/23 10/11/23 10/11/23 History thiamine HCl (vitamin B1) 100 mg 100 mg PO DAILY 10/02/23 10/11/23 10/11/23 History tablet acetaminophen 325 mg tablet 650 mg PO Q6H PRN pain/fever 10/11/23 10/11/23 Unknown History fluticasone propionate 50 1 spray intranasal DAILY 10/11/23 10/11/23 10/10/23 History mcg/actuation nasal spray,suspension guaifenesin 100 mg/5 mL oral liquid 100 mg PO Q6H PRN Cough 10/11/23 10/11/23 Unknown History hydrochlorothiazide 12.5 mg capsule 12.5 mg PO DAILY 10/11/23 10/11/23 10/11/23 History lorazepam 0.5 mg tablet 0.5 mg PO Q6H PRN Anxiety 10/11/23 10/11/23 10/04/23 History magnesium hydroxide 400 mg/5 mL 30 ml PO BEDTIME PRN Constipation 10/11/23 10/11/23 Unknown History oral suspension (Milk of Magnesia) quetiapine 25 mg tablet 25 mg PO BEDTIME PRN Agitation 10/11/23 10/11/23 Unknown History Physical Exam Vital Signs and Narrative: Vital Signs: Last Vital Signs Temp 96.6 F L 10/11/23 12:07 Pulse 77 10/11/23 12:07 Resp 20 10/11/23 12:07 BP 146/74 H 10/11/23 12:07 Pulse Ox 97 10/11/23 12:07 O2 Del Method Room Air 10/11/23 12:07 BMI result Body Mass Index 29.6 Constitutional - Awake and Alert, No apparent distress Eyes - PERRLA, EOMI Cardiovascular - S1S2, RRR, No edema Respiratory - Normal lung expansion, Normal respiratory effort, No respiratory distress, CTA bilaterally Gastrointestinal - NT / ND; +BS; No rebound or guarding Extremities - no calf tenderness bilaterally, no swelling Skin - Warm/Dry . No rashes Neurological - Alert & oriented x3, CN II-XII in tact, 5/5 strength BUE and BLE, patellar reflexes symmetric. unable to perform finger to nose or heel to vaughn testing due to difficulty following commands Psychological - Appropriate affect Results Labs 10/11/23 12:23 10/11/23 12:23 Labs: Laboratory Results - last 24 hr 10/11/23 10/11/23 12:02 12:23 MCV 89.1 MCH 30.8 MCHC 34.5 RDW 13.7 Plt Count 252 MPV 9.7 Immature Gran % (Auto) 0.3 Neut % (Auto) 58.9 Lymph % (Auto) 26.0 [place]ney % (Auto) 8.6 Eos % (Auto) 5.7 H Baso % (Auto) 0.5 Lymph # (Auto) 1.9 [place] # (Auto) 0.6 Eos # (Auto) 0.4 Baso # (Auto) 0.0 Abs Immat Gran (auto) 0.02 Absolute Neuts (auto) 4.4 Absolute Nucleated RBC 0.000 Nucleated RBC % (auto) 0.0 Whole Blood PT 14.4 H Whole Blood INR 1.2 H Hold Blue Top SEE NOTE Anion Gap 14 Estim Creat Clear Calc 69.2 Estimated GFR > 60 POC Glucose 152 H Random Glucose 119 H Estimat Average Glucose 105 Hemoglobin A1c % 5.3 Calcium 8.6 D Total Bilirubin 0.6 Direct Bilirubin 0.2 AST 27 ALT 10 Alkaline Phosphatase 70 Troponin I High Sens < 2.7 Total Protein 6.9 Albumin 3.5 Triglycerides 140 Cholesterol 158 LDL Cholesterol, Calc 100 H HDL Cholesterol 30 L Lipase 19 Influenza Type A (PCR) NEGATIVE Influenza Type B (PCR) NEGATIVE RSV RNA Qual (PCR) NEGATIVE SARS-CoV-2 RNA (RT-PCR) NEGATIVE Imaging Radiologist's Impressions: Impressions Head CT 10/11/23 12:14 IMPRESSION: No acute intracranial pathology. Sequela of microangiopathy and remote right frontal stroke. Atherosclerotic changes in carotids. This critical result was discussed with Betsy Katz M.D. at 1225 hours on 10/11/2023. It was ascertained that the content and urgency of the report was understood at the time of direct communication. Head/Neck CTA 10/11/23 12:32 IMPRESSION: - No definite acute intracranial findings. Global cerebral volume loss with a severe mesial temporal lobe predominance, chronic microangiopathy, and a few chronic appearing cortical/subcortical infarcts within the right cerebral hemisphere. If focal neurologic deficit persists, MRI would be more sensitive in evaluation. - No acute arterial occlusions intracranially. - Extensive atherosclerotic calcification involving the right carotid bifurcation resulting in a severe stenosis of the right external carotid artery origin and a less than 50% stenosis of the proximal right internal carotid artery. There is atherosclerotic calcification involving the left carotid bifurcation resulting in a less than 50% stenosis of the proximal left cervical ICA. - Extensive emphysema and blebs throughout the imaged lungs. - Cervical spondylosis. Diffuse idiopathic skeletal hyperostosis throughout the cervicothoracic spine. Findings discussed with Dr. Katz at 1:00 PM on 10/11/2023. Assessment and Plan (1) Transient cerebral ischemia: Status: Acute Plan 70-year-old male with history of paroxysmal atrial fibrillation anticoagulated with Eliquis, hypertension, vascular dementia, COPD, mood disorder and psychosis, schizoid personality disorder to be observed for TIA #Acute TIA -CTA head/neck and head ct negative for acute intracranial abn but shows: - No definite acute intracranial findings. Global cerebral volume loss with a severe mesial temporal lobe predominance, chronic microangiopathy, and a few chronic appearing cortical/subcortical infarcts within the right cerebral hemisphere. If focal neurologic deficit persists, MRI would be more sensitive in evaluation. - No acute arterial occlusions intracranially. - Extensive atherosclerotic calcification involving the right carotid bifurcation resulting in a severe stenosis of the right external carotid artery origin and a less than 50% stenosis of the proximal right internal carotid artery. There is atherosclerotic calcification involving the left carotid bifurcation resulting in a less than 50% stenosis of the proximal left cervical ICA. -given 324mg asa in ed, continue 81mg daily -LDL 100, goal <70. Atorvastatin 80mg daily -MRI brain ordered, awaiting hcp consent -neuro checks, keep npo until bedside swallow eval completed, stroke edu -neuro consult -echo -monitor on telemetry #Paroxysmal atrial fibrillation- rate controlled -continue eliquis for anticoagulation -not on rate control meds #HTN -hold antihypertensives given acute TIA. Resume as appropriate. Blood pressure reasonably controlled at time of admission #COPD -no acute exacerbation -albuterol p.r.n. # vascular dementia -mentation baseline # mood disorder/psychosis -continue home meds # severe fungal rash per SNF -no evidence of rash in groin or on trunk -no indication for 150mg fluconazole daily. Will continue 150mg weekly dvt prophylaxis- amalia dnr/dni per molst form HCP invoked- daughterCandi, Quality Stroke Does the patient have a stroke diagnosis?: Yes Reason for No Anti-thrombotic by Day Two: Drug treatment not indicated VTE Prior VTE?: No VTE Risk Level:: Medical - moderate - high VTE Device Contraindication: Treatment Not Indicated VTE Drug Contraindication: N/A - Med Ordered
--- NOTE | 2023-10-11 15:05 | PC.NURSE ---
Patient able to swallow apple juice with no issues, MRI informed patient is not consentable to MRI. Report given to Ida/Andres.
[2023-10-11] MEDS: Aspirin 81 MG TAB.CHEW 324 MG PO (15:46)
--- NOTE | 2023-10-11 16:59 | PM.DS ---
DS: Providers Provider Date of Service: 10/11/23 Date of admission: 10/11/23 14:31 Date of discharge: 10/11/23 Primary care physician: Unknown Physician Admitting clinician: Kayla Wing Attending physician on admission: Jamaal Cazares Consults: 10/11/23 14:33 Consult to Neurology Routine Consulting Provider: [facility] Reason for consultation: tia Attending physician on discharge: Ankush Mcfadden Discharging clinician: Kayla Wing DS: Diagnosis Discharge Diagnosis (1) Transient cerebral ischemia: Status: Acute DS: Summary Hospital Course Hospital Course: HPI on admission by this provider 10/11/23: Chief Complaint: left sided facial droop 70-year-old male with history of paroxysmal atrial fibrillation anticoagulated with Eliquis, hypertension, vascular dementia, COPD, mood disorder and psychosis, schizoid personality disorder presented to the ED from SNF with concern for CVA. Last known well time was 11:00. Patient was then noted to have slurred speech and left-sided facial droop per staff and EMS was called. By the time EMS arrived, symptoms had fully resolved. Patient is a poor historian at baseline secondary to his vascular dementia but has no complaints at this time. On arrival, vital signs stable. No leukocytosis or anemia. Renal function baseline, electrolyte levels normal. Glucose 152. Hemoglobin A1c 5.3%. Hepatic function within normal limits. LDL 100, total cholesterol 158. Negative for influenza, COVID-19, RSV. CTA of head negative for definitive acute intracranial findings but shows global cerebral volume loss with a severe mesial temporal lobe prominence, chronic microangiopathy and a few chronic appearing cortical/subcortical infarcts within the right cerebral hemisphere. No acute arterial occlusions intracranially. Also noted is extensive atherosclerotic calcification involving the right carotid bifurcation resulting in severe stenosis of right external carotid artery origin and a less than 50% stenosis of the proximal right internal carotid artery. Also atherosclerotic calcifications involving the left carotid bifurcation resulting in less than 50% stenosis of the proximal left cervical ICA. EKG shows sinus rhtyhm with PSVT, rbbb, no acute ischemic changes. In the ED, ordered for 324mg asa. Hospital course: Hospital course uneventful. Patient was to be observed overnight due to TIA. On admission there were no residual focal neuro deficits. Patient did receive 324 mg aspirin in the ED. Upon further discussion with patient's daughter, Candi, who is healthcare proxy, patient would be unlikely to tolerate MRI and would likely need further sedation. It was discussed the the MRI would possibly help determine if additional therapy, such as the addition of plavix to patient medication regimen. However, given patient's recent increase in falls, adding plavix to existing aspirin and eliquis therapy would increase risk of bleed should patient fall and given severity of vascular dementia, known vascular disease as evidenced by head ct and cta head/neck results, it would be questionable if this would enhance patient's quality of life. We discussed that patient's are often monitored over night for progression of or recurrence of symptoms. However, given patient is already anticoagulated with eliquis would not likely be a candidate for TNK. Call was placed to neurology but after further discussion with patient's daughter who wishes the patient be discharged back to the [facility] and to forego MRI brain at this time. Continue eliquis, asa 81mg daily. Increase atorvastatin to 80mg daily as LDL not at goal <70. #Acute TIA -CTA head/neck and head ct negative for acute intracranial abn but shows: - No definite acute intracranial findings. Global cerebral volume loss with a severe mesial temporal lobe predominance, chronic microangiopathy, and a few chronic appearing cortical/subcortical infarcts within the right cerebral hemisphere. If focal neurologic deficit persists, MRI would be more sensitive in evaluation. - No acute arterial occlusions intracranially. - Extensive atherosclerotic calcification involving the right carotid bifurcation resulting in a severe stenosis of the right external carotid artery origin and a less than 50% stenosis of the proximal right internal carotid artery. There is atherosclerotic calcification involving the left carotid bifurcation resulting in a less than 50% stenosis of the proximal left cervical ICA. -given 324mg asa in ed, continue 81mg daily -LDL 100, goal <70. Atorvastatin 80mg daily -Daughter, HCP, declines MRI and wishes patient to be transferred as above -continue asa 81mg daily and increase atorvastatin to 80mg daily given LDL 100, goal <70 with significant arterial disease noted on CTA. #HTN -Resume antihypertensives #COPD -no acute exacerbation -albuterol p.r.n. # vascular dementia -mentation baseline # mood disorder/psychosis -continue home meds # severe fungal rash per SNF -no evidence of rash in groin or on trunk -no indication for 150mg fluconazole daily. Will continue 150mg weekly if indicated, would not recommend daily use dvt prophylaxis- eliquis dnr/dni per molst form HCP invoked- daughter, Candi, Status at Discharge Overall status at discharge: patient is progressing back to baseline Time Attestation Discharge Coordination Time (in mins): 42 Quality: Safe Use of Opioids Does Pt have an Active Cancer Diagnosis on the Problem List?: No Quality: Stroke Does the patient have a stroke diagnosis?: No Physical Exam Vital Signs: Vital Signs: Last Vital Signs Temp 96.6 F L 10/11/23 12:07 Pulse 77 10/11/23 12:07 Resp 20 10/11/23 12:07 BP 146/74 H 10/11/23 12:07 Pulse Ox 97 10/11/23 12:07 O2 Del Method Room Air 10/11/23 12:07 BMI result Body Mass Index 29.6 DS: Data Data Completed and Pending Completed studies during hospitalization [Text1]: Procedures Drainage of Bladder with Drainage Device, Via Natural or Artificial Opening (04/26/22) Labs on day of discharge: Laboratory Results - last 24 hr 10/11/23 10/11/23 12:02 12:23 WBC 7.4 RBC 5.04 Hgb 15.5 Hct 44.9 MCV 89.1 MCH 30.8 MCHC 34.5 RDW 13.7 Plt Count 252 MPV 9.7 Immature Gran % (Auto) 0.3 Neut % (Auto) 58.9 Lymph % (Auto) 26.0 [place] % (Auto) 8.6 Eos % (Auto) 5.7 H Baso % (Auto) 0.5 Lymph # (Auto) 1.9 [place] # (Auto) 0.6 Eos # (Auto) 0.4 Baso # (Auto) 0.0 Abs Immat Gran (auto) 0.02 Absolute Neuts (auto) 4.4 Absolute Nucleated RBC 0.000 Nucleated RBC % (auto) 0.0 Whole Blood PT 14.4 H Whole Blood INR 1.2 H Hold Blue Top SEE NOTE Sodium 137 Potassium 4.1 Chloride 107 Carbon Dioxide 20 L Anion Gap 14 BUN 24 H Creatinine 0.95 Estim Creat Clear Calc 69.2 Estimated GFR > 60 POC Glucose 152 H Random Glucose 119 H Estimat Average Glucose 105 Hemoglobin A1c % 5.3 Calcium 8.6 D Total Bilirubin 0.6 Direct Bilirubin 0.2 AST 27 ALT 10 Alkaline Phosphatase 70 Troponin I High Sens < 2.7 Total Protein 6.9 Albumin 3.5 Triglycerides 140 Cholesterol 158 LDL Cholesterol, Calc 100 H HDL Cholesterol 30 L Lipase 19 Influenza Type A (PCR) NEGATIVE Influenza Type B (PCR) NEGATIVE RSV RNA Qual (PCR) NEGATIVE SARS-CoV-2 RNA (RT-PCR) NEGATIVE Discharge Plan Discharge Anticipated Discharge Date/Time: 10/11/23 16:52 Patient Disposition: Xfer LT Discharge Diagnosis: TIA Referrals: Physician,Unknown J [Primary Care Provider] - 1 Week Discharge Medications: New atorvastatin 80 mg Tablet 80 mg PO DAILY Qty: 30 0RF Continued Eliquis 5 mg tablet 1 tab PO BID trazodone 50 mg Tablet 50 mg PO BEDTIME aspirin 81 mg Tablet,Delayed Release (Dr/Ec) 81 mg PO DAILY docusate sodium [Colace] 100 mg Capsule 100 mg PO DAILY loratadine 10 mg Tablet 10 mg PO DAILY cholecalciferol (vitamin D3) [Vitamin D3] 25 mcg (1,000 unit) Tablet 25 mcg PO DAILY tamsulosin 0.4 mg Capsule 0.4 mg PO DAILY Qty: 30 0RF thiamine HCl (vitamin B1) 100 mg Tablet 100 mg PO DAILY sennosides 8.8 mg/5 mL Syrup 8.8 mg PO BEDTIME divalproex 500 mg Tablet,Delayed Release (Dr/Ec) 500 mg PO BID quetiapine 100 mg Tablet 100 mg PO BID spironolactone 25 mg Tablet 25 mg PO DAILY folic acid 1 mg Tablet 1 mg PO DAILY finasteride 5 mg Tablet 5 mg PO DAILY lactulose 10 gram/15 mL Solution 10 g PO DAILY hydrochlorothiazide 12.5 mg Capsule 12.5 mg PO DAILY quetiapine 25 mg Tablet 25 mg PO BEDTIME PRN (Reason: Agitation) acetaminophen 325 mg Tablet 650 mg PO Q6H PRN (Reason: pain/fever) guaifenesin 100 mg/5 mL Liquid 100 mg PO Q6H PRN (Reason: Cough) lorazepam 0.5 mg Tablet 0.5 mg PO Q6H PRN (Reason: Anxiety) magnesium hydroxide [Milk of Magnesia] 400 mg/5 mL Suspension 30 ml PO BEDTIME PRN (Reason: Constipation) Rx Instructions: for no BM in 3 days or 9 shifts and no stool in rectum fluticasone propionate 50 mcg/actuation [place],Suspension 1 spray INTRANASAL DAILY Rx Instructions: administer into each nostril Changed fluconazole 50 mg Tablet 150 mg PO QWEEK Qty: 30 0RF Rx Instructions: stop date 11/03/23 (tx duration 10 weeks) Discontinued atorvastatin [Lipitor] 10 mg Tablet 10 mg PO BEDTIME Discharge Orders: Discharge Order (Routine); Ordered 10/11/23 Ordered By: Kayla Wing Diet: Advance to usual diet Activity on Discharge: As tolerated Stand Alone Forms: Patient Portal Discharge page Print Language: Palestinian Care Plan Goals: Enhance quality of life Monitor for recurrent TIA Health Concerns: TIA Vascular dementia Carotid stenosis Plan of Treatment: TIA -no focal neuro deficits on exam -continue asa 81mg -LDL 100, increase to high intensity statin atorvastatin 80mg daily -family has elected to forego MRI. Considered adding plavix fro [facility]. However unlikely to benefit overall quality of life and will likely increase bleeding risk in patient who is at risk for falls Assessment: As above. See discharge summary
[2023-10-11 18:30] VITALS: O2SAT 96
[2023-10-11 19:04] VITALS: BP 120/90; PULSE 89; RESP 18; O2SAT 96
[2023-10-11 20:15] VITALS: BP 120/90; PULSE 89; RESP 18; TEMP -17.7; TEMP 0; O2SAT 96
--- NOTE | 2023-10-12 11:32 | MHC.CM.PN ---
POST DC NOTE, CM CONTACTED PT'S DTR/HCP ROHIT AT 10:25AM [phone] PT WAS STILL ON CM CENSUS HOWEVER PT HAD DISCHARGED BACK TO [facility] LAST EVENING, CM CONTACTED FACILITY TO CONFIRM AND THEY DID CONFIRM PT HAD RETURNED AND WITHOUT PAPERWORK, [facility] HAS FAXED DC SUMMARY AND PACKET TO PT'S [facility] [phone]. CRAIN NOTICE 10/12/23 TO BE SENT VIA CERTIFIED MAIL PER DISCUSSION W/ROHIT.
== END 2023-10-12 16:44 ==
LOC: HO.ED 13:39 → HO.EDOVER 14:50
PROVIDERS: Admitting Provider Physician Assistant; Emergency Provider Emergency Medicine; PCP Internal Medicine; Visit Provider Internal Medicine
DX: G45.9 Transient cerebral ischemic attack, unspecified (principal); R29.702 NIHSS score 2; R21 Rash and other nonspecific skin eruption; R47.81 Slurred speech; R29.810 Facial weakness; J44.9 Chronic obstructive pulmonary disease, unspecified; I10 Essential (primary) hypertension; E78.5 Hyperlipidemia, unspecified; F01.50 Vascular dementia, unspecified severity, without behavioral disturbance, psychotic disturbance, mood disturbance, and anxiety; F39 Unspecified mood [affective] disorder; F60.1 Schizoid personality disorder; I48.0 Paroxysmal atrial fibrillation; Z79.01 Long term (current) use of anticoagulants; Z11.52 Encounter for screening for COVID-19; Z20.828 Contact with and (suspected) exposure to other viral communicable diseases; Z79.899 Other long term (current) drug therapy
CPT/HCPCS: 0241U; 36415; 70450; 70496; 70498; 80048; 80061; 80076; 82947; 83036; 83690; 84484; 85025; 85610; 93005; 96372; 97162; 99222; 99284; J2250; Q9967

== ENCOUNTER → 2023-10-11 12:08 | Outpatient (BNV) | payer MEDICARE, SELFPAY | PROVIDERS: Admitting Provider Physician Assistant; Emergency Provider Emergency Medicine; Visit Provider Internal Medicine Cardiovascular Disease | DX: I49.3 Ventricular premature depolarization (principal); I45.10 Unspecified right bundle-branch block | CPT/HCPCS: 93010 ==

== ENCOUNTER → 2023-10-11 14:31 | Outpatient (BNV) | payer MEDICARE, SELFPAY | PROVIDERS: Admitting Provider Physician Assistant; Emergency Provider Emergency Medicine; Visit Provider Physician Assistant | DX: G45.9 Transient cerebral ischemic attack, unspecified (principal) | CPT/HCPCS: 99223; 99239 ==

== ENCOUNTER 2023-10-30 06:09 | Outpatient (REF) | payer MEDICARE, SELFPAY ==
[2023-10-30 07:25] LABS: Alanine Aminotransferase 13 U/L (0-40); Albumin Level 3.1 g/dL (3.5-5.0); Alkaline Phosphatase 66 U/L (39-117); Aspartate Amino Transferase 22 U/L (5-37); Bilirubin Direct 0.2 mg/dL (0.0-0.5); Bilirubin Total 0.4 mg/dL (0.0-1.0); Total Protein 6.1 g/dL (6.5-8.0)
== END 2023-10-30 06:10 | disposition home or self-care (01) ==
LOC: HO.HSH3N 06:09
PROVIDERS: Visit Provider Nurse Practitioner Acute Care
DX: E78.5 Hyperlipidemia, unspecified (principal)
CPT/HCPCS: 36415; 80076

== ENCOUNTER 2023-11-22 05:28 | Outpatient (REF) | payer MEDICARE, SELFPAY | END 2023-11-22 05:29 | disposition home or self-care (01) | LOC: HO.HSH3N 05:28 | PROVIDERS: Visit Provider Nurse Practitioner | DX: Z13.89 Encounter for screening for other disorder (principal) ==

== ENCOUNTER 2024-01-07 01:50 | Emergency (ER) | payer MEDICARE, SELFPAY ==
--- NOTE | 2024-01-07 | ECG_ITS ---
Test Reason : RAPID A-FIB Blood Pressure : / mmHG Vent. Rate : 145 BPM Atrial Rate : 136 BPM P-R Int : 164 ms QRS Dur : 118 ms QT Int : 334 ms P-R-T Axes : 268 264 -06 degrees QTc Int : 518 ms Artifact in tracing Undetermined rhythm Pulmonary disease pattern Right bundle branch block Inferior infarct , age undetermined Abnormal ECG When compared with ECG of 11-OCT-2023 12:55, Significant changes have occurred Referred By: Generic ED Physician Electronically Signed By:JOLENE MONTERROSO
--- NOTE | ~2024-01-07 | CT_ITS ---
EXAMINATION: CT CERVICAL SPINE WITHOUT CONTRAST; UNENHANCED CT OF THE HEAD. CLINICAL INFORMATION: Altered mental status. Head injury. COMPARISON: CT head and cervical spine 10/02/2023. TECHNIQUE: Routine unenhanced CT of the head with multiple coronal and sagittal reformatted images; routine unenhanced CT of the cervical spine with multiple coronal and sagittal reformatted images. This CT examination was performed using dose optimization techniques as appropriate, variously including the following: *Automated exposure control *Adjustment of mA and/or kV according to patient size (this includes techniques or standardized protocols for targeted exams where dose is matched to indication/reason for exam; i.e. extremities or head) *Use of iterative reconstruction technique DLP: 1325 mGy-cm FINDINGS: CT head: No intracranial hemorrhage, tumors or acute infarcts identified. Marked diffuse commensurate prominence of ventricles and sulci is noted. Focal cortical encephalomalacia is present anteriorly within the right middle frontal lobe region. This finding is consistent with a chronic infarct. Moderate subcortical and periventricular white matter patchy hypodensities visualized. The orbits and globes are normal in appearance. No extracranial soft tissue inflammatory changes visualized. No significant opacification of the visualized paranasal sinuses, mastoid air cells and middle ear cavities. CT cervical spine: Marked emphysematous changes are noted in the incidentally visualized lung apices. No prevertebral fluid collections or soft tissue inflammatory changes noted. Dense bilateral carotid bulb calcific atherosclerotic plaques. Multilevel intervertebral disc space narrowing, endplate osteophytosis, bridging endplate osteophytosis and facet hypertrophic changes. CT/CT cervical spine wo IV con IMPRESSION: CT HEAD: 1. No acute intracranial abnormalities. 2. Marked diffuse parenchymal volume loss the brain and moderate white matter chronic small vessel ischemic changes. 3. 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 CT CERVICAL SPINE: 1. No acute abnormalities. 2. Advanced multilevel chronic spondylosis. 3. Dense bilateral carotid bulb calcific atherosclerotic plaques.
--- NOTE | ~2024-01-07 | US_ITS ---
EXAMINATION: US ABDOMEN LIMITED CLINICAL INFORMATION: Abnormal LFTs. COMPARISON: CT abdomen pelvis earlier this morning TECHNIQUE: Real-time imaging of the right upper quadrant abdominal viscera. Today's examination is limited secondary to overlying bowel gas. FINDINGS: PANCREAS: Obscured by overlying bowel gas and therefore not evaluated. LIVER: Normal. The liver is normal in size. The liver contour is normal. Parenchymal echogenicity is normal. No focal hepatic lesion. There is no intrahepatic biliary duct dilatation seen. GALLBLADDER: Normal. The gallbladder is physiologically distended without evidence of stones, sludge, polyps, wall thickening or pericholecystic fluid. Negative sonographic Arita's sign. COMMON BILE DUCT: Not clearly visualized. RIGHT KIDNEY: Not imaged. FREE FLUID: None. US/US abdomen limited IMPRESSION: Unremarkable sonographic imaging of the right upper abdomen.
--- NOTE | ~2024-01-07 | CT_ITS ---
EXAMINATION: CT chest w IV con, CT abdomen pelvis w IV con CLINICAL INFORMATION: Reason for Exam chest pain. Abnormal liver function tests. Dementia patient. COMPARISON: CT abdomen pelvis 10/02/2023 TECHNIQUE: IV contrast enhanced CT of the chest, abdomen pelvis. Intravenous Contrast: Omnipaque [address] examination was performed using dose optimization techniques as appropriate, variously including the following: *Automated exposure control *Adjustment of mA and/or kV according to patient size (this includes techniques or standardized protocols for targeted exams where dose is matched to indication/reason for exam; i.e. extremities or head) *Use of iterative reconstruction technique DLP: 1571.95 mGy-cm mGy-cm FINDINGS: CT chest: Marked centrilobular emphysema is present. No suspicious pulmonary nodules or pulmonary consolidation identified. No pleural effusions or pneumothoraces. No mediastinal lymphadenopathy. Dense aortic calcific atherosclerosis. Normal caliber of the thoracic aorta. Dilatation of the main and central pulmonary arteries is present likely secondary to chronic moderate hypertension. Normal heart size. Moderate coronary artery calcific atherosclerosis. No pericardial thickening or fluid collections. No thoracic wall inflammatory changes. CT abdomen and pelvis: Diffuse low attenuation of the liver is present and may represent hepatic steatosis. No focal parenchymal lesions of the liver. Normal capsular contour and size of the liver. Normal appearance of the gallbladder. No biliary duct dilatation. Normal appearance of the pancreas and spleen. No abnormalities of the adrenal glands. Multiple bilateral rounded low density renal lesions most consistent with simple cysts ranging in size up to approximately 2 cm in diameter requiring no additional imaging follow-up. No hydronephrosis or perinephric inflammatory changes. Physiologically distended urinary bladder. Marked colonic diverticulosis. No intestinal dilatation or mural thickening. Images of the abdomen pelvis are suboptimal secondary to motion artifact. A cecal bascule is present. The appendix is not visualized. The expected location of the appendix is obscured from visualization secondary to motion artifact. Stomach is normal in appearance. No abdominal wall hernias visualized. The prostate is normal in size. Diffuse calcific atherosclerosis is visualized. The abdominal aorta demonstrates fusiform enlargement to maximum AP dimension of 3.0 cm. No abdominal or pelvic lymphadenopathy noted. Osseous structures: Multilevel endplate and facet hypertrophic changes of the lumbar spine. No vertebral body compression deformities identified. Multilevel anterior endplate osteophytosis of the thoracic spine. CT/CT abdomen pelvis w IV con IMPRESSION: IV contrast-enhanced CT of the chest, abdomen and pelvis: 1. No acute abnormalities identified. 2. Marked centrilobular emphysema. 3. Moderate coronary artery calcific atherosclerosis. 4. Dilatation of the main and central pulmonary arteries likely secondary to chronic pulmonary hypertension. 5. Diffuse hepatic steatosis. 6. Marked colonic diverticulosis. No evidence of acute diverticulitis. Abdominal aortic aneurysm measuring 3 cm in diameter. Based on published guidelines in J Am Amber Radiol 2013; 10(10):789-794 and J Vasc Surg. 2018; 67:2-77, the recommendation for an abdominal aortic aneurysm with diameter 3.0-3.4 cm is follow-up every 3 years.
[2024-01-07 01:57] VITALS: BP 129/56; BP 130/74; PULSE 116; PULSE 149; RESP 17; TEMP 36.6; O2SAT 95; O2SAT 98; BMI 29.9
--- NOTE | 2024-01-07 01:57 | PC.NURSE ---
upon arrival to the ed, pt in rapid afib 146-159. called to bedide, ekg obtained.
--- NOTE | 2024-01-07 02:02 | ED.GENADULT ---
HPI - General Adult General Chief complaint: Fall Stated complaint: 3 FALLS Time Seen by Provider: 01/07/24 02:02 History of Present Illness ED Provider: Sirena MILLAN narrative: The patient is a 78-year-old male who lives at the [facility]. He has multiple medical problems including dementia. However apparently he is normally able to walk independently. According to staff at the facility the patient fell in his room while walking to the door. Apparently he vomited at the same time that he fell. He then vomited a couple of times more and he was found to be tachycardic. The staff at the home was concerned that the emesis was coffee-ground emesis. For all of these reasons they then called 911 to have him transferred to the hospital. According to the charge nurse with whom I spoke the patient was unusually agreeable to come to the hospital. There is not much additional history. Apparently the patient has been well earlier in the day yesterday. The patient seems demented and is not able to give any history or comment on the history provided. He is currently denying any pain. Related Data Home Medications ?Medication ?Instructions ?Recorded ?Confirmed apixaban 5 mg tablet (Eliquis) 1 tab PO BID 04/26/22 10/11/23 aspirin 81 mg tablet,delayed 81 mg PO DAILY 04/26/22 10/11/23 release cholecalciferol (vitamin D3) 25 25 mcg PO DAILY 04/26/22 10/11/23 mcg (1,000 unit) tablet (Vitamin D3) docusate sodium 100 mg capsule 100 mg PO DAILY 04/26/22 10/11/23 (Colace) loratadine 10 mg tablet 10 mg PO DAILY 04/26/22 10/11/23 trazodone 50 mg tablet 50 mg PO BEDTIME 04/26/22 10/11/23 divalproex 500 mg tablet,delayed 500 mg PO BID 10/02/23 10/11/23 release finasteride 5 mg tablet 5 mg PO DAILY 10/02/23 10/11/23 folic acid 1 mg tablet 1 mg PO DAILY 10/02/23 10/11/23 lactulose 10 gram/15 mL oral 10 g PO DAILY 10/02/23 10/11/23 solution quetiapine 100 mg tablet 100 mg PO BID 10/02/23 10/11/23 sennosides 8.8 mg/5 mL oral syrup 8.8 mg PO BEDTIME 10/02/23 10/11/23 spironolactone 25 mg tablet 25 mg PO DAILY 10/02/23 10/11/23 thiamine HCl (vitamin B1) 100 mg 100 mg PO DAILY 10/02/23 10/11/23 tablet acetaminophen 325 mg tablet 650 mg PO Q6H PRN pain/fever 10/11/23 10/11/23 fluticasone propionate 50 1 spray intranasal DAILY 10/11/23 10/11/23 mcg/actuation nasal spray,suspension guaifenesin 100 mg/5 mL oral liquid 100 mg PO Q6H PRN Cough 10/11/23 10/11/23 hydrochlorothiazide 12.5 mg capsule 12.5 mg PO DAILY 10/11/23 10/11/23 lorazepam 0.5 mg tablet 0.5 mg PO Q6H PRN Anxiety 10/11/23 10/11/23 magnesium hydroxide 400 mg/5 mL 30 ml PO BEDTIME PRN Constipation 10/11/23 10/11/23 oral suspension (Milk of Magnesia) quetiapine 25 mg tablet 25 mg PO BEDTIME PRN Agitation 10/11/23 10/11/23 Previous Rx's ?Medication ?Instructions ?Recorded tamsulosin 0.4 mg capsule 0.4 mg PO DAILY #30 caps 04/28/22 atorvastatin 80 mg tablet 80 mg PO DAILY #30 tabs 10/11/23 fluconazole 50 mg tablet 150 mg (3 x 50 mg) PO QWEEK #30 10/11/23 tabs Allergies Allergy/AdvReac Type Severity Reaction Status Date / Time No Known Allergies Allergy Verified 01/07/24 02:04 [No Known Allergies*] Review of Systems Review of Systems: Yes all other systems are reviewed and are negative PMFSH Past Medical History Medical History Psychosis Depression Atrial fibrillation Hypertension Hyperlipidemia Vascular dementia COPD (chronic obstructive pulmonary disease) Social History Social History Household Members: None Housing: [facility] Unable to assess alcohol history related to: Unknown Patient Tobacco Use Status: Never used Tobacco Advance Directives: Yes Advance Directives on File: Yes Advance Directives Date on File: 04/27/22 Do you have a plan to hurt others: No Plan service: Yes Current occupational status: retired Physical Exam ED Vital Signs: Vital Signs - 24 hr 01/07/24 01:57 01/07/24 06:20 01/07/24 10:35 Temperature 97.9 F 98.7 F 98.7 F Pulse Rate 149 H 90 74 Respiratory Rate 17 21 H 16 Blood Pressure 129/56 L 128/72 128/68 Pulse Oximetry 98 94 95 Oxygen Delivery Method Room Air Room Air Room Air BMI result Body Mass Index 29.9 Const Other: The patient is a chronically ill-appearing 78-year-old male. He is awake and makes eye contact and occasionally briefly engages in very limited conversation but then seems to go mute. His demeanor is consistent with dementia. HENMT Other: No facial asymmetry. Mucous membranes moist. Eyes Other: Pupils are round equal, conjunctivae are clear Neck Neck: Yes no JVD Resp Effort & Inspection: normal respiratory effort Auscultation: clear to auscultation bilaterally Cardio Other: The patient was initially tachycardic with an irregular rate and rhythm. Later he was no longer tachycardic and had a regular rate and rhythm. No appreciated murmur. GI Other: Abdomen is soft and nontender. Specifically no right upper quadrant tenderness. Rectal exam revealed pale brown heme-negative stool. Skin Other: Skin is pale and dry Neuro Other: The patient is awake but poorly oriented and has a demeanor consistent with dementia. Occasionally he speaks with clear speech but limited speech content. Eye movements are intact. Face is symmetrical. He moves his extremities symmetrically. It does not seem to have a focal neurological deficit. Extrem Other: No calf swelling or tenderness, no obvious asymmetry. Medications Administered Discontinued Medications Generic Name Dose Route Start Last Admin Trade Name Freq PRN Reason Stop Dose Admin Diphenhydramine HCl 50 mg 01/07/24 03:58 01/07/24 04:01 Diphenhydramine Hcl 50 Mg/Ml Vial IVPUSH 01/07/24 03:59 50 mg ONCE ONE Administration Droperidol 1.25 mg 01/07/24 02:49 01/07/24 03:25 Droperidol 5 Mg/2 Ml Vial IVPUSH 01/07/24 02:50 1.25 mg ONCE ONE Administration Iohexol 85 ml 01/07/24 05:19 01/07/24 05:19 Iohexol 350 Mg/Ml 100 Ml Infus..Btl IV 01/07/24 05:20 85 ml ONCE ONE Administration Medical Decision Making Medical Decision Making MDM Narrative: The patient is a 78-year-old male who lives at the [facility]. He has a history of significant dementia. According to staff at the facility the patient fell while walking to the door of his room. He vomited. He apparently vomited 2 times subsequently in the next 20 minutes. He was noted to be tachycardic. An ambulance was called and he was brought to the hospital. He had apparently been well earlier in the day. Staff was concerned that the emesis looked like coffee-ground emesis. The patient is on anticoagulation. Has a history of paroxysmal atrial fibrillation. On arrival here the patient was in a cervical collar and was in atrial fibrillation with a rapid ventricular response with a heart rate of about 140 beats per minute. The patient is demented and was not able to give any meaningful history. It was not clear whether he had hit his head and so, since he is on anticoagulation, my plan was to obtain a noncontrast head CT and cervical spine CT while performing a medical workup. The patient was too agitated to allow for a CT initially stay on the CT table. He was given droperidol and diphenhydramine which ultimately calmed him sufficiently to allow for imaging. During that time labs were done that showed abnormal LFTs. On his abdominal exam really did not appreciate any right upper quadrant tenderness however. The patient had a CT of the abdomen and pelvis that did not really show any findings to explain the patient's abnormal LFTs. In the meantime the patient converted spontaneously to a sinus rhythm. With regard to the question of coffee-ground emesis the patient had brown, heme-negative stool on exam. He had no signs of anemia and he did not have a BUN elevation. Additionally a repeat CBC change in his blood counts were his BUN. Ultimately we also obtained an ultrasound of his right upper quadrant that showed no explanation for the patient's abnormal LFTs. Repeat labs showed that the initial abnormal LFTs were not laboratory error. The case was reviewed with the on-call [place] guide who felt that perhaps the patient has abnormal LFTs might be due to transient hypoperfusion of the liver secondary to the rapid AFib or possibly because of a medication effect. Clinically there was not a clear indication for hospitalization. The patient had no ongoing vomiting in the emergency room. His mental status seems to be his baseline mental status. Ultimately we felt that the patient could be returned to the [facility] home with a plan to have him stop his atorvastatin and to have his LFTs repeated in 2 days. Lab Data 01/07/24 07:28 01/07/24 07:28 Labs: Lab Results 01/07/24 01/07/24 01/07/24 Range/Units 02:14 02:16 02:19 WBC 11.6 H (4.8-10.8) X10*3/uL RBC 5.40 (4.60-5.80) X10*6/uL Hgb 16.8 (14.0-18.0) g/dl Hct 46.5 (42.0-52.0) % MCV 86.1 (80.0-98.0) fL MCH 31.1 (27.0-33.0) pg MCHC 36.1 H (31.0-36.0) g/dl RDW 12.3 (11.0-16.0) % Plt Count 175 D (160-400) X10*3/uL MPV 9.7 (9.4-12.4) fL Immature Gran % (Auto) 0.3 (0.0-0.4) % Neut % (Auto) 85.8 H (45-73) % Lymph % (Auto) 2.9 L (20-40) % [place] % (Auto) 10.5 (2-11) % Eos % (Auto) 0.2 (0-4) % Baso % (Auto) 0.3 (0-2) % Lymph # (Auto) 0.3 L (1.2-4.9) X10*3/uL [place] # (Auto) 1.2 (0.1-1.2) X10*3/uL Eos # (Auto) 0.0 (0.0-0.4) X10*3/uL Baso # (Auto) 0.0 (0.0-0.2) X10*3/uL Abs Immat Gran (auto) 0.04 H (0.00-0.03) X10*3/uL Absolute Neuts (auto) 10.0 H (2.0-8.3) x10*3/uL Absolute Nucleated RBC 0.000 (0.0-0.012) X10*3/uL Nucleated RBC % (auto) 0.0 (0.0-0.2) /100WBC PT (11.1-13.3) SEC INR (0.9-1.1) APTT (26.0-36.8) SEC Hold Blue Top SEE NOTE VBG pH 7.53 H (7.32-7.43) VBG pCO2 28 mmHg VBG pO2 79 mmHg VBG HCO3 23 (22-26) mmol/L VBG O2 Saturation 97.0 % VBG Base Excess 2.5 mmol/L Sodium 135 (135-145) mmol/L Potassium 3.7 (3.3-5.1) mmol/L Chloride 100 (96-108) mmol/L Carbon Dioxide 24 (22-29) mmol/L Anion Gap 15 (12-20) BUN 12 (9-16) mg/dL Creatinine 0.96 (0.5-1.4) mg/dL Estim Creat Clear Calc 77.6 Estimated GFR > 60 Random Glucose 127 H (60-115) mg/dL Calcium 9.2 D (8.4-10.2) mg/dL Magnesium 1.8 (1.6-2.6) mg/dL Total Bilirubin 2.4 H (0.0-1.0) mg/dL Direct Bilirubin 1.4 H (0.0-0.5) mg/dL AST 557 H (5-37) U/L ALT 175 H (0-40) U/L Alkaline Phosphatase 181 H (39-117) U/L Troponin I High Sens < 2.7 (<3.5-35.0) ng/L C-Reactive Protein 0.37 (< or = 0.50) mg/dL B-Natriuretic Peptide 16 (<100) pg/mL Total Protein 6.9 (6.5-8.0) g/dL Albumin 3.7 (3.5-5.0) g/dL Ethyl Alcohol < 10 mg/dL Influenza Type A (PCR) NEGATIVE (Negative) Influenza Type B (PCR) NEGATIVE (Negative) RSV RNA Qual (PCR) NEGATIVE (Negative) SARS-CoV-2 RNA (RT-PCR) NEGATIVE (Negative) 01/07/24 01/07/24 Range/Units 07:28 10:32 WBC 13.8 H (4.8-10.8) X10*3/uL RBC 5.28 (4.60-5.80) X10*6/uL Hgb 16.4 (14.0-18.0) g/dl Hct 46.4 (42.0-52.0) % MCV 87.9 (80.0-98.0) fL MCH 31.1 (27.0-33.0) pg MCHC 35.3 (31.0-36.0) g/dl RDW 12.4 (11.0-16.0) % Plt Count 194 (160-400) X10*3/uL MPV 9.8 (9.4-12.4) fL Immature Gran % (Auto) 0.4 (0.0-0.4) % Neut % (Auto) 86.9 H (45-73) % Lymph % (Auto) 4.4 L (20-40) % [place] % (Auto) 8.1 (2-11) % Eos % (Auto) 0.0 (0-4) % Baso % (Auto) 0.2 (0-2) % Lymph # (Auto) 0.6 L (1.2-4.9) X10*3/uL [place] # (Auto) 1.1 (0.1-1.2) X10*3/uL Eos # (Auto) 0.0 (0.0-0.4) X10*3/uL Baso # (Auto) 0.0 (0.0-0.2) X10*3/uL Abs Immat Gran (auto) 0.05 H (0.00-0.03) X10*3/uL Absolute Neuts (auto) 12.0 H (2.0-8.3) x10*3/uL Absolute Nucleated RBC 0.000 (0.0-0.012) X10*3/uL Nucleated RBC % (auto) 0.0 (0.0-0.2) /100WBC PT 14.4 H (11.1-13.3) SEC INR 1.2 H (0.9-1.1) APTT 46.5 H (26.0-36.8) SEC Hold Blue Top VBG pH (7.32-7.43) VBG pCO2 mmHg VBG pO2 mmHg VBG HCO3 (22-26) mmol/L VBG O2 Saturation % VBG Base Excess mmol/L Sodium 136 (135-145) mmol/L Potassium 3.7 (3.3-5.1) mmol/L Chloride 102 (96-108) mmol/L Carbon Dioxide 23 (22-29) mmol/L Anion Gap 15 (12-20) BUN 12 (9-16) mg/dL Creatinine 0.94 (0.5-1.4) mg/dL Estim Creat Clear Calc 79.2 Estimated GFR > 60 Random Glucose 108 (60-115) mg/dL Calcium 9.1 (8.4-10.2) mg/dL Magnesium (1.6-2.6) mg/dL Total Bilirubin 3.5 H (0.0-1.0) mg/dL Direct Bilirubin 2.4 H (0.0-0.5) mg/dL AST 525 H (5-37) U/L ALT 197 H (0-40) U/L Alkaline Phosphatase 172 H (39-117) U/L Troponin I High Sens 3.0 (<3.5-35.0) ng/L C-Reactive Protein (< or = 0.50) mg/dL B-Natriuretic Peptide (<100) pg/mL Total Protein 6.6 (6.5-8.0) g/dL Albumin 3.7 (3.5-5.0) g/dL Ethyl Alcohol mg/dL Influenza Type A (PCR) (Negative) Influenza Type B (PCR) (Negative) RSV RNA Qual (PCR) (Negative) SARS-CoV-2 RNA (RT-PCR) (Negative) Independent Interpretation I performed an independent interpretation of an: EKG Interpretation: EKG at 01:58 shows what I believe is atrial fibrillation at 145 beats per minute. There is a right bundle branch block pattern. A 2nd EKG at 05:48 shows sinus rhythm at 89 beats per minute. Discharge Plan Discharge Clinical Impression: Vomiting, Paroxysmal atrial fibrillation, Abnormal LFTs (liver function tests), Dementia Patient Disposition: Xfer LTC Transfer Details: [facility] Additional Instructions: He has not showing any evidence of a GI bleed. His hemoglobin is stable (checked twice here) and his BUN is not elevated (again checked twice). He was in atrial fibrillation with a rapid ventricular response at 140 beats per minute when he arrived. He converted spontaneously to a normal sinus rhythm. His liver function tests were abnormal which was a surprise (he was not complaining of any abdominal pain and had no abdominal tenderness). However a CT scan of his abdomen and pelvis and an ultrasound of his right upper quadrant do not show any pathology to account for his abnormal LFTs. He continues to be afebrile and have no abdominal tenderness. Are assumption that this point is that the abnormal LFTs may be a consequence of his episode of atrial fibrillation and vomiting. Please plan on rechecking his LFTs in 2 days. Also check an INR at that time. Please hold his atorvastatin as a possibly hepatotoxic drugs. He should return to the emergency room if he seems worse. Prescriptions: No Action Eliquis 5 mg tablet 1 tab PO BID trazodone 50 mg Tablet 50 mg PO BEDTIME aspirin 81 mg Tablet,Delayed Release (Dr/Ec) 81 mg PO DAILY docusate sodium [Colace] 100 mg Capsule 100 mg PO DAILY loratadine 10 mg Tablet 10 mg PO DAILY cholecalciferol (vitamin D3) [Vitamin D3] 25 mcg (1,000 unit) Tablet 25 mcg PO DAILY tamsulosin 0.4 mg Capsule 0.4 mg PO DAILY Qty: 30 0RF thiamine HCl (vitamin B1) 100 mg Tablet 100 mg PO DAILY sennosides 8.8 mg/5 mL Syrup 8.8 mg PO BEDTIME divalproex 500 mg Tablet,Delayed Release (Dr/Ec) 500 mg PO BID quetiapine 100 mg Tablet 100 mg PO BID spironolactone 25 mg Tablet 25 mg PO DAILY folic acid 1 mg Tablet 1 mg PO DAILY finasteride 5 mg Tablet 5 mg PO DAILY lactulose 10 gram/15 mL Solution 10 g PO DAILY hydrochlorothiazide 12.5 mg Capsule 12.5 mg PO DAILY quetiapine 25 mg Tablet 25 mg PO BEDTIME PRN (Reason: Agitation) acetaminophen 325 mg Tablet 650 mg PO Q6H PRN (Reason: pain/fever) guaifenesin 100 mg/5 mL Liquid 100 mg PO Q6H PRN (Reason: Cough) lorazepam 0.5 mg Tablet 0.5 mg PO Q6H PRN (Reason: Anxiety) magnesium hydroxide [Milk of Magnesia] 400 mg/5 mL Suspension 30 ml PO BEDTIME PRN (Reason: Constipation) Rx Instructions: for no BM in 3 days or 9 shifts and no stool in rectum fluticasone propionate 50 mcg/actuation [place],Suspension 1 spray INTRANASAL DAILY Rx Instructions: administer into each nostril fluconazole 50 mg Tablet 150 mg PO QWEEK Qty: 30 0RF Rx Instructions: stop date 11/03/23 (tx duration 10 weeks) atorvastatin 80 mg Tablet 80 mg PO DAILY Qty: 30 0RF Referrals: [facility] [Outside] [facility] [Outside] Interventions: ED Discharge Assessment Last Done: 01/07/24 10:35 Discharge Date/Time: 01/07/24 10:36 Print Language: Setswana
--- NOTE | 2024-01-07 02:15 | PC.NURSE ---
[facility] alert [facility] self only, confused at baseline, per staff pt had 3 witnessed falls today, reports pt did not have head strike but is on thinners. pt had c collar in place upon arrival. pt unable to state pain level. per staff pt has been having dark black vomit. 20G placed in left wrist.
[2024-01-07 02:18] LABS: MANUAL DIFF FLAG NO
[2024-01-07 02:19] LABS: Basophils Percent Auto 0.3 % (0-2); Eosinophils Percent Auto 0.2 % (0-4); Hematocrit 46.5 % (42.0-52.0); Hemoglobin 16.8 g/dl (14.0-18.0); Imm Gran Abs Auto 0.04 X10*3/uL (0.00-0.03); Imm Gran Pct Auto 0.3 % (0.0-0.4); Lymphocytes Absolute Auto 0.3 X10*3/uL (1.2-4.9); Lymphocytes Percent Auto 2.9 % (20-40); Mean Corpuscular HGB Conc 36.1 g/dl (31.0-36.0); Mean Corpuscular Hemoglobin 31.1 pg (27.0-33.0); Mean Corpuscular Volume 86.1 fL (80.0-98.0); Mean Platelet Volume 9.7 fL (9.4-12.4); Monocytes Absolute Auto 1.2 X10*3/uL (0.1-1.2); Monocytes Percent Auto 10.5 % (2-11); Neutrophils Percent Auto 85.8 % (45-73); Platelet Count 175 X10*3/uL (160-400); Red Cell Distribution Width 12.3 % (11.0-16.0); White Blood Count 11.6 X10*3/uL (4.8-10.8)
[2024-01-07 02:26] LABS: Venous Blood Gas Refer to POC result
[2024-01-07 02:27] LABS: VBG Base Excess 2.5 mmol/L; VBG HCO3 23 mmol/L (22-26); VBG pCO2 28 mmHg; VBG pH 7.53 (7.32-7.43); VBG pO2 79 mmHg
[2024-01-07 02:42] LABS: Alanine Aminotransferase 175 U/L (0-40); Albumin Level 3.7 g/dL (3.5-5.0); Alkaline Phosphatase 181 U/L (39-117); Anion Gap 15 (12-20); Aspartate Amino Transferase 557 U/L (5-37); Bilirubin Direct 1.4 mg/dL (0.0-0.5); Bilirubin Total 2.4 mg/dL (0.0-1.0); Blood Urea Nitrogen 12 mg/dL (9-16); Calcium 9.2 mg/dL (8.4-10.2); Carbon Dioxide 24 mmol/L (22-29); Chloride 100 mmol/L (96-108); Creatinine Clr Calc Pharmacy 77.6; Estimated Glomerular Filt Rate > 60; Ethanol < 10 mg/dL; Glucose Random 127 mg/dL (60-115); Magnesium 1.8 mg/dL (1.6-2.6); Potassium 3.7 mmol/L (3.3-5.1); Sodium 135 mmol/L (135-145); Total Protein 6.9 g/dL (6.5-8.0)
[2024-01-07 02:44] LABS: B Type Natriuretic Peptide 16 pg/mL (<100)
[2024-01-07 02:48] LABS: Troponin-I High Sensitivity < 2.7 ng/L (<3.5-35.0)
[2024-01-07 02:58] LABS: C Reactive Protein 0.37 mg/dL (< or = 0.50)
[2024-01-07 03:01] LABS: Influenza A PCR NEGATIVE (Negative); Influenza B PCR NEGATIVE (Negative); Resp Syncy Virus RNA Qual PCR NEGATIVE (Negative); SARS COV2 PCR INHOUSE NEGATIVE (Negative)
[2024-01-07] MEDS: droPERidol 5 MG/2 ML VIAL 1.25 MG IVPUSH (03:25)
--- NOTE | 2024-01-07 03:26 | PC.NURSE ---
attempted ct of patient, according to CT staff Solange irdley pt had been thrashing in CT scan. this RN informed , pt medicated per aug.
[2024-01-07] MEDS: diphenhydrAMINE HCL 50 MG/ML VIAL IVPUSH (04:01)
--- NOTE | 2024-01-07 04:02 | PC.NURSE ---
pt attempting to get out of bed, is unsteady on feet, and disoriented. pt given warm blankets, lights dimmed, medicated per mar.
[2024-01-07] MEDS: iohexoL 350 MG/ML 100 ML INFUS..BTL 85 ML IV (05:19)
--- NOTE | 2024-01-07 05:48 | ECG_ITS ---
Test Reason : REPEAT Blood Pressure : / mmHG Vent. Rate : 089 BPM Atrial Rate : 089 BPM P-R Int : 170 ms QRS Dur : 114 ms QT Int : 406 ms P-R-T Axes : 065 269 021 degrees QTc Int : 493 ms Sinus rhythm with occasional Premature ventricular complexes Right bundle branch block Inferior infarct (cited on or before 07-JAN-2024) Abnormal ECG When compared with ECG of 07-JAN-2024 01:58, Previous ECG has undetermined rhythm, needs review Referred By: Long Pack Electronically Signed By:JOLENE MONTERROSO
--- NOTE | 2024-01-07 05:56 | PC.NURSE ---
pt to CT at this time, calm and cooperative. upon arrival back to room, [place] cath placed on pt.
[2024-01-07 06:20] VITALS: BP 128/72; PULSE 90; RESP 21; TEMP 37.1; O2SAT 94
[2024-01-07 07:33] LABS: Basophils Percent Auto 0.2 % (0-2); Hematocrit 46.4 % (42.0-52.0); Hemoglobin 16.4 g/dl (14.0-18.0); Imm Gran Abs Auto 0.05 X10*3/uL (0.00-0.03); Imm Gran Pct Auto 0.4 % (0.0-0.4); Lymphocytes Absolute Auto 0.6 X10*3/uL (1.2-4.9); Lymphocytes Percent Auto 4.4 % (20-40); MANUAL DIFF FLAG NO; Mean Corpuscular HGB Conc 35.3 g/dl (31.0-36.0); Mean Corpuscular Hemoglobin 31.1 pg (27.0-33.0); Mean Corpuscular Volume 87.9 fL (80.0-98.0); Mean Platelet Volume 9.8 fL (9.4-12.4); Monocytes Absolute Auto 1.1 X10*3/uL (0.1-1.2); Monocytes Percent Auto 8.1 % (2-11); Neutrophils Percent Auto 86.9 % (45-73); Platelet Count 194 X10*3/uL (160-400); Red Blood Count 5.28 X10*6/uL (4.60-5.80); Red Cell Distribution Width 12.4 % (11.0-16.0); White Blood Count 13.8 X10*3/uL (4.8-10.8)
[2024-01-07 07:47] LABS: Alanine Aminotransferase 197 U/L (0-40); Albumin Level 3.7 g/dL (3.5-5.0); Alkaline Phosphatase 172 U/L (39-117); Anion Gap 15 (12-20); Aspartate Amino Transferase 525 U/L (5-37); Bilirubin Direct 2.4 mg/dL (0.0-0.5); Bilirubin Total 3.5 mg/dL (0.0-1.0); Blood Urea Nitrogen 12 mg/dL (9-16); Calcium 9.1 mg/dL (8.4-10.2); Carbon Dioxide 23 mmol/L (22-29); Chloride 102 mmol/L (96-108); Creatinine Clr Calc Pharmacy 79.2; Estimated Glomerular Filt Rate > 60; Glucose Random 108 mg/dL (60-115); Potassium 3.7 mmol/L (3.3-5.1); Sodium 136 mmol/L (135-145); Total Protein 6.6 g/dL (6.5-8.0)
[2024-01-07 10:35] VITALS: BP 128/68; PULSE 74; RESP 16; TEMP 37.1; O2SAT 95
[2024-01-07 10:42] LABS: INTERNATIONAL NORM RATIO 1.2 (0.9-1.1); Prothrombin Time 14.4 SEC (11.1-13.3)
[2024-01-07 10:44] LABS: Partial Thromboplastin Time 46.5 SEC (26.0-36.8)
== END 2024-01-07 10:36 ==
PROVIDERS: Physician Assistant Medical; Emergency Provider Emergency Medicine
DX: R11.10 Vomiting, unspecified (principal); I48.0 Paroxysmal atrial fibrillation; R79.89 Other specified abnormal findings of blood chemistry; F03.90 Unspecified dementia, unspecified severity, without behavioral disturbance, psychotic disturbance, mood disturbance, and anxiety; Z79.01 Long term (current) use of anticoagulants; J44.9 Chronic obstructive pulmonary disease, unspecified; I10 Essential (primary) hypertension; Z79.899 Other long term (current) drug therapy; Z91.81 History of falling; Z03.818 Encounter for observation for suspected exposure to other biological agents ruled out
CPT/HCPCS: 0241U; 36415; 70450; 71260; 72125; 74177; 76705; 80048; 80076; 80307; 82803; 83735; 83880; 84484; 85025; 85610; 85730; 86140; 93005; 96374; 96375; 99285; J1200; J1790; Q9967

== ENCOUNTER → 2024-01-07 01:58 | Outpatient (BNV) | payer MEDICARE, SELFPAY | PROVIDERS: Emergency Provider Emergency Medicine; Visit Provider Internal Medicine | DX: I49.1 Atrial premature depolarization (principal); I45.10 Unspecified right bundle-branch block; R94.31 Abnormal electrocardiogram [ECG] [EKG]; I48.91 Unspecified atrial fibrillation | CPT/HCPCS: 93010 ==

== ENCOUNTER 2024-01-08 07:04 | Outpatient (REF) | payer MEDICARE, SELFPAY ==
[2024-01-08 07:10] LABS: MANUAL DIFF FLAG NO
[2024-01-08 07:40] LABS: INTERNATIONAL NORM RATIO 1.1 (0.9-1.1); Prothrombin Time 13.8 SEC (11.1-13.3)
[2024-01-08 07:42] LABS: Basophils Percent Auto 0.5 % (0-2); Eosinophils Absolute Auto 0.4 X10*3/uL (0.0-0.4); Eosinophils Percent Auto 5.1 % (0-4); Hematocrit 47.3 % (42.0-52.0); Imm Gran Abs Auto 0.04 X10*3/uL (0.00-0.03); Imm Gran Pct Auto 0.5 % (0.0-0.4); Lymphocytes Absolute Auto 0.5 X10*3/uL (1.2-4.9); Lymphocytes Percent Auto 6.8 % (20-40); Mean Corpuscular HGB Conc 33.8 g/dl (31.0-36.0); Mean Corpuscular Hemoglobin 30.7 pg (27.0-33.0); Mean Corpuscular Volume 90.8 fL (80.0-98.0); Mean Platelet Volume 10.1 fL (9.4-12.4); Monocytes Absolute Auto 0.9 X10*3/uL (0.1-1.2); Monocytes Percent Auto 11.3 % (2-11); Neutrophils Absolute Auto 6.1 x10*3/uL (2.0-8.3); Neutrophils Percent Auto 75.8 % (45-73); Platelet Count 154 X10*3/uL (160-400); Red Blood Count 5.21 X10*6/uL (4.60-5.80); Red Cell Distribution Width 12.6 % (11.0-16.0)
[2024-01-08 08:04] LABS: Valproate 12.5 mcg/mL (50.0-100.0)
[2024-01-08 08:18] LABS: Alanine Aminotransferase 139 U/L (0-40); Albumin Level 3.5 g/dL (3.5-5.0); Alkaline Phosphatase 151 U/L (39-117); Anion Gap 16 (12-20); Aspartate Amino Transferase 254 U/L (5-37); Bilirubin Direct 0.8 mg/dL (0.0-0.5); Bilirubin Total 1.9 mg/dL (0.0-1.0); Blood Urea Nitrogen 15 mg/dL (9-16); Calcium 8.9 mg/dL (8.4-10.2); Carbon Dioxide 22 mmol/L (22-29); Chloride 102 mmol/L (96-108); Estimated Glomerular Filt Rate > 60; Glucose Random 69 mg/dL (60-115); Magnesium 2.2 mg/dL (1.6-2.6); Potassium 3.9 mmol/L (3.3-5.1); Sodium 136 mmol/L (135-145); Total Protein 6.7 g/dL (6.5-8.0)
== END 2024-01-08 07:05 | disposition home or self-care (01) ==
LOC: HO.HSH3N 07:04
PROVIDERS: Visit Provider Nurse Practitioner Acute Care
DX: E11.9 Type 2 diabetes mellitus without complications (principal); K74.60 Unspecified cirrhosis of liver
CPT/HCPCS: 36415; 80053; 80164; 82248; 83735; 85025; 85610

== ENCOUNTER 2024-01-11 05:35 | Outpatient (REF) | payer MEDICARE, SELFPAY ==
[2024-01-11 06:32] LABS: MANUAL DIFF FLAG NO
[2024-01-11 06:56] LABS: Anion Gap 17 (12-20)
[2024-01-11 07:03] LABS: Basophils Absolute Auto 0.1 X10*3/uL (0.0-0.2); Basophils Percent Auto 0.8 % (0-2); Eosinophils Absolute Auto 0.5 X10*3/uL (0.0-0.4); Eosinophils Percent Auto 8.4 % (0-4); Hematocrit 47.8 % (42.0-52.0); Hemoglobin 16.3 g/dl (14.0-18.0); Imm Gran Abs Auto 0.03 X10*3/uL (0.00-0.03); Imm Gran Pct Auto 0.5 % (0.0-0.4); Lymphocytes Absolute Auto 1.5 X10*3/uL (1.2-4.9); Lymphocytes Percent Auto 22.5 % (20-40); Mean Corpuscular HGB Conc 34.1 g/dl (31.0-36.0); Mean Corpuscular Hemoglobin 30.2 pg (27.0-33.0); Mean Corpuscular Volume 88.5 fL (80.0-98.0); Mean Platelet Volume 10.6 fL (9.4-12.4); Monocytes Absolute Auto 0.9 X10*3/uL (0.1-1.2); Monocytes Percent Auto 14.6 % (2-11); Neutrophils Absolute Auto 3.4 x10*3/uL (2.0-8.3); Neutrophils Percent Auto 53.2 % (45-73); Platelet Count 172 X10*3/uL (160-400); Red Cell Distribution Width 12.5 % (11.0-16.0); White Blood Count 6.5 X10*3/uL (4.8-10.8)
[2024-01-11 07:42] LABS: Alanine Aminotransferase 53 U/L (0-40); Albumin Level 3.6 g/dL (3.5-5.0); Alkaline Phosphatase 128 U/L (39-117); Aspartate Amino Transferase 98 U/L (5-37); Bilirubin Direct 0.3 mg/dL (0.0-0.5); Bilirubin Total 0.9 mg/dL (0.0-1.0); Blood Urea Nitrogen 15 mg/dL (9-16); Carbon Dioxide 22 mmol/L (22-29); Chloride 100 mmol/L (96-108); Estimated Glomerular Filt Rate > 60; Glucose Random 135 mg/dL (60-115); Potassium 3.6 mmol/L (3.3-5.1); Sodium 135 mmol/L (135-145); Total Protein 7.1 g/dL (6.5-8.0)
== END 2024-01-11 05:36 | disposition home or self-care (01) ==
LOC: HO.HSH3N 05:35
PROVIDERS: Visit Provider Nurse Practitioner
DX: R79.89 Other specified abnormal findings of blood chemistry (principal); R11.10 Vomiting, unspecified
CPT/HCPCS: 36415; 80048; 80076; 85025

== ENCOUNTER 2024-02-27 07:26 | Outpatient (REF) | payer MEDICARE, SELFPAY ==
[2024-02-27 08:17] LABS: Alanine Aminotransferase 6 U/L (0-40); Albumin Level 3.3 g/dL (3.5-5.0); Alkaline Phosphatase 87 U/L (39-117); Anion Gap 13 (12-20); Aspartate Amino Transferase 16 U/L (5-37); Bilirubin Direct 0.1 mg/dL (0.0-0.5); Bilirubin Total 0.4 mg/dL (0.0-1.0); Blood Urea Nitrogen 11 mg/dL (9-16); Carbon Dioxide 27 mmol/L (22-29); Chloride 100 mmol/L (96-108); Estimated Glomerular Filt Rate > 60; Glucose Random 88 mg/dL (60-115); Potassium 3.6 mmol/L (3.3-5.1); Sodium 136 mmol/L (135-145); Total Protein 6.4 g/dL (6.5-8.0)
== END 2024-02-27 07:27 | disposition home or self-care (01) ==
LOC: HO.HSH1N 07:26
PROVIDERS: Visit Provider Internal Medicine Interventional Cardiology
DX: I10 Essential (primary) hypertension (principal); R79.89 Other specified abnormal findings of blood chemistry
CPT/HCPCS: 36415; 80048; 80076

== ENCOUNTER 2024-04-15 23:04 | Inpatient (IN) | payer MEDICARE, SELFPAY ==
--- NOTE | ~2024-04-15 | CT_ITS ---
EXAMINATION: CT HEAD WITHOUT CONTRAST CLINICAL INFORMATION: Altered mental status. COMPARISON: January 07, 2024 TECHNIQUE: Contiguous axial imaging was performed from the skull base to vertex without intravenous administration of contrast. This CT examination was performed using dose optimization techniques as appropriate, variously including the following: *Automated exposure control *Adjustment of mA and/or kV according to patient size (this includes techniques or standardized protocols for targeted exams where dose is matched to indication/reason for exam; i.e. extremities or head) *Use of iterative reconstruction technique DLP: 780 mGy-cm FINDINGS: There is cerebral volume loss with prominence of the lateral and the third ventricles. The cortical sulci are widened appropriately. The fourth ventricle and basal cisterns are normally outlined. There is mild bilateral periventricular and central white matter diminished attenuation. 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 There is no acute territorial defects, hemorrhage or midline shift. The extra-axial spaces are unremarkable. Calvarium/scalp: Intact. Maxillofacial sinuses and mastoids: There is a sphenoid sinus opacity. The remaining visualized maxillofacial sinuses are clear. There is a small right mastoid effusion. CT/CT head/brain wo IV con IMPRESSION: 1. No acute intracranial pathology. 2. Old right frontal infarct. 3. Sphenoid sinus disease and small right mastoid effusion of uncertain acuity and current significance. Electronically signed by: Morgan Gee MD 04/16/2024 02:39 AM EDT
--- NOTE | ~2024-04-15 | XR_ITS ---
EXAMINATION: XR CHEST CLINICAL INFORMATION: Shortness of breath. COMPARISON: April 26, 2022. TECHNIQUE: Frontal view of the chest was obtained. FINDINGS: The cardiomediastinal silhouette is stable. There is patchy right mid to lower lung field and left lung base infiltrative change. There is diffuse emphysematous change. There are no significant pleural effusions. The bony structures and soft tissues are unremarkable. XR/XR chest 1V IMPRESSION: 1. Patchy right mid to lower lung field and left lung base infiltrative change concerning for developing multifocal pneumonia. Correlation needed as chronic change also considered. 2. Emphysema. Electronically signed by: Morgan Gee MD 04/16/2024 01:33 AM EDT
--- NOTE | 2024-04-15 23:11 | ECG_ITS ---
Test Reason : SHORTNESS OF BREATH Blood Pressure : / mmHG Vent. Rate : 099 BPM Atrial Rate : 099 BPM P-R Int : 156 ms QRS Dur : 124 ms QT Int : 392 ms P-R-T Axes : 037 -87 048 degrees QTc Int : 503 ms Normal sinus rhythm Right bundle branch block Left anterior fascicular block Bifascicular block Abnormal ECG When compared with ECG of 07-JAN-2024 05:48, No significant changes seen Referred By: Riley Cherry Electronically Signed By:JOLENE MONTERROSO
[2024-04-15 23:20] VITALS: BP 134/86; PULSE 113; O2SAT 91
[2024-04-15 23:23] VITALS: BP 97/60; PULSE 96; O2SAT 92; BMI 30.7
[2024-04-16] VITALS (13 sets, daily range): BP systolic 89–119; BP diastolic 38–84; PULSE 74–100; RESP 17–27; TEMP 36.8–37.1; O2SAT 90–94
--- NOTE | 2024-04-16 00:41 | ED.GENADULT ---
HPI - General Adult General Chief complaint: General Medical Stated complaint: SNF, weak, SOB, cough, hx of hypoxia Time Seen by Provider: 04/15/24 23:08 History of Present Illness ED Provider: Dilip HPI narrative: 79-year-old male with past medical history of dementia, AFib on Eliquis, psychosis, COPD on 2L at baseline presenting from SNF due to altered mental status. Per EMS patient had been experiencing cough and increased agitation during the day today. He was given Ativan to help calm down and soon after became somnolent and hypoxic. 911 was called. In transport patient was still somnolent in transport and required 4 L nasal cannula. Pt is DNR/DNI Related Data Home Medications ?Medication ?Instructions ?Recorded ?Confirmed apixaban 5 mg tablet (Eliquis) 1 tab PO BID 04/26/22 10/11/23 aspirin 81 mg tablet,delayed 81 mg PO DAILY 04/26/22 10/11/23 release cholecalciferol (vitamin D3) 25 25 mcg PO DAILY 04/26/22 10/11/23 mcg (1,000 unit) tablet (Vitamin D3) docusate sodium 100 mg capsule 100 mg PO DAILY 04/26/22 10/11/23 (Colace) loratadine 10 mg tablet 10 mg PO DAILY 04/26/22 10/11/23 trazodone 50 mg tablet 50 mg PO BEDTIME 04/26/22 10/11/23 divalproex 500 mg tablet,delayed 500 mg PO BID 10/02/23 10/11/23 release finasteride 5 mg tablet 5 mg PO DAILY 10/02/23 10/11/23 folic acid 1 mg tablet 1 mg PO DAILY 10/02/23 10/11/23 lactulose 10 gram/15 mL oral 10 g PO DAILY 10/02/23 10/11/23 solution quetiapine 100 mg tablet 100 mg PO BID 10/02/23 10/11/23 sennosides 8.8 mg/5 mL oral syrup 8.8 mg PO BEDTIME 10/02/23 10/11/23 spironolactone 25 mg tablet 25 mg PO DAILY 10/02/23 10/11/23 thiamine HCl (vitamin B1) 100 mg 100 mg PO DAILY 10/02/23 10/11/23 tablet acetaminophen 325 mg tablet 650 mg PO Q6H PRN pain/fever 10/11/23 10/11/23 fluticasone propionate 50 1 spray intranasal DAILY 10/11/23 10/11/23 mcg/actuation nasal spray,suspension guaifenesin 100 mg/5 mL oral liquid 100 mg PO Q6H PRN Cough 10/11/23 10/11/23 hydrochlorothiazide 12.5 mg capsule 12.5 mg PO DAILY 10/11/23 10/11/23 lorazepam 0.5 mg tablet 0.5 mg PO Q6H PRN Anxiety 10/11/23 10/11/23 magnesium hydroxide 400 mg/5 mL 30 ml PO BEDTIME PRN Constipation 10/11/23 10/11/23 oral suspension (Milk of Magnesia) quetiapine 25 mg tablet 25 mg PO BEDTIME PRN Agitation 10/11/23 10/11/23 Previous Rx's ?Medication ?Instructions ?Recorded tamsulosin 0.4 mg capsule 0.4 mg PO DAILY #30 caps 04/28/22 atorvastatin 80 mg tablet 80 mg PO DAILY #30 tabs 10/11/23 fluconazole 50 mg tablet 150 mg (3 x 50 mg) PO QWEEK #30 10/11/23 tabs Allergies Allergy/AdvReac Type Severity Reaction Status Date / Time No Known Allergies Allergy Verified 04/15/24 23:25 [No Known Allergies*] Review of Systems Review of Systems: Yes Unobtainable due to mental status PMFSH Past Medical History Medical History Psychosis Depression Atrial fibrillation Hypertension Hyperlipidemia Vascular dementia COPD (chronic obstructive pulmonary disease) Social History Social History Household Members: None Housing: Retirement Unable to assess alcohol history related to: Unknown Patient Tobacco Use Status: Never used Tobacco Advance Directives: Yes Advance Directives on File: Yes Advance Directives Date on File: 04/27/22 service: Yes Current occupational status: retired Physical Exam ED Vital Signs: Vital Signs - 24 hr 04/15/24 23:23 04/16/24 01:11 04/16/24 01:13 Pulse Rate 96 88 89 Respiratory Rate 27 H 18 Blood Pressure 97/60 106/63 Pulse Oximetry 92 93 Oxygen Delivery Method Nasal Cannula with ETCO2 Nasal Cannula Oxygen Flow Rate 4 BMI result Body Mass Index 30.7 Lungs clear to auscultation bilaterally; normal S1-S2 regular rate Abdomen is soft nontender nondistended No lower extremity edema appreciated Patient is still somnolent however responsive to tactile and verbal stimuli Medications Administered Generic Name Dose Route Start Last Admin Trade Name Freq PRN Reason Stop Dose Admin Ceftriaxone Sodium 1 gm 04/16/24 01:45 04/16/24 02:17 Ceftriaxone Sodium 1 Gm Vial IVPUSH 1 gm 1000,2200 CRISTAL Administration Sodium Chloride 1,000 mls @ 999 mls/hr 04/16/24 01:45 04/16/24 02:30 Ns IV 04/16/24 02:45 999 mls/hr .Q1H1M CRISTAL Administration Doxycycline Hyclate 100 mg/ 250 mls @ 166.67 mls/hr 04/16/24 01:37 04/16/24 02:30 Sodium Chloride IV 04/16/24 03:06 166.67 mls/hr ONCE ONE Administration Discontinued Medications Generic Name Dose Route Start Last Admin Trade Name Freq PRN Reason Stop Dose Admin Albuterol/Ipratropium 6 ml 04/15/24 23:27 04/16/24 01:11 Albuterol/Iprat 2.5/0.5mg 3 Ml Ampul.Neb INHALE 04/15/24 23:28 6 ml ONCE ONE Administration Prednisone 60 mg 04/15/24 23:27 04/16/24 00:54 Prednisone 20 Mg Tablet PO 04/15/24 23:28 Not Given ONCE ONE Medical Decision Making Medical Decision Making [facility] Narrative: This is a 79-year-old male with past medical history of COPD and dementia presenting for altered mental status in the setting of receiving Ativan. I am concerned for the following; adverse medication reaction, COPD exacerbation, pneumonia/aspiration pneumonia, viral URI, COVID, flu - less likely CVA/stroke, head bleed given HPI however will obtain appropriate imaging to rule out head bleed - labs and imaging studies ordered - I noted opacity to right lung and radiologist's interpretation is developing multifocal pneumonia - labs notable for leukocytosis, normal blood gas, elevated lactate - antibiotics and fluids ordered - given altered mental status and new O2 requirements patient will require admission; Pt is protecting his airway however has a GCS < 8 - I consulted ICU for evaluation however pt accepted to floor Differential Diagnosis Differential Diagnoses: The differential diagnosis associated with the presentation includes COPD exacerbation, pneumonia, aspiration pneumonia, toxic metabolic encephalopathy, URI, COVID, flu, adverse medication reaction Lab Data 04/16/24 00:34 04/16/24 00:34 Labs: Lab Results 04/16/24 04/16/24 Range/Units 00:34 00:43 WBC 15.5 H (4.8-10.8) X10*3/uL RBC 5.18 (4.60-5.80) X10*6/uL Hgb 15.7 (14.0-18.0) g/dl Hct 45.0 (42.0-52.0) % MCV 86.9 (80.0-98.0) fL MCH 30.3 (27.0-33.0) pg MCHC 34.9 (31.0-36.0) g/dl RDW 12.9 (11.0-16.0) % Plt Count 295 D (160-400) X10*3/uL MPV 9.0 L (9.4-12.4) fL Immature Gran % (Auto) 0.5 H (0.0-0.4) % Neut % (Auto) 91.3 H (45-73) % Lymph % (Auto) 3.4 L (20-40) % [place] % (Auto) 4.5 (2-11) % Eos % (Auto) 0.0 (0-4) % Baso % (Auto) 0.3 (0-2) % Lymph # (Auto) 0.5 L (1.2-4.9) X10*3/uL [place] # (Auto) 0.7 (0.1-1.2) X10*3/uL Eos # (Auto) 0.0 (0.0-0.4) X10*3/uL Baso # (Auto) 0.0 (0.0-0.2) X10*3/uL Abs Immat Gran (auto) 0.08 H (0.00-0.03) X10*3/uL Absolute Neuts (auto) 14.1 H (2.0-8.3) x10*3/uL Absolute Nucleated RBC 0.000 (0.0-0.012) X10*3/uL Nucleated RBC % (auto) 0.0 (0.0-0.2) /100WBC VBG pH 7.50 H (7.32-7.43) VBG pCO2 29 mmHg VBG pO2 79 mmHg VBG HCO3 22 (22-26) mmol/L VBG O2 Saturation 95.0 % VBG Base Excess 0.9 mmol/L Sodium 138 (135-145) mmol/L Potassium 3.3 (3.3-5.1) mmol/L Chloride 104 (96-108) mmol/L Carbon Dioxide 23 (22-29) mmol/L Anion Gap 14 (12-20) BUN 28 H (9-16) mg/dL Creatinine 1.12 (0.5-1.4) mg/dL Estim Creat Clear Calc 64.3 Estimated GFR > 60 Random Glucose 130 H (60-115) mg/dL Lactic Acid 2.6 H* (0.5-2.0) mmol/L Calcium 9.7 D (8.4-10.2) mg/dL Total Bilirubin 0.9 (0.0-1.0) mg/dL AST 20 (5-37) U/L ALT 13 (0-40) U/L Alkaline Phosphatase 80 (39-117) U/L Troponin I High Sens 3.0 (<3.5-35.0) ng/L B-Natriuretic Peptide 17 (<100) pg/mL Total Protein 7.0 (6.5-8.0) g/dL Albumin 3.5 (3.5-5.0) g/dL Influenza Type A (PCR) NEGATIVE (Negative) Influenza Type B (PCR) NEGATIVE (Negative) RSV RNA Qual (PCR) NEGATIVE (Negative) SARS-CoV-2 RNA (RT-PCR) NEGATIVE (Negative) Discharge Plan Discharge Clinical Impression: Altered mental status, Hypoxia Prescriptions: No Action Eliquis 5 mg tablet 1 tab PO BID trazodone 50 mg Tablet 50 mg PO BEDTIME aspirin 81 mg Tablet,Delayed Release (Dr/Ec) 81 mg PO DAILY docusate sodium [Colace] 100 mg Capsule 100 mg PO DAILY loratadine 10 mg Tablet 10 mg PO DAILY cholecalciferol (vitamin D3) [Vitamin D3] 25 mcg (1,000 unit) Tablet 25 mcg PO DAILY tamsulosin 0.4 mg Capsule 0.4 mg PO DAILY Qty: 30 0RF thiamine HCl (vitamin B1) 100 mg Tablet 100 mg PO DAILY sennosides 8.8 mg/5 mL Syrup 8.8 mg PO BEDTIME divalproex 500 mg Tablet,Delayed Release (Dr/Ec) 500 mg PO BID quetiapine 100 mg Tablet 100 mg PO BID spironolactone 25 mg Tablet 25 mg PO DAILY folic acid 1 mg Tablet 1 mg PO DAILY finasteride 5 mg Tablet 5 mg PO DAILY lactulose 10 gram/15 mL Solution 10 g PO DAILY hydrochlorothiazide 12.5 mg Capsule 12.5 mg PO DAILY quetiapine 25 mg Tablet 25 mg PO BEDTIME PRN (Reason: Agitation) acetaminophen 325 mg Tablet 650 mg PO Q6H PRN (Reason: pain/fever) guaifenesin 100 mg/5 mL Liquid 100 mg PO Q6H PRN (Reason: Cough) lorazepam 0.5 mg Tablet 0.5 mg PO Q6H PRN (Reason: Anxiety) magnesium hydroxide [Milk of Magnesia] 400 mg/5 mL Suspension 30 ml PO BEDTIME PRN (Reason: Constipation) Rx Instructions: for no BM in 3 days or 9 shifts and no stool in rectum fluticasone propionate 50 mcg/actuation [place],Suspension 1 spray INTRANASAL DAILY Rx Instructions: administer into each nostril fluconazole 50 mg Tablet 150 mg PO QWEEK Qty: 30 0RF Rx Instructions: stop date 11/03/23 (tx duration 10 weeks) atorvastatin 80 mg Tablet 80 mg PO DAILY Qty: 30 0RF Print Language: Mauritanian
[2024-04-16 00:44] LABS: MANUAL DIFF FLAG NO
[2024-04-16 00:45] LABS: Basophils Percent Auto 0.3 % (0-2); Hemoglobin 15.7 g/dl (14.0-18.0); Imm Gran Abs Auto 0.08 X10*3/uL (0.00-0.03); Imm Gran Pct Auto 0.5 % (0.0-0.4); Lymphocytes Absolute Auto 0.5 X10*3/uL (1.2-4.9); Lymphocytes Percent Auto 3.4 % (20-40); Mean Corpuscular HGB Conc 34.9 g/dl (31.0-36.0); Mean Corpuscular Hemoglobin 30.3 pg (27.0-33.0); Mean Corpuscular Volume 86.9 fL (80.0-98.0); Monocytes Absolute Auto 0.7 X10*3/uL (0.1-1.2); Monocytes Percent Auto 4.5 % (2-11); Neutrophils Absolute Auto 14.1 x10*3/uL (2.0-8.3); Neutrophils Percent Auto 91.3 % (45-73); Platelet Count 295 X10*3/uL (160-400); Red Blood Count 5.18 X10*6/uL (4.60-5.80); Red Cell Distribution Width 12.9 % (11.0-16.0); SCAN SMEAR FLAG 1; White Blood Count 15.5 X10*3/uL (4.8-10.8)
[2024-04-16 00:48] LABS: VBG Base Excess 0.9 mmol/L; VBG HCO3 22 mmol/L (22-26); VBG pCO2 29 mmHg; VBG pO2 79 mmHg
[2024-04-16 00:51] LABS: Venous Blood Gas Refer to POC result
--- NOTE | 2024-04-16 00:54 | PC.NURSE ---
Pt unable to swallow prednisone at this time. Provider notified and aware. Provider will enter new med orders RT called for pt. Plan of care ongoing.
[2024-04-16 01:01] LABS: Alanine Aminotransferase 13 U/L (0-40); Albumin Level 3.5 g/dL (3.5-5.0); Alkaline Phosphatase 80 U/L (39-117); Anion Gap 14 (12-20); Aspartate Amino Transferase 20 U/L (5-37); Bilirubin Total 0.9 mg/dL (0.0-1.0); Blood Urea Nitrogen 28 mg/dL (9-16); Calcium 9.7 mg/dL (8.4-10.2); Carbon Dioxide 23 mmol/L (22-29); Chloride 104 mmol/L (96-108); Creatinine Clr Calc Pharmacy 64.3; Estimated Glomerular Filt Rate > 60; Glucose Random 130 mg/dL (60-115); Potassium 3.3 mmol/L (3.3-5.1); Sodium 138 mmol/L (135-145)
[2024-04-16 01:05] LABS: Lactic Acid 2.6 mmol/L (0.5-2.0)
[2024-04-16 01:10] LABS: B Type Natriuretic Peptide 17 pg/mL (<100)
[2024-04-16] MEDS: Albuterol/Iprat 2.5/0.5MG 3 ML AMPUL.NEB 6 ML INHALE (01:11)
[2024-04-16 01:21] LABS: Influenza A PCR NEGATIVE (Negative); Influenza B PCR NEGATIVE (Negative); Resp Syncy Virus RNA Qual PCR NEGATIVE (Negative); SARS COV2 PCR INHOUSE NEGATIVE (Negative)
[2024-04-16] MEDS: cefTRIAXone sodium 1 GM VIAL IVPUSH ×2 (02:17→10:26)
[2024-04-16] MEDS: Doxycycline Hyclate 100 MG in 0.9 % Sodium Chloride 250 ML 166.67 MG IV (02:30)
[2024-04-16] MEDS: 0.9 % Sodium Chloride 1,000 ML 999 ML IV (02:30)
[2024-04-16 02:42] LABS: Reflex Lactate? Lactic Acid Added
[2024-04-16 02:52] LABS: Lactic Acid 1.7 mmol/L (0.5-2.0)
--- NOTE | 2024-04-16 03:12 | PC.NURSE ---
Unable to place moura. Provider notified and aware. Provider also made aware of pt attempting to climb out of bed. Per provider will need to restraint pt physically, and administer depakote. Plan of care ongoing.
[2024-04-16 03:20] LABS: Basophils Absolute Auto 0.1 X10*3/uL (0.0-0.2); Basophils Percent Auto 0.3 % (0-2); Hematocrit 44.9 % (42.0-52.0); Hemoglobin 15.4 g/dl (14.0-18.0); Imm Gran Abs Auto 0.08 X10*3/uL (0.00-0.03); Imm Gran Pct Auto 0.4 % (0.0-0.4); Lymphocytes Absolute Auto 0.6 X10*3/uL (1.2-4.9); Lymphocytes Percent Auto 3.1 % (20-40); MANUAL DIFF FLAG SCAN; Mean Corpuscular HGB Conc 34.3 g/dl (31.0-36.0); Mean Corpuscular Hemoglobin 30.4 pg (27.0-33.0); Mean Corpuscular Volume 88.7 fL (80.0-98.0); Mean Platelet Volume 9.2 fL (9.4-12.4); Monocytes Absolute Auto 1.1 X10*3/uL (0.1-1.2); Neutrophils Absolute Auto 16.6 x10*3/uL (2.0-8.3); Neutrophils Percent Auto 90.2 % (45-73); Platelet Count 269 X10*3/uL (160-400); Red Blood Count 5.06 X10*6/uL (4.60-5.80); SCAN SMEAR FLAG 1; White Blood Count 18.5 X10*3/uL (4.8-10.8)
[2024-04-16 03:32] LABS: ~Lactic Acid-LAB USE ONLY 2.1 mmol/L (0.5-2.0)
[2024-04-16 03:33] LABS: Anion Gap 16 (12-20); Blood Urea Nitrogen 27 mg/dL (9-16); Calcium 9.2 mg/dL (8.4-10.2); Carbon Dioxide 22 mmol/L (22-29); Chloride 105 mmol/L (96-108); Creatinine Clr Calc Pharmacy 62.6; Estimated Glomerular Filt Rate > 60; Glucose Random 138 mg/dL (60-115); Magnesium 1.9 mg/dL (1.6-2.6); Potassium 3.6 mmol/L (3.3-5.1); Sodium 139 mmol/L (135-145)
[2024-04-16 03:38] LABS: Cancel Lactic Acid Canceled
[2024-04-16 03:38] LABS: SLIDE REVIEW VERIFIED
[2024-04-16] MEDS: Valproic Acid (as Sodium Salt) 250 MG in Dextrose 5 % 50 ML 52.5 MG IV (03:44)
--- NOTE | 2024-04-16 04:58 | P.HPHOSP_ITS ---
History of Present Illness Date of Service: 04/16/24 Attending physician on admission: Mike Cherry Chief Complaint: altered mental status Joon Jerez is a 72 years old man with past medical history significant for dementia, major depressive disorder, COPD on home O2 2L/min, essential hypertension, paroxysmal atrial fibrillation and abdominal aortic aneurysm was brought to the emergency department due to altered mental status after receiving Ativan IV. It seems like the patient was agitated during the day. HPI was obtained from ED provider. The patient also was noted to have low O2 saturation and now on 4 liters/minutes supplemental oxygen. In the ED, he was found to have stable vital signs. His O2 saturation is adequate and currently requiring 4 L/min supplemental oxygen via NC. Blood workup was significant for leukocytosis of 18.5. Hemoglobin and platelets are normal. There are no significant electrolyte imbalances. BUN is 27 and creatinine 1.15. Glucose is 138. Lactic acid was initially 2.6 --> 2.1. Troponin is negative. BNP is 17. Venous blood gas showed pH of 7.5 and CO2 is 29. Viral testing is negative for influenza, RSV and COVID-19. Head CT scan showed no acute intracranial pathology an old right frontal infarct. CXR showed patchy right mid to lower lung field and left lung base infiltrate change concerning for developing multifocal pneumonia and emphysema. ECG showed normal sinus rhythm with bifascicular hemiblock. Med list from nursing facility indicates patient was given olanzapine and divalproex at 4:37 PM. ED tx: DuoNeb, prednisone 60 mg p.o., NS 1 L bolus, doxycycline 100 mg IV. Review of Systems 2 Review of Systems: Yes Unobtainable due to mental status [facility] Medical History Psychosis Depression Atrial fibrillation Hypertension Hyperlipidemia Vascular dementia COPD (chronic obstructive pulmonary disease) Social History Household Members: None Housing: Jail Unable to assess alcohol history related to: Unknown Patient Tobacco Use Status: Never used Tobacco Advance Directives: Yes Advance Directives on File: Yes Advance Directives Date on File: 04/27/22 service: Yes Current occupational status: retired Meds Allergies Allergy/AdvReac Type Severity Reaction Status Date / Time No Known Allergies Allergy Verified 04/15/24 23:25 [No Known Allergies*] Active Medications: Current Medications Acetaminophen (Acetaminophen 325 Mg Tablet) 975 mg PO Q6H PRN PRN Reason: Pain, Mild (Pain Scale 1-3), fever or headache Ceftriaxone Sodium (Ceftriaxone Sodium 1 Gm Vial) 1 gm IVPUSH 1000,2200 CRISTAL Last Admin: 04/16/24 02:17 Dose: 1 gm Heparin Sodium (Porcine) (Heparin Sodium,Porcine 5,000 Unit/Ml Vial) 5,000 unit SUBCUT Q12H CRISTAL Ampicillin Sodium/Sulbactam (Sodium 1.5 gm/ Sodium Chloride) 100 mls @ 200 mls/hr IV Q6H [facility] Lactated Ringer's (Lr) 1,000 mls @ 80 mls/hr IVCONT .[id number] [facility] Sodium Chloride (0.9 % Sodium Chloride Flush 3 Ml Syringe) 3 ml IVFLUSH QSHIFT [facility] Home Medications ?Medication ?Instructions ?Recorded ?Confirmed ?Last Taken ?Type apixaban 5 mg tablet (Eliquis) 1 tab PO BID 04/26/22 10/11/23 10/11/23 History aspirin 81 mg tablet,delayed 81 mg PO DAILY 04/26/22 10/11/23 10/11/23 History release cholecalciferol (vitamin D3) 25 25 mcg PO DAILY 04/26/22 10/11/23 10/11/23 History mcg (1,000 unit) tablet (Vitamin D3) docusate sodium 100 mg capsule 100 mg PO DAILY 04/26/22 10/11/23 10/11/23 History (Colace) loratadine 10 mg tablet 10 mg PO DAILY 04/26/22 10/11/23 10/11/23 History trazodone 50 mg tablet 50 mg PO BEDTIME 04/26/22 10/11/23 10/10/23 History divalproex 500 mg tablet,delayed 500 mg PO BID 10/02/23 10/11/23 10/11/23 History release finasteride 5 mg tablet 5 mg PO DAILY 10/02/23 10/11/23 10/11/23 History folic acid 1 mg tablet 1 mg PO DAILY 10/02/23 10/11/23 10/11/23 History lactulose 10 gram/15 mL oral 10 g PO DAILY 10/02/23 10/11/23 10/11/23 History solution quetiapine 100 mg tablet 100 mg PO BID 10/02/23 10/11/23 10/11/23 History sennosides 8.8 mg/5 mL oral syrup 8.8 mg PO BEDTIME 10/02/23 10/11/23 10/10/23 History spironolactone 25 mg tablet 25 mg PO DAILY 10/02/23 10/11/23 10/11/23 History thiamine HCl (vitamin B1) 100 mg 100 mg PO DAILY 10/02/23 10/11/23 10/11/23 History tablet acetaminophen 325 mg tablet 650 mg PO Q6H PRN pain/fever 10/11/23 10/11/23 Unknown History fluticasone propionate 50 1 spray intranasal DAILY 10/11/23 10/11/23 10/10/23 History mcg/actuation nasal spray,suspension guaifenesin 100 mg/5 mL oral liquid 100 mg PO Q6H PRN Cough 10/11/23 10/11/23 Unknown History hydrochlorothiazide 12.5 mg capsule 12.5 mg PO DAILY 10/11/23 10/11/23 10/11/23 History lorazepam 0.5 mg tablet 0.5 mg PO Q6H PRN Anxiety 10/11/23 10/11/23 10/04/23 History magnesium hydroxide 400 mg/5 mL 30 ml PO BEDTIME PRN Constipation 10/11/23 10/11/23 Unknown History oral suspension (Milk of Magnesia) quetiapine 25 mg tablet 25 mg PO BEDTIME PRN Agitation 10/11/23 10/11/23 Unknown History Physical Exam 2 Vital Signs and Narrative: Vital Signs: Last Vital Signs Pulse 89 04/16/24 01:13 Resp 18 04/16/24 01:13 BP 106/63 04/16/24 01:11 Pulse Ox 93 04/16/24 01:11 O2 Del Method Nasal Cannula 04/16/24 01:11 O2 Flow Rate 4 04/16/24 01:11 BMI result Body Mass Index 30.7 Constitutional - Unresponsvie to painful stimuli, however, mumbles at times. HEENT - PERRL. Heart - RRR, No murmurs. Lungs - Normal lung expansion, Normal respiratory effort, No respiratory distress. Tachypnea. Decreased breath sounds. No wheezing. No rhonchi. Abdomen - NT / ND; +BS; No rebound or guarding Extremities - no calf tenderness bilaterally, no swelling Musculoskeletal - Normal inspection, normal ROM Skin - Warm/Dry Neurological - Unresponsive. No facial droop. No focal weakness grossly noted. Results Labs 04/16/24 03:15 04/16/24 03:15 Labs: Laboratory Results - last 24 hr 04/16/24 04/16/24 04/16/24 00:34 00:43 02:30 MCV 86.9 MCH 30.3 MCHC 34.9 RDW 12.9 Plt Count 295 D MPV 9.0 L Immature Gran % (Auto) 0.5 H Neut % (Auto) 91.3 H Lymph % (Auto) 3.4 L [place] % (Auto) 4.5 Eos % (Auto) 0.0 Baso % (Auto) 0.3 Lymph # (Auto) 0.5 L [place] # (Auto) 0.7 Eos # (Auto) 0.0 Baso # (Auto) 0.0 Abs Immat Gran (auto) 0.08 H Absolute Neuts (auto) 14.1 H Absolute Nucleated RBC 0.000 Nucleated RBC % (auto) 0.0 Smear Tech's Comments VBG pH 7.50 H VBG pCO2 29 VBG pO2 79 VBG HCO3 22 VBG O2 Saturation 95.0 VBG Base Excess 0.9 Anion Gap 14 Estim Creat Clear Calc 64.3 Estimated GFR > 60 Random Glucose 130 H Lactic Acid 2.6 H* 1.7 Lactic Acid F/U @ 2Hr Calcium 9.7 D Magnesium Total Bilirubin 0.9 AST 20 ALT 13 Alkaline Phosphatase 80 Troponin I High Sens 3.0 B-Natriuretic Peptide 17 Total Protein 7.0 Albumin 3.5 Influenza Type A (PCR) NEGATIVE Influenza Type B (PCR) NEGATIVE RSV RNA Qual (PCR) NEGATIVE SARS-CoV-2 RNA (RT-PCR) NEGATIVE 04/16/24 04/16/24 03:12 03:15 MCV 88.7 MCH 30.4 MCHC 34.3 RDW 13.0 Plt Count 269 MPV 9.2 L Immature Gran % (Auto) 0.4 Neut % (Auto) 90.2 H Lymph % (Auto) 3.1 L [place] % (Auto) 6.0 Eos % (Auto) 0.0 Baso % (Auto) 0.3 Lymph # (Auto) 0.6 L [place] # (Auto) 1.1 Eos # (Auto) 0.0 Baso # (Auto) 0.1 Abs Immat Gran (auto) 0.08 H Absolute Neuts (auto) 16.6 H Absolute Nucleated RBC 0.000 Nucleated RBC % (auto) 0.0 Smear Tech's Comments VERIFIED VBG pH VBG pCO2 VBG pO2 VBG HCO3 VBG O2 Saturation VBG Base Excess Anion Gap 16 Estim Creat Clear Calc 62.6 Estimated GFR > 60 Random Glucose 138 H Lactic Acid Lactic Acid F/U @ 2Hr 2.1 H* Calcium 9.2 Magnesium 1.9 Total Bilirubin AST ALT Alkaline Phosphatase Troponin I High Sens B-Natriuretic Peptide Total Protein Albumin Influenza Type A (PCR) Influenza Type B (PCR) RSV RNA Qual (PCR) SARS-CoV-2 RNA (RT-PCR) Imaging Radiologist's Impressions: Impressions Chest X-Ray 04/16/24 00:00 IMPRESSION: 1. Patchy right mid to lower lung field and left lung base infiltrative change concerning for developing multifocal pneumonia. Correlation needed as chronic change also considered. 2. Emphysema. Electronically signed by: Morgan Gee MD 04/16/2024 01:33 AM EDT RP Head CT 04/16/24 01:25 IMPRESSION: 1. No acute intracranial pathology. 2. Old right frontal infarct. 3. Sphenoid sinus disease and small right mastoid effusion of uncertain acuity and current significance. Electronically signed by: Morgan Gee MD 04/16/2024 02:39 AM EDT RP Assessment and Plan (1) Acute and chronic respiratory failure: Qualifiers: Respiratory failure complication: hypoxia Qualified Code(s): J96.21 - Acute and chronic respiratory failure with hypoxia Status: Acute (2) Multifocal pneumonia: Status: Acute (3) Decreased level of consciousness: Status: Acute Plan Joon Jerez is a 72 y/o man admitted with: * Decreased level of consciousness/acute encephalopathy likely multifactorial: Ativan, pneumonia. In the interim of this admission I was contacted to notify that patient became agitated. Admit to hospitalist service. NPO. Aspiration precautions. Will give depakote IV now. * Multifocal pneumonia, possible aspiration in the setting of underlying COPD. Telemetry. Pulse oximetry. Continue supplemental oxygen to keep O2 sats > 90%. Start treatment with Zosyn IV. Keep NPO. Aspiration precaution. Swallow evaluation. * Lactic acidosis, resolved. Likely secondary to hypoxia. Doubt sepsis. * BPH. Continue finasteride when able. Check bladder scan now. * Dementia with behavioral disturbances. Continue Depakote and olanzapine as needed. * Essential hypertension. Hydrochlorothiazide on hold due to NPO status. Continue to monitor blood pressure. * Paroxysmal atrial fibrillation. Currently rate and rhythm controlled. On Eliquis? No anticoagulants listed on SNF med list. Telemetry. Code status: DNR/DNI, no non-invasive ventilation (per MOLST form) DVT prophylaxis: Heparin subcut Patient will need hospitalization for at least 2 midnights for multifocal pneumonia and decreased level of consciousness treatment with IV fluids and empiric IV antibiotic therapy as well as mood stabilizers as needed. Quality Stroke Does the patient have a stroke diagnosis?: No VTE Prior VTE?: No VTE Risk Level:: Medical - moderate - high VTE Device Contraindication: Treatment Not Indicated VTE Drug Contraindication: N/A - Med Ordered
--- NOTE | 2024-04-16 06:04 | PC.NURSE ---
Ampicillin not in the Pyxis. This RN spoke with pharmacy, will bring med. Plan of care ongoing.
[2024-04-16] MEDS: Haloperidol Lactate 5 MG/ML VIAL IM (06:14)
--- NOTE | 2024-04-16 06:29 | PC.NURSE ---
Provider shoshana notified and aware pt still attempting to climb out of bed. Pt medicated per aug. Provider shoshana attempted straight cath, unable to obtain. Plan of care ongoing.
[2024-04-16] MEDS: Lactated Ringers 1,000 ML 80 ML IVCONT ×2 (06:34→19:50)
[2024-04-16] MEDS: Acetaminophen 1,000 MG/100 ML PIGGYBACK 400 MG IV (07:40)
--- NOTE | 2024-04-16 07:59 | PC.NURSE ---
Care of Pt assumed at change of shift. Pt is restless and confused with frequent attempts to get out of bed. Pt incontinent of urine, cleansed and new linens provided. Difficulty with IV administration as Pt is unable to keep RUE straight consistently. Breaths are slow, even, and unlabored. Pt is alert to verbal stimuli Speech is garbled but unlabored. Awaiting room assignment.
--- NOTE | 2024-04-16 08:36 | MHC.CM.PN ---
Patient is documented to have Dementia, AMS, decreased level of Consciousness, and Agitation; CM left a detailed message for Daughter/HCP/Candi @ [phone] addressing the IMM (the original will be mailed certified letter to Candi and a copy will be placed on the chart). Patient is a LTC Resident at [facility] and returning there is the goal; CM has initiated and will follow for dc planning.
--- NOTE | 2024-04-16 08:46 | PC.NURSE ---
Pt due for IV Unasyn, unavailable in pyxis at the time. Pharmacy aware, awaiting delivery.
[2024-04-16] MEDS: Heparin Sodium,Porcine 5,000 UNIT/ML VIAL 5000 UNIT SUBCUT ×2 (08:48→20:59)
[2024-04-16] MEDS: Ampicillin Sodium/Sulbactam Na 1.5 GM in 0.9 % Sodium Chloride 100 ML IV ×3 (10:13→20:54)
[2024-04-16] MEDS: 0.9 % Sodium Chloride Flush 3 ML SYRINGE IVFLUSH (10:16)
--- NOTE | 2024-04-16 10:17 | PC.NURSE ---
New IV access placed to L forearm. IV Unasyn started upon arrival from pharmacy. Temp reassessed and noted to be 98.4 rectal.
--- NOTE | 2024-04-16 10:31 | P.PNIM_ITS ---
Subjective Subjective Date of Service: 04/16/24 Review of Systems Review of Systems: Yes Unobtainable due to mental condition Physical Exam 2 Vital Signs: Vital Signs: Last Vital Signs Temp 98.4 F 04/16/24 09:45 Pulse 74 04/16/24 08:40 Resp 18 04/16/24 08:40 BP 112/53 L 04/16/24 08:40 Pulse Ox 94 04/16/24 08:40 O2 Del Method Room Air 04/16/24 08:40 O2 Flow Rate 4 04/16/24 01:11 BMI result Body Mass Index 30.7 contracted, obtunded, ill apperaring, diminished airways Objective Data Active Medications Acetaminophen (Acetaminophen 325 Mg Tablet) 975 mg PO Q6H PRN PRN Reason: Pain, Mild (Pain Scale 1-3), fever or headache Albuterol/Ipratropium (Albuterol/Iprat 2.5/0.5mg 3 Ml Ampul.Neb) 3 ml INHALE Q4H PRN PRN Reason: Shortness of Breath/Wheezing Ceftriaxone Sodium (Ceftriaxone Sodium 1 Gm Vial) 1 gm IVPUSH 1000,2200 [facility] Last Admin: 04/16/24 02:17 Dose: 1 gm Documented By: YOLANDA Haloperidol Lactate (Haloperidol Lactate 5 Mg/Ml Vial) 5 mg IM ONCE PRN PRN Reason: agitation Last Admin: 04/16/24 06:14 Dose: 5 mg Documented By: YOLANDA Heparin Sodium (Porcine) (Heparin Sodium,Porcine 5,000 Unit/Ml Vial) 5,000 unit SUBCUT Q12H [facility] Last Admin: 04/16/24 08:48 Dose: 5,000 unit Documented By: PRADIP Ampicillin Sodium/Sulbactam (Sodium 1.5 gm/ Sodium Chloride) 100 mls @ 200 mls/hr IV Q6H [facility] Last Admin: 04/16/24 10:13 Dose: 200 mls/hr Documented By: PRADIP Lactated Ringer's (Lr) 1,000 mls @ 80 mls/hr IVCONT .[id number] [facility] Last Admin: 04/16/24 06:34 Dose: 80 mls/hr Documented By: YOLANDA Sodium Chloride (0.9 % Sodium Chloride Flush 3 Ml Syringe) 3 ml IVFLUSH QSHIFT [facility] Last Admin: 04/16/24 10:16 Dose: 3 ml Documented By: PRADIP Labs 04/16/24 03:15 04/16/24 03:15 Labs: Laboratory Results - last 24 hr 04/16/24 04/16/24 04/16/24 00:34 00:43 02:30 MCV 86.9 MCH 30.3 MCHC 34.9 RDW 12.9 Plt Count 295 D MPV 9.0 L Immature Gran % (Auto) 0.5 H Neut % (Auto) 91.3 H Lymph % (Auto) 3.4 L [place] % (Auto) 4.5 Eos % (Auto) 0.0 Baso % (Auto) 0.3 Lymph # (Auto) 0.5 L [place] # (Auto) 0.7 Eos # (Auto) 0.0 Baso # (Auto) 0.0 Abs Immat Gran (auto) 0.08 H Absolute Neuts (auto) 14.1 H Absolute Nucleated RBC 0.000 Nucleated RBC % (auto) 0.0 Smear Tech's Comments VBG pH 7.50 H VBG pCO2 29 VBG pO2 79 VBG HCO3 22 VBG O2 Saturation 95.0 VBG Base Excess 0.9 Anion Gap 14 Estim Creat Clear Calc 64.3 Estimated GFR > 60 Random Glucose 130 H Lactic Acid 2.6 H* 1.7 Lactic Acid F/U @ 2Hr Calcium 9.7 D Magnesium Total Bilirubin 0.9 AST 20 ALT 13 Alkaline Phosphatase 80 Troponin I High Sens 3.0 B-Natriuretic Peptide 17 Total Protein 7.0 Albumin 3.5 Influenza Type A (PCR) NEGATIVE Influenza Type B (PCR) NEGATIVE RSV RNA Qual (PCR) NEGATIVE SARS-CoV-2 RNA (RT-PCR) NEGATIVE 04/16/24 04/16/24 03:12 03:15 MCV 88.7 MCH 30.4 MCHC 34.3 RDW 13.0 Plt Count 269 MPV 9.2 L Immature Gran % (Auto) 0.4 Neut % (Auto) 90.2 H Lymph % (Auto) 3.1 L [place] % (Auto) 6.0 Eos % (Auto) 0.0 Baso % (Auto) 0.3 Lymph # (Auto) 0.6 L [place] # (Auto) 1.1 Eos # (Auto) 0.0 Baso # (Auto) 0.1 Abs Immat Gran (auto) 0.08 H Absolute Neuts (auto) 16.6 H Absolute Nucleated RBC 0.000 Nucleated RBC % (auto) 0.0 Smear Tech's Comments VERIFIED VBG pH VBG pCO2 VBG pO2 VBG HCO3 VBG O2 Saturation VBG Base Excess Anion Gap 16 Estim Creat Clear Calc 62.6 Estimated GFR > 60 Random Glucose 138 H Lactic Acid Lactic Acid F/U @ 2Hr 2.1 H* Calcium 9.2 Magnesium 1.9 Total Bilirubin AST ALT Alkaline Phosphatase Troponin I High Sens B-Natriuretic Peptide Total Protein Albumin Influenza Type A (PCR) Influenza Type B (PCR) RSV RNA Qual (PCR) SARS-CoV-2 RNA (RT-PCR) Assessment and Plan (1) Decreased level of consciousness: Status: Acute Plan 79M PMH vascular and alzheimers dementia (baseline communicative with some mobility, very poor insight and short term memory), CVA, paroxysmal afib, AAA, Chronic hypoxic respiratory failure due to COPD on 2L, presented with hypoxia, lethargy, and cough complicated by AMS Acute on chronic hypoxic respiratory failure due to pneumonia complicated by acute metabolic encephalopathy due to acute hospital delirium and toxic encephalopathy from sedatives Continue Unasyn, NPO for now, IV fluids BPH Urology eval, check bladder scan Paroxysmal atrial fibrillation, history of CVA Holding oral meds while NPO Vascular and Alzheimer's dementia Discussed with patient's healthcare proxy, daughter Candi [phone], at baseline patient is able to feed self, does not recognize family but is conversational, is able to ambulate with assistive device. Goals of care currently To continue conservative care only and hopefully be able to [facility] to previous function level, with a do not transfer order. However, if patient shows no signs of improvement over the next few days plan to be readdress COPD with chronic hypoxic respiratory failure On 2 L at snf DVT prophylaxis with heparin subQ DNR/DNI reason for continued hospitalization: Not at baseline mental status Quality Stroke Does the patient have a stroke diagnosis?: No VTE Prior VTE?: No VTE Risk Level:: Medical - moderate - high VTE Device Contraindication: Treatment Not Indicated VTE Drug Contraindication: N/A - Med Ordered
--- NOTE | 2024-04-16 11:00 | PC.NURSE ---
Bladder scan performed as requested by Dr Mcfadden. 546ml recorded via scan. Amount reported to Dr. Mcfadden and aware Pt was incontinent x1 this AM. Per shift report, Pt had multiple attempts at catheter placement without success due to resistance/obstruction. Urology consult in for moura placement per Dr. Mcfadden
--- NOTE | 2024-04-16 11:12 | PHA.MEDREC ---
Addendum entered by Kris Brambila 04/16/24 11:25: reviewed Original Note: Pharmacy Consult ? Medication Reconciliation Pharmacy has completed the medication reconciliation. Utilized list from [facility] to confirm med list.
[2024-04-16 11:14] LABS: Ammonia 31 umol/L (13-55)
[2024-04-16] MEDS: OLANZapine 10 MG VIAL 5 MG IM (11:14)
--- NOTE | 2024-04-16 12:50 | P.CNUR_ITS ---
History of Present Illness Consult details Consult date: 04/16/24 Narrative: Joon Jerez is a 72 years old man with past medical history significant for dementia, major depressive disorder, COPD on home O2 2L/min, essential hypertension, paroxysmal atrial fibrillation and abdominal aortic aneurysm was brought to the emergency department due to altered mental status. H/o BPH and phimosis, has refused circumcision in the past. Pt is poor historian. Urology called to place moura. Patient is incontinent of urine Bladder scan repeated > 450 mL. Review of Systems 2 Review of Systems: 10 point ROS negative other than stated in HPI [facility] Past Medical History Medical History Psychosis Depression Atrial fibrillation Hypertension Hyperlipidemia Vascular dementia COPD (chronic obstructive pulmonary disease) Social History Social History Household Members: Unknown / Unable to assess Housing: Unknown / Unable to assess Unable to assess alcohol history related to: Unable to respond Comment: 1:1 sitter at bedside Patient Tobacco Use Status: Tobacco use Unknown Advance Directives Date on File: 04/27/22 service: Yes Current occupational status: retired [employer] Allergies Allergy/AdvReac Type Severity Reaction Status Date / Time No Known Allergies Allergy Verified 04/15/24 23:25 [No Known Allergies*] Active Medications: Current Medications Acetaminophen (Acetaminophen 325 Mg Tablet) 975 mg PO Q6H PRN PRN Reason: Pain, Mild (Pain Scale 1-3), fever or headache Albuterol/Ipratropium (Albuterol/Iprat 2.5/0.5mg 3 Ml Ampul.Neb) 3 ml INHALE Q4H PRN PRN Reason: Shortness of Breath/Wheezing Haloperidol Lactate (Haloperidol Lactate 5 Mg/Ml Vial) 5 mg IM ONCE PRN PRN Reason: agitation Last Admin: 04/16/24 06:14 Dose: 5 mg Heparin Sodium (Porcine) (Heparin Sodium,Porcine 5,000 Unit/Ml Vial) 5,000 unit SUBCUT Q12H [facility] Last Admin: 04/16/24 08:48 Dose: 5,000 unit Ampicillin Sodium/Sulbactam (Sodium 1.5 gm/ Sodium Chloride) 100 mls @ 200 mls/hr IV Q6H [facility] Last Infusion: 04/16/24 10:43 Dose: Infused Lactated Ringer's (Lr) 1,000 mls @ 80 mls/hr IVCONT .[id number] [facility] Last Admin: 04/16/24 06:34 Dose: 80 mls/hr Sodium Chloride (0.9 % Sodium Chloride Flush 3 Ml Syringe) 3 ml IVFLUSH QSHIFT [facility] Last Admin: 04/16/24 10:16 Dose: 3 ml Home Medications ?Medication ?Instructions ?Recorded ?Confirmed ?Last Taken ?Type apixaban 5 mg tablet (Eliquis) 1 tab PO BID 04/26/22 04/16/24 04/15/24 History aspirin 81 mg tablet,delayed 81 mg PO DAILY 04/26/22 04/16/24 04/15/24 History release cholecalciferol (vitamin D3) 25 25 mcg PO DAILY 04/26/22 04/16/24 04/15/24 History mcg (1,000 unit) tablet (Vitamin D3) docusate sodium 100 mg capsule 100 mg PO DAILY 04/26/22 04/16/24 04/15/24 History (Colace) loratadine 10 mg tablet 10 mg PO DAILY 04/26/22 04/16/24 04/15/24 History trazodone 50 mg tablet 50 mg PO BEDTIME 04/26/22 04/16/24 04/14/24 History finasteride 5 mg tablet 5 mg PO DAILY 10/02/23 04/16/24 04/15/24 History folic acid 1 mg tablet 1 mg PO DAILY 10/02/23 04/16/24 04/15/24 History lactulose 10 gram/15 mL oral 10 g PO DAILY PRN Constipation 10/02/23 04/16/24 03/29/24 History solution sennosides 8.8 mg/5 mL oral syrup 8.8 mg PO BEDTIME 10/02/23 04/16/24 04/14/24 History spironolactone 25 mg tablet 25 mg PO DAILY 10/02/23 04/16/24 10/11/23 History thiamine HCl (vitamin B1) 100 mg 100 mg PO DAILY 10/02/23 04/16/24 04/15/24 History tablet acetaminophen 325 mg tablet 650 mg PO Q6H PRN pain/fever 10/11/23 04/16/24 04/15/24 History fluticasone propionate 50 1 spray intranasal DAILY PRN 10/11/23 04/16/24 10/10/23 History mcg/actuation nasal Congestion spray,suspension guaifenesin 100 mg/5 mL oral liquid 100 mg PO Q6H PRN Cough 10/11/23 04/16/24 Unknown History hydrochlorothiazide 12.5 mg capsule 12.5 mg PO DAILY 10/11/23 04/16/24 04/15/24 History lorazepam 0.5 mg tablet 0.5 mg PO Q6H PRN Anxiety 10/11/23 04/16/24 04/15/24 History divalproex 125 mg tablet,delayed 125 mg PO BID 04/16/24 04/16/24 04/15/24 History release ipratropium 0.5 mg-albuterol 3 mg 3 ml inhalation Q4H PRN Shortness 04/16/24 04/16/24 Unknown History (2.5 mg base)/3 mL nebulization Of Breath Or Wheezing soln nystatin 100,000 unit/gram topical 1 appl topical BID PRN Rash 04/16/24 04/16/24 04/06/24 History powder olanzapine 2.5 mg tablet 2.5 mg PO BID 04/16/24 04/16/24 04/15/24 History olanzapine 2.5 mg tablet 2.5 mg PO DAILY PRN Agitation 04/16/24 04/16/24 Unknown History Physical Exam 2 Vital Signs: Vital Signs: Last Vital Signs Temp 98.4 F 04/16/24 09:45 Pulse 74 04/16/24 08:40 Resp 18 04/16/24 08:40 BP 112/53 L 04/16/24 08:40 Pulse Ox 94 04/16/24 08:40 O2 Del Method Room Air 04/16/24 08:40 O2 Flow Rate 4 04/16/24 01:11 BMI result Body Mass Index 30.7 Const: General: no acute distress and well developed HEENT: Head: Yes normocephalic and Yes atraumatic Eyes: Conjunctivae: conjunctivae normal Neck: Neck: Yes normal visual inspection Chest: Chest palpation & inspection: normal inspection of the chest Resp: Effort & Inspection: normal respiratory effort Cardio: Rate: regular rate GI: Inspection: Yes normal to inspection Palpation (GI): Soft to palpation : Other: Bladder scan 458 mL Penis: phimosis Scrotum: scrotum normal Psych: Appearance: grossly normal Affect: normal affect Results Labs 04/19/24 05:58 04/19/24 12:26 Labs: Abnormal lab results 04/16/24 04/16/24 04/16/24 Range/Units 00:34 00:43 03:12 WBC 15.5 H (4.8-10.8) X10*3/uL MPV 9.0 L (9.4-12.4) fL Immature Gran % (Auto) 0.5 H (0.0-0.4) % Neut % (Auto) 91.3 H (45-73) % Lymph % (Auto) 3.4 L (20-40) % Lymph # (Auto) 0.5 L (1.2-4.9) X10*3/uL Abs Immat Gran (auto) 0.08 H (0.00-0.03) X10*3/uL Absolute Neuts (auto) 14.1 H (2.0-8.3) x10*3/uL VBG pH 7.50 H (7.32-7.43) BUN 28 H (9-16) mg/dL Random Glucose 130 H (60-115) mg/dL Lactic Acid 2.6 H* (0.5-2.0) mmol/L Lactic Acid F/U @ 2Hr 2.1 H* (0.5-2.0) mmol/L 04/16/24 Range/Units 03:15 WBC 18.5 H (4.8-10.8) X10*3/uL MPV 9.2 L (9.4-12.4) fL Immature Gran % (Auto) (0.0-0.4) % Neut % (Auto) 90.2 H (45-73) % Lymph % (Auto) 3.1 L (20-40) % Lymph # (Auto) 0.6 L (1.2-4.9) X10*3/uL Abs Immat Gran (auto) 0.08 H (0.00-0.03) X10*3/uL Absolute Neuts (auto) 16.6 H (2.0-8.3) x10*3/uL VBG pH (7.32-7.43) BUN 27 H (9-16) mg/dL Random Glucose 138 H (60-115) mg/dL Lactic Acid (0.5-2.0) mmol/L Lactic Acid F/U @ 2Hr (0.5-2.0) mmol/L Short CBC 04/16/24 04/16/24 Range/Units 00:34 03:15 WBC 15.5 H 18.5 H (4.8-10.8) X10*3/uL Hgb 15.7 15.4 (14.0-18.0) g/dl Hct 45.0 44.9 (42.0-52.0) % Plt Count 295 D 269 (160-400) X10*3/uL BMP 04/16/24 04/16/24 00:34 03:15 Sodium 138 139 Potassium 3.3 3.6 Chloride 104 105 Carbon Dioxide 23 22 BUN 28 H 27 H Creatinine 1.12 1.15 Calcium 9.7 D 9.2 Liver Function 04/16/24 Range/Units 00:34 Total Bilirubin 0.9 (0.0-1.0) mg/dL AST 20 (5-37) U/L ALT 13 (0-40) U/L Alkaline Phosphatase 80 (39-117) U/L Albumin 3.5 (3.5-5.0) g/dL Assessment and Plan (1) Urinary retention: Status: Acute (2) Phimosis: Status: Acute Plan difficult catheterization due to phimosis. moura placed Procedures Date of Service Date of Service: 04/16/24 Catheter Insertion (Urinary) Date of insertion: 04/16/24 Reason for placing: Acute urinary retention Bladder scan/ultrasound used before catheterization: Yes Estimated amount of urine (mLs): 458 Antiseptic solution prep: Povidone-Iodine Topical anesthesia used: Yes Catheter type/location: 2-way Urethral Catheter balloon size (mL): 5 Catheter balloon amount: 10 Results: successfully catheterized-immediate flow Procedure performed: without complications
--- NOTE | 2024-04-16 13:00 | MHC.SLORD ---
Speech Language Pathology Order Status: Pt not able to participate at this time. Not responding to verbal or tactile stimuli. RN and MD notified via message.
[2024-04-16] MEDS: Lidocaine HCl 1 % 10 ML VIAL INFILTRATI (13:52)
--- NOTE | 2024-04-16 13:52 | PC.NURSE ---
Urology at bedside for Salguero placement. During procedure, Pt pulling t medical equipment, IV to RAC pulled out and cardiac monitoring leads pulled off. Pt interfering with medical care and procedure, therefore soft restraints applied to RUE and LUE. Urology able to place 16F Salguero Catheter. 500ml of lisette colored urine drained initially.
[2024-04-16] MEDS: 0.9 % Sodium Chloride 500 ML 999 ML IV (14:24)
[2024-04-16 15:32] LABS: Appearance Urine Turbid; Color Urine Yellow; Glucose Urine UA Negative (Negative); Leukocyte Esterase Urine Large (3+) (Negative); Nitrite Urine Negative (Negative); PH 6.5 (5.0-9.0); UMIC TRIGGER UACC YES; Urine Blood Large (3+) (Negative); Urine Ketones Trace mg/dL (Negative); Urine Protein 30 (1+) mg/dL (Neg-Trace)
[2024-04-16 15:40] LABS: Amphetamine Screen Urine Not Detected (Not Detect); Barbiturates, Urine Not Detected (Not Detect); Benzodiazepines Screen Urine Not Detected (Not Detect); Buprenorphine Scr Not Detected (Not Detect); Cannabinoid Screen Urine Not Detected (Not Detect); Cocaine Screen Urine Not Detected (Not Detect); Fentanyl, urine Not Detected (Not Detect); Methadone Screen, Urine Not Detected (Not Detect); Opiate Screen Urine Not Detected (Not Detect); Oxycodone Screen Urine Not Detected (Not Detect); Phencyclidine Screen Urine Not Detected (Not Detect)
[2024-04-16 15:47] LABS: Bacteria Urine 4+ (None Seen); RBC Urine >20 /HPF (0-2); Squamous Epithelial Cell Urine 0-2 /HPF (0-2); UACC Culture Trigger YES; WBC Urine >50 /HPF (0-5)
[2024-04-17] MEDS: Ampicillin Sodium/Sulbactam Na 1.5 GM in 0.9 % Sodium Chloride 100 ML IV ×4 (02:25→19:47)
[2024-04-17 05:08] LABS: Hematocrit 40.3 % (42.0-52.0); Hemoglobin 13.5 g/dl (14.0-18.0); Mean Corpuscular HGB Conc 33.5 g/dl (31.0-36.0); Mean Corpuscular Hemoglobin 30.5 pg (27.0-33.0); Mean Corpuscular Volume 91.2 fL (80.0-98.0); Mean Platelet Volume 9.6 fL (9.4-12.4); Platelet Count 233 X10*3/uL (160-400); Red Blood Count 4.42 X10*6/uL (4.60-5.80); Red Cell Distribution Width 13.1 % (11.0-16.0); White Blood Count 10.4 X10*3/uL (4.8-10.8)
[2024-04-17 05:27] LABS: Alanine Aminotransferase 13 U/L (0-40); Albumin Level 2.9 g/dL (3.5-5.0); Alkaline Phosphatase 64 U/L (39-117); Anion Gap 15 (12-20); Aspartate Amino Transferase 57 U/L (5-37); Bilirubin Direct 0.3 mg/dL (0.0-0.5); Bilirubin Total 0.8 mg/dL (0.0-1.0); Blood Urea Nitrogen 22 mg/dL (9-16); Calcium 8.7 mg/dL (8.4-10.2); Carbon Dioxide 21 mmol/L (22-29); Chloride 110 mmol/L (96-108); Creatinine Clr Calc Pharmacy 91.2; Estimated Glomerular Filt Rate > 60; Glucose Fasting 67 mg/dL (60-99); Magnesium 2.2 mg/dL (1.6-2.6); Potassium 3.6 mmol/L (3.3-5.1); Sodium 142 mmol/L (135-145); Total Protein 6.1 g/dL (6.5-8.0)
[2024-04-17 06:02] VITALS: BP 121/59; PULSE 79; RESP 18; O2SAT 94
--- NOTE | 2024-04-17 06:15 | PC.NURSE ---
pt remains restless and agitated during the night. has moments of being able to sleep but is easily awakened. remains in soft restraints of upper limbs as he attempts to pull out IV, moura, and takes off leads. during periods of release for ROM checks pt is attempting to pull at lines. per daughter this is his baseline when in a hospital setting.
[2024-04-17] MEDS: Lactated Ringers 1,000 ML 80 ML IVCONT ×2 (08:47→19:47)
[2024-04-17] MEDS: Heparin Sodium,Porcine 5,000 UNIT/ML VIAL 5000 UNIT SUBCUT ×2 (08:55→19:47)
[2024-04-17 09:46] VITALS: BP 135/60; PULSE 68; RESP 18; TEMP 37.1; O2SAT 93
[2024-04-17 10:57] VITALS: BP 150/67; PULSE 59; RESP 20; TEMP 36.5; O2SAT 93
--- NOTE | 2024-04-17 12:35 | P.PNIM_ITS ---
Subjective Subjective Date of Service: 04/17/24 Interval History: Seen and evaluated this morning more alert and interactive but totally confused dc restraints no other overngiht events Review of Systems Review of Systems: Yes Unobtainable due to mental status Physical Exam 2 Vital Signs: Vital Signs: Last Vital Signs Temp 97.7 F 04/17/24 10:57 Pulse 59 04/17/24 10:57 Resp 20 04/17/24 10:57 BP 150/67 H 04/17/24 10:57 Pulse Ox 93 04/17/24 10:57 O2 Del Method Room Air 04/17/24 10:57 O2 Flow Rate 4 04/16/24 01:11 BMI result Body Mass Index 30.7 Const: Other: Constitutional : interactive, not in distress Cardiovascular : no JVP, no lower extremity edema Respiratory : bilateral chest movement, not in resp distress, basal fine crackles Gastrointestinal: soft, lax, Non tender Skin : Warm, Dry Neurological : Alert & disoriented , No focal deficit Objective Data Active Medications Acetaminophen (Acetaminophen 325 Mg Tablet) 975 mg PO Q6H PRN PRN Reason: Pain, Mild (Pain Scale 1-3), fever or headache Albuterol/Ipratropium (Albuterol/Iprat 2.5/0.5mg 3 Ml Ampul.Neb) 3 ml INHALE Q4H PRN PRN Reason: Shortness of Breath/Wheezing Haloperidol Lactate (Haloperidol Lactate 5 Mg/Ml Vial) 5 mg IM ONCE PRN PRN Reason: agitation Last Admin: 04/16/24 06:14 Dose: 5 mg Documented By: YOLANDA Heparin Sodium (Porcine) (Heparin Sodium,Porcine 5,000 Unit/Ml Vial) 5,000 unit SUBCUT Q12H [facility] Last Admin: 04/17/24 08:55 Dose: 5,000 unit Documented By: ISAÍAS Ampicillin Sodium/Sulbactam (Sodium 1.5 gm/ Sodium Chloride) 100 mls @ 200 mls/hr IV Q6H [facility] Last Infusion: 04/17/24 09:47 Dose: Infused Documented By: ISAÍAS Lactated Ringer's (Lr) 1,000 mls @ 80 mls/hr IVCONT .[id number] [facility] Last Admin: 04/17/24 08:47 Dose: 80 mls/hr Documented By: ISAÍAS Sodium Chloride (0.9 % Sodium Chloride Flush 3 Ml Syringe) 3 ml IVFLUSH QSHIFT [facility] Last Admin: 04/17/24 08:48 Dose: Not Given Documented By: ISAÍAS Non-Admin Reason: IV Running Labs 04/17/24 04:21 04/17/24 04:21 Labs: Laboratory Results - last 24 hr 04/16/24 04/17/24 15:24 04:21 MCV 91.2 MCH 30.5 MCHC 33.5 RDW 13.1 Plt Count 233 MPV 9.6 Absolute Nucleated RBC 0.000 Nucleated RBC % (auto) 0.0 Anion Gap 15 Estim Creat Clear Calc 91.2 Estimated GFR > 60 Fasting Glucose 67 Calcium 8.7 Magnesium 2.2 Total Bilirubin 0.8 Direct Bilirubin 0.3 AST 57 H ALT 13 Alkaline Phosphatase 64 Total Protein 6.1 L Albumin 2.9 L Urine Color Yellow Urine Appearance Turbid Urine pH 6.5 Ur Specific [place] 1.020 Urine Protein 30 (1+) H Urine Glucose (UA) Negative Urine Ketones Trace Urine Blood Large (3+) H Urine Nitrite Negative Ur Leukocyte Esterase Large (3+) H Urine RBC >20 H Urine WBC >50 H Ur Squamous Epith Cells 0-2 Urine Bacteria 4+ Hyaline Casts 11-20 Urine Opiates Screen Not Detected Ur Buprenorphine Scrn Not Detected Ur Oxycodone Screen Not Detected Urine Methadone Screen Not Detected Urine Fentanyl Screen Not Detected Ur Barbiturates Screen Not Detected Ur Phencyclidine Scrn Not Detected Ur Amphetamines Screen Not Detected U Benzodiazepines Scrn Not Detected Urine Cocaine Screen Not Detected U Marijuana (THC) Screen Not Detected Microbiology Microbiology Results: Microbiology 04/16/24 Unknown Urine Culture - Preliminary Urine clean catch - Clean Catch Midstream No growth to date. 04/16/24 02:30 Blood Culture - Preliminary Blood - Venous No growth after 24 hours. 04/16/24 02:10 Blood Culture - Preliminary Blood - Venous No growth after 24 hours. Assessment and Plan (1) Decreased level of consciousness: Status: Acute (2) Multifocal pneumonia: Status: Acute (3) Acute and chronic respiratory failure: Status: Acute Plan 79M PMH vascular and alzheimers dementia (baseline communicative with some mobility, very poor insight and short term memory), CVA, paroxysmal afib, AAA, Chronic hypoxic respiratory failure due to COPD on 2L, presented with hypoxia, lethargy, and cough complicated by AMS Acute on chronic hypoxic respiratory failure due to pneumonia complicated by acute metabolic encephalopathy due to acute hospital delirium and toxic encephalopathy from sedatives More alert and interactive DC restraints Continue Unasyn, NPO pending 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 Goals of care currently To continue conservative care only and hopefully be able to [facility] to previous function level, with a do not transfer order. However, if patient shows no signs of improvement over the next few days plan to be readdress COPD with chronic hypoxic respiratory failure On 2 L at fdc DVT prophylaxis with heparin subQ DNR/DNI reason for continued hospitalization: pending blood cultures and tolerance to diet Quality Stroke Does the patient have a stroke diagnosis?: No VTE Prior VTE?: No VTE Risk Level:: Medical - moderate - high VTE Device Contraindication: Treatment Not Indicated VTE Drug Contraindication: N/A - Med Ordered
--- NOTE | 2024-04-17 13:45 | MHC.SLORD ---
Speech Language Pathology Order Status: Pt unable to be assessed d/t AMS, not able to participate in swallow evaluation at this time. [employer] consulted with RN upon second attempt this afternoon, RN to page [employer] upon pt waking enough to safely be assessed for PO tolerance.
[2024-04-17 15:38] VITALS: BP 131/69; PULSE 61; RESP 16; TEMP 36.8; O2SAT 95
[2024-04-17 19:42] VITALS: BP 142/83; PULSE 65; RESP 23; TEMP 36.7; O2SAT 93
[2024-04-17] MEDS: OLANZapine 10 MG VIAL 5 MG IM (21:55)
[2024-04-17] MEDS: 0.9 % Sodium Chloride Flush 3 ML SYRINGE IVFLUSH (21:55)
[2024-04-17 23:18] VITALS: BP 148/84; PULSE 59; RESP 16; TEMP 36.8; O2SAT 92
[2024-04-18] MEDS: LORazepam 2 MG/ML VIAL 1 MG IVPUSH (00:06)
[2024-04-18] MEDS: Ampicillin Sodium/Sulbactam Na 1.5 GM in 0.9 % Sodium Chloride 100 ML IV ×4 (01:16→20:39)
[2024-04-18] MEDS: 0.9 % Sodium Chloride Flush 3 ML SYRINGE IVFLUSH (09:28)
[2024-04-18 09:33] VITALS: BP 115/65; PULSE 54; RESP 20; TEMP 36.4; O2SAT 94
[2024-04-18] MEDS: Heparin Sodium,Porcine 5,000 UNIT/ML VIAL 5000 UNIT SUBCUT ×2 (10:24→20:36)
--- NOTE | 2024-04-18 15:54 | HO.PM.IMPN ---
Subjective Subjective Date of Service: 04/18/24 Interval History: Seen and evaluated this morning altered mentation had rough night with increase restlessness no other overngiht events Review of Systems Review of Systems: Yes Unobtainable due to mental status Physical Exam Vital Signs: Vital Signs: Last Vital Signs Temp 97.6 F 04/18/24 09:33 Pulse 54 04/18/24 09:33 Resp 20 04/18/24 09:33 BP 115/65 04/18/24 09:33 Pulse Ox 94 04/18/24 09:33 O2 Del Method Nasal Cannula 04/18/24 09:33 O2 Flow Rate 2 04/18/24 09:33 BMI result Body Mass Index 30.7 Const: Other: Constitutional : more sleepy and less interactive, not in distress Cardiovascular : no JVP, no lower extremity edema Respiratory : bilateral chest movement, not in resp distress, basal fine crackles Gastrointestinal: soft, lax, Non tender Skin : Warm, Dry Neurological : Alert with stimulation & disoriented , No focal deficit Objective Data Active Medications Acetaminophen (Acetaminophen 325 Mg Tablet) 975 mg PO Q6H PRN PRN Reason: Pain, Mild (Pain Scale 1-3), fever or headache Albuterol/Ipratropium (Albuterol/Iprat 2.5/0.5mg 3 Ml Ampul.Neb) 3 ml INHALE Q4H PRN PRN Reason: Shortness of Breath/Wheezing Divalproex Sodium (Divalproex Sodium Sprinkles 125 Mg Eliecer.) 125 mg PO BID [facility] Finasteride (Finasteride 5 Mg Tablet) 5 mg PO DAILY [facility] Haloperidol Lactate (Haloperidol Lactate 5 Mg/Ml Vial) 5 mg IM ONCE PRN PRN Reason: agitation Last Admin: 04/16/24 06:14 Dose: 5 mg Documented By: YOLANDA Heparin Sodium (Porcine) (Heparin Sodium,Porcine 5,000 Unit/Ml Vial) 5,000 unit SUBCUT Q12H [facility] Last Admin: 04/18/24 10:24 Dose: 5,000 unit Documented By: MICHAELLE Ampicillin Sodium/Sulbactam (Sodium 1.5 gm/ Sodium Chloride) 100 mls @ 200 mls/hr IV Q6H [facility] Last Infusion: 04/18/24 14:12 Dose: Infused Documented By: MICHAELLE Lorazepam (Lorazepam 0.5 Mg Tablet) 0.5 mg PO Q6H PRN PRN Reason: Anxiety Olanzapine (Olanzapine 2.5 Mg Tablet) 2.5 mg PO BID [facility] Olanzapine (Olanzapine 2.5 Mg Tablet) 2.5 mg PO DAILY PRN PRN Reason: Agitation Sodium Chloride (0.9 % Sodium Chloride Flush 3 Ml Syringe) 3 ml IVFLUSH QSHIFT [facility] Last Admin: 04/18/24 15:34 Dose: Not Given Documented By: MICHAELLE Non-Admin Reason: IV Running Tamsulosin HCl (Tamsulosin Hcl 0.4 Mg Capsule) 0.4 mg PO DAILY [facility] Trazodone HCl (Trazodone Hcl 50 Mg Tablet) 50 mg PO BEDTIME [facility] Labs 04/17/24 04:21 04/17/24 04:21 Microbiology Microbiology Results: Microbiology 04/16/24 Unknown Urine Culture - Final Urine clean catch - Clean Catch Midstream No growth. 04/16/24 02:30 Blood Culture - Preliminary Blood - Venous No growth after 48 hours. 04/16/24 02:10 Blood Culture - Preliminary Blood - Venous No growth after 48 hours. Assessment and Plan (1) Decreased level of consciousness: Status: Acute (2) Multifocal pneumonia: Status: Acute (3) Acute and chronic respiratory failure: Status: Acute (4) Urinary retention: Status: Acute Plan 79M PMH vascular and alzheimers dementia (baseline communicative with some mobility, very poor insight and short term memory), CVA, paroxysmal afib, AAA, Chronic hypoxic respiratory failure due to COPD on 2L, presented with hypoxia, lethargy, and cough complicated by AMS Acute on chronic hypoxic respiratory failure due to pneumonia complicated by acute metabolic encephalopathy due to acute hospital delirium and toxic encephalopathy from sedatives More alert and interactive this afternoon Continue Unasyn COMMUNICATIONS EQUIPMENT SUPERVISOR eval; pureed diet dc IV fluids pending cultures wean off O2 BPH Urology placed a Salguero, for OP voiding trials Paroxysmal atrial fibrillation, history of CVA restart home meds Vascular and Alzheimer's dementia Discussed with patient's healthcare proxy, daughter Candi [phone], at baseline patient is able to feed self, does not recognize family but is conversational, is able to ambulate with assistive device. Goals of care currently To continue conservative care only and [facility], with a do not transfer order. However, if patient shows no signs of improvement over the next few days plan to be readdress COPD with chronic hypoxic respiratory failure On 2 L at intermediate DVT prophylaxis with heparin subQ DNR/DNI reason for continued hospitalization: pending blood cultures and tolerance to diet Quality Stroke Does the patient have a stroke diagnosis?: No VTE Prior VTE?: No VTE Risk Level:: Medical - moderate - high VTE Device Contraindication: Treatment Not Indicated VTE Drug Contraindication: N/A - Med Ordered
[2024-04-18 16:00] VITALS: BP 112/55; PULSE 58; RESP 18; TEMP 36.5; O2SAT 94
--- NOTE | 2024-04-18 17:21 | MHC.SL.SWA ---
Speech Pathologist Impression: Risk of Aspiration Due to: Currently Intubated History of Pneumonia Reduced Cognition Dysphasia Diet Status: Mild to moderate oral pharyngeal dysphagia, recommend intial diet of PUREE with NECTAR THICK liquid by tsp only, pills crushed in puree, 1-1 feeding. Liquid Consistency and Strategies for Safe Swallow: Liquid Intake Recommendation: Neville Thick Liquid Intake Strategies: Liquids by Teaspoon Only Solid Food Consistency: Dietary Recommendations: Pureed (NDD1) Additional Modifications to Solid Foods: Patient at the moment requires a one to one feed. Do not attempt if patient continues to be excessively lethargic. Discontinue if patient cannot sustain attention to meal (waxes into lethargy/sleep). Neville thick liquids by tsp only. Oral Medication Intake: Crushed with Puree Please contact the pharmacy regarding appropriate crushable or liquid drug formulations that are available whenever modified delivery is recommended. Compensatory Strategies and Precautions to be Taken for Safe Swallow: Sitting Upright (90 deg) No Straw Liquids from Spoon Small Bites and Sips Alternate Liquids/Solids Rate of Ingestion Change Supervision While Eating and Drinking for Safe Swallow: Total Assistance (1:1) Foods to Avoid: Swallowing Recommended Treatments: Compens. Strategy Educat. Recommendation for Speech: Further Testing Needed Inpatient Speech Therapy Comment: Patient is on day three of severe lethargy, difficulty sustaining wakefulness. Today's assessment was again limited due to patient's lethargy. On this assessment, patient tolerated puree consistencies, and reliably tolerated nectar thick liquids by spoon. Patient evidences unusual oral phase pattern (e.g. chewing liquids), mild delay of swallow and mildly reduced laryngeal elevation on swallow, consistent with a mild to moderate oral pharyngeal dysphagia. Recommend continue with PUREE consistency and downgrade liquids to nectar thick by tsp only, pills crushed in puree. WHOLESALE AGRONOMIST will continue to monitor and re-asses as patient is able to sustain period of alertness for longer for a more complete assessment and possible upgrade. , RD notified by secure text, RN, MANAGER MEDIA inperson, white board adjusted with recommendations in room. Frequency/Duration: Date Range for Service Req: Timeline to reassess: President [employer] Consulting Clinican/Clinical Fellow: No Supervisory Statement: I have reviewed and agree with the student/clinical fellow's documentation: N/A Speech Language Pathologist: Katlyn Burden M.A., CCC-WHOLESALE AGRONOMIST
[2024-04-18 19:47] VITALS: BP 122/67; PULSE 102; RESP 20; TEMP 36.8; O2SAT 96
[2024-04-18] MEDS: Divalproex Sodium Sprinkles 125 MG CAP.DR.SPR PO (20:30)
[2024-04-18] MEDS: OLANZapine 2.5 MG TABLET PO (20:30)
[2024-04-18] MEDS: traZODone HCL 50 MG TABLET PO (20:30)
[2024-04-18] MEDS: Acetaminophen 325 MG TABLET 975 MG PO (20:30)
[2024-04-19] MEDS: Ampicillin Sodium/Sulbactam Na 1.5 GM in 0.9 % Sodium Chloride 100 ML IV ×3 (03:01→15:15)
[2024-04-19 03:31] VITALS: BP 100/53; PULSE 66; RESP 20; TEMP 36.6; O2SAT 98
[2024-04-19 07:01] LABS: Hematocrit 40.1 % (42.0-52.0); Hemoglobin 13.3 g/dl (14.0-18.0); Mean Corpuscular HGB Conc 33.2 g/dl (31.0-36.0); Mean Corpuscular Hemoglobin 30.6 pg (27.0-33.0); Mean Corpuscular Volume 92.4 fL (80.0-98.0); Platelet Count 230 X10*3/uL (160-400); Red Blood Count 4.34 X10*6/uL (4.60-5.80); Red Cell Distribution Width 13.1 % (11.0-16.0); White Blood Count 6.9 X10*3/uL (4.8-10.8)
[2024-04-19 07:22] VITALS: BP 170/106; PULSE 86; RESP 20; TEMP 36.1; O2SAT 94
[2024-04-19 07:38] VITALS: BP 140/80
[2024-04-19] MEDS: 0.9 % Sodium Chloride Flush 3 ML SYRINGE IVFLUSH ×2 (07:43→15:17)
[2024-04-19] MEDS: Heparin Sodium,Porcine 5,000 UNIT/ML VIAL 5000 UNIT SUBCUT (07:43)
[2024-04-19] MEDS: Tamsulosin HCL 0.4 MG CAPSULE PO (07:43)
[2024-04-19] MEDS: Finasteride 5 MG TABLET PO (07:43)
[2024-04-19] MEDS: Divalproex Sodium Sprinkles 125 MG CAP.DR.SPR PO (07:55)
[2024-04-19] MEDS: OLANZapine 2.5 MG TABLET PO ×2 (07:56→10:25)
[2024-04-19 08:29] LABS: Anion Gap 11 (12-20); Blood Urea Nitrogen 23 mg/dL (9-16); Calcium 8.6 mg/dL (8.4-10.2); Carbon Dioxide 22 mmol/L (22-29); Chloride 117 mmol/L (96-108); Creatinine Clr Calc Pharmacy 102.9; Estimated Glomerular Filt Rate > 60; Glucose Random 83 mg/dL (60-115); Potassium 3.2 mmol/L (3.3-5.1); Sodium 147 mmol/L (135-145)
--- NOTE | 2024-04-19 09:14 | P.CDIM_ITS ---
PROVIDER RESPONSE TEXT: To clarify, the appropriate diagnosis supported by the clinical indicators: Acute QUERY TEXT: PHYSICIAN'S DOCUMENTATION REQUEST Date of Query: 04/18/2024 06:34 AM EDT Patient Name: Joon Jerez Admit Date: 04/16/2024 Dear Rolan Mehta MD, A review of the medical record indicates additional documentation may be needed. Please review below and update the documentation accordingly. Clinical Indicators: LABS: lactic acid - 3.0 H H&P - Lactic acidosis resolved likely secondary to hypoxia, doubt Sepsis. Clarify which of the following accurately represents the acuity of the Lactic acidosis: Possible options might include: Acute Chronic Other (explain) Clinically unable to determine (explain) Thank you, Vanessa Sheikh, CCS, CDIS Use of terms such as suspected, likely, concern for, or probable (associated with a specific diagnosi s that is being evaluated, monitored, or treated as if it exists) are acceptable and can be coded in the inpatient se tting, when documented at the time of discharge. Please use your independent medical judgment in providing your response. THIS QUERY IS PART OF THE PERMANENT MEDICAL RECORD
--- NOTE | 2024-04-19 09:14 | P.CDIM_ITS ---
PROVIDER RESPONSE TEXT: To clarify, the appropriate diagnosis supported by the clinical indicators: COPD not in exacerbation QUERY TEXT: PHYSICIAN'S DOCUMENTATION REQUEST Date of Query: 04/18/2024 06:28 AM EDT Patient Name: Joon Jerez Admit Date: 04/16/2024 Dear Rolan Mehta MD, A review of the medical record indicates additional documentation may be needed. Please review below and update the documentation accordingly. Clinical Indicators: ED: Shortness of breath, History of hypoxia, COPD on 2 liters home O2. Patient experiencing cough and increased agitation during the day. Given Ativan to calm calm and soon became somnolent and hypoxic. Albuterol RR 23 Placed on 4 liters NC Based on the above, could you clarify any specifics to the COPD: COPD exacerbation possible, probable, suspected, resolving etc. COPD not in exacerbation Other (explain) Clinically unable to determine (explain) Thank you, Vanessa Sheikh, CCS, CDIS Use of terms such as suspected, likely, concern for, or probable (associated with a specific diagnosi s that is being evaluated, monitored, or treated as if it exists) are acceptable and can be coded in the inpatient se tting, when documented at the time of discharge. Please use your independent medical judgment in providing your response. THIS QUERY IS PART OF THE PERMANENT MEDICAL RECORD
[2024-04-19] MEDS: LORazepam 0.5 MG TABLET PO (10:13)
[2024-04-19] MEDS: Potassium Chloride/H20 10 MEQ/100 ML PIGGYBACK 100 MEQ IV (10:16)
[2024-04-19] MEDS: KCl 20 mEq in 5 % Dextrose 20 MEQ/1,000 ML IV.SOLN 125 MEQ IVCONT (10:16)
[2024-04-19 13:12] LABS: Anion Gap 13 (12-20); Blood Urea Nitrogen 21 mg/dL (9-16); Calcium 8.7 mg/dL (8.4-10.2); Carbon Dioxide 20 mmol/L (22-29); Chloride 116 mmol/L (96-108); Creatinine Clr Calc Pharmacy 96.1; Estimated Glomerular Filt Rate > 60; Glucose Random 148 mg/dL (60-115); Potassium 3.7 mmol/L (3.3-5.1); Sodium 145 mmol/L (135-145)
--- NOTE | 2024-04-19 13:46 | P.DS_ITS ---
DS: Providers Provider Date of Service: 04/19/24 Date of admission: 04/16/24 02:46 Date of discharge: 04/19/24 Primary care physician: Clay Goldman MD Consults: 04/16/24 06:35 Consult to Urology Routine Consulting Provider: [facility] Reason for consultation: Urinary retention,unable to place Salguero Has provider been notified: No DS: Diagnosis Discharge Diagnosis (1) Decreased level of consciousness: Status: Acute (2) Multifocal pneumonia: Status: Acute (3) Acute and chronic respiratory failure: Status: Acute (4) Urinary retention: Status: Acute (5) Hypoxia: Status: Acute (6) Acute hypernatremia: Status: Acute (7) Acute hypokalemia: Status: Acute DS: Summary Hospital Course Hospital Course: Admission note MONTY Jerez is a 72 years old man with past medical history significant for dementia, major depressive disorder, COPD on home O2 2L/min, essential hypertension, paroxysmal atrial fibrillation and abdominal aortic aneurysm was brought to the emergency department due to altered mental status after receiving Ativan IV. It seems like the patient was agitated during the day. HPI was obtained from ED provider. The patient also was noted to have low O2 saturation and now on 4 liters/minutes supplemental oxygen. In the ED, he was found to have stable vital signs. His O2 saturation is adequate and currently requiring 4 L/min supplemental oxygen via NC. Blood workup was significant for leukocytosis of 18.5. Hemoglobin and platelets are normal. There are no significant electrolyte imbalances. BUN is 27 and creatinine 1.15. Glucose is 138. Lactic acid was initially 2.6 --> 2.1. Troponin is negative. BNP is 17. Venous blood gas showed pH of 7.5 and CO2 is 29. Viral testing is negative for influenza, RSV and COVID-19. Head CT scan showed no acute intracranial pathology an old right frontal infarct. CXR showed patchy right mid to lower lung field and left lung base infiltrate change concerning for developing multifocal pneumonia and emphysema. ECG showed normal sinus rhythm with bifascicular hemiblock. Med list from nursing facility indicates patient was given olanzapine and divalproex at 4:37 PM.ED tx: DuoNeb, prednisone 60 mg p.o., NS 1 L bolus, doxycycline 100 mg IV. Hospital course The patient was admitted to the hospital for treatment of Acute on chronic hypoxic respiratory failure due to pneumonia complicated by acute metabolic encephalopathy due to acute hospital delirium and toxic encephalopathy from sedatives. He was treated with IV Unasyn as CXR was concerning for possible aspiration pneumonia. He diet was restarted after evaluation by speech therapy team on NDD1 with [place] thick liquids as he became more alert and interactive. He needs assistance with food. blood cultures remained negative and he was weaned down O2 to 2L which is his baseline. He required few extra doses of Zyprexa for agitation which improved and became less restless. - Hx BPH with urine retention, Urology placed a Salguero, for OP voiding trials , continue Finasteride - Vascular and Alzheimer's dementia, Discussed with patient's healthcare proxy, daughter Candi [phone], at baseline patient is able to feed self, does not recognize family but is conversational, is able to ambulate with assistive device. Goals of care currently to continue conservative care only and [facility], with a do not transfer order. - COPD with chronic hypoxic respiratory failure, back to baseline 2L at assisted Discharge plan Continue Augmentin for 5 more days Wean O2 down as tolerated Voiding trials and remove Salguero at facility Speech therapy follow up and NDD1 with [place] thick liquids diet for now with complete assistance Time Attestation Discharge Coordination Time (in mins): 39 Quality: Safe Use of Opioids Does Pt have an Active Cancer Diagnosis on the Problem List?: No Quality: Stroke Does the patient have a stroke diagnosis?: No Physical Exam Vital Signs: Vital Signs: Last Vital Signs Temp 97.0 F 04/19/24 07:22 Pulse 86 04/19/24 07:22 Resp 20 04/19/24 07:22 BP 140/80 H 04/19/24 07:38 Pulse Ox 94 04/19/24 07:22 O2 Del Method Nasal Cannula 04/19/24 07:22 O2 Flow Rate 2 04/19/24 07:22 BMI result Body Mass Index 30.7 Const: Other: Constitutional : open eyes to verbal stimuli and answer questions, tolerating diet, confused , not in distress Cardiovascular : no JVP, no lower extremity edema Respiratory : bilateral chest movement, not in resp distress, basal fine crackles Gastrointestinal: soft, lax, Non tender Skin : Warm, Dry Neurological : Alert and interactive, disoriented , No focal deficit DS: Data Data Completed and Pending Completed studies during hospitalization [Text1]: Procedures Drainage of Bladder with Drainage Device, Via Natural or Artificial Opening (1 ) Labs on day of discharge: Laboratory Results - last 24 hr 04/19/24 04/19/24 05:58 12:26 WBC 6.9 RBC 4.34 L Hgb 13.3 L Hct 40.1 L MCV 92.4 MCH 30.6 MCHC 33.2 RDW 13.1 Plt Count 230 MPV 10.0 Absolute Nucleated RBC 0.000 Nucleated RBC % (auto) 0.0 Sodium 147 H 145 Potassium 3.2 L 3.7 Chloride 117 H 116 H Carbon Dioxide 22 20 L Anion Gap 11 L 13 BUN 23 H 21 H Creatinine 0.70 0.75 Estim Creat Clear Calc 102.9 96.1 Estimated GFR > 60 > 60 Random Glucose 83 148 H Calcium 8.6 8.7 Preliminary micro results at discharge 04/16/24 02:30 Blood Culture - Preliminary Blood - Venous No growth after 48 hours. 04/16/24 02:10 Blood Culture - Preliminary Blood - Venous No growth after 48 hours. Imaging Chest x-ray: Radiologist's impression: ITS Impressions Chest X-Ray 04/16/24 00:00 IMPRESSION: 1. Patchy right mid to lower lung field and left lung base infiltrative change concerning for developing multifocal pneumonia. Correlation needed as chronic change also considered. 2. Emphysema. Electronically signed by: Morgan Gee MD 04/16/2024 01:33 AM EDT RP Head CT 04/16/24 01:25 IMPRESSION: 1. No acute intracranial pathology. 2. Old right frontal infarct. 3. Sphenoid sinus disease and small right mastoid effusion of uncertain acuity and current significance. Electronically signed by: Morgan Gee MD 04/16/2024 02:39 AM EDT RP Discharge Plan Discharge Anticipated Discharge Date/Time: 04/19/24 13:41 Patient Disposition: er [facility] Discharge Diagnosis: Pneumonia Hypoxia Referrals: [facility] [Outside] - 1 Week Clay Goldman MD [Primary Care Provider] - 1 Week Discharge Medications: New amoxicillin-pot clavulanate 400-57 mg/5 mL suspension for reconstitution 10 ml PO BID Qty: 100 0RF Continued Eliquis 5 mg tablet 1 tab PO BID trazodone 50 mg Tablet 50 mg PO BEDTIME aspirin 81 mg Tablet,Delayed Release (Dr/Ec) 81 mg PO DAILY docusate sodium [Colace] 100 mg Capsule 100 mg PO DAILY loratadine 10 mg Tablet 10 mg PO DAILY cholecalciferol (vitamin D3) [Vitamin D3] 25 mcg (1,000 unit) Tablet 25 mcg PO DAILY tamsulosin 0.4 mg Capsule 0.4 mg PO DAILY Qty: 30 0RF thiamine HCl (vitamin B1) 100 mg Tablet 100 mg PO DAILY sennosides 8.8 mg/5 mL Syrup 8.8 mg PO BEDTIME spironolactone 25 mg Tablet 25 mg PO DAILY folic acid 1 mg Tablet 1 mg PO DAILY finasteride 5 mg Tablet 5 mg PO DAILY lactulose 10 gram/15 mL Solution 10 g PO DAILY PRN (Reason: Constipation) hydrochlorothiazide 12.5 mg Capsule 12.5 mg PO DAILY acetaminophen 325 mg Tablet 650 mg PO Q6H PRN (Reason: pain/fever) guaifenesin 100 mg/5 mL Liquid 100 mg PO Q6H PRN (Reason: Cough) lorazepam 0.5 mg Tablet 0.5 mg PO Q6H PRN (Reason: Anxiety) fluticasone propionate 50 mcg/actuation [place],Suspension 1 spray INTRANASAL DAILY PRN (Reason: Congestion) Rx Instructions: administer into each nostril ipratropium-albuterol 0.5 mg-3 mg(2.5 mg base)/3 mL Solution For Nebulization 3 ml INHALATION Q4H PRN (Reason: Shortness Of Breath Or Wheezing) olanzapine 2.5 mg Tablet 2.5 mg PO BID divalproex 125 mg tablet,delayed release (DR/EC) 125 mg PO BID nystatin 100,000 unit/gram powder 1 appl topical BID PRN (Reason: Rash) olanzapine 2.5 mg Tablet 2.5 mg PO DAILY PRN (Reason: Agitation) Discharge Orders: Discharge Order (Routine); Ordered 04/19/24 Ordered By: Rolan Mehta Diet: Advance to usual diet Activity on Discharge: NDD1 w [place] thick liquid Stand Alone Forms: Patient Portal Discharge page Print Language: Maori Care Plan Goals: Continue Augmentin for 5 more days Wean O2 down as tolerated Voiding trials and remove Salguero at facility Health Concerns: Pneumonia Plan of Treatment: Antibiotics Salguero catheter Assessment: as above
--- NOTE | 2024-04-19 13:56 | MHC.SL.SWA ---
Speech Pathologist Impression:Risk of aspiration, oropharyngeal dysphagia Risk of Aspiration Due to: Currently Intubated History of Pneumonia Reduced Cognition Dysphasia Diet Status: Mild to moderate oral pharyngeal dysphagia, recommend continue diet of PUREE with NECTAR THICK liquid by tsp or controlled cup, pills crushed in puree, 1-1 feeding. Liquid Consistency and Strategies for Safe Swallow: Liquid Intake Recommendation: [place] Thick Liquid Intake Strategies: Small Sips No Straws Solid Food Consistency: Dietary Recommendations: Pureed (NDD1) Additional Modifications to Solid Foods: Patient at the moment requires a one to one feed. Do not attempt if patient continues to be excessively lethargic. Discontinue if patient cannot sustain attention to meal (waxes into lethargy/sleep). Oral Medication Intake: Crushed with Puree Please contact the pharmacy regarding appropriate crushable or liquid drug formulations that are available whenever modified delivery is recommended. Compensatory Strategies and Precautions to be Taken for Safe Swallow: Sitting Upright (90 deg) No Straw Small Bites and Sips Alternate Liquids/Solids Rate of Ingestion Change Oral Check Supervision While Eating and Drinking for Safe Swallow: Total Assistance (1:1) Swallowing Recommended Treatments: Compens. Strategy Educat. Recommendation for Speech: Further Testing Needed Inpatient Speech Therapy Banquet Chef Clinican/Clinical Fellow: No Supervisory Statement: I have reviewed and agree with the student/clinical fellow's documentation: N/A Speech Language Pathologist: Maureen Ac M.A., [facility] [employer]
--- NOTE | 2024-04-19 14:06 | MHC.CM.PN ---
Patient has been medically cleared for dc today, to return to LTC @ [facility]; Patient will return today at 4:30 PM, via [facility]. KAMILLE spoke with Kashmir from [facility] @ [phone], who approved Patient's return today at 4:30 PM. KAMILLE spoke with Daughter/HCP/Candi @ [phone] and addressed IMM with her (original will be mailed certified letter to Candi and a copy has been placed on the chart).
--- NOTE | 2024-04-19 15:04 | MHC.CM.PN ---
CM has faxed the signed dc summary to the 3 numbers provided by [facility] ([phone], , ).
[2024-04-19 15:58] VITALS: BP 118/56; PULSE 88; RESP 20; TEMP 36.3; O2SAT 93
== END 2024-04-19 17:45 | DRG 193 ==
LOC: HO.ED 04-16 02:37 → HO.EDOVER 04-16 02:51 → HO.IMC 04-17 09:36
PROVIDERS: Internal Medicine; Admitting Provider Internal Medicine; Emergency Provider Student in an Organized Health Care Education/Training Program; PCP Internal Medicine Interventional Cardiology; Visit Provider Student in an Organized Health Care Education/Training Program
DX: J18.9 Pneumonia, unspecified organism (principal); G92.8 Other toxic encephalopathy; J44.0 Chronic obstructive pulmonary disease with (acute) lower respiratory infection; F02.818 Dementia in other diseases classified elsewhere, unspecified severity, with other behavioral disturbance; F05 Delirium due to known physiological condition; F01.518 Vascular dementia, unspecified severity, with other behavioral disturbance; Z66 Do not resuscitate; N40.1 Benign prostatic hyperplasia with lower urinary tract symptoms; R33.8 Other retention of urine; T42.75XA Adverse effect of unspecified antiepileptic and sedative-hypnotic drugs, initial encounter; Z78.1 Physical restraint status; G30.9 Alzheimer's disease, unspecified; J69.0 Pneumonitis due to inhalation of food and vomit; Z99.81 Dependence on supplemental oxygen; I48.0 Paroxysmal atrial fibrillation; Z20.822 Contact with and (suspected) exposure to COVID-19; Z79.01 Long term (current) use of anticoagulants; Z79.82 Long term (current) use of aspirin; Z79.899 Other long term (current) drug therapy
CPT/HCPCS: 0241U; 36415; 70450; 71045; 80048; 80053; 80076; 80307; 81001; 82140; 82803; 83605; 83735; 83880; 84484; 85025; 85027; 87040; 87086; 92526; 92610; 93005; 94640; 99285; C1758; J0131; J0295; J0696; J1630; J1644; J2003; J2060; J2359; J3480; J7120

== ENCOUNTER → 2024-04-15 23:11 | Outpatient (BNV) | payer MEDICARE, SELFPAY | PROVIDERS: Admitting Provider Internal Medicine; Emergency Provider Student in an Organized Health Care Education/Training Program; Visit Provider Internal Medicine | DX: R06.02 Shortness of breath (principal); I45.2 Bifascicular block; R94.31 Abnormal electrocardiogram [ECG] [EKG] | CPT/HCPCS: 93010 ==

== ENCOUNTER → 2024-04-16 02:46 | Outpatient (BNV) | payer MEDICARE, SELFPAY | PROVIDERS: Admitting Provider Internal Medicine; Emergency Provider Student in an Organized Health Care Education/Training Program; PCP Internal Medicine Interventional Cardiology; Visit Provider Urology | DX: R33.9 Retention of urine, unspecified (principal); N47.1 Phimosis | CPT/HCPCS: 51702; 99222 ==

== ENCOUNTER → 2024-04-16 02:46 | Outpatient (BNV) | payer MEDICARE, SELFPAY | PROVIDERS: Admitting Provider Internal Medicine; Emergency Provider Student in an Organized Health Care Education/Training Program; Visit Provider Internal Medicine | DX: R41.89 Other symptoms and signs involving cognitive functions and awareness (principal); J18.9 Pneumonia, unspecified organism; J96.21 Acute and chronic respiratory failure with hypoxia; R33.9 Retention of urine, unspecified; E87.0 Hyperosmolality and hypernatremia; E87.6 Hypokalemia | CPT/HCPCS: 99223; 99232; 99239; 99499 ==

== ENCOUNTER 2024-04-22 05:59 | Outpatient (REF) | payer MEDICARE, SELFPAY ==
[2024-04-22 06:11] LABS: MANUAL DIFF FLAG NO
[2024-04-22 06:16] LABS: Basophils Percent Auto 0.4 % (0-2); Eosinophils Absolute Auto 0.6 X10*3/uL (0.0-0.4); Eosinophils Percent Auto 8.6 % (0-4); Hematocrit 39.7 % (42.0-52.0); Hemoglobin 13.3 g/dl (14.0-18.0); Imm Gran Abs Auto 0.04 X10*3/uL (0.00-0.03); Imm Gran Pct Auto 0.6 % (0.0-0.4); Lymphocytes Absolute Auto 1.3 X10*3/uL (1.2-4.9); Lymphocytes Percent Auto 18.2 % (20-40); Mean Corpuscular HGB Conc 33.5 g/dl (31.0-36.0); Mean Corpuscular Hemoglobin 30.2 pg (27.0-33.0); Mean Platelet Volume 9.8 fL (9.4-12.4); Monocytes Absolute Auto 0.5 X10*3/uL (0.1-1.2); Neutrophils Absolute Auto 4.5 x10*3/uL (2.0-8.3); Neutrophils Percent Auto 65.2 % (45-73); Platelet Count 220 X10*3/uL (160-400); Red Blood Count 4.41 X10*6/uL (4.60-5.80); Red Cell Distribution Width 13.3 % (11.0-16.0); White Blood Count 6.9 X10*3/uL (4.8-10.8)
[2024-04-22 06:29] LABS: Anion Gap 11 (12-20); Blood Urea Nitrogen 10 mg/dL (9-16); Calcium 8.5 mg/dL (8.4-10.2); Carbon Dioxide 25 mmol/L (22-29); Chloride 111 mmol/L (96-108); Estimated Glomerular Filt Rate > 60; Glucose Random 91 mg/dL (60-115); Potassium 3.1 mmol/L (3.3-5.1); Sodium 144 mmol/L (135-145)
== END 2024-04-22 06:00 | disposition home or self-care (01) ==
LOC: HO.HSH1N 05:59
PROVIDERS: Visit Provider Internal Medicine Interventional Cardiology
DX: I10 Essential (primary) hypertension (principal); J18.9 Pneumonia, unspecified organism; M62.838 Other muscle spasm
CPT/HCPCS: 36415; 80048; 82550; 85025

== ENCOUNTER 2024-04-26 05:44 | Outpatient (REF) | payer MEDICARE, SELFPAY ==
[2024-04-26 06:16] LABS: Anion Gap 14 (12-20); Carbon Dioxide 25 mmol/L (22-29); Chloride 104 mmol/L (96-108); Sodium 139 mmol/L (135-145)
== END 2024-04-26 05:45 | disposition home or self-care (01) ==
LOC: HO.HSH1N 05:44
PROVIDERS: Visit Provider Internal Medicine Interventional Cardiology
DX: E87.6 Hypokalemia (principal)
CPT/HCPCS: 36415; 80051

== ENCOUNTER 2024-05-07 06:35 | Outpatient (REF) | payer MEDICARE, SELFPAY ==
[2024-05-07 07:01] LABS: Anion Gap 18 (12-20); Blood Urea Nitrogen 13 mg/dL (9-16); Calcium 9.6 mg/dL (8.4-10.2); Carbon Dioxide 19 mmol/L (22-29); Chloride 102 mmol/L (96-108); Estimated Glomerular Filt Rate > 60; Glucose Random 108 mg/dL (60-115); Potassium 4.2 mmol/L (3.3-5.1); Sodium 135 mmol/L (135-145)
== END 2024-05-07 06:36 | disposition home or self-care (01) ==
LOC: HO.HSH1N 06:35
PROVIDERS: Visit Provider Internal Medicine Interventional Cardiology
DX: D64.9 Anemia, unspecified (principal)
CPT/HCPCS: 36415; 80048

== ENCOUNTER 2024-07-27 11:48 | Outpatient (REF) | payer MEDICARE, SELFPAY ==
--- OUTSIDE RECORDS SUMMARY | 2024-07-27 11:50 | XMS_ITS | Encounter Summary ---
Author Organization [employer] Address [address] [place] [address] [place] [address] Care Team Providers Care Caster Helper Name Role Phone Unavailable Primary Care Provider Unavailabl e Encounter Details Date Type Department Care Team (Late Contact Info) Description 08/02/2023 Abstract [facility] [address] [place] [address] Dionte Gaytan, DMD [address] [place] [address] Social History Tobacco Use Types Packs/Day Years Used Date Smoking Tobacco: Former Cigarettes 1.5 20 Passive Smoke Exposure: Never Smokeless Tobacco: Never Alcohol Use Standard Drinks/Week Comments Defer 0 (1 standard drink = 0.6 oz pur e alcohol) Sex and Gender Information Value Date Recorded Sex Assigned at Male 05/02/2022 10:35 AM EDT Legal Sex Male 10:35 AM EDT Gender Identity Male 05/02/2022 10:35 AM EDT Sexual Orientation Straight 05/02/2022 10 :35 AM EDT documented as of this encounter Plan of Treatment Upcoming Encounters Date Type Department Care Team ([facility] Contact Info) Description 08/28/2024 10:00 AM EST Office Visit [facility] [address] [place] [address] Dionte Gaytan, DMD [address] [place] [address] documented as of this encounter Visit Diagnoses Not on filedocumented in this encounter
--- OUTSIDE RECORDS SUMMARY | 2024-07-27 11:50 | XMS_ITS | Clinical Summary ---
Author Organization [employer] Address [address] [facility] 7[address] [place] [address] Care Team Providers Care Pipe Coverer And Insulator Name Role Phone Unavailable Primary Care Provider Unavailabl e Allergies No known active allergies Medications Eliquis 5 MG tablet 3 Active atorvastatin (Lipitor) 10 MG tablet 3 Active cefuroxime (Ceftin) 250 MG tablet 2 Active divalproex (Depakote) 500 MG EC tablet 3 Active finasteride (Proscar) 5 MG tablet 3 Active hydroCHLOROthia zide (Microzide) 12.5 MG capsule 3 Active lisinopril 10 MG tablet 2 Active LORazepam (Ativan) 0.5 MG tablet 3 Active QUEtiapine (SEROquel) 50 MG tablet 100 mg. 3 Active sertraline (Zoloft) 50 MG tablet 2 Active spironolactone (Aldactone) 25 MG tablet 3 Active traZODone (Desyrel) 50 MG tablet 3 Active aspirin 81 MG EC tablet Take 1 tablet by mouth in the morning. 5 Active cholecalciferol (Vitamin D-3) 50 MCG (1999) tablet Take 1 tablet by mouth in the morning. 6 Active Docusate Sodium (DSS) 100 MG capsule Take 1 capsule by mouth in the morning. 1 Active folic acid (Folvite) 1 MG tablet Take 1 mg by mouth in the morning. Active hydroCHLOROthia zide (HYDRODiuril) 25 MG tablet Take 1 tablet by mouth in the morning. 1 Active loratadine (Claritin) 10 MG tablet Take 1 tablet by mouth in the morning. 1 Active metoprolol tartrate (Lopressor) 25 MG tablet 12.5 mg. 1 Active QUEtiapine (SEROquel) 25 MG tablet Take 100 mg by mouth 3 times daily. 3 Active tamsulosin (Flomax) 0.4 MG 24 hr capsule 3 Active traZODone (Desyrel) 100 MG tablet 50 mg. 9 Active acetaminophen (Tylenol) 325 MG tablet Take 650 mg by mouth every 6 (six) hours if needed for mild pain. Active fluticasone (Flonase) 50 MCG/ACT nasal spray Administer 2 sprays into each nostril in the morning. Shake gently. Before first use, prime pump. After use, clean tip and replace cap. Active magnesium hydroxide (Milk of Magnesia) 400 MG/5ML suspension Take 30 mL by mouth if needed at bedtime for constipation. Active lactulose (Chronulac) 10 GM/15ML solution Take 20 g by mouth 3 times daily. Active senna (Senokot) 8.8 MG/5ML syrup Take by mouth at bedtime. Active thiamine (Vitamin B-1) 100 MG tablet Take 100 mg by mouth Once per day. Active sodium chloride 0.9 % nebulizer solution with albuterol (5 MG/ML) 0.5% nebulizer solution 0.6 mg/mL Take by nebulization continuously. Active guaiFENesin (Robitussin) 100 MG/5ML syrup Take 200 mg by mouth if needed in the morning, at noon, and at bedtime for cough. Active Active Problems No known active problems Encounters Date Type Department Care Team Description 06/12/2024 10:30 AM EST Office Visit [facility] [address] [place] [address] Micheline [place] 05/22/2024 1:45 PM EST Office Visit [facility] [address] [place] [address] Micheline [place] from Last 3 Months Social History Tobacco Use Types Packs/Day Years Used Date Smoking Tobacco: Former Cigarettes 1.5 20 Passive Smoke Exposure: Never Smokeless Tobacco: Never Tobacco Cessation:Counseling Given: Not Answered Alcohol Use Standard Drinks/Week Comments Defer 0 (1 standard drink = 0.6 oz pur e alcohol) Sex and Gender Information Value Date Recorded Sex Assigned at Male 05/02/2022 10:35 AM EDT Legal Sex Male 10:35 AM EDT Gender Identity Male 05/02/2022 10:35 AM EDT Sexual Orientation Straight 05/02/2022 10 :35 AM EDT Last Filed Vital Signs Vital Sign Reading Time Taken Comments Blood Pressure 122/70 11/23/2022 1:16 PM EDT Pulse 68 11/23/2022 1:16 PM EDT Temperature - - Respiratory Rate - - Oxygen Saturation - - Inhaled Oxygen Concentration - - Weight - - Height - - Body Mass Index - - Plan of Treatment Upcoming Encounters Date Type Department Care Team (Late st Contact Info) Description 08/28/2024 10:00 AM EST Office Visit [facility] [address] [place], [place] [phone] Dionte Gaytan, DMD [address] [place], [place] [phone] Health Maintenance Due Date Last Done Comments Dental X-Ray: Full Mouth 1945 Depression Screening 1945 Lipid Panel 1945 SDOH Screening 1945 Alcohol/Substance Use Screening 1957 Hepatitis C Screening 1963 Zoster Vaccines (3 of 3) 09/06/2019 07/12/2019, 0610/2016 RSV Patients and Patients Aged 60 years or older (1 - 1-dose 75+ series) 01/22/2020 Dental X-Ray: Bitewings 11/25/2023 11/23/2022 COVID-19 Vaccine (1 - 2023- season) 2024 Influenza Vaccine (#1) 2024 9, 04/06/2018, 09/05/2017, Additional history exists Dental Oral Exam 06/08/2024 12/07/2023, 07/2022, 12/07/2022 DTaP/Tdap/Td Vaccines (2 - Td or Tdap) 08/26/2024 08/26/2014, 12/01/2012 Dental Prophylaxis 12/12/2024 06/12/2024, 0 12/22/2023, 04/26/2023, Additional history exists Tobacco Screening 06/12/2025 06/12/2024 Hepatitis A Vaccines Aged Out 05/21/2015 No long er eligible based on patient's age to complete this topic Pneumococcal Vaccine: 65+ Years Completed 05/20/2016, 05/21/2015 HIB Vaccines Aged Out No longer eligi ble based on patient's age to complete this topic HPV Vaccines Aged Out No longer eligi ble based on patient's age to complete this topic Hepatitis B Vaccines Aged Out No long er eligible based on patient's age to complete this topic IPV Vaccines Aged Out No longer eligi ble based on patient's age to complete this topic Meningococcal Vaccine Aged Out No xena saul eligible based on patient's age to complete this topic RSV under 20 months Aged Out No longe r eligible based on patient's age to complete this topic Rotavirus Vaccines Aged Out No longer eligible based on patient's age to complete this topic Procedures Procedure Name Priority Date/Time Associated Diagnosis Comments TOPICAL APPLICATION OF FLUORIDE VARNISH Routine 06/12/2024 10:30 AM EST PROPHYLAXIS - ADULT Routine 06/12/2024 1 0:30 AM EST PERIODIC ORAL EVALUATION - ESTABLISHED PATIENT Routine 12/07/2023 11:30 AM EDT BITEWINGS - 4 RADIOGRAPHIC IMAGES Routine 11/23/2022 1:00 PM EDT from Last 3 Months or Most Recently Relevant to Health Maintenance
--- OUTSIDE RECORDS SUMMARY | 2024-07-27 11:50 | XMS_ITS | Encounter Summary ---
Author Organization [employer] Address [address] [place] [address] [place] [address] Care Team Providers Care Pastry Artist Name Role Phone Unavailable Primary Care Provider Unavailabl e Encounter Details Date Type Department Care Team (Late Contact Info) Description 08/02/2023 Abstract [facility] [address] [place] [address] Dionte Gaytan, DMD [address] [place] [address] Social History Tobacco Use Types Packs/Day Years [...] Upcoming Encounters Date Type Department Care Team ([facility] Contact Info) Description 08/28/2024 10:00 AM EST Office Visit [facility] [address] [place] [address] Dionte Gaytan, DMD [address] [place] [address] documented as of this encounter Visit Diagnoses Not on filedocumented in this encounter
[2024-07-27 12:05] LABS: Appearance Urine Turbid; UMIC TRIGGER UA YES; Urine Blood Large (3+) (Negative)
[2024-07-27 12:11] LABS: Color Urine RED
[2024-07-27 12:16] LABS: Bacteria Urine None Seen (None Seen); Hyaline Casts Urine 0-2 /LPF (0-2); RBC Urine >20 /HPF (0-2); Squamous Epithelial Cell Urine 0-2 /HPF (0-2); WBC Urine 21-50 /HPF (0-5)
== END 2024-07-27 11:49 | disposition home or self-care (01) ==
LOC: HO.HSH1N 11:48
PROVIDERS: Visit Provider Internal Medicine Interventional Cardiology
DX: R31.9 Hematuria, unspecified (principal)
CPT/HCPCS: 81001; 81003

== ENCOUNTER 2024-09-10 16:55 | Outpatient (REF) | payer MEDICARE, SELFPAY ==
[2024-09-10 17:08] LABS: Appearance Urine Clear; Color Urine Yellow; Glucose Urine UA Negative (Negative); Leukocyte Esterase Urine Trace (Negative); Nitrite Urine Negative (Negative); PH 6.5 (5.0-9.0); Specific Gravity - Urine 1.015 (1.005-1.025); UMIC TRIGGER UACC YES; Urine Blood Negative (Negative); Urine Ketones Negative (Negative); Urine Protein Negative (Neg-Trace)
[2024-09-10 17:52] LABS: Bacteria Urine None Seen (None Seen); Hyaline Casts Urine 0-2 /LPF (0-2); RBC Urine 0-2 /HPF (0-2); Squamous Epithelial Cell Urine 0-2 /HPF (0-2); WBC Urine 0-5 /HPF (0-5)
--- OUTSIDE RECORDS SUMMARY | 2024-09-10 19:30 | XMS_ITS | Encounter Summary ---
Author Organization [employer] Address [address] [facility] 7 [place] [address] Care Team Providers Care Crop Supervisor Name Role Phone Unavailable Primary Care Provider Unavailabl e Encounter Details Date Type Department Care Team ([facility] Contact Info) Description 08/02/2023 Abstract [facility] [address] [place] [address] Dionte Gaytan DMD [address] [place] [address] Social History Tobacco Use Types Packs/Day Years [...] Upcoming Encounters Date Type Department Care Team ([facility] Contact Info) Description 09/18/2024 11:00 AM EDT Office Visit [facility] [address] [place] [address] Micheline [place] [address] [place] [address] documented as of this encounter Visit Diagnoses Not on filedocumented in this encounter
--- OUTSIDE RECORDS SUMMARY | 2024-09-10 19:30 | XMS_ITS | Encounter Summary ---
Author Organization [employer] Address [address] [facility] 7 [place] [address] Care Team Providers Care Loan Examiner Name Role Phone Unavailable Primary Care Provider Unavailabl e Reason for Visit * Reason Comments Dental Exam X- ray Encounter Details Date Type Department Care Team (Late st Contact Info) Description 08/28/2024 11:15 AM EST Office Visit [facility] [address] [place] [address] Dionte Gaytan DMD [address] [place], [place] [phone] Social History Tobacco Use Types Packs/Day Years [...] AM EDT documented as of this encounter Progress Notes * Dionte Gaytan DMD - 08/28/2024 11:15 AM EST C/C: dental exam I.O.E: erythematous and edematous gingiva, gen plaque and calculus accumulation, multiple cervical abfarction teeth, multiple furcation involved teeth, gen advanced periodontal bone loss E.O.E: wnl OCS: wnl Head and neck: wnl Radiographic: gen moderate to localized advanced periodontal bone loss, gen calculus accumulation, furcation involved molars Dx: gen chronic moderate to localized advanced periodontitis, furcation involved molars, multiple cervical abfarction teeth Tx: prophy, recall exam, monitor multiple cervical abfarction teeth [place] documented in this encounter Plan of Treatment Upcoming Encounters Date Type Department Care Team (Late st Contact Info) Description 09/18/2024 11:00 AM EDT Office Visit [facility] [address] [place] [address] Micheline Houston [address] [place] [address] Scheduled Orders Name Type Priority Associated Diagnoses Orde r Schedule PROPHYLAXIS - ADULT Dental Routine 1 Occ urrences starting 08/28/2024 documented as of this encounter Procedures Procedure Name Priority Date/Time Associated Diagnosis Comments PERIODIC ORAL EVALUATION - ESTABLISHED PATIENT Routine 08/28/2024 11:15 AM EST INTRAORAL - COMPLETE SERIES OF RADIOGRAPHIC IMAGES Routine 08/28/2024 11:15 AM EST documented in this encounter Visit Diagnoses Not on filedocumented in this encounter
--- OUTSIDE RECORDS SUMMARY | 2024-09-10 19:30 | XMS_ITS | Encounter Summary ---
Author Organization [employer] Address [address] [facility] 7 [place] [address] Care Team Providers Care Roofing Contractor Name Role Phone Unavailable Primary Care Provider Unavailabl e Encounter Details Date Type Department Care Team (Latest Contact Info) Description 12/02/2020 Abstract [facility] CONVERSIONS Dental, Provider, DDS Social History Tobacco Use Types Packs/Day Years Used Date Smoking Tobacco: Never Assessed Sex and Gender Information Value Date Recorded Sex Assigned at Male 05/02/2022 10:35 AM EDT Legal Sex Male 10:35 AM EDT Gender Identity Male 05/02/2022 10:35 AM EDT Sexual Orientation Straight 05/02/2022 10 :35 AM EDT documented as of this encounter Plan of Treatment Upcoming Encounters Date Type Department Care Team (Late st Contact Info) Description 09/18/2024 11:00 AM EDT Office Visit [facility] [address] [place] [address] Micheline Houston [address] [place] [employer], [place] [phone] documented as of this encounter Visit Diagnoses Not on filedocumented in this encounter
--- OUTSIDE RECORDS SUMMARY | 2024-09-10 19:30 | XMS_ITS | Clinical Summary ---
Author Organization [employer] Address [address] [facility] [address]t [place] [address] Care Team Providers Care Continuous Mining Machine Operator Name Role Phone Unavailable Primary Care Provider [...] at bedtime for cough. Active Active Problems Problem Noted Date Diagnosed Date Benign hypertension 08/28/2024 Chronic obstructive lung disease 08/28/2024 Dementia with behavioral disturbance 08/28/2024 Overview (08/28/2024): Apr 11, 2017 Entered By: SHERYL ALFARO Comment: diagnosis updated April 11, 2017 Jun 05, 2018 Entered By: SHERYL ALFARO Comment: diagnosis updated June 05, 2018 Hyperlipidemia 08/28/2024 Encounters Date Type Department Care Team Description 08/28/2024 11:15 AM EST Office Visit [facility] [address] [place] [address] Dionte Gaytan DMD 06/12/2024 10:30 AM EST Office Visit [facility] [address] [place] [address] Micheline Houston from Last 3 Months Social [...] 11:00 AM EDT Office Visit [facility] [address] [place] [address] Micheline Houston [address] [place] [address] Health Maintenance Due Date Last Done Comments Depression Screening 1945 Lipid Panel 1945 SDOH Screening 1945 Alcohol/Substance Use Screening 1957 Hepatitis C Screening 1963 Zoster Vaccines (3 of 3) 09/06/2019 07/12/2019, 10/2016 RSV Patients and Patients Aged 60 years or older (1 - 1-dose 75+ series) 01/22/2020 COVID-19 Vaccine ( - 2023- season) 2024 Influenza Vaccine (#1) 2024 9, 04/06/2018, 09/05/2017, Additional history exists DTaP/Tdap/Td Vaccines (2 - Td or Tdap) 08/26/2024 08/26/2014, 12/01/2012 Dental Prophylaxis 12/12/2024 06/12/2024, 0 12/22/2023, 04/26/2023, Additional history exists Dental Oral Exam 02/26/2025 08/28/2024, 12/2023, 05/03/2023, Additional history exists Tobacco Screening 08/28/2025 08/28/2024 Dental X-Ray: Bitewings 08/29/2025 08/28/2024, 11/23 Dental X-Ray: Full Mouth 08/29/2027 08/28/2024 Hepatitis A Vaccines Aged Out 05/21/2015 No long er eligible based on patient's age to complete this topic Pneumococcal Vaccine: 50+ Years Completed 05/20/2016, 05/21/2015 HIB Vaccines Aged [...] Procedure Name Priority Date/Time Associated Diagnosis Comments INTRAORAL - COMPLETE SERIES OF RADIOGRAPHIC IMAGES Routine 08/28/2024 11:15 AM EST PERIODIC ORAL EVALUATION - ESTABLISHED PATIENT Routine 08/28/2024 11:15 AM EST TOPICAL APPLICATION OF FLUORIDE VARNISH Routine 06/12/2024 10:30 AM EST PROPHYLAXIS - ADULT Routine 06/12/2024 1 0:30 AM EST from Last 3 Months
--- OUTSIDE RECORDS SUMMARY | 2024-09-10 19:30 | XMS_ITS | Encounter Summary ---
Author Organization [employer] Address [address] [facility] 7 [place] [address] Care Team Providers Care Draw Fire Operator Name Role Phone Unavailable Primary Care Provider Unavailabl e Encounter Details Date Type Department Care Team ([facility] Contact Info) Description 08/02/2023 Abstract [facility] [address] [place] [address] Dionte Gaytan DMD [address] [place] [address] Social History Tobacco Use Types Packs/Day Years [...] Upcoming Encounters Date Type Department Care Team ([facility] Contact Info) Description 09/18/2024 11:00 AM EDT Office Visit [facility] [address] [place] [address] Micheline Houston [address] [place] [address] documented as of this encounter Visit Diagnoses Not on filedocumented in this encounter
== END 2024-09-10 16:56 | disposition home or self-care (01) ==
LOC: HO.HSH1N 16:55
PROVIDERS: Visit Provider Internal Medicine Interventional Cardiology
DX: R41.82 Altered mental status, unspecified (principal)
CPT/HCPCS: 81001; 81003

== ENCOUNTER 2024-09-13 07:54 | Outpatient (REF) | payer MEDICARE, SELFPAY ==
[2024-09-13 08:02] LABS: MANUAL DIFF FLAG NO
[2024-09-13 08:21] LABS: Basophils Absolute Auto 0.1 X10*3/uL (0.0-0.2); Basophils Percent Auto 0.8 % (0-2); Eosinophils Absolute Auto 0.6 X10*3/uL (0.0-0.4); Eosinophils Percent Auto 8.8 % (0-4); Hematocrit 37.6 % (42.0-52.0); Hemoglobin 12.7 g/dl (14.0-18.0); Imm Gran Abs Auto 0.02 X10*3/uL (0.00-0.03); Imm Gran Pct Auto 0.3 % (0.0-0.4); Lymphocytes Absolute Auto 1.6 X10*3/uL (1.2-4.9); Lymphocytes Percent Auto 24.1 % (20-40); Mean Corpuscular HGB Conc 33.8 g/dl (31.0-36.0); Mean Corpuscular Hemoglobin 30.9 pg (27.0-33.0); Mean Corpuscular Volume 91.5 fL (80.0-98.0); Mean Platelet Volume 10.7 fL (9.4-12.4); Monocytes Absolute Auto 0.8 X10*3/uL (0.1-1.2); Monocytes Percent Auto 11.3 % (2-11); Neutrophils Absolute Auto 3.6 x10*3/uL (2.0-8.3); Neutrophils Percent Auto 54.7 % (45-73); Platelet Count 227 X10*3/uL (160-400); Red Blood Count 4.11 X10*6/uL (4.60-5.80); Red Cell Distribution Width 14.2 % (11.0-16.0); White Blood Count 6.6 X10*3/uL (4.8-10.8)
[2024-09-13 08:49] LABS: Alanine Aminotransferase 11 U/L (0-40); Albumin Level 3.4 g/dL (3.5-5.0); Alkaline Phosphatase 91 U/L (39-117); Anion Gap 12 (12-20); Aspartate Amino Transferase 20 U/L (5-37); Bilirubin Total 0.5 mg/dL (0.0-1.0); Blood Urea Nitrogen 19 mg/dL (9-16); Calcium 8.8 mg/dL (8.4-10.2); Carbon Dioxide 23 mmol/L (22-29); Chloride 109 mmol/L (96-108); Estimated Glomerular Filt Rate > 60; Glucose Random 84 mg/dL (60-115); Magnesium 1.9 mg/dL (1.6-2.6); Sodium 140 mmol/L (135-145); Total Protein 7.4 g/dL (6.5-8.0)
[2024-09-13 09:05] LABS: Thyroid Stimulating Hormone 3.33 uIU/mL (0.32-4.0)
== END 2024-09-13 07:55 | disposition home or self-care (01) ==
LOC: HO.HSH1N 07:54
PROVIDERS: Visit Provider Internal Medicine Interventional Cardiology
DX: I10 Essential (primary) hypertension (principal); R60.9 Edema, unspecified
CPT/HCPCS: 36415; 80053; 83735; 84443; 85025

== ENCOUNTER 2024-09-23 07:38 | Outpatient (REF) | payer MEDICARE, SELFPAY ==
[2024-09-23 08:27] LABS: Valproate 20.9 mcg/mL (50.0-100.0)
== END 2024-09-23 07:39 | disposition home or self-care (01) ==
LOC: HO.HSH1N 07:38
PROVIDERS: Visit Provider Internal Medicine Interventional Cardiology
DX: Z79.899 Other long term (current) drug therapy (principal)
CPT/HCPCS: 36415; 80164

== ENCOUNTER 2025-01-02 13:21 | Outpatient (REF) | payer MEDICARE, SELFPAY ==
--- OUTSIDE RECORDS SUMMARY | 2025-01-02 13:31 | XMS_ITS | Encounter Summary ---
Author Organization [employer] Address [address] [place] [address] Care Team Providers Care Materials Handler Name Role Phone Unavailable Primary Care Provider Unavailabl e Encounter Details Date Type Department Care Team (Latest Contact Info) Description 12/02/2020 Abstract [facility] CONVERSIONS Dental, Provider, DDS Social History Tobacco [...] Care Team (Late st Contact Info) Description 01/08/2025 2:00 PM EDT Office Visit [facility] [address] [place] [address] Dionte Gaytan, JOVANA [address] [place] [address] documented as of this encounter Visit Diagnoses Not on filedocumented in this encounter
== END 2025-01-02 13:22 | disposition home or self-care (01) ==
LOC: HO.HSH1N 13:21
PROVIDERS: Visit Provider Internal Medicine Interventional Cardiology
DX: J40 Bronchitis, not specified as acute or chronic (principal)
CPT/HCPCS: 87070; 87077; 87185; 87205

== ENCOUNTER 2025-04-23 06:40 | Outpatient (REF) | payer MEDICARE, SELFPAY ==
[2025-04-23 06:42] LABS: MANUAL DIFF FLAG NO
[2025-04-23 07:01] LABS: Hematocrit 45.2 % (42.0-52.0); Hemoglobin 14.5 g/dl (14.0-18.0); Imm Gran Abs Auto 0.01 X10*3/uL (0.00-0.03); Imm Gran Pct Auto 0.1 % (0.0-0.4); Lymphocytes Absolute Auto 2.0 X10*3/uL (1.2-4.9); Mean Corpuscular HGB Conc 32.1 g/dl (31.0-36.0); Mean Corpuscular Hemoglobin 26.2 pg (27.0-33.0); Mean Corpuscular Volume 81.7 fL (80.0-98.0); NRBC Abs Auto 0.000 X10*3/uL (0.0-0.012); NRBC Pct Auto 0.0 /100WBC (0.0-0.2); Platelet Count 183 X10*3/uL (160-400); Red Blood Count 5.53 X10*6/uL (4.60-5.80); White Blood Count 7.2 X10*3/uL (4.8-10.8)
[2025-04-23 07:19] LABS: Alanine Aminotransferase 23 U/L (0-40); Albumin Level 3.4 g/dL (3.5-5.0); Alkaline Phosphatase 90 U/L (39-117); Anion Gap 11 (12-20); Aspartate Amino Transferase 28 U/L (5-37); Blood Urea Nitrogen 26 mg/dL (9-16); Calcium 8.7 mg/dL (8.4-10.2); Carbon Dioxide 25 mmol/L (22-29); Chloride 109 mmol/L (96-108); Estimated Glomerular Filt Rate > 60; Magnesium 2.1 mg/dL (1.6-2.6); Potassium 3.8 mmol/L (3.3-5.1); Sodium 141 mmol/L (135-145); Total Protein 6.5 g/dL (6.5-8.0)
[2025-04-23 07:33] LABS: Appearance Urine Clear; Glucose Urine UA Negative (Negative); PH 7.0 (5.0-9.0); Specific Gravity - Urine 1.020 (1.005-1.025); Thyroid Stimulating Hormone 2.76 uIU/mL (0.32-4.0)
== END 2025-04-23 06:41 | disposition home or self-care (01) ==
LOC: HO.HSH1N 06:40
PROVIDERS: Visit Provider Internal Medicine Interventional Cardiology
DX: N40.1 Benign prostatic hyperplasia with lower urinary tract symptoms (principal); J44.9 Chronic obstructive pulmonary disease, unspecified
CPT/HCPCS: 36415; 80053; 81003; 83735; 84443; 85025